=== PATIENT | male | born 1965 | race Caucasian/White ===

== ENCOUNTER 2018-11-04 08:19 | Emergency (ER) | payer OTHER ==
[2018-11-04] MEDS ORDERED: FENTANYL CITR 100 MCG/2 ML ONE (09:15)
[2018-11-04] MEDS ORDERED: NA CHLORIDE 0.9% 1,000 ML ONE (09:15)
[2018-11-04] MEDS ORDERED: ONDANSETRON 4 MG/2 ML VIAL ONE (09:15)
[2018-11-04 09:32] LABS: Absolute Lymphocytes (CBC) 1.9 K/uL (0.7-4.9); Absolute Monocytes 0.8 K/uL (0.1-1.3); Absolute Neutrophil 8.2 K/uL (1.8-8.0); Basophils % 0.3 % (0-1.3); Eosinophils % 1.4 % (0-4.4); Hematocrit 42.8 % (39.6-49.0); Lymphocytes % 17.1 % (15.3-44.8); MPV 7.4 fL (7.6-11.3); Monocytes % 7.1 % (3.3-12.3); RBC Red Blood Cell Count 4.75 M/uL (4.33-5.43)
[2018-11-04 09:44] LABS: Albumin 3.9 g/dL (3.4-5.0); Bilirubin Direct 0.2 mg/dL (0-0.2); Bilirubin Total 0.9 mg/dL (0.2-1.0); Potassium 4.2 mmol/L (3.5-5.1); Protein, Total 7.3 g/dL (6.4-8.2)
[2018-11-04 09:46] LABS: Urine Bacteria <20 /HPF (NONE SEEN); Urine Culture Reflex Order NOT NEEDED; Urine RBC <5 /HPF (NONE SEEN)
[2018-11-04 10:33] LABS: Urine Blood NEGATIVE (NEG); Urine Glucose NEGATIVE (NEG); Urine Protein NEGATIVE (NEG); Urine pH 6.5 (5.0-7.0)
--- NOTE | 2018-11-04 12:04 | RAD REPORT ---
EXAM DESCRIPTION: CT - Abdomen Pelvis W Contrast - 11/04/2018 11:43 am CLINICAL HISTORY: Abdominal pain. Diarrhea COMPARISON: None. TECHNIQUE: Computed axial tomography of the abdomen and pelvis was obtained. 100 cc Isovue-300 is ad ministered intravenously. Oral contrast was given. All CT scans are performed using dose optimization technique as appropriate and may include automated exposure control or mA/KV adjustment according to patient size. FINDINGS: Fatty liver The Spleen, pancreas, adrenals and kidneys appear unremarkable. The appendix is normal caliber. There is no evidence of diverticulitis Gas containing gallstones. Gallbladder wall does not appear thickened Small inguinal hernias contain fat IMPRESSION: Cholelithiasis
--- NOTE | 2018-11-04 12:22 | ER ---
Nurse's Notes [facility] Name: Gregg Nair Sr Age: 52 yrs Sex: Male : 1965 Arrival Date: 11/04/2018 Time: 08:21 Bed 19 Private MD: Juan José Turner Diagnosis: Other abdominal pain-left side Presentation: 11/04 08:33 Presenting complaint: Patient states: left sided abdominal pain x 2 days, diarrhea x 2 hb times today. Transition of care: patient was not received from another setting of care. Onset of symptoms was November 03, 2018. Risk Assessment: Do you want to hurt yourself or someone else? Patient reports no desire to harm self or others. Initial Sepsis Screen: Does the patient meet any 2 criteria? No. Patient's initial sepsis screen is negative. Does the patient have a suspected source of infection? No. Patient's initial sepsis screen is negative. Care prior to arrival: None. 08:33 Method Of Arrival: Ambulatory hb 08:33 Acuity: BRIAN 3 hb Historical: - Allergies: 08:35 No Known Allergies; hb - Home Meds: 08:35 [place]le Oral [Active]; hb - PMHx: 08:35 TBI; hb - PSHx: 08:35 BKA - RIGHT; Skull fx repair; chest wall repair; Shoulder - RIGHT; hb - Immunization history:: Adult Immunizations up to date. - Social history:: Smoking status: Patient/guardian denies using tobacco. - Ebola Screening: : No symptoms or risks identified at this time. Screenin:35 Abuse screen: Denies threats or abuse. Denies injuries from another. Nutritional hb screening: No deficits noted. Tuberculosis screening: No symptoms or risk factors identified. Fall Risk None identified. Assessment: 08:55 General: Appears in no apparent distress. uncomfortable, Behavior is calm, cooperative, em Denies fever. Pain: Complains of pain in abdomen Pain currently is 8 out of 10 on a pain scale. Pain began 1 day ago. Neuro: Level of Consciousness is awake, alert, obeys commands, Oriented to person, place, time, situation, Appropriate for age. Cardiovascular: Capillary refill < 3 seconds Patient's skin is warm and dry. Respiratory: Airway is patent Respiratory effort is even, unlabored, Respiratory pattern is regular, symmetrical. GI: Abdomen is flat, Bowel sounds present X 4 quads. Abd is soft X 4 quads Abdomen is tender to palpation in right lower quadrant and left lower quadrant Reports diarrhea, nausea. : Denies burning with urination. Derm: Skin is intact, is healthy with good turgor, Skin is pink, warm \T\ dry. Musculoskeletal: Capillary refill < 3 seconds, Range of motion: intact in all extremities. 09:02 Reassessment: I agree with previous assessment. hb 09:33 Reassessment: finished drinking PO contrast, CT dept. notified. em 09:47 Reassessment: Patient appears in no apparent distress at this time. Patient and/or em family updated on plan of care and expected duration. Pain level reassessed. Patient is alert, oriented x 3, equal unlabored respirations, skin warm/dry/pink. rates pain 5/10. 11:16 Reassessment: Patient appears in no apparent distress at this time. Patient and/or em family updated on plan of care and expected duration. Pain level reassessed. Patient is alert, oriented x 3, equal unlabored respirations, skin warm/dry/pink. pending CT. 12:01 Reassessment: reports pain is coming back, grimacing noted, rates 8/10, provider em notified, new medication orders received. Vital Signs: 08:32 BP 146 / 98; Pulse 80; Resp 16; Temp 99; Pulse Ox 100% on R/A; Pain 8/10; hb 10:10 BP 121 / 82; Pulse 70; Resp 18; Pulse Ox 99% on R/A; Pain 5/10; em 11:00 BP 122 / 82; Pulse 76; Resp 18; Pulse Ox 98% on R/A; Pain 8/10; em 12:31 BP 108 / 75; Pulse 73; Resp 16; Pulse Ox 97% on R/A; Pain 5/10; em ED Course: 08:21 Patient arrived in ED. mr 08:21 Juan José Turner MD is Private Physician. mr 08:31 Kirill Art LVN is Primary Nurse. em 08:33 Conner Garcia PA is PHCP. cp 08:33 Conner Michel MD is Attending Physician. cp 08:33 Arm band placed on. hb 08:34 Triage completed. hb 08:55 Patient has correct armband on for positive identification. Bed in low position. Call em light in reach. Adult w/ patient. Pulse ox on. NIBP on. 09:15 Initial lab(s) drawn, by me, sent to lab. Inserted saline lock: 22 gauge forearm, using em aseptic technique. Blood collected. 09:37 Urine collected: urinal, cameron color. 3 11:43 CT Abd/Pelvis - W/Contrast: give oral contrast In Process Unspecified. EDMS 12:37 No provider procedures requiring assistance completed. IV discontinued, intact, em bleeding controlled, No redness/swelling at site. Pressure dressing applied. Administered Medications: 09:21 Drug: NS 0.9% 1000 ml Route: IV; Rate: 1 bolus; Site: right forearm; hb 11:18 Follow up: IV Status: Completed infusion; IV Intake: 1000ml em 09:21 Drug: fentaNYL (PF) 25 mcg Route: IVP; Site: right forearm; hb 10:00 Follow up: Response: No adverse reaction; Pain is decreased em 09:21 Drug: Zofran 4 mg Route: IVP; Site: right forearm; hb 10:00 Follow up: Response: No adverse reaction; Nausea is decreased em 12:03 Drug: fentaNYL (PF) 25 mcg Route: IVP; Site: right forearm; em 12:36 Follow up: Response: No adverse reaction; Pain is decreased em 12:36 Drug: Bentyl 20 mg Route: PO; em 12:36 Follow up: Response: Medication administered at discharge. em Intake: 11:18 IV: 1000ml; Total: 1000ml. em Outcome: 12:21 Discharge ordered by . cp 12:37 Discharged to home ambulatory, with family. em 12:37 Condition: good 12:37 Discharge instructions given to patient, family, Instructed on discharge instructions, follow up and referral plans. medication usage, Demonstrated understanding of instructions, follow-up care, medications, Prescriptions given X 2. 12:41 Patient left the ED. em Signatures: Dispatcher [employer] Halle Russ RubensKirill, MEDICAL TECHNOLOGIST CHEMISTRY MEDICAL TECHNOLOGIST CHEMISTRY em Conner Garcia PA PA cp Baxter, Heather, THEA RN Davina Pruitt [facility]
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
[2018-11-04] MEDS ORDERED: DICYCLOMINE HCL 10 MG CAP ONE (12:40)
== END 2018-11-04 12:41 | disposition home or self-care (01) ==
LOC: ER 08:19
DX: R10.9 Unspecified abdominal pain (principal); Z87.820 Personal history of traumatic brain injury
CPT/HCPCS: 96361; 85025; 80048; 36415; 83735; 80076; 83690; 74177; 96375; 96374; 99284; Q9967; J3010; J7030; J2405; 81003; 81015

== ENCOUNTER 2019-09-05 21:46 | Emergency (ER) | payer OTHER, SELFPAY ==
[2019-09-05] MEDS ORDERED: HYDROCODONE/APAP 7.5/325 MG TAB ONE (23:13)
[2019-09-05 23:41] LABS: Absolute Lymphocytes (CBC) 2.6 K/uL (0.7-4.9); Basophils % 0.5 % (0-1.3); Hematocrit 42.6 % (39.6-49.0); Lymphocytes % 33.5 % (15.3-44.8); MPV 7.2 fL (7.6-11.3); RBC Red Blood Cell Count 4.71 M/uL (4.33-5.43)
[2019-09-05 23:58] LABS: Potassium 3.8 mmol/L (3.5-5.1)
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
[2019-09-06] MEDS ORDERED: methocarbamoL 500 MG TAB ONE (02:02)
[2019-09-06 02:29] VITALS: TEMP 98.2
[2019-09-06 02:33] VITALS: BP 134/95; O2SAT 97
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
== END 2019-09-06 02:11 | disposition home or self-care (01) ==
LOC: ER 21:46
DX: M62.830 Muscle spasm of back (principal); M54.2 Cervicalgia; M25.511 Pain in right shoulder; V59.49XA Driver of pick-up truck or van injured in collision with other motor vehicles in traffic accident, initial encounter; Z88.7 Allergy status to serum and vaccine
CPT/HCPCS: 36415; 70450; 71260; 72125; 74177; 80048; 85025; 86850; 86900; 86901; 99284; Q9967

== ENCOUNTER 2020-01-02 18:17 | Emergency (ER) | payer OTHER, SELFPAY ==
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
[2020-01-02] MEDS ORDERED: FENTANYL CITR 100 MCG/2 ML ONE (20:20)
[2020-01-02 20:32] LABS: Potassium 4.5 mmol/L (3.5-5.1)
[2020-01-02 20:46] LABS: Absolute Lymphocytes (CBC) 2.5 K/uL (0.7-4.9); Basophils % 0.4 % (0-1.3); Hematocrit 41.5 % (39.6-49.0); MPV 7.5 fL (7.6-11.3); RBC Red Blood Cell Count 4.39 M/uL (4.33-5.43)
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
[2020-01-02 22:40] VITALS: O2SAT 100
[2020-01-02 22:42] VITALS: TEMP 98.6
[2020-01-02 22:43] VITALS: BP 149/90
== END 2020-01-02 22:09 | disposition home or self-care (01) ==
LOC: ER 18:17
DX: S13.4XXA Sprain of ligaments of cervical spine, initial encounter (principal); S20.219A Contusion of unspecified front wall of thorax, initial encounter; V59.40XA Driver of pick-up truck or van injured in collision with unspecified motor vehicles in traffic accident, initial encounter; Z88.7 Allergy status to serum and vaccine
CPT/HCPCS: 36415; 70450; 71250; 72125; 80048; 85025; 96374; 99284; J3010

== ENCOUNTER 2021-10-25 15:59 | Emergency (ER) | payer OTHER ==
--- OUTSIDE RECORDS SUMMARY | 2021-10-25 16:04 | XMS REPORT | Continuity of Care Document ---
:1965 Author Organization [facility] t Address [address] [place] [address] Care Team Providers Name Role Phone Pcp, Does Not Have A Primary Care Physician DONG, A Attending Clinician Unavailable Therapy, Covid Infusion Attending Clinician Unavailable Dong MEJIA, Arlette Attending Clinician Doctor Unassigned, Name Attending Clinician Unavailable Payers Payer Name Policy Type Policy Number Effective Date Expiration Date S ource [place]ICAID [place] [id number] 2016 00:00:00 [id number] 2012 Univers ity of -PresentP 00:00:00 [facility] [address] [id number] [employer] [id number] 2016 00:00:00 Problems Condition Condition Condition Status Onset Resolution Last Treating Co mments Source Name Details Category Date Date Treatment Clinician Date 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 Pain in Pain in Disease Active Univers joint, joint, 19 ity of shoulder shoulder 00:00: [place] region region 00 Medical Branch Other Other Disease Active Univers general general 2-19 ity of symptoms(7 symptoms[place]7 [place] 80.99[place] 80.99[place] 00 [facility] Extremity Extremity Disease Active Uni vers pain pain -19 ity of 00:00: [address] Allergies, Adverse Reactions, Alerts Allergy Allergy Status Severity Reaction(s) Onset Inactive Treating Comm ents Source Name Type Date Date Clinician NO KNOWN Drug Active Univers ALLERGIE Class ity of S [facility] Social History Social Habit Start Date Stop Date Quantity Comments Source Tobacco use and 2015-03-03 2015-03-03 Never used Universit y of exposure 00:00:00 00:00:00 [facility] Alcohol intake 2015-03-03 2015-03-03 University of 00:00:00 00:00:00 [facility] Tobacco Comment 2013-06-27 2013-06-27 Pt thinks he [facility] ity of 00:00:00 00:00:00 smoked but has no [facility] memory of how Branch many cigs nor how long. History of 1988-07-24 [facility]igarette [facility] use 00:00:00 [facility] Sex Ass[birth year] At [birth year] Universit y of 00:00:00 00:00:00 [facility] Smoking Status Start Date Stop Date Source Former smoker 2015-03-03 00:00:00 2015-03-03 00:00:00 [facility] Medications Ordered Filled Start Stop Current Ordering Indication Dosage Frequency Signature Comments Components Source Medication Medication Date Date Medication? Clinician (SIG) Name Name casirivimab 2020- No [id number] 1200mg 1,200 mg, Univers -imdevimab 03-11 IV ity of 1200 mg in 23:00: 22:21 Infusion, [place] 60 mL NS 00 :00 ONCE, Medical MINI-BAG Administer Branc h over 20 Minutes, Donna 03/11/21 at 1800, For 1 dose
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 Stable 36 hours refrigerat ed; 4 hours at room temperatur e.
methocarbam Yes 500mg Take 1 Tab Univers ol 7-29 by mouth 4 ity of (ROBAXIN) 00:00: (four) [place] 500 mg 00 times Medical tablet daily. Branch methocarbam Yes 500mg Take 1 Tab Univers ol 7-29 by mouth 4 ity of (ROBAXIN) 00:00: (four) [place] 500 mg 00 times Medical tablet daily. Branch nortriptyli Yes 75mg Take 1 Cap Univers ne 1-14 by mouth ity of (PAMELOR) 00:00: at [place] 75 mg 00 bedtime. Medical capsule Branch nortriptyli Yes 75mg Take 1 Cap Univers ne 1-14 by mouth ity of (PAMELOR) 00:00: at [place] 75 mg 00 bedtime. Medical capsule Branch acetaminoph 2012-07 Yes 1{tbl} Univ ers en-codeine 2-12 ity of (TYLENOL 16:43: [place] #3) 300-30 26 Medical mg tablet 1 Branch Tab acetaminoph 2012-07 Yes 1{tbl} Univ ers en-codeine 2-12 ity of (TYLENOL 16:43: [place] #3) 300-30 26 Medical mg tablet 1 Branch Tab acetaminoph 2012-07 Yes [id number] 1{tbl} Take 1 Tab Univers en-codeine 2-02 by mouth ity o f (TYLENOL-CO 00:00: every 4 Jar[place] as DEINE #3) 00 (four) Medical 300-30 mg hours as Branch tablet needed for Pain. acetaminoph 2012-07 Yes [id number] 1{tbl} Take 1 Tab Univers en-codeine 2-02 by mouth ity o f (TYLENOL-CO 00:00: every 4 [place] as DEINE #3) 00 (four) Medical 300-30 mg hours as Branch tablet needed for Pain. traMADOL Yes 50mg Take 1 Tab Uni vers (ULTRAM) 50 5-21 by mouth ity of mg tablet 00:00: every 6 [place] 00 (six) Medical hours as Branch needed for Pain. traMADOL 2012-0 Yes 50mg Take 1 Tab Uni vers (ULTRAM) 50 5-21 by mouth ity of mg tablet 00:00: every 6 [place] 00 (six) Medical hours as Branch needed for Pain. triamcinolo Yes Apply to [facility] ne 1-08 area(s) 2 ity of acetonide 00:00: (two) [place] (TRIDERM) 00 times Medical 0.1 % cream daily. Branch triamcinolo 2013- Yes [facility] 07[facility] area(s) 2 ity of acetonide 00:00: (two) [place] (TRIDERM) 00 times Medical 0.1 % cream daily. Branch Vital Signs Vital Name Observation Time Observation Value Comments Source Systolic blood 2021-03-11 21:58:00 145 mm[Hg] Univer sity [facility] Diastolic blood 2021-03-11 21:58:00 86 mm[Hg] [facility] Heart rate 2021-03-11 21:58:00 80 /min [facility] Body temperature 2021-03-11 21:58:00 37.39 [facility]ili [facility] [place] Respiratory rate 2021-03-11 21:58:00 20 /min [facility] [place] Body height 2021-03-11 21:58:00 190.5 cm [facility] Body weight 2021-03-11 21:58:00 104.327 kg [facility] BMI 2021-03-11 21:58:00 28.75 kg/m2 [facility] Oxygen saturation in 2021-03-11 21:58:00 96 /min [facility] Arterial blood by [facility] Pulse oximetry Branch Procedures Procedure Date / Time Performed Performing Clinician [facility] e CONSENT/REFUSAL FOR 2021-03-11 05:01:00 Doctor Unassigned, No Un [facility] DIAGNOSIS AND Name [facility] TREATMENT Encounters Start End Encounter Admission Attending Care Care Encounter Source Date/Time Date/Time Type Type Clinicians Facility Department ID 2021-03-11 2021-03-11 Outpatient Leo UMANA TNSAL [facility] [id number] Univers 15:30:00 15:30:00 JOSE MARTIN burton [facility] 2021-03-11 2021-03-11 Nurse Therapy, Adc Covid Infusion [facility] [id number] Univers 14:19:37 15:19:37 Visit Jose Martin U[place] [id number] [place] [id number] [place] [facility] [id number] [facility] 053 Branch 2021-03-11 2021-03-11 Orders Doctor KLEBER [id number] Univers 00:00:00 00:00:00 Only Unassigned, ANGEL [id number] ity of [place] [facility] [id number] Jarod as [id number] [facility] 009 Branch 2020-05-13 2020-05-13 Emergency X [facility] ERT [id number] Univers 19:41:00 19:41:00 ity of [facility] Results This patient has no known results.
[2021-10-25 18:13] LABS: Absolute Lymphocytes (CBC) 1.7 K/uL (0.7-4.9); Hematocrit 41.2 % (39.6-49.0); Lymphocytes % 29.7 % (15.3-44.8); MPV 6.8 fL (7.6-11.3); RBC Red Blood Cell Count 4.29 M/uL (4.33-5.43)
[2021-10-25 18:26] LABS: ALT/SGPT 21 U/L (12-78); AST/SGOT 23 U/L (15-37); Albumin 3.7 g/dL (3.4-5.0); Alkaline Phosphatase 64 U/L (45-117); BUN Blood Urea Nitrogen 14 mg/dL (7-18); Bicarbonate 28 mmol/L (21-32); Bilirubin Total 0.5 mg/dL (0.2-1.0); Glucose Level 138 mg/dL (74-106); Lipase 193 U/L (73-393); Potassium 3.9 mmol/L (3.5-5.1); Protein, Total 6.7 g/dL (6.4-8.2); Sodium Level 138 mmol/L (136-145)
--- NOTE | 2021-10-25 18:59 | RAD REPORT ---
EXAM DESCRIPTION: CTAbdomen Pelvis W Contrast - 10/25/2021 6:49 pm CLINICAL HISTORY: Abdominal pain. ABD PAIN COMPARISON: Abdomen Pelvis W Contrast dated 11/04/2018 TECHNIQUE: Biphasic CT imaging of the abdomen and pelvis was performed with 100 ml non-ionic IV cont rast. All CT scans are performed using dose optimization technique as appropriate and may include automated exposure control or mA/KV adjustment according to patient size. FINDINGS: The lung bases are clear. The liver, spleen, pancreas, adrenal glands and kidneys are within normal limits. Extensive cholelith iasis. No bowel obstruction, free air, free fluid or abscess. Moderate retention of stool throughout the col on with colonic diverticulosis noted. The appendix is normal. No evidence of significant lymphadenop athy. No suspicious bony findings. IMPRESSION: Extensive colonic diverticulosis is seen without diverticulitis. Cholelithiasis.
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
--- NOTE | 2021-10-25 19:20 | EDPHYS ---
Physician Documentation [facility] Name: Gregg Nair Sr Age: 55 yrs Sex: Male : 1965 Arrival Date: 10/25/2021 Time: 16:03 Bed 13 Private MD: ED Physician Mayo Diallo HPI: 10/25 17:23 This 55 yrs old Male presents to ER via Ambulatory with complaints of Abdominal Pain, jmm Vomiting/Diarrhea. 17:23 The patient presents with abdominal pain. Onset: The symptoms/episode began/occurred 3 jmm day(s) ago. The symptoms do not radiate. Associated signs and symptoms: Pertinent positives: nausea and vomiting, diarrhea. The symptoms are described as achy. This is a 55 year old male with a history of tbi that presents to the ED with complaints of abdominal pain, vomiting, beginning this past weekend. This morning patient had a diarrhea like bowel movement. Patient states he s/p colonoscopy. Can not recall exact date. Vomiting increased just med asst. . 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 Flu vaccine is not up to date. - Social history:: Smoking status: Patient/guardian denies using tobacco, but has a distant history of tobacco abuse. ROS: 17:23 Constitutional: Negative for fever, chills, and weight loss, Cardiovascular: Negative jmm for chest pain, palpitations, and edema, Respiratory: Negative for shortness of breath, cough, wheezing, and pleuritic chest pain. 17:23 Abdomen/GI: Positive for abdominal pain, nausea and vomiting, diarrhea. 17:23 All other systems are negative. Exam: 17:23 Constitutional: This is a well developed, well nourished patient who is awake, alert, jmm and in no acute distress. Head/Face: atraumatic. Eyes: EOMI, no conjunctival erythema appreciated ENT: Moist Mucus Membranes Neck: Trachea midline, Supple Chest/axilla: Normal chest wall appearance and motion. Cardiovascular: Regular rate and rhythm. No edema appreciated Respiratory: Normal respirations, no respiratory distress appreciated 17:23 Back: Normal ROM Skin: General appearance color normal MS/ Extremity: Moves all extremities, no obvious deformities appreciated, no edema noted to the lower extremities Neuro: Awake and alert Psych: Behavior is normal, Mood is normal, Patient is cooperative and pleasant 17:23 Abdomen/GI: Inspection: abdomen appears normal, Bowel sounds: normal, Palpation: soft, mild abdominal tenderness, in the right upper quadrant, left upper quadrant and left lower quadrant. Vital Signs: 16:31 BP 148 / 85; Pulse 55; Resp 18 S; Temp 97.3(TE); Pulse Ox 99% on R/A; Weight 95.25 kg jd3 (R); Height 6 ft. 3 in. (190.50 cm) (R); Pain 8/10; 16:31 Body Mass Index 26.25 (95.25 kg, 190.50 cm) jd3 MDM: 17:23 Patient medically screened. [facility] 19:18 Data reviewed: vital signs, nurses notes. Counseling: I had a detailed discussion with [facility] the patient and/or guardian regarding: the historical points, exam findings, and any diagnostic results supporting the discharge/admit diagnosis, lab results, radiology results, the need for outpatient follow up, to return to the emergency department if symptoms worsen or persist or if there are any questions or concerns that arise at home. 10/25 17:24 Order name: CBC with Diff; Complete Time: 18:16 [facility] 10/25 17:24 Order name: CMP; Complete Time: 18:39 [facility] 10/25 17:24 Order name: Lipase; Complete Time: 18:39 [facility] 10/25 17:24 Order name: CT Abd/Pelvis - IV Contrast Only; Complete Time: 18:59 [facility] 10/25 17:24 Order name: IV Saline Lock; Complete Time: 18:25 [facility] 10/25 17:24 Order name: Labs collected and sent; Complete Time: 18:25 [facility] Administered Medications: 19:45 Not Given (Patient Refused): NS 0.9% 1000 ml IV at 1 bolus Per protocol; 1000 mL bolus sm5 19:45 Not Given (Patient Refused): Zofran (Ondansetron) 4 mg IVP once; over 2 minutes sm5 Disposition Summary: 10/25/21 19:19 Discharge Ordered Location: Home [facility] Condition: Stable [facility] Diagnosis - Other abdominal pain jmm - Other cholelithiasis without obstruction [facility] Followup: [facility] - With: Yoni Renee MD - When: 2 - 3 days - Reason: Recheck today's complaints, Continuance of care, Re-evaluation by your physician Discharge Instructions: - Discharge Summary Sheet jmm - Abdominal Pain, Adult jm - Cholelithiasis [facility] Forms: - Medication Reconciliation Form [facility] - Thank You Letter [facility] - Antibiotic Education [facility] - Prescription Opioid Use [facility] Prescriptions: - ondansetron 4 mg Oral tablet,disintegrating - take 1 tablet by ORAL route every 4-6 hours; 20 tablet; Refills: 0, Product [facility] Selection Permitted - Pepcid 20 mg Oral Tablet - take 1 tablet by ORAL route every 12 hours for 10 days; 20 tablet; Refills: 0, [facility] Product Selection Permitted - dicyclomine 20 mg Oral Tablet - take 1 tablet by ORAL route 3 times per day; 30 tablet; Refills: 0, Product [facility] Selection Permitted Signatures: Dispatcher [employer] Clifford Carter PA PA jmm Davies, Jonathon RN RN jd3 Kathy Reilly RN sm5
[2021-10-25] MEDS ORDERED: ONDANSETRON 4 MG/2 ML VIAL ONE (19:40)
[2021-10-25] MEDS ORDERED: NA CHLORIDE 0.9% 1,000 ML ONE (19:40)
[2021-10-25 22:23] VITALS: BP 148/85; TEMP 97.3; O2SAT 99
== END 2021-10-25 19:46 | disposition home or self-care (01) ==
LOC: ER 15:59
DX: K80.80 Other cholelithiasis without obstruction (principal); Z98.890 Other specified postprocedural states; Z88.7 Allergy status to serum and vaccine; Z87.820 Personal history of traumatic brain injury
CPT/HCPCS: 85025; 36415; 83690; 80053; 74177; Q9967; J7030; J2405; 99284

== ENCOUNTER 2021-11-09 17:37 | Emergency (ER) | payer OTHER ==
--- OUTSIDE RECORDS SUMMARY | 2021-11-09 17:39 | XMS REPORT | Continuity of Care Document ---
:1965 Author Organization [facility] t Address [address] [place] [address] Care Team Providers Name Role Phone Pcp, Does Not Have A Primary Care Physician DONG, A Attending Clinician Unavailable Therapy, Covid Infusion Attending Clinician Unavailable Dong MEJIA, A Attending Clinician Doctor Unassigned, Name Attending Clinician Unavailable Payers Payer Name Policy Type Policy Number Effective Date Expiration Date S ource [place]ICAID [place] [id number] 2016 00:00:00 [id number] 2012 Univers ity of -PresentP 00:00:00 [facility] O [address] Branch [address] [place] [address] [id number] [employer] [id number] 2016 00:00:00 Problems Condition Condition Condition Status Onset Resolution Last Treating Co mments Source Name Details Category Date Date Treatment Clinician Date 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 ICD10 Diagnosis Term Block Captain Utility Pain in Pain in Disease Active Univers joint, joint, 09-04 ity of shoulder shoulder 00:00: [place] [facility] 00 Medical Branch Other Other Disease Active 2010-0 Univers general general 2-19 ity of symptoms(7 symptoms(7 [place] 80.99[place] 80.99[place] 00 [facility] Extremity Extremity Disease Active Uni vers pain pain 2-19 ity of 00:00: [place] 00 [facility] Allergies, Adverse Reactions, Alerts Allergy Allergy Status Severity Reaction(s) Onset Inactive Treating Comm ents Source Name Type Date Date Clinician NO KNOWN Drug Active Univers ALLERGIE Class ity of S [facility] Social History Social Habit Start Date Stop Date Quantity Comments Source Tobacco use and 2015-03-03 2015-03-03 Never used Universit y of exposure 00:00:00 00:00:00 [facility] Alcohol intake 2015-03-03 2015-03-03 University of 00:00:00 00:00:00 [facility] Tobacco Comment 2013-06-27 2013-06-27 Pt thinks he Univers ity of 00:00:00 00:00:00 smoked but has no [facility] memory of how Branch many cigs nor how long. History of 1988-07-24 Cigarette Smoker Universi ty of tobacco use 00:00:00 [facility] Sex Assigned At [birth year] Universit y of 00:00:00 00:00:00 [facility] Smoking Status Start Date Stop Date Source Former smoker 2015-03-03 00:00:00 2015-03-03 00:00:00 [facility] acute hospital Medications Ordered Filled Start Stop Current Ordering Indication Dosage Frequency Signature Comments Components Source Medication Medication Date Date Medication? Clinician (SIG) Name Name casirivimab 2020- No [id number] 1200mg 1,200 mg, Univers -imdevimab 03-11 IV ity of 1200 mg in 23:00: 22:21 Infusion, [place] 60 mL NS 00 :00 ONCE, Medical MINI-BAG Administer Branc h over 20 Minutes, Donna 03/11/21 at 1800, For 1 dose
Ad oil rag washer as an IV infusion via pump or gravity through an intravenou s line containing a sterile, in-line or add-on 0.2-micron polyethers ulfone (PES) filter. Stable 36 hours refrigerat ed; 4 hours at room temperatur e.
methocarbam 2014-0 Yes 500mg Take 1 Tab Univers ol [...] tablet 1 Branch Tab acetaminoph 2012-07 Yes [id number] 1{tbl} Take 1 Tab Univers en-codeine 2-02 by mouth ity o f (TYLENOL-CO 00:00: every 4 Jarod as DEINE #3) 00 (four) Medical 300-30 mg hours as Branch tablet needed for Pain. acetaminoph 2012-07 Yes [id number] 1{tbl} Take 1 Tab Univers en-codeine 2-02 by mouth ity o f (TYLENOL-CO 00:00: every 4 [place] as DEINE #3) 00 (four) Medical 300-30 mg hours as Branch tablet needed for Pain. traMADOL Yes 50mg Take 1 Tab Uni vers (ULTRAM) 50 5-21 by mouth ity of mg tablet 00:00: every 6 [place] 00 (six) Medical hours as Branch needed for Pain. traMADOL 0 Yes 50mg Take 1 Tab Uni vers (ULTRAM) 50 5-21 by mouth ity of mg tablet 00:00: every 6 [place] 00 (six) Medical hours as Branch needed for Pain. triamcinolo Yes Apply to [facility] [place] [facility] ne 1-08 area(s) 2 ity of acetonide 00:00: (two) [place] (TRIDERM) 00 times Medical 0.1 % cream daily. Branch triamcinolo 2012- Yes [facility] 07[facility] area(s) 2 ity of acetonide 00:00: (two) [place] (TRIDERM) 00 times Medical 0.1 % cream daily. Branch Vital Signs Vital Name Observation Time Observation Value Comments Source Systolic blood 2021-03-11 21:58:00 145 mm[Hg] [facility] Diastolic blood 2021-03-11 21:58:00 86 mm[Hg] [facility] 2021-03-11 21:58:00 80 /min General acute hospital Body temperature 2021-03-11 21:58:00 37.39 [facility] Respiratory rate 2021-03-11 21:58:00 20 /min [facility] height 2021-03-11 21:58:00 190.5 cm General acute hospital Body weight 2021-03-11 21:58:00 104.327 kg General acute hospital BMI 2021-03-11 21:58:00 28.75 kg/m2 General acute hospital Oxygen saturation in 2021-03-11 21:58:00 96 /min [facility] blood by [facility] Pulse oximetry [place] Procedures Procedure Date / Time Performed Performing Clinician [facility] e CONSENT/REFUSAL FOR 2021-03-11 05:01:00 Doctor Unassigned, No Un [facility] DIAGNOSIS AND Name [facility] TREATMENT Encounters Start End Encounter Admission Attending Care Care Encounter Source Date/Time Date/Time Type Type Clinicians Facility Department ID 2021-03-11 2021-03-11 Outpatient Leo UMANA [facility] [id number] Univers 15:30:00 15:30:00 JOSE MARTIN [facility] 2021-03-11 2021-03-11 Nurse Therapy, Adc Covid Infusion [facility] [id number] Univers 14:19:37 15:19:37 Visit Jose Martin Umana [id number] [place] [id number] [place] [facility] [id number] [facility] 053 Branch 2021-03-11 2021-03-11 Orders Doctor KLEBER [id number] Univers 00:00:00 00:00:00 Only Unassigned, ANGEL [id number] ity of [place] [facility] [id number] Jarod as [id number] [facility] 009 Branch 2020-05-13 2020-05-13 Emergency X [facility] ERT [id number] Univers 19:41:00 19:41:00 ity of [facility] Results This patient has no known results.
[2021-11-09] MEDS ORDERED: MORPHINE 4 MG/ML SYR ONE (18:18)
[2021-11-09] MEDS ORDERED: ONDANSETRON 4 MG (ODT) TAB ONE (18:19)
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
--- NOTE | 2021-11-09 18:45 | RAD REPORT ---
EXAM DESCRIPTION: CT - Thoracic Spine W/o Cont - 11/09/2021 6:29 pm CLINICAL HISTORY: Radiculopathy. Back trauma, no prior imaging COMPARISON: Head C Spine Mpr Wo Con dated 01/02/2020; Thorax Wo Con dated 01/02/2020 TECHNIQUE: Axial CT imaging through the thoracic spine was performed with coronal and sagittal re-fo rmatted images. All CT scans are performed using dose optimization technique as appropriate and may include automated exposure control or mA/KV adjustment according to patient size. FINDINGS: Vertebral body heights and disc spaces are maintained. Mild T7 compression deformity with approximately 20% loss of height. Slight T6 compression deformity. No discrete fracture line is ident ified. These are unchanged since . No significant disc space narrowing. Thoracic spine alignment is within normal limits. No paraspinal masses or hematoma. Intervertebral disc detail is inherently limited on CT without gross findings of canal compromise. IMPRESSION: No fracture or traumatic malalignment of the thoracic spine is identified
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
[2021-11-09] MEDS ORDERED: KETOROLAC 30 MG/ML INJ ONE (19:29)
[2021-11-09 23:06] VITALS: TEMP 99.1; O2SAT 99
[2021-11-09 23:08] VITALS: BP 154/85
== END 2021-11-09 19:41 | disposition home or self-care (01) ==
LOC: ER 17:37
DX: S16.1XXA Strain of muscle, fascia and tendon at neck level, initial encounter (principal); S29.012A Strain of muscle and tendon of back wall of thorax, initial encounter; V49.49XA Driver injured in collision with other motor vehicles in traffic accident, initial encounter; Z87.820 Personal history of traumatic brain injury; Z88.7 Allergy status to serum and vaccine
CPT/HCPCS: 70450; 72125; 72128; 96372; 99284

== ENCOUNTER 2022-05-05 01:33 | Emergency (ER) | payer OTHER ==
--- OUTSIDE RECORDS SUMMARY | 2022-05-05 01:36 | XMS REPORT | Continuity of Care Document ---
:1965 Author Organization [facility] t Address [address] [place] [address] Care Team Providers Name Role Phone Pcp, Patient Does Not Have A Primary Care Physician +[id number] Bernardo Bonner Attending Clinician JOSE MARTIN UMANA Attending Clinician Unavailable Therapy, Adc Covid Infusion Attending Clinician Unavailable Jose Martin Umana MD Attending Clinician Doctor Unassigned, [place] Attending Clinician Unavailable Gino Nunez Attending Clinician Mayuri Winchester Attending Clinician Payers Payer Name Policy Type Policy Number Effective Date Expiration Date S ource MEDICAID OF [place] [id number] 2016 00:00:00 [id number] 2012 [facility] ity -Present 00:00:00 [facility] [place] [facility] dical [address] [id number] AMERIVANTAGE [id number] 2016 00:00:00 Problems Condition Condition Condition Status Onset Resolution Last Treating Co mments Source Name Details Category Date Date Treatment Clinician Date CT CT Diagnosis Active 2015-072016-05-24 Mem oria Active 10:09:00 l 05/16/2016 00:00: [place] PARADA [facility] 00 EVAL EVAL Diagnosis Active 2016-05-16 Mem oria Active 03-24 08:40:00 l 03/24/2016 00:00: [place]wood PARADA [facility] 00 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 Pain in Pain in Disease Active Univers joint, joint, 2-19 ity of shoulder shoulder 00:00: [place] region region 00 Medical Branch Other Other Disease Active Univers general general 2-19 ity of symptoms(7 symptoms(7 [place] 80.99[place] 80.99[place] 00 Medical Branch Extremity Extremity Disease Active Uni vers pain pain 2-19 ity of 00:00: [place] 00 Medical Branch Fracture Fracture Problem Resolve 2016-05-27 Memoria of of d 02:02:31 l clavicle clavicle Dawood paez (disorder) (disorder) Resolved Problem 05/27/2016 [facility] Chronic Chronic Problem Active 2016-05-27 Oh ryan hepatitis hepatitis 02:02:31 l C C [facility] (disorder) (disorder) Active Problem 05/27/2016 [facility] History of History Problem Active 2016-05-27 Memoria amputation of 02:02:31 l of leg amputation Dawood paez through of leg tibia and through fibula tibia and (situation fibula ) (situation ) Active Problem 05/27/2016 [facility] History of History Problem Active 2022-05-01 Memoria polyp of of polyp 22:54:24 l colon of colon [facility] (situation (situation ) ) Active Problem 05/01/2022 [facility] her Neuro Obesity Obesity Problem Active 2022-05-01 Me moria (disorder) (disorder) 22:54:24 l Active [facility] Problem 05/01/2022 [facility] her Neuro, [facility] Traumatic Traumatic Problem Active 2022-05-01 Memoria brain brain 22:54:24 l injury injury [facility] (disorder) (disorder) Active Problem 05/01/2022 [facility] her Neuro, [facility] INTCRAN INTCRAN Diagnosis Active 2016-05-24 Memoria INJ W/O INJ W/O 10:09:00 l LOSS OF LOSS OF [place] CONSCIOUSN CONSCIOUSN ESS, I ESS, I Active [facility] Viral Viral Problem Resolve 2016-2018-10-23 2018-10-23 Memoria hepatitis hepatitis d 1-11 14:45:24 14:45:24 l C C 00:00: [facility] (disorder) (disorder) 00 Resolved 07/27/2016 Problem 10/23/2018 Medical Group, [facility] Allergies, Adverse Reactions, Alerts Allergy Allergy Status Severity Reaction(s) Onset Inactive Treating Comm ents Source Name Type Date Date Clinician NO KNOWN Drug Active Univers ALLERGIE Class ity of S [facility] Social History Social Habit Start Date Stop Date Quantity Comments Source Social History 2018-04-02 2018-04-02 [facility] henrique 18:19:44 18:19:44 Tobacco use and 2015-03-03 2015-03-03 Never used Universit y of exposure 00:00:00 00:00:00 [facility] Alcohol intake 2015-03-03 2015-03-03 University of 00:00:00 00:00:00 [facility] Tobacco Comment 2013-06-27 2013-06-27 Pt thinks he Univers ity of 00:00:00 00:00:00 smoked but has no [facility] edical memory of how Branch many cigs nor how long. History of 1988-07-24 Cigarette Smoker Universi ty of tobacco use 00:00:00 [facility] Sex Assigned At [birth year] Universit y of 00:00:00 00:00:00 [facility] Smoking Status Start Date Stop Date Source Tobacco smoking status 2018-04-02 18:19:38 2018-04-02 18:19:38 M munir Wall Medications Ordered Filled Start Stop Current Ordering Indication Dosage Frequency Signature Comments Components Source Medication Medication Date Date Medication? Clinician (SIG) Name Name casirivimab 202- No [id number] 1200mg 1,200 mg, Univers -imdevimab 03-11 IV ity of 1200 mg in 23:00: 22:21 Infusion, [place] 60 mL NS 00 :00 ONCE, Medical MINI-BAG Administer Branc h over 20 Minutes, Donna 03/11/21 at 1800, For 1 dose
Ad oracle application consultant as an IV infusion via pump or gravity through an intravenou s line containing a sterile, in-line or add-on 0.2-micron polyethers ulfone (PES) filter. Stable 36 hours refrigerat ed; 4 hours at room temperatur e.
dicyclomine 2017-0 Yes 10 mg = 1 M emoria 10 mg oral 9-19 cap, PO, l capsule 20:46: QID-Before Herm shari 00 Meals, as needed for abdominal pain, # 60 cap, 1 Refill(s), Pharmacy: [id number] rifaximin 2017- Yes 550 mg = 1 Me moria 550 MG Oral 9-17 tab, PO, l Tablet 18:34: TID, # 42 Dawood n [XIFAXAN] 00 tab, 0 Refill(s), Pharmacy: [id number] Xifaxan 550 2017-0 Yes 550 mg = 1 Memoria mg oral 9-17 tab, PO, l tablet 18:34: TID, # 42 [place]wood n 00 tab, 0 Refill(s), Pharmacy: [id number] [place] 0 Yes 1 tab, PO, Memori a 7.5/325 5-08 Q6H, 0 l oral tablet 18:06: Refill(s) H ermann methocarbam 2013-0 Yes 500mg Take 1 Tab Univers ol 7-29 by mouth 4 ity of (ROBAXIN) 00:00: (four) [place] 500 mg 00 times Medical tablet daily. Branch methocarbam 2013-0 Yes 500mg Take 1 Tab Univers ol 7-29 by mouth 4 ity of (ROBAXIN) 00:00: (four) [place] 500 mg 00 times Medical tablet daily. Branch nortriptyli 2013-0 Yes 75mg Take 1 Cap Univers ne 1-14 by mouth ity of (PAMELOR) 00:00: at [place] 75 mg 00 bedtime. Medical capsule Branch nortriptyli 0 Yes 75mg Take 1 Cap Univers ne [...] tablet 1 Branch Tab acetaminoph 2012-07 Yes [id number] 1{tbl} Take 1 Tab Univers en-codeine 2-02 by mouth ity o f (TYLENOL-CO 00:00: every 4 Jarod as DEINE #3) 00 (four) Medical 300-30 mg hours as Branch tablet needed for Pain. acetaminoph 2012-07 Yes [id number] 1{tbl} Take 1 Tab Univers en-codeine 2-02 by mouth ity o f (TYLENOL-CO 00:00: every 4 Jarod as DEINE #3) 00 (four) Medical 300-30 mg hours as Branch tablet needed for Pain. traMADOL Yes 50mg Take 1 Tab Uni vers (ULTRAM) 50 5-21 by mouth ity of mg tablet 00:00: every 6 [place] 00 (six) Medical hours as Branch needed for Pain. traMADOL Yes 50mg Take 1 Tab Uni vers (ULTRAM) 50 5-21 by mouth ity of mg tablet 00:00: every 6 [place] 00 (six) Medical hours as Branch needed for Pain. triamcinolo Yes Apply to dashawn ne 1-08 area(s) 2 ity of acetonide 00:00: (two) [place] (TRIDERM) 00 times Medical 0.1 % cream daily. Branch triamcinolo Yes Apply to dashawn ne 1-08 area(s) 2 ity of acetonide 00:00: (two) [place] (TRIDERM) 00 times Medical 0.1 % cream daily. Branch Immunizations Ordered Immunization Filled Immunization Date Status Commen ts Source Name Name hepatitis B adult 2016-10-31 Completed Memoria l vaccine 16:08:00 [place] hepatitis B adult 2016-04-11 Completed Memoria l vaccine 15:46:00 [place] hepatitis B adult 2016-03-28 Completed Memoria l vaccine 16:37:00 [place] Vital Signs Vital Name Observation Time Observation Value Comments Source Systolic blood 2021-03-11 21:58:00 145 mm[Hg] Univer sity of pressure [facility] Diastolic blood 2021-03-11 21:58:00 86 mm[Hg] Unive rsity of pressure [facility] Heart rate 2021-03-11 21:58:00 80 /min [facility] Body temperature 2021-03-11 21:58:00 37.39 Pili [facility] Respiratory rate 2021-03-11 21:58:00 20 /min [facility] Body height 2021-03-11 21:58:00 190.5 cm [facility] weight 2021-03-11 21:58:00 104.327 kg [facility] BMI 2021-03-11 21:58:00 28.75 kg/m2 [facility] Oxygen saturation in 2021-03-11 21:58:00 96 /min [facility] Arterial blood by [facility] Pulse oximetry Branch Systolic (mm Hg) 2018-04-02 18:18:00 Jan solitario [place] Diastolic (mm Hg) 2018-04-02 18:18:00 [facility] orial [facility] Rate 2018-04-02 18:18:00 [facility] Weight 2018-04-02 18:18:00 [facility] BMI Calculated 2018-04-02 18:18:00 Memori al [place] Height 2018-04-02 18:18:00 187.96 cm [facility] Height 2016-05-16 14:12:00 187.96 cm [facility] Weight 2016-05-16 14:12:00 [facility] BMI Calculated 2016-05-16 14:12:00 Memori al [place] Respitory Rate 2016-05-16 14:12:00 Memori al [place] Heart Rate 2016-05-16 14:12:00 [facility] [place] Systolic (mm Hg) 2016-05-16 14:12:00 Jan rial [place] Diastolic (mm Hg) 2016-05-16 14:12:00 Mem orial [facility] Procedures Procedure Date / Time Performing Clinician Source Performed CONSENT/REFUSAL FOR 2021-03-11 05:01:00 Doctor Unassigned, No Un [facility] DIAGNOSIS AND TREATMENT Name Medical Branch Colonoscopy 2017-01-24 05:00:00 [facility] Her coats Cranioplasty [facility] BKA - Below knee [facility] amputation, Encounters Start End Encounter Admission Attending Care Care Encounter Source Date/Time Date/Time Type Type Clinicians Facility Department ID 2022-04-29 2022-04-29 Ambulatory nullFlavo MNA [id number] Memoria 19:30:00 19:30:00 Pre-Reg r Neurology 12 aline Wall 2022-04-29 2022-04-29 Ambulatory nullFlavo MNA [id number] Memoria 19:30:00 19:30:00 Pre-Reg r Neurology 11 l Mary Alice Wall 2022-04-29 2022-04-29 Ambulatory nullFlavo MNA [id number] Memoria 19:00:00 19:00:00 Pre-Reg r Neurology 10 aline Wall 2022-04-29 2022-04-29 Outpatient MHIE MHIE [id number] Memoria 14:30:00 14:30:00 11 aline Wall 2022-04-29 2022-04-29 Outpatient MHIE MHIE [id number] Memoria 14:30:00 14:30:00 12 aline Wall 2022-04-29 2022-04-29 Outpatient Kailey, MHMISCHER MHMISCHER [id number] 14:30:00 14:30:00 Bernardo 11 Yevgeniy 2022-04-29 2022-04-29 Outpatient Kailey, MHMISCHER MHMISCHER [id number] 14:30:00 14:30:00 Bernardo 12 Yevgeniy 2022-04-29 2022-04-29 Outpatient MHIE MHIE [id number] Memoria 14:00:00 14:00:00 10 aline Wall 2022-04-29 2022-04-29 Outpatient Kailey, MHMISCHER MHMISCHER [id number] 14:00:00 14:00:00 Bernardo 10 Yevgeniy 2021-03-11 2021-03-11 Outpatient Leo UMANA [facility] [id number] Univers 15:30:00 15:30:00 JOSE MARTIN [facility] 2021-03-11 2021-03-11 Nurse Therapy, Adc Covid Infusion [facility] [id number] [facility] 14:19:37 15:19:37 Visit Jose Martin Umana [id number] ity of [place] [id number] [place] [id number] [facility] 053 Branch 2021-03-11 2021-03-11 Orders Doctor KLEBER [id number] Univers 00:00:00 00:00:00 Only Unassigned, ANGEL [id number] ity of [place] [facility] [id number] Jar[place] as [id number] [place] [address] Branch 2020-05-13 2020-05-13 Emergency X [facility] ERT [id number] Univers 19:41:00 19:41:00 ity of [facility] 2018-04-04 2018-04-06 Phone nullFlavo MHMG [id number] Memoria 20:45:00 04:59:59 Message r Gastroenter 06 aline lacyjosiah [facility] 2018-04-04 2018-04-05 Outpatient MHMG MHMG [id number] 15:45:00 23:59:59 06 2018-04-02 2018-04-03 Outpatient nullFlavo MHMG [id number] Memoria 18:15:00 04:59:59 r Gastroenter 09 l spikewilly [facility] 2018-04-02 2018-04-02 Outpatient Mayra MHMG MHMG [id number] 13:15:00 23:59:59 Gino Lise 2018-04-02 2018-04-02 Outpatient MHIE MHIE [id number] Memoria 13:15:00 13:15:00 09 aline Wall 2017-02-20 2017-02-20 Outpatient MHIE MHIE [id number] Memoria 13:15:00 13:15:00 08 aline Wall 2017-02-09 2017-02-09 Outpatient MHIE MHIE [id number] Memoria 11:15:00 11:15:00 07 aline Wall 2016-11-21 2016-11-21 Outpatient MHIE MHIE [id number] Memoria 13:00:00 13:00:00 05 aline Wall 2016-10-31 2016-10-31 Outpatient MHIE MHIE [id number] Memoria 10:00:00 10:00:00 04 aline Wall 2016-07-27 2016-07-27 Outpatient MHIE MHIE [id number] Memoria 15:30:00 15:30:00 03 aline Wall 2016-05-24 2016-05-25 Outpatient nullFlavo [facility] [id number] Memoria 16:03:00 05:59:00 r [facility] 02 aline Wall [place] 2016-05-24 2016-05-24 Outpatient Magat, MHTIRR MHTIRR [id number] 10:03:00 23:59:00 Mayuri 02 [facility] 2016-05-16 2016-05-17 Outpatient nullFlavo [facility] [id number] Memoria 13:31:00 04:59:00 r [facility] 01 [facility] 2016-05-16 2016-05-16 Outpatient Magat, MHTIRR MHTIRR [id number] 08:31:00 23:59:00 [facility] 2016-04-11 2016-04-11 Outpatient MHIE MHIE [id number] Memoria 09:00:00 09:00:00 02 aline Wall 2016-03-28 2016-03-28 Outpatient MHIE MHIE [id number] Memoria 14:15:00 14:15:00 aline Wall Results This patient has no known results.
[2022-05-05] MEDS ORDERED: ONDANSETRON 4 MG/2 ML VIAL ONE (02:26)
[2022-05-05] MEDS ORDERED: MORPHINE 4 MG/ML SYR ONE (02:26)
[2022-05-05] MEDS ORDERED: NA CHLORIDE 0.9% 1,000 ML ONE (02:26)
[2022-05-05 02:37] LABS: Absolute Lymphocytes (CBC) 2.1 K/uL (0.7-4.9); Hematocrit 44.8 % (39.6-49.0); Lymphocytes % 37.3 % (15.3-44.8); MCV 97.4 fL (80-100); MPV 6.1 fL (7.6-11.3)
[2022-05-05 03:01] LABS: Bilirubin Total 0.6 mg/dL (0.2-1.0); Potassium 3.5 mmol/L (3.5-5.1); Protein, Total 7.5 g/dL (6.4-8.2)
[2022-05-05] MEDS ORDERED: PROMETHAZINE INJ 25 MG/ML AMP ONE (04:49)
[2022-05-05] MEDS ORDERED: KETOROLAC 30 MG/ML INJ ONE (04:50)
[2022-05-05 05:20] LABS: Urine Blood Negative (Negative); Urine Glucose Negative (Negative); Urine Protein Negative (Negative); Urine pH 5.5 (5.0-7.0)
[2022-05-05 05:37] LABS: Urine Mucus Slight /HPF (None Seen); Urine RBC <5 /HPF (None Seen)
--- NOTE | 2022-05-05 06:31 | ER ---
Nurse's Notes [facility] Name: Gregg Nair Sr Age: 56 yrs Sex: Male : 1965 Arrival Date: 05/05/2022 Time: 01:36 Bed 2 Private MD: Diagnosis: Right lower quadrant abdominal pain;Nausea and vomiting Presentation: 05/05 02:14 Chief complaint: Patient states: "I woke up about an hour ago with really bad stomach vc1 pain and vomiting. I threw up twice on my way here, two times here, and a couple of times before I left my house.". Coronavirus screen: Vaccine status: Patient reports being unvaccinated. At this time, the client does not indicate any symptoms associated with coronavirus-19. Ebola Screen: No symptoms or risks identified at this time. Risk Assessment: Do you want to hurt yourself or someone else? Patient reports no desire to harm self or others. Onset of symptoms was May 05, 2022 at 01:00. 02:14 Method Of Arrival: Ambulatory vc1 02:14 Acuity: BRIAN 3 vc1 02:33 Initial Sepsis Screen: Does the patient meet any 2 criteria? No. Patient's initial vc1 sepsis screen is negative. Does the patient have a suspected source of infection? Yes: Acute abdominal pain. Triage Assessment: 02:17 General: Appears in no apparent distress. Behavior is calm, cooperative, appropriate vc1 for age. Pain: Complains of pain in right lower quadrant Pain does not radiate. Pain currently is 8 out of 10 on a pain scale. Noted to be grimacing, guarding, Also complains of nausea, vomiting. EENT: No deficits noted. Neuro: No deficits noted. Cardiovascular: No deficits noted. Respiratory: Airway is patent Respiratory effort is even, unlabored, Respiratory pattern is regular, symmetrical. GI: Abdomen is flat, non-distended, Reports lower abdominal pain, upper abdominal pain, nausea, Pain is 8 out of 10 on a pain scale. vomiting. : No deficits noted. Derm: No deficits noted. Musculoskeletal: No deficits noted. 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 - Social history:: Smoking status: Patient denies any tobacco usage or history of. Screenin:16 Abuse screen: Denies threats or abuse. Nutritional screening: No deficits noted. vc1 Tuberculosis screening: No symptoms or risk factors identified. Fall Risk None identified. Assessment: 02:33 GI: Bowel sounds Abd is soft Abdomen is tender to palpation in right upper quadrant and vc1 right lower quadrant Guarding noted. 03:30 Reassessment: No changes from previously documented assessment. Patient and/or family vc1 updated on plan of care and expected duration. Pain level reassessed. 05:00 Reassessment: No changes from previously documented assessment. Patient and/or family vc1 updated on plan of care and expected duration. Pain level reassessed. Patient states symptoms have not improved. Vital Signs: 02:14 Weight 99.79 kg; Height 6 ft. 3 in. (190.50 cm); Pain 8/10; vc1 02:32 BP 156 / 90; Pulse 56; Resp 20; Temp 98.5(O); Pulse Ox 99% ; vc1 04:56 BP 169 / 85; Pulse 55; Resp 21; Pulse Ox 99% ; vc1 06:41 BP 142 / 87; Pulse 59; Resp 18 S; Pulse Ox 97% on R/A; as6 02:14 Body Mass Index 27.50 (99.79 kg, 190.50 cm) vc1 ED Course: 01:36 Patient arrived in ED. bp1 01:40 Bianca Keith MD is Attending Physician. sd2 02:14 Jon Chen, THEA is Primary Nurse. as6 02:16 Triage completed. vc1 02:19 Arm band placed on right wrist. vc1 02:20 Inserted saline lock: 20 gauge in right antecubital area, using aseptic technique. vc1 Blood collected. 02:33 Patient has correct armband on for positive identification. Placed in gown. Bed in low vc1 position. Call light in reach. Pulse ox on. NIBP on. 02:33 Lipase Sent. vc1 02:33 CMP Sent. vc1 02:34 CBC with Diff Sent. vc1 03:27 CT Abd/Pelvis - IV Contrast Only In Process Unspecified. EDMS 05:18 Urine Microscopic Only Sent. vc1 06:41 No provider procedures requiring assistance completed. IV discontinued, intact, as6 bleeding controlled, No redness/swelling at site. Pressure dressing applied. Administered Medications: 02:30 Drug: NS 0.9% 1000 ml Route: IV; Rate: 1 bolus; Site: right antecubital; as6 06:42 Follow up: Response: No adverse reaction; IV Status: Completed infusion; IV Intake: as6 1000ml 02:30 Drug: morphine 4 mg Route: IVP; Infused Over: 4 mins; Site: right antecubital; as6 06:42 Follow up: Response: No adverse reaction as6 02:30 Drug: Zofran (Ondansetron) 4 mg Route: IVP; Site: right antecubital; as6 06:42 Follow up: Response: No adverse reaction as6 04:55 Drug: Ketorolac 30 mg Route: IVP; Site: right antecubital; vc1 06:42 Follow up: Response: No adverse reaction as6 04:55 Drug: Phenergan (promethazine) 12.5 mg Route: IVP; Site: right antecubital; vc1 06:42 Follow up: Response: No adverse reaction as6 Medication: 05:00 VIS not applicable for this client. vc1 Intake: 06:42 IV: 1000ml; Total: 1000ml. as6 Outcome: 06:30 Discharge ordered by . sd2 06:41 Discharged to home ambulatory. as6 06:41 Condition: stable 06:41 Discharge instructions given to patient, Instructed on discharge instructions, follow up and referral plans. medication usage, Demonstrated understanding of instructions, follow-up care, medications, Prescriptions given X 2. 06:43 Patient left the ED. as6 Signatures: Dispatcher [employer] EDMS Destiny Petersen Ashby, RN RN as6 Gaby Chowdary RN RN vc1 Bianca Keith MD MD sd2 Corrections: (The following items were deleted from the chart) 02:17 02:16 PMHx: r bka, and TBI; vc1 vc1
--- NOTE | 2022-05-05 06:31 | EDPHYS ---
Physician Documentation [facility] Name: Gregg Nair Sr Age: 56 yrs Sex: Male : 1965 Arrival Date: 05/05/2022 Time: 01:36 Bed 2 Private MD: ED Physician Bianca Keith HPI: 05/05 02:16 This 56 yrs old Male presents to ER via Ambulatory with complaints of Abdominal Pain, sd2 Vomiting. 02:16 56-year-old male presents with chief complaint of right lower quadrant abdominal pain sd2 and vomiting that started this evening. He reports he went to bed with a slight headache and then woke up with severe right lower quadrant abdominal pain and has vomited at least 4 times since then. He denies any known fevers, diarrhea or change in bowel movements. He does have a history of IBS that he sees Dr. Ramos for. Has not had symptoms like this previously. No prior abdominal surgeries.. 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 - Social history:: Smoking status: Patient denies any tobacco usage or history of. ROS: 02:16 Constitutional: Negative for fever, chills, and weight loss, Eyes: Negative for injury, sd2 pain, redness, and discharge, Cardiovascular: Negative for chest pain, palpitations, and edema, Respiratory: Negative for shortness of breath, cough, wheezing. Abdomen/GI: Positive for abdominal pain, nausea, vomiting, Negative for diarrhea. : Negative for dysuria, frequency or hematuria. MS/Extremity: Negative for injury and deformity, Skin: Negative for injury, rash, and discoloration, Neuro: Positive for headache, Negative for numbness and tingling. Exam: 02:16 Constitutional: This is a well developed, well nourished patient who is awake, alert, sd2 and in distress 2/2 pain. Head/Face: Normocephalic, atraumatic. Eyes: EOMI, normal conjunctiva bilaterally Chest/axilla: Normal chest wall appearance and motion. Nontender with no deformity. Cardiovascular: Regular rate and rhythm with a normal S1 and S2. No gallops, murmurs, or rubs. 2+ distal pulses. Respiratory: Lungs have equal breath sounds bilaterally, clear to auscultation and percussion. No rales, rhonchi or wheezes noted. No increased work of breathing, no retractions or nasal flaring. Abdomen/GI: Soft, ND, periumbilical and RLQ TTP present with voluntary guarding. No rebound tenderness. Skin: Warm, dry with normal turgor. Normal color with no rashes, no lesions, and no evidence of cellulitis. MS/ Extremity: Pulses equal, no cyanosis. Neurovascular intact. Full, normal range of motion. Ambulatory without difficulty. Psych: Awake, alert, with orientation to person, place and time. Behavior, mood, and affect are within normal limits. Vital Signs: 02:14 Weight 99.79 kg; Height 6 ft. 3 in. (190.50 cm); Pain 8/10; vc1 02:32 BP 156 / 90; Pulse 56; Resp 20; Temp 98.5(O); Pulse Ox 99% ; vc1 04:56 BP 169 / 85; Pulse 55; Resp 21; Pulse Ox 99% ; vc1 06:41 BP 142 / 87; Pulse 59; Resp 18 S; Pulse Ox 97% on R/A; as6 02:14 Body Mass Index 27.50 (99.79 kg, 190.50 cm) vc1 MDM: 02:15 Patient medically screened. sd2 02:16 Differential diagnosis: Gastritis, cholecystitis, pancreatitis, SBO, diverticulitis, sd2 kidney stone, appendicitis, UTI, dehydration, electrolyte abnormality among others. Data reviewed: vital signs, nurses notes. 06:28 Data reviewed: lab test result(s), radiologic studies. Counseling: I had a detailed sd2 discussion with the patient and/or guardian regarding: the historical points, exam findings, and any diagnostic results supporting the discharge/admit diagnosis, lab results, radiology results, the need for outpatient follow up, to return to the emergency department if symptoms worsen or persist or if there are any questions or concerns that arise at home. Medical screen evaluation completed. EMTALA emergency medical condition absent. ED course: Labs and imaging reviewed. labs grossly WNCL. No significant acute abnormalities. UA without infection. CTAP with no acute abnormalities or changes. patient's pain and nausea improved after treatment. He is comfortable with a plan for discharge and outpatient follow up. Verbalizes understanding of strict return precautions.. 05/05 02:16 Order name: CBC with Diff; Complete Time: 02:48 sd2 05/05 02:16 Order name: CMP; Complete Time: 03:13 sd2 05/05 02:16 Order name: Lipase; Complete Time: 03:13 sd2 05/05 02:16 Order name: Urine Microscopic Only; Complete Time: 05:38 sd2 05/05 02:16 Order name: CT Abd/Pelvis - IV Contrast Only sd2 05/05 05:20 Order name: Urine Dipstick-Ancillary; Complete Time: 05:38 EDMS 05/05 02:16 Order name: Urine Dipstick-Ancillary (obtain specimen); Complete Time: 05:18 sd2 Administered Medications: 02:30 Drug: NS 0.9% 1000 ml Route: IV; Rate: 1 bolus; Site: right antecubital; as6 06:42 Follow up: Response: No adverse reaction; IV Status: Completed infusion; IV Intake: as6 1000ml 02:30 Drug: morphine 4 mg Route: IVP; Infused Over: 4 mins; Site: right antecubital; as6 06:42 Follow up: Response: No adverse reaction as6 02:30 Drug: Zofran (Ondansetron) 4 mg Route: IVP; Site: right antecubital; as6 06:42 Follow up: Response: No adverse reaction as6 04:55 Drug: Ketorolac 30 mg Route: IVP; Site: right antecubital; vc1 06:42 Follow up: Response: No adverse reaction as6 04:55 Drug: Phenergan (promethazine) 12.5 mg Route: IVP; Site: right antecubital; vc1 06:42 Follow up: Response: No adverse reaction as6 Disposition Summary: 05/05/22 06:30 Discharge Ordered Location: Home sd2 Problem: new sd2 Symptoms: have improved sd2 Condition: Stable sd2 Diagnosis - Right lower quadrant abdominal pain sd2 - Nausea and vomiting sd2 Followup: sd2 - With: Private Physician - When: 2 - 3 days - Reason: Recheck today's complaints, Continuance of care, Re-evaluation by your physician Discharge Instructions: - Discharge Summary Sheet sd2 - Abdominal Pain, Adult sd2 - Nausea and Vomiting, Adult sd2 Forms: - Medication Reconciliation Form sd2 - Thank You Letter sd2 - Antibiotic Education sd2 - Prescription Opioid Use sd2 Prescriptions: - Tramadol 50 mg Oral Tablet - take 1 tablet by ORAL route every 6 hours As needed as needed; 12 tablet; sd2 Refills: 0, Product Selection Permitted - promethazine 25 mg Oral Tablet - take 1 tablet by ORAL route every 6 hours As needed; 15 tablet; Refills: 0, sd2 Product Selection Permitted Signatures: Dispatcher [employer] Jon Cody RN RN as6 Gaby Chowdary RN RN vc1 Bianca Keith MD MD sd2 Corrections: (The following items were deleted from the chart) 02:17 02:16 PMHx: r bka, and TBI; vc1 vc1
[2022-05-05 07:02] VITALS: TEMP 98.5
[2022-05-05 07:09] VITALS: BP 142/87; O2SAT 97
--- NOTE | 2022-05-05 13:20 | RAD REPORT ---
EXAM DESCRIPTION: CT - Abdomen Pelvis W Contrast - 05/05/2022 3:26 am COMPARISON: CT abdomen pelvis October 25, 2021 CLINICAL HISTORY: Abdominal pain and vomiting TECHNIQUE: Multiple helical axial images were obtained through the abdomen and pelvis using intraven ous contrast. Coronal and sagittal reformatted images were obtained. Delayed images were obtained. All CT scans at this facility use dose modulation, iterative reconstruction, and/or weight-based dosi ng when appropriate to reduce radiation dose to as low as reasonably achievable. FINDINGS: Exam limited by motion artifact. Lung bases: Appear unremarkable. Liver: Subcentimeter cyst in the right hepatic lobe is again noted. Gallbladder/biliary: Appears unremarkable Pancreas: Unremarkable. No evidence of ductal enlargement. Spleen: Appears unremarkable. No splenomegaly. Adrenals: Unremarkable. Kidneys and ureters: No evidence of hydronephrosis. Normal enhancement. Bladder: Unremarkable. Pelvic organs: Unremarkable. Bowel: No evidence of bowel obstruction. No bowel wall thickening. Appendix appears unremarkable. Vasculature: Mild aortic atherosclerosis is present. Peritoneum: No free air. No significant free fluid. Lymph nodes: Unremarkable. Soft tissues: Unremarkable. Bones: Unremarkable. IMPRESSION: No evidence for an acute process within the abdomen or pelvis. Electronically signed by: Lamin Pate MD 05/05/2022 4:36 AM CDT Due to temporary technical issues with the PACS/Fluency reporting system, reports are being signed by the in house radiologists without review as a courtesy to insure prompt reporting. The interpreting radiologist is fully responsible for the content of the report.
== END 2022-05-05 06:43 | disposition home or self-care (01) ==
LOC: ER 01:33
DX: R10.31 Right lower quadrant pain (principal); R11.2 Nausea with vomiting, unspecified; Z89.511 Acquired absence of right leg below knee; Z88.7 Allergy status to serum and vaccine
CPT/HCPCS: 96361; 85025; 36415; 83690; 80053; 74177; 96375; 96374; 99284; Q9967; J2550; J7030; J2405; 81003; 81015

== ENCOUNTER 2022-05-28 11:18 | Emergency (ER) | payer OTHER ==
--- OUTSIDE RECORDS SUMMARY | 2022-05-28 11:23 | XMS REPORT | Continuity of Care Document ---
:1965 Author Organization [facility] t Address [address] [place] [address] Care Team Providers Name Role Phone Pcp, Patient Does Not Have A Primary Care Physician [id number] Bernardo Bonner Attending Clinician JOSE MARTIN UMANA Attending Clinician Unavailable Therapy, Adc Covid Infusion Attending Clinician Unavailable Jose Martin Umana MD Attending Clinician Doctor Unassigned, [place] Attending Clinician Unavailable Gino Nunez Attending Clinician Mayuri Winchester Attending Clinician Payers Payer Name Policy Type Policy Number Effective Date Expiration Date S ource MEDICAID [place] [id number] 2016 00:00:00 [id number] 2012 [facility] ity -Present 00:00:00 [place] [facility] dical [address] [id number] AMERIVANTAGE [id number] 2016 00:00:00 Problems Condition Condition Condition Status [...] ity of 00:00: [place] 00 Medical Branch Other Other Disease Active [...] different from the original. 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 Active Univers joint, joint, 2-19 ity of shoulder shoulder 00:00: [place] region region 00 Medical Branch Fracture Fracture Problem Resolve 2016-05-27 Memoria of of d 02:02:31 l clavicle clavicle Dawood paez (disorder) (disorder) Resolved Problem 05/27/2016 [facility] Chronic Chronic Problem Active 2016-05-27 Ri ryan hepatitis hepatitis 02:02:31 l C C [...] (situation ) ) Active Problem 05/01/2022 [facility] her Neuro Obesity Obesity Problem Active 2022-05-01 Me moria (disorder) (disorder) 22:54:24 l Active [place] Problem 05/01/2022 [facility] her Neuro, [facility] Traumatic Problem Active 2022-05-01 Me ryan brain Traumatic 22:54:24 l injury brain [facility] (disorder) injury (disorder) Active Problem 05/01/2022 [facility] her Neuro, [facility] INTCRAN INTCRAN Diagnosis Active 2016-05-24 Memoria INJ W/O INJ W/O 10:09:00 l LOSS OF LOSS OF [facility] CONSCIOUSN CONSCIOUSN ESS, I ESS, I Active [...] Active Univers ALLERGIE Class ity of S [facility] [place] [facility] Social History Social Habit Start Date Stop Date Quantity Comments Source Social History 2018-04-02 2018-04-02 [facility] henrique 18:19:44 18:19:44 Tobacco use and 2015-03-03 2015-03-03 Never used Universit y of exposure 00:00:00 00:00:00 [facility] [place] [facility] Alcohol intake 2015-03-03 2015-03-03 University of 00:00:00 00:00:00 [facility] Tobacco Comment 2013-06-27 2013-06-27 Pt thinks he Univers ity of 00:00:00 00:00:00 smoked but has no [facility] memory of how Branch many cigs nor how long. History of 1988-07-24 Cigarette Smoker Universi ty of tobacco use 00:00:00 [facility] Sex Assigned At [birth year] Universit y of 00:00:00 00:00:00 [facility] Smoking Status Start Date Stop Date Source Tobacco smoking status 2018-04-02 18:19:38 2018-04-02 18:19:38 M timrigene Wall Medications Ordered Filled Start Stop Current Ordering Indication Dosage Frequency Signature Comments Components Source Medication Medication Date Date Medication? Clinician (SIG) Name Name casirivimab 2020- No [id number] 1200mg 1,200 mg, Univers -imdevimab 03-11 IV ity of 1200 mg in 23:00: 22:21 Infusion, [place] 60 mL NS 00 :00 ONCE, Medical MINI-BAG Administer Branc h over 20 Minutes, Donna 03/11/21 at 1800, For 1 dose
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 Stable 36 hours refrigerat ed; 4 hours at room temperatur e.
dicyclomine 2018-0 Yes 10 mg = 1 M emoria 10 mg oral 9-19 cap, PO, l capsule 20:46: QID-Before Herm shari 00 Meals, as needed for abdominal pain, # 60 cap, 1 Refill(s), [id number] dicyclomine 2018-0 Yes 10 mg = 1 M emoria 10 mg oral 9-19 cap, PO, l capsule 20:46: QID-Before Herm shari 00 Meals, as needed for abdominal pain, # 60 cap, 1 Refill(s), Pharmacy: [facility] #[id number] rifaximin 2018-0 Yes 550 mg = 1 Me moria 550 MG Oral 9-17 tab, PO, l Tablet 18:34: TID, # 42 Dawood n [XIFAXAN] 00 tab, 0 Refill(s), Pharm[facility]: [id number] Xifaxan 550 2018-0 Yes 550 mg = 1 Memoria mg oral 9-17 tab, PO, l tablet 18:34: TID, # 42 Dawood n 00 tab, 0 Refill(s), Pharmacy: [facility] #[id number] rifaximin 2018-0 Yes 550 mg = 1 Me moria 550 MG Oral 9-17 tab, PO, l Tablet 18:34: TID, # 42 Dawood n [XIFAXAN] 00 tab, 0 Refill(s), Pharmacy: [facility] #[id number] Xifaxan 550 2018-0 Yes 550 mg = 1 Memoria mg oral 9-17 tab, PO, l tablet 18:34: TID, # 42 Dawood n 00 tab, 0 Refill(s), Pharmacy: [facility] #[id number] [place] 2017-0 Yes 1 tab, PO, Memori a 7.5/325 5-08 Q6H, 0 l oral tablet 18:06: Refill(s) H erm [place] 2017-0 Yes 1 tab, PO, Memori a 7.5/325 5-08 Q6H, 0 l oral tablet 18:06: Refill(s) H ermann methocarbam Yes 500mg Take 1 Tab Univers [...] tablet 1 Branch Tab acetaminoph 2012-07 Yes [id number] 1{tbl} Take 1 Tab Univers en-codeine 2-02 by mouth ity o f (TYLENOL-CO 00:00: every 4 Jarod as DEINE #3) 00 (four) Medical 300-30 mg hours as Branch tablet needed for Pain. acetaminoph 2012-07 Yes [id number] 1{tbl} Take 1 Tab Univers en-codeine 2-02 [...] ity of mg tablet 00:00: every 6 [place] [address] (six) Medical hours as Branch needed for Pain. triamcinolo Yes Apply to Un dashawn ne 1-08 area(s) 2 ity of acetonide 00:00: (two) [place] (TRIDERM) 00 times Medical 0.1 % cream daily. Branch triamcinolo Yes Apply to Un dashawn ne 1-08 area(s) 2 ity of acetonide 00:00: (two) [place] (TRIDERM) 00 times Medical 0.1 % cream daily. Branch Immunizations Ordered Immunization Filled Immunization Date Status Commen ts Source Name Name hepatitis B adult 2016-10-31 Completed Memoria l vaccine 16:08:00 [facility] hepatitis B adult 2016-10-31 Completed Memoria l vaccine 16:08:00 [place] hepatitis B adult 2016-04-11 Completed Memoria l vaccine 15:46:00 [place] hepatitis B adult 2016-04-11 Completed Memoria l vaccine 15:46:00 [place] hepatitis B adult 2016-03-28 Completed Memoria l vaccine 16:37:00 [place] hepatitis B adult 2016-03-28 Completed Memoria l vaccine 16:37:00 [place] Vital Signs Vital Name Observation Time Observation Value Comments Source Systolic blood 2021-03-11 21:58:00 145 mm[facility]Hg[facility] Diastolic blood 2021-03-11 21:58:00 86 mm[Hg] [facility] Heart rate 2021-03-11 21:58:00 80 /min [facility] Body temperature 2021-03-11 21:58:00 37.39 [facility] Respiratory rate 2021-03-11 21:58:00 20 /min [facility] Body height 2021-03-11 21:58:00 190.5 cm [facility] Body weight 2021-03-11 21:58:00 104.327 kg [facility] BMI 2021-03-11 21:58:00 28.75 kg/m2 [facility] Oxygen saturation in 2021-03-11 21:58:00 96 /min [facility] blood by [facility] Pulse oximetry Branch Weight 2018-04-02 18:18:00 [facility] BMI Calculated 2018-04-02 18:18:00 Memori al [place] Height 2018-04-02 18:18:00 187.96 cm [facility] Systolic (mm Hg) 2018-04-02 18:18:00 Jan rial [place] Diastolic (mm Hg) 2018-04-02 18:18:00 Mem orial [place] Heart Rate 2018-04-02 18:18:00 [facility] Height 2016-05-16 14:12:00 187.96 cm [facility] Weight 2016-05-16 14:12:00 [facility] BMI Calculated 2016-05-16 14:12:00 Memori al [place] Respitory Rate 2016-05-16 14:12:00 Memori al [facility] Heart Rate 2016-05-16 14:12:00 [facility] Systolic (mm Hg) 2016-05-16 14:12:00 Jan rial [place] Diastolic (mm Hg) 2016-05-16 14:12:00 Mem orial [facility] Procedures Procedure Date / Time Performing Clinician Source Performed CONSENT/REFUSAL FOR 2021-03-11 05:01:00 Doctor Unassigned, No Un [facility] DIAGNOSIS AND TREATMENT Name Medical Branch Colonoscopy 2017-01-24 05:00:00 [facility] coats Cranioplasty [facility] BKA - Below knee Yamileth Seay n amputation, Encounters Start End Encounter Admission Attending Care Care Encounter Source Date/Time Date/Time Type Type Clinicians Facility Department ID 2022-04-29 2022-04-29 Ambulatory nullFlavo MNA [id number] Memoria 19:30:00 19:30:00 Pre-Reg r Neurology 12 l Mary Alice Wall 2022-04-29 2022-04-29 Ambulatory nullFlavo MNA [id number] Memoria 19:30:00 19:30:00 Pre-Reg r Neurology 11 l Mary Alice Wall 2022-04-29 2022-04-29 Ambulatory nullFlavo MNA [id number] Memoria 19:30:00 19:30:00 Pre-Reg r Neurology 11 l Mary Alice Wall 2022-04-29 2022-04-29 Ambulatory nullFlavo MNA [id number] Memoria 19:30:00 19:30:00 Pre-Reg r Neurology 12 l Mary Alice Wall 2022-04-29 2022-04-29 Ambulatory nullFlavo MNA [id number] Memoria 19:00:00 19:00:00 Pre-Reg r Neurology 10 l Mary Alice Wall 2022-04-29 2022-04-29 Ambulatory nullFlavo MNA [id number] Memoria 19:00:00 19:00:00 Pre-Reg r Neurology 10 l Mary Alice Wall 2022-04-29 2022-04-29 Outpatient MHIE MHIE [id number] Memoria 14:30:00 14:30:00 11 aline Wall 2022-04-29 2022-04-29 Outpatient MHIE MHIE [id number] Memoria 14:30:00 14:30:00 12 aline Wall 2022-04-29 2022-04-29 Outpatient Kailey, MHMISCHER MHMISCHER [id number] 14:30:00 14:30:00 Bernardo 11 Yevgeniy 2022-04-29 2022-04-29 Outpatient Kailey MHMISCHER MHMISCHER [id number] 14:30:00 14:30:00 Bernardo 12 Yevgeniy 2022-04-29 2022-04-29 Outpatient MHIE MHIE [id number] Memoria 14:00:00 14:00:00 10 aline Wall 2022-04-29 2022-04-29 Outpatient Kailey, MHMISCHER MHMISCHER [id number] 14:00:00 14:00:00 Bernardo 10 Yevgeniy 2021-03-11 2021-03-11 Outpatient Leo UMANA [facility] [id number] [facility] 15:30:00 15:30:[address] [facility] 2021-03-11 2021-03-11 Nurse Therapy, Adc Covid Infusion [facility] [id number] Univers 14:19:37 15:19:37 Visit Jose Martin Umana [id number] [facility] [id number] [place] [id number] [place] [id number] Branch 2021-03-11 2021-03-11 Orders Doctor SHAHID [id number] [facility] 00:00:00 00:00:00 Only Unassigned, ANGEL [id number] ity of [place] [facility] [id number] Jarod as [id number] [address] 2020-05-13 2020-05-13 Emergency X [facility] ERT [id number] Univers 19:41:00 19:41:00 ity of [facility] 2018-04-04 2018-04-06 Phone nullFlavo [facility]MG [id number] Memoria 20:45:00 04:59:59 Message r Gastroenter 06 l precious Pierce 2018-04-04 2018-04-06 Phone nullFlavo [facility] [id number] Memoria 20:45:00 04:59:59 Message r Gastroenter 06 l precious Pierce 2018-04-04 2018-04-05 Outpatient MHMG MHMG [id number] 15:45:00 23:59:59 06 2018-04-02 2018-04-03 Outpatient nullFlavo [facility] [id number] Memoria 18:15:00 04:59:59 r Gastroenter 09 l precious Pierce 2018-04-02 2018-04-03 Outpatient nullFlavo [facility] [id number] Memoria 18:15:00 04:59:59 r Gastroenter 09 l precious Pierce 2018-04-02 2018-04-02 Outpatient Nunez, MHMG [facility] [id number] 13:15:00 23:59:59 Gino Santa 2018-04-02 2018-04-02 Outpatient MHIE MHIE [id number] Memoria 13:15:00 13:15:00 09 aline Wall 2017-02-20 2017-02-20 Outpatient MHIE MHIE [id number] Memoria 13:15:00 13:15:00 08 aline Wall 2017-02-20 2017-02-20 Outpatient MHIE MHIE [id number] Memoria 13:15:00 13:15:00 08 aline Wall 2017-02-09 2017-02-09 Outpatient MHIE MHIE [id number] Memoria 11:15:00 11:15:00 07 aline Wall 2017-02-09 2017-02-09 Outpatient MHIE MHIE [id number] Memoria 11:15:00 11:15:00 07 aline [place] 2016-11-21 2016-11-21 Outpatient MHIE MHIE [id number] Memoria 13:00:00 13:00:00 05 aline [place] 2016-11-21 2016-11-21 Outpatient MHIE MHIE [id number] Memoria 13:00:00 13:00:00 05 aline [place] 2016-10-31 2016-10-31 Outpatient MHIE MHIE [id number] Memoria 10:00:00 10:00:00 04 aline [place] 2016-10-31 2016-10-31 Outpatient MHIE MHIE [id number] Memoria 10:00:00 10:00:00 04 aline [place] 2016-07-27 2016-07-27 Outpatient MHIE MHIE [id number] Memoria 15:30:00 15:30:00 03 aline [place] 2016-07-27 2016-07-27 Outpatient MHIE MHIE [id number] Memoria 15:30:00 15:30:00 03 aline [place] 2016-05-24 2016-05-25 Outpatient nullFlavo [facility] [id number] Memoria 16:03:00 05:59:00 r Memorial 02 [facility] 2016-05-24 2016-05-25 Outpatient nullFlavo [facility] [id number] Memoria 16:03:00 05:59:00 r Memorial 02 [facility] 2016-05-24 2016-05-24 Outpatient Magat, MHTIRR MHT[facility]R [id number] 10:03:00 23:59:00 Mayuri 02 Magdaraog 2016-05-16 2016-05-17 Outpatient nullFlavo [facility] [id number] Memoria 13:31:00 04:59:00 r Memorial 01 [facility] 2016-05-16 2016-05-17 Outpatient nullFlavo [facility] [id number] Memoria 13:31:00 04:59:00 r Memorial 01 [facility] 2016-05-16 2016-05-16 Outpatient Magat, MHTIRR MHT[facility]R [id number] 08:31:00 23:59:00 Mayuri 01 Magdaraog 2016-04-11 2016-04-11 Outpatient MHIE IE [id number] Memoria 09:00:00 09:00:00 02 aline Wall 2016-04-11 2016-04-11 Outpatient MHIE IE [id number] Memoria 09:00:00 09:00:00 02 aline Wall 2016-03-28 2016-03-28 Outpatient IE IE [id number] Memoria 14:15:00 14:15:00 01 aline Wall 2016-03-28 2016-03-28 Outpatient IE IE [id number] Memoria 14:15:00 14:15:00 01 aline Wall Results This patient has no known results.
[2022-05-28] MEDS ORDERED: FENTANYL CITR 100 MCG/2 ML ONE (11:54)
[2022-05-28] MEDS ORDERED: MECLIZINE HCL 12.5 MG TAB ONE (11:55)
[2022-05-28 12:16] LABS: Absolute Lymphocytes (CBC) 1.3 K/uL (0.7-4.9); Hematocrit 44.9 % (39.6-49.0); MCV 96.8 fL (80-100); MPV 6.4 fL (7.6-11.3); RBC Red Blood Cell Count 4.64 M/uL (4.33-5.43)
[2022-05-28 12:25] LABS: Protime INR 0.96
--- NOTE | 2022-05-28 12:26 | RAD REPORT ---
EXAM DESCRIPTION: CT - CTHCSPWOC - 05/28/2022 12:16 pm CLINICAL HISTORY: Trauma, head and neck injury. fall 2 days ago, head injury, n/v, prior hx of TBI COMPARISON: Head C Spine Mpr Wo Con dated 11/09/2021; Thoracic Spine W/o Cont dated 11/09/2021; Head C Spine Mpr Wo Con dated 01/02/2020 TECHNIQUE: Axial 5 mm thick images of the head were obtained. Axial 2 mm thick images of the cervical spine were obtained with sagittal and coronal reconstruction images generated and reviewed. All CT scans are performed using dose optimization technique as appropriate and may include automated exposure control or mA/KV adjustment according to patient size. FINDINGS: CT HEAD WITHOUT CONTRAST: No acute hemorrhage, hydrocephalus or extra-axial collection is identified.No areas of brain edema or midline shift. Left frontal sinus/frontal calvarium repair. The paranasal sinuses and mastoids are clear.The calvarium is intact. CT CERVICAL SPINE WITHOUT CONTRAST: No fracture or subluxation.No prevertebral soft tissues swelling is identified. Multilevel degenerati ve changes are present in the spine. Varying degrees of neural foraminal narrowing noted. 2 millimete rs of anterolisthesis trace anterolisthesis of C2 on C3. Trace retrolisthesis of C3 on C4 and C4 on C 5. Neural foraminal narrowing is noted that is advanced at C3-4, C4-5, and C5-6. Of C6 on C7. IMPRESSION: No acute intracranial or cervical spine findings.
[2022-05-28 12:32] LABS: Potassium 4.1 mmol/L (3.5-5.1)
[2022-05-28] MEDS ORDERED: DIPHENHYDRAMINE 50 MG/ML VIAL ONE (12:34)
[2022-05-28] MEDS ORDERED: KETOROLAC 30 MG/ML INJ ONE (12:35)
[2022-05-28] MEDS ORDERED: NA CHLORIDE 0.9% 1,000 ML ONE (12:35)
--- NOTE | 2022-05-28 13:56 | ER ---
Nurse's Notes [facility] Name: Gregg Nair Sr Age: 56 yrs Sex: Male : 1965 Arrival Date: 05/28/2022 Time: 11:20 Bed 25 Private MD: Sanket Monzon Diagnosis: Postconcussional syndrome;Vertigo;Facial abrasions Presentation: 05/28 11:31 Chief complaint: Patient states: Tripped and fell on , hit left side of jl7 face/head, reports dizziness and nausea since. Hx of TBI, left side of skull rebuilt 2004. Coronavirus screen: At this time, the client does not indicate any symptoms associated with coronavirus-19. Ebola Screen: No symptoms or risks identified at this time. Initial Sepsis Screen: Does the patient meet any 2 criteria? No. Patient's initial sepsis screen is negative. Does the patient have a suspected source of infection? No. Patient's initial sepsis screen is negative. Risk Assessment: Do you want to hurt yourself or someone else? Patient reports no desire to harm self or others. Onset of symptoms was May 26, 2022. 11:31 Method Of Arrival: Ambulatory 7 11:31 Acuity: BRIAN 3 jl7 Triage Assessment: 11:33 General: Appears in no apparent distress. uncomfortable, Behavior is calm, cooperative, jl7 appropriate for age. Pain: Complains of pain in headache Pain currently is 10 out of 10 on a pain scale. GI: Reports nausea, vomiting. Historical: - Allergies: 11:33 TB shots; jl7 - Home Meds: 11:33 [place] 7.5-325 mg Oral tab [Active]; jl7 - PMHx: 11:33 TBI; Chronic pain; jl7 - PSHx: 11:33 RIGHT BKA; right shoulder; jl7 - Immunization history:: Client reports having NOT received the Covid vaccine. - Social history:: Smoking status: Patient denies any tobacco usage or history of. Screenin:00 Abuse screen: Denies threats or abuse. Denies injuries from another. Nutritional tp1 screening: No deficits noted. Tuberculosis screening: No symptoms or risk factors identified. Fall Risk Fall in past 12 months (25 points). No secondary diagnosis (0 pts). IV access (20 points). Ambulatory Aid- None/Bed Rest/Nurse Assist (0 pts). Gait- Normal/Bed Rest/Wheelchair (0 pts) Mental Status- Oriented to own ability (0 pts). Total Robert Fall Scale indicates Low Risk Score (25-44 pts). Fall prevention measures have been instituted. Side Rails Up X 2 Placed close to Nursing Station Frequent Obs/Assesments occuring As available Patient and Family Educated on Fall Prevention Program and strategies. Assessment: 11:48 General: Appears in no apparent distress. uncomfortable, Behavior is calm, cooperative. tp1 Pain: Complains of pain in head, neck, and upper spine Pain does not radiate. Pain currently is 10 out of 10 on a pain scale. Quality of pain is described as sharp, Pain began 2 hours ago. Neuro: Level of Consciousness is awake, alert, obeys commands, Oriented to person, place, time, situation, Speech is normal, Reports dizziness, headache photophobia reports blurred vision since brain injury several years ago. Cardiovascular: Patient's skin is warm and dry. Respiratory: Airway is patent Respiratory effort is even, unlabored. GI: Abdomen is flat, non-distended, Abd is soft and non tender. : No signs and/or symptoms were reported regarding the genitourinary system. EENT: No signs and/or symptoms were reported regarding the EENT system. Derm: Skin is pink, warm \T\ dry. Musculoskeletal: Amputation of below right knee . Injury Description: Abrasion sustained to forehead and nose, and right elbow. 12:42 Reassessment: Patient appears in no apparent distress at this time. No changes from tp1 previously documented assessment. Patient and/or family updated on plan of care and expected duration. Pain level reassessed. Patient is alert, oriented x 3, equal unlabored respirations, skin warm/dry/pink. states pain is unchanged. provider notified. 12:47 Reassessment: Received VO from DR. Keith to remove C-collar. C-collar removed, PT tp1 tolerated well. 13:27 Reassessment: Patient appears in no apparent distress at this time. No changes from tp1 previously documented assessment. Patient is alert, oriented x 3, equal unlabored respirations, skin warm/dry/pink. States medication has decreased pain. Currently rates pain 5/10. Vital Signs: 11:31 BP 150 / 89; Pulse 62; Resp 17; Temp 97.6; Pulse Ox 99% ; Weight 99.79 kg; Height 6 ft. jl7 3 in. (190.50 cm); Pain 10/10; 12:43 BP 150 / 87; Pulse 51; Resp 17; Pulse Ox 98% on R/A; tp1 13:27 BP 153 / 77; Pulse 60; Resp 16; Pulse Ox 96% on R/A; tp1 11:31 Body Mass Index 27.50 (99.79 kg, 190.50 cm) jl7 ED Course: 11:20 Patient arrived in ED. am2 11:20 Sanket Monzon DO is Private Physician. am2 11:33 Triage completed. jl7 11:33 Arm band placed on right wrist. jl7 11:37 Bianca Keith MD is Attending Physician. sd2 11:40 Karena Dominguez RN is Primary Nurse. tp1 11:55 Patient has correct armband on for positive identification. Bed in low position. Call tp1 light in reach. Side rails up X 1. Pulse ox on. NIBP on. Warm blanket given. 11:55 Assisted provider with applying C-collar. tp1 12:00 Inserted saline lock: 20 gauge in left antecubital area, using aseptic technique. Blood tp1 collected. 12:18 CT Head C Spine In Process Unspecified. EDMS 14:01 IV discontinued, intact, bleeding controlled, No redness/swelling at site. Pressure tp1 dressing applied. Administered Medications: 12:03 Drug: fentaNYL (PF) 50 mcg Route: IVP; Site: left antecubital; tp1 12:43 Follow up: Response: Pain is unchanged, physician notified tp1 12:04 Drug: Meclizine 25 mg Route: PO; tp1 12:43 Follow up: Response: Pain is unchanged, physician notified tp1 12:39 Drug: Ketorolac 15 mg Route: IVP; Site: left antecubital; tp1 13:53 Follow up: Response: Pain is decreased tp1 12:39 Drug: NS 0.9% 1000 ml Route: IV; Rate: 1 bolus; Site: left antecubital; tp1 13:54 Follow up: IV Status: Completed infusion; IV Intake: 800ml tp1 12:40 Drug: Benadryl (diphenhydrAMINE) 25 mg Route: IVP; Site: left antecubital; tp1 13:53 Follow up: Response: Pain is decreased tp1 Medication: 12:30 VIS not applicable for this client. tp1 Intake: 13:54 IV: 800ml; Total: 800ml. tp1 Outcome: 13:55 Discharge ordered by . sd2 14:01 Discharged to home ambulatory. tp1 14:01 Condition: good 14:01 Discharge instructions given to patient, Instructed on discharge instructions, follow up and referral plans. medication usage, Demonstrated understanding of instructions, follow-up care, medications, Prescriptions given X 2. 14:01 Patient left the ED. tp1 Signatures: Dispatcher [employer] EDWilfrido Tineo RN RN jl7 Elisabeth Ferrer Tiffany RN RN tp1 Bianca Keith MD MD sd2 Corrections: (The following items were deleted from the chart) 11:33 11:33 PMHx: TBI; guevara jl7 12:27 12:00 No provider procedures requiring assistance completed. tp1 tp1
--- NOTE | 2022-05-28 13:56 | EDPHYS ---
Physician Documentation [facility] Name: Gregg Nair Sr Age: 56 yrs Sex: Male : 1965 Arrival Date: 05/28/2022 Time: 11:20 Bed 25 Private MD: Sanket Monzon ED Physician Bianca Keith HPI: 05/28 11:47 This 56 yrs old Male presents to ER via Ambulatory with complaints of Dizziness, sd2 Nausea, Abrasion(s), Fall Injury. 11:47 56-year-old male with a history of a prior traumatic brain injury in 2004 presents with sd2 chief complaint of fall with head injury 2 days ago in the afternoon that occurred when he slipped and fell on his gravel driveway. He reports significant abrasions to his face and his right arm. He endorses head pain and neck pain. He denies any back pain. He has been ambulatory without difficulty. He does complain of significant dizziness with associated nausea and vomiting. He reports a prior fracture to his C7 at the time of his previous accident as well as a skull and brain surgery at that time. He denies any other areas of pain currently. Endorses photophobia. Does not take any blood thinners. Denies LOC.. Historical: - Allergies: 11:33 TB shots; jl7 - Home Meds: 11:33 [place] 7.5-325 mg Oral tab [Active]; jl7 - PMHx: 11:33 TBI; Chronic pain; jl7 - PSHx: 11:33 RIGHT BKA; right shoulder; jl7 - Immunization history:: Client reports having NOT received the Covid vaccine. - Social history:: Smoking status: Patient denies any tobacco usage or history of. ROS: 11:47 Constitutional: Negative for fever, chills, and weight loss, Eyes: Negative for injury, sd2 pain, redness, and discharge, positive for photophobia Neck: Positive for injury, pain, and negative for swelling, Cardiovascular: Negative for chest pain, palpitations, and edema, Respiratory: Negative for shortness of breath, cough, wheezing. Abdomen/GI: Negative for abdominal pain, diarrhea. Positive for nausea and vomiting Back: Negative for injury and pain, MS/Extremity: Negative for injury and deformity, Skin: Negative for injury, rash, and discoloration, Neuro: Positive for headache, numbness and tingling. Exam: 11:47 Constitutional: This is a well developed, well nourished patient who is awake, alert, sd2 and in no acute distress. Head/Face: Normocephalic, scattered abrasions noted to upper face Eyes: EOMI, normal conjunctiva bilaterally, PERRL Neck: Trachea midline, no thyromegaly or masses palpated, and no cervical lymphadenopathy. Point tenderness over lower cervical spine without stepoff or deformity, C-collar placed at time of exam Chest/axilla: Normal chest wall appearance and motion. Nontender with no deformity. Cardiovascular: Regular rate and rhythm with a normal S1 and S2. No gallops, murmurs, or rubs. 2+ distal pulses. Respiratory: Lungs have equal breath sounds bilaterally, clear to auscultation and percussion. No rales, rhonchi or wheezes noted. No increased work of breathing, no retractions or nasal flaring. Abdomen/GI: Soft, non-tender, with normal bowel sounds. No guarding or rebound. No evidence of tenderness throughout. Back: No spinal tenderness. No costovertebral tenderness. Full range of motion. Skin: Warm, dry with normal turgor. Normal color with no rashes, no lesions, and no evidence of cellulitis. Abrasions noted to posterior R elbow MS/ Extremity: Pulses equal, no cyanosis. Neurovascular intact. Full, normal range of motion. Ambulatory without difficulty. Psych: Awake, alert, with orientation to person, place and time. Behavior, mood, and affect are within normal limits. Vital Signs: 11:31 BP 150 / 89; Pulse 62; Resp 17; Temp 97.6; Pulse Ox 99% ; Weight 99.79 kg; Height 6 ft. jl7 3 in. (190.50 cm); Pain 10/10; 12:43 BP 150 / 87; Pulse 51; Resp 17; Pulse Ox 98% on R/A; tp1 13:27 BP 153 / 77; Pulse 60; Resp 16; Pulse Ox 96% on R/A; tp1 11:31 Body Mass Index 27.50 (99.79 kg, 190.50 cm) jl7 MDM: 11:37 Patient medically screened. sd2 11:52 Differential diagnosis: vertigo, ICH, CVA, concussion, dehydration, electrolyte sd2 abnormality, fracture among others. Data reviewed: vital signs, nurses notes. 13:53 Data reviewed: lab test result(s), radiologic studies. Counseling: I had a detailed sd2 discussion with the patient and/or guardian regarding: the historical points, exam findings, and any diagnostic results supporting the discharge/admit diagnosis, lab results, radiology results, the need for outpatient follow up, to return to the emergency department if symptoms worsen or persist or if there are any questions or concerns that arise at home. Medical screen evaluation completed. [facility] ED course: Labs and imaging reviewed. Labs grossly WNCL. CT imaging with no acute traumatic injuries. Suspect concussion. Pt much improved after treatment. Ambulatory without difficulty. No focal neuro deficits. Pt advised of concussion precautions and need for follow up with PCP for clearance. Verbalizes understanding of discharge plan and strict return precautions.. 05/28 11:47 Order name: CBC with Diff; Complete Time: 12:26 sd2 05/28 11:47 Order name: BMP; Complete Time: 12:33 sd2 05/28 11:47 Order name: PT-INR; Complete Time: 12:26 sd2 05/28 11:47 Order name: Ptt, Activated; Complete Time: 12:26 sd2 05/28 11:47 Order name: CT Head C Spine; Complete Time: 12:26 sd2 Administered Medications: 12:03 Drug: fentaNYL (PF) 50 mcg Route: IVP; Site: left antecubital; tp1 12:43 Follow up: Response: Pain is unchanged, physician notified tp1 12:04 Drug: Meclizine 25 mg Route: PO; tp1 12:43 Follow up: Response: Pain is unchanged, physician notified tp1 12:39 Drug: Ketorolac 15 mg Route: IVP; Site: left antecubital; tp1 13:53 Follow up: Response: Pain is decreased tp1 12:39 Drug: NS 0.9% 1000 ml Route: IV; Rate: 1 bolus; Site: left antecubital; tp1 13:54 Follow up: IV Status: Completed infusion; IV Intake: 800ml tp1 12:40 Drug: Benadryl (diphenhydrAMINE) 25 mg Route: IVP; Site: left antecubital; tp1 13:53 Follow up: Response: Pain is decreased tp1 Disposition Summary: 05/28/22 13:55 Discharge Ordered Location: Home sd2 Problem: new sd2 Symptoms: have improved sd2 Condition: Stable sd2 Diagnosis - Postconcussional syndrome sd2 - Vertigo sd2 - Facial abrasions sd2 Followup: sd2 - With: Private Physician - When: 2 - 3 days - Reason: Recheck today's complaints, Continuance of care, Re-evaluation by your physician Discharge Instructions: - Discharge Summary Sheet sd2 - Concussion, Adult sd2 - Post-Concussion Syndrome sd2 Forms: - Medication Reconciliation Form sd2 - Thank You Letter sd2 - Antibiotic Education sd2 - Prescription Opioid Use sd2 Prescriptions: - Ibuprofen 800 mg Oral Tablet - take 1 tablet by ORAL route every 8 hours As needed take with food; 20 tablet; sd2 Refills: 0, Product Selection Permitted - Meclizine 25 mg Oral Tablet - take 1 tablet by ORAL route every 8 hours As needed; 20 tablet; Refills: 0, sd2 Product Selection Permitted Signatures: Dispatcher [employer] Wilfrido Nick RN RN jl7 Karena Dominguez RN RN tp1 Bianca Keith MD MD sd2 Corrections: (The following items were deleted from the chart) 11:33 11:33 PMHx: TBI; guevara jl7
[2022-05-28 14:20] VITALS: TEMP 97.6
[2022-05-28 14:22] VITALS: BP 153/77; O2SAT 96
== END 2022-05-28 14:01 | disposition home or self-care (01) ==
LOC: ER 11:18
DX: F07.81 Postconcussional syndrome (principal); R42 Dizziness and giddiness; S00.81XA Abrasion of other part of head, initial encounter; Z87.820 Personal history of traumatic brain injury; Z89.511 Acquired absence of right leg below knee; Z88.7 Allergy status to serum and vaccine
CPT/HCPCS: 96361; 85025; 80048; 36415; 85610; 85730; 70450; 72125; 96375; 96374; 99284; J1200; J8597; J3010; J7030

== ENCOUNTER 2022-06-25 09:53 | Emergency (ER) | payer OTHER ==
--- OUTSIDE RECORDS SUMMARY | 2022-06-25 09:56 | XMS REPORT | Continuity of Care Document ---
:1965 Author Organization [facility] t Address [address] [place] [address] Care Team Providers Name Role Phone Pcp, Patient Does Not Have A Primary Care Physician [id number] Bernardo Bonner Attending Clinician JOSE MARTIN UMANA Attending Clinician Unavailable Therapy, [facility] Covid Infusion Attending Clinician Unavailable Jose Martin Umana MD Attending Clinician Doctor Unassigned, [place] Attending Clinician Unavailable Gino Nunez Attending Clinician Mayuri Winchester Attending Clinician Payers Payer Name Policy Type Policy Number Effective Date Expiration Date S ource MEDICAID OF [place] [id number] 2016 00:00:00 [id number] 2012 [facility] ity -Present 00:00:00 [facility] dical [address] [id number] AMERIVANTAGE [id number] 2016 00:00:00 Problems Condition Condition Condition Status [...] different from the original. 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 [facility] (disorder) injury (disorder) Active Problem 05/01/2022 [facility] her Neuro, [facility] INTCRAN INTCRAN Diagnosis Active [...] Active Univers ALLERGIE Class ity of S [facility] Social History Social Habit Start Date Stop Date Quantity Comments Source Social History 2018-04-02 2018-04-02 [facility] henrique 18:19:44 18:19:44 Tobacco use and 2015-03-03 2015-03-03 Never used Universit y of exposure 00:00:00 00:00:00 [facility] Alcohol intake 2015-03-03 2015-03-03 University of 00:00:00 00:00:00 [facility] Tobacco Comment 2013-06-27 2013-06-27 Pt thinks he Univers ity of 00:00:00 00:00:00 smoked but has no [facility] memory of how Branch many cigs nor how long. History of 1988-07-24 Cigarette Smoker Universi ty of tobacco use 00:00:00 [facility] Sex Assigned At [birth year] Universit y of 00:00:00 00:00:00 [facility] Smoking Status Start Date Stop Date Source Tobacco smoking status 2018-04-02 18:19:38 2018-04-02 18:19:38 M timrigene Wall Medications Ordered Filled Start Stop Current Ordering Indication Dosage Frequency Signature Comments Components Source Medication Medication Date Date Medication? Clinician (SIG) Name Name casirivimab 2020- No [id number] 1200mg 1,200 mg, Univers -imdevimab 03-11 IV ity of 1200 mg in 23:00: 22:21 Infusion, [place] 60 mL NS 00 :00 ONCE, Medical MINI-BAG Administer Branc h over 20 Minutes, Donna 03/11/21 at 1800, For 1 dose
Ad head filter press tender as an IV infusion via pump or [...] pain, # 60 cap, 1 Refill(s), [id number] dicyclomine 2018-0 Yes 10 mg = 1 M emoria 10 mg oral 9-19 cap, PO, l capsule 20:46: QID-Before Herm shari 00 Meals, as needed for abdominal pain, # 60 cap, 1 Refill(s), Pharmacy: [id number] dicyclomine 2018-0 Yes 10 mg = 1 M emoria 10 mg oral 9-19 cap, PO, l capsule 20:46: QID-Before Herm shari 00 Meals, as needed for abdominal pain, # 60 cap, 1 Refill(s), Pharmacy: [facility] #[id number] rifaximin 2018-0 Yes 550 mg = 1 Me moria 550 MG Oral 9-17 tab, PO, l Tablet 18:34: TID, # 42 [place] [XIFAXAN] 00 tab, 0 Refill(s), Pharmacy: [facility] #[id number] Xifaxan 550 2018-0 Yes 550 mg = 1 Memoria mg oral 9-17 tab, PO, l tablet 18:34: TID, # 42 [place] 00 tab, 0 Refill(s), Pharmacy: [facility] #[id number] rifaximin 2018-0 Yes 550 mg = 1 Me moria 550 MG Oral 9-17 tab, PO, l Tablet 18:34: TID, # 42 [place] [XIFAXAN] 00 tab, 0 Refill(s), Pharmacy: [facility] #[id number] Xifaxan 550 2018-0 Yes 550 mg = 1 Memoria mg oral 9-17 tab, PO, l tablet 18:34: TID, # 42 [place] 00 tab, 0 Refill(s), [id number] rifaximin Yes 550 mg = 1 Me moria 550 MG Oral 9-17 tab, PO, l Tablet 18:34: TID, # 42 [place] [XIFAXAN] 00 tab, 0 Refill(s), [id number] Xifaxan 550 Yes 550 mg = 1 Memoria mg oral 9-17 tab, PO, l tablet 18:34: TID, # 42 [place] 00 tab, 0 Refill(s), [id number] [place] Yes 1 tab, PO, Memori a 7.5/325 5-08 Q6H, 0 l oral tablet 18:06: Refill(s) H [place] Yes 1 tab, PO, Memori a 7.5/325 5-08 Q6H, 0 l oral tablet 18:06: Refill(s) H [place] Yes 1 tab, PO, Memori a 7.5/325 5-08 Q6H, 0 l oral tablet 18:06: Refill(s) H methocarbam 2013-0 Yes 500mg Take 1 Tab Univers ol 7-29 by mouth 4 ity of (ROBAXIN) 00:00: (four) [place] 500 mg 00 times Medical tablet daily. Branch methocarbam 0 Yes 500mg Take 1 Tab Univers ol 7-29 by mouth 4 ity of (ROBAXIN) 00:00: (four) [place] 500 mg 00 times Medical tablet daily. Branch nortriptyli 0 Yes 75mg Take 1 [...] tablet 1 Branch Tab acetaminoph 2012-07 Yes [id number] 1{tbl} Take 1 Tab Univers en-codeine 2-02 by mouth ity o f (TYLENOL-CO 00:00: every 4 Jarod as DEINE #3) 00 (four) Medical 300-30 mg hours as Branch tablet needed for Pain. acetaminoph 2012-07 Yes [id number] 1{tbl} Take 1 Tab Univers en-codeine 2-02 [...] area(s) 2 ity of acetonide 00:00: (two) [place] (TRIDERM) 00 times Medical 0.1 % cream daily. Branch triamcinolo Yes Apply to Un dashawn ne 1-08 area(s) 2 ity of acetonide 00:00: (two) [place] (TRIDERM) 00 times Medical 0.1 % cream daily. Branch Immunizations Ordered Immunization Filled Immunization Date Status Commen ts Source Name Name hepatitis B adult 2016-10-31 Completed Memoria l vaccine 16:08:00 [place] hepatitis B adult 2016-10-31 Completed Memoria l vaccine 16:08:00 [place] hepatitis B adult 2016-10-31 Completed Memoria l vaccine 16:08:00 [place] hepatitis B adult 2016-04-11 Completed Memoria l vaccine 15:46:00 [place] hepatitis B adult 2016-04-11 Completed Memoria l vaccine 15:46:00 [facility] hepatitis B adult 2016-04-11 Completed Memoria l vaccine 15:46:00 [facility] hepatitis B adult 2016-03-28 Completed Memoria l vaccine 16:37:00 [place] hepatitis B adult 2016-03-28 Completed Memoria l vaccine 16:37:00 [place] hepatitis B adult 2016-03-28 Completed Memoria l vaccine 16:37:00 [facility] Vital Signs Vital Name Observation Time Observation Value Comments Source Body weight 2021-03-11 21:58:00 104.327 kg [facility] BMI 2021-03-11 21:58:00 28.75 kg/m2 [facility] Oxygen saturation in 2021-03-11 21:58:00 96 /min [facility] Arterial blood by [facility] Pulse oximetry Branch Systolic blood 2021-03-11 21:58:00 145 mm[Hg] Univer sity of pressure [facility] Diastolic blood 2021-03-11 21:58:00 86 mm[Hg] [facility] Heart rate 2021-03-11 21:58:00 80 /min [facility] Body temperature 2021-03-11 21:58:00 37.39 [facility] [place] [facility] Res[facility] rate 2021-03-11 21:58:00 20 /min [facility] Body height 2021-03-11 21:58:00 190.5 cm [facility] Weight 2018-04-02 18:18:00 [facility] [place] BMI Calculated 2018-04-02 18:18:00 Memori al [facility] Height 2018-04-02 18:18:00 187.96 cm [facility] Systolic (mm Hg) 2018-04-02 18:18:00 Jan rial [facility] Diastolic (mm Hg) 2018-04-02 18:18:00 Mem orial [place] Heart Rate 2018-04-02 18:18:00 [facility] Height 2016-05-16 14:12:00 187.96 cm [facility] [place] Weight 2016-05-16 14:12:00 [facility] BMI Calculated 2016-05-16 14:12:00 Memori al [place] Respitory Rate 2016-05-16 14:12:00 Memori al [facility] Heart Rate 2016-05-16 14:12:00 [facility] Systolic (mm Hg) 2016-05-16 14:12:00 Jan rial [facility] Diastolic (mm Hg) 2016-05-16 14:12:00 Mem orial [facility] Procedures Procedure Date / Time Performing Clinician Source Performed CONSENT/REFUSAL FOR 2021-03-11 05:01:00 Doctor Unassigned, No [facility]REATMENT Name Medical Branch Colonoscopy 2017-01-24 05:00:00 [facility] Her coats Cranioplasty Yamileth Wall BKA - Below knee Yamileth Seay n amputation, Encounters Start End Encounter Admission Attending Care Care Encounter Source Date/Time Date/Time Type Type Clinicians Facility Department ID 2022-04-29 2022-04-29 Ambulatory nullFlavo MNA [id number] Memoria 19:30:00 19:30:00 Pre-Reg r Neurology 12 l Mary Alice Wall 2022-04-29 2022-04-29 Ambulatory nullFlavo MNA [id number] Memoria 19:30:00 19:30:00 Pre-Reg r Neurology 11 l Mary Alice Wall 2022-04-29 2022-04-29 Ambulatory nullFlavo MNA [id number] Memoria 19:30:00 19:30:00 Pre-Reg r Neurology 11 l Mary Alice Wall 2022-04-29 2022-04-29 Ambulatory nullFlavo MNA [id number] Memoria 19:30:00 19:30:00 Pre-Reg r Neurology 12 l Mary Alice Wall 2022-04-29 2022-04-29 Ambulatory nullFlavo MNA [id number] Memoria 19:00:00 19:00:00 Pre-Reg r Neurology 10 l Mary Alice Wall 2022-04-29 2022-04-29 Ambulatory nullFlavo MNA [id number] Memoria 19:00:00 19:00:00 Pre-Reg r Neurology 10 l Mary Alice Wall 2022-04-29 2022-04-29 Outpatient MHIE MHIE [id number] Memoria 14:30:00 14:30:00 11 l [facility] 2022-04-29 2022-04-29 Outpatient MHIE MHIE [id number] Memoria 14:30:00 14:30:00 12 l [facility] 2022-04-29 2022-04-29 [id number] 14:30:00 14:30:00 Bernardo 11 Yevgeniy 2022-04-29 2022-04-29 Outpatient LILI BonnerSCHER MHMISCHER [id number] 14:30:00 14:30:00 Bernardo 12 Yevgeniy 2022-04-29 2022-04-29 Outpatient MHIE MHIE [id number] Memoria 14:00:00 14:00:00 10 aline Wall 2022-04-29 2022-04-29 Outpatient LILI BonnerSCHER MHLEBRONSCHER [id number] 14:00:00 14:00:00 Bernardo 10 Yevgeniy 2021-03-11 2021-03-11 Outpatient Leo UMANA, [facility] [id number] Univers 15:30:00 15:30:00 JOSE MARTIN itwilly [facility] [place] [facility] 2021-03-11 2021-03-11 Nurse Therapy, Adc Covid Infusion [facility] [id number] Univers 14:19:37 15:19:37 Visit Jose Martin Umana [id number] ity [place] [id number] [place] [id number] Med [facility] 053 Branch 2021-03-11 2021-03-11 Orders Doctor KLEBER [id number] Univers 00:00:00 00:00:00 Only Unassigned, ANGEL [id number] ity of [place] [facility] [id number] Jarod as [id number] [place] [address] Branch 2020-05-13 2020-05-13 Emergency X [facility] ERT [id number] Univers 19:41:00 19:41:00 ity of [facility] 2018-04-04 2018-04-06 Phone nullFlavo MG [id number] Memoria 20:45:00 04:59:59 Message r Gastroenter 06 l ology [facility] Kari 2018-04-04 2018-04-06 Phone nullFlavo MG [id number] Memoria 20:45:00 04:59:59 Message r Gastroenter 06 l ology [facility] [place] 2018-04-04 2018-04-05 Outpatient [facility] [id number] 15:45:00 23:59:59 06 2018-04-02 2018-04-03 Outpatient nullFlavo [facility] [id number] Memoria 18:15:00 04:59:59 r Gastroenter 09 aline Pierce 2018-04-02 2018-04-03 Outpatient nullFlavo [facility] [id number] Memoria 18:15:00 04:59:59 r Gastroenter 09 l precious Pierce 2018-04-02 2018-04-02 Outpatient Mayra [facility] [id number] 13:15:00 23:59:59 Gino Lezama 09 2018-04-02 2018-04-02 Outpatient MHIE MHIE [id number] Memoria 13:15:00 13:15:00 09 aline Wall 2017-02-20 2017-02-20 Outpatient MHIE MHIE [id number] Memoria 13:15:00 13:15:00 08 aline Wall 2017-02-20 2017-02-20 Outpatient MHIE MHIE [id number] Memoria 13:15:00 13:15:00 08 aline Wall 2017-02-09 2017-02-09 Outpatient MHIE MHIE [id number] Memoria 11:15:00 11:15:00 07 aline Wall 2017-02-09 2017-02-09 Outpatient MHIE MHIE [id number] Memoria 11:15:00 11:15:00 07 aline Wall 2016-11-21 2016-11-21 Outpatient MHIE MHIE [id number] Memoria 13:00:00 13:00:00 05 aline Wall 2016-11-21 2016-11-21 Outpatient MHIE MHIE [id number] Memoria 13:00:00 13:00:00 05 aline Wall 2016-10-31 2016-10-31 Outpatient MHIE MHIE [id number] Memoria 10:00:00 10:00:00 04 aline Wall 2016-10-31 2016-10-31 Outpatient MHIE MHIE [id number] Memoria 10:00:00 10:00:00 04 aline Wall 2016-07-27 2016-07-27 Outpatient MHIE MHIE [id number] Memoria 15:30:00 15:30:00 03 aline Wall 2016-07-27 2016-07-27 Outpatient MHIE MHIE [id number] Memoria 15:30:00 15:30:00 03 aline [place] 2016-05-24 2016-05-25 Outpatient nullFlavo [facility] [id number] Memoria 16:03:00 05:59:00 r [facility] 02 [facility] 2016-05-24 2016-05-25 Outpatient nullFlavo [facility] [id number] Memoria 16:03:00 05:59:00 r [facility] 02 [facility] 2016-05-24 2016-05-24 Outpatient Magat, [facility] [id number] 10:03:00 23:59:00 Mayuri [address] [facility] 2016-05-16 2016-05-17 Outpatient nullFlavo [facility] [id number] Memoria 13:31:00 04:59:00 r [facility] 01 [facility] 2016-05-16 2016-05-17 Outpatient nullFlavo [facility] [id number] Memoria 13:31:00 04:59:00 r [facility] 01 [facility] 2016-05-16 2016-05-16 Outpatient Magat, [facility] [id number] 08:31:00 23:59:00 Mayuri [address] [facility] 2016-04-11 2016-04-11 Outpatient MHIE MHIE [id number] Memoria 09:00:00 09:00:00 02 [facility] 2016-04-11 2016-04-11 Outpatient MHIE MHIE [id number] Memoria 09:00:00 09:00:00 02 aline [facility] 2016-03-28 2016-03-28 Outpatient MHIE MHIE [id number] Memoria 14:15:00 14:15:00 01 aline [place] 2016-03-28 2016-03-28 Outpatient MHIE MHIE [id number] Memoria 14:15:00 14:15:00 01 aline Wall Results This patient has no known results.
[2022-06-25 11:15] LABS: SARS-COV-2 RT PCR POSITIVE (NEGATIVE)
--- NOTE | 2022-06-25 11:16 | ER ---
Nurse's Notes [facility] [place] Name: Gregg Nair Sr Age: 56 yrs Sex: Male : 1965 Arrival Date: 06/25/2022 Time: 09:54 Bed DIS3 Private MD: Sanket Monzon Diagnosis: SARS-associated coronavirus as the cause of diseases classified elsewhere Presentation: 06/25 10:07 Chief complaint: Patient states: was exposed to someone who has covid, today I started iw feeling bad, my chest is congested and i'm coughing and I feel drained. Coronavirus screen: Client presents with at least one sign or symptom that may indicate coronavirus-19. Ebola Screen: Patient negative for fever greater than or equal to 101.5 degrees Fahrenheit, and additional compatible Ebola Virus Disease symptoms Patient denies exposure to infectious person. Patient denies travel to an Ebola-affected area in the 21 days before illness onset. No symptoms or risks identified at this time. Initial Sepsis Screen: Does the patient meet any 2 criteria? No. Patient's initial sepsis screen is negative. Does the patient have a suspected source of infection? No. Patient's initial sepsis screen is negative. Risk Assessment: Do you want to hurt yourself or someone else? Patient reports no desire to harm self or others. Onset of symptoms was June 25, 2022. 10:07 Method Of Arrival: Ambulatory iw 10:07 Acuity: BRIAN 4 iw Historical: - Allergies: 10:08 TB shots; iw - Home Meds: 10:08 [place] 7.5-325 mg Oral tab [Active]; iw - PMHx: 10:08 Chronic pain; TBI; iw - PSHx: 10:08 RIGHT BKA; right shoulder; iw - Immunization history:: Client reports having NOT received the Covid vaccine. - Social history:: Smoking status: Patient/guardian denies using tobacco, but has a distant history of tobacco abuse. Vital Signs: 10:07 BP 131 / 90; Pulse 67; Resp 16; Temp 98.1; Pulse Ox 100% on R/A; Weight 102.06 kg; iw Height 6 ft. 2 in. (187.96 cm); 10:07 Body Mass Index 28.89 (102.06 kg, 187.96 cm) iw ED Course: 09:54 Patient arrived in ED. am2 09:54 Sanket Monzon DO is Private Physician. am2 10:07 Ashlee Horton [facility]C [facility]. snw 10:07 Sharath Lopez MD is Attending Physician. snw 10:08 Triage completed. iw 10:08 Arm band placed on. iw 10:14 COVID-19/FLU A+B/RSV Sent. iw 11:24 Christine Crum, RN is Primary Nurse. iw Administered Medications: No medications were administered Outcome: 11:15 Discharge ordered by . snw 11:24 Patient left the ED. iw Signatures: Ashlee Horton FNP-C SOLE STAINER-Csnw Christine Crum, RN RN iw Elisabeth Ferrer am2 Corrections: (The following items were deleted from the chart) 10:09 10:08 Social history: Smoking status: Patient denies any tobacco usage or history of. iwiw
--- NOTE | 2022-06-25 11:16 | EDPHYS ---
Physician Documentation [facility] Name: Gregg Nair Sr Age: 56 yrs Sex: Male : 1965 Arrival Date: 06/25/2022 Time: 09:54 Bed DIS3 Private MD: Sanket Monzon ED Physician Sharath Lopez HPI: 06/25 10:24 This 56 yrs old Male presents to ER via Ambulatory with complaints of exposure to snw covid, Doesn't Feel Right. 10:24 The patient or guardian reports cough, flu symptoms, low-grade fever, myalgias, no snw appetite. Onset: The symptoms/episode began/occurred suddenly, and became persistent. Modifying factors: the symptoms are aggravated by nothing. Associated signs and symptoms: Pertinent positives: malaise, exposed to CoVid yest. Severity of symptoms: At their worst the symptoms were moderate in the emergency department the symptoms are unchanged. The patient has not experienced similar symptoms in the past. The patient has not recently seen a physician. Historical: - Allergies: 10:08 TB shots; iw - Home Meds: 10:08 [place] 7.5-325 mg Oral tab [Active]; iw - PMHx: 10:08 Chronic pain; TBI; iw - PSHx: 10:08 RIGHT BKA; right shoulder; iw - Immunization history:: Client reports having NOT received the Covid vaccine. - Social history:: Smoking status: Patient/guardian denies using tobacco, but has a distant history of tobacco abuse. ROS: 10:24 Eyes: Negative for injury, pain, redness, and discharge, ENT: Negative for injury, snw pain, and discharge, Neck: Negative for injury, pain, and swelling, Cardiovascular: Negative for chest pain, palpitations, and edema. 10:24 Abdomen/GI: Negative for abdominal pain, nausea, vomiting, diarrhea, and constipation, Back: Negative for injury and pain, : Negative for injury, bleeding, discharge, and swelling, MS/Extremity: Negative for injury and deformity, Skin: Negative for injury, rash, and discoloration, Neuro: Negative for headache, weakness, numbness, tingling, and seizure. 10:24 Constitutional: Positive for body aches, chills, fatigue, fever, malaise, poor PO intake. 10:24 Respiratory: Positive for cough, with no reported sputum. Exam: 10:23 Constitutional: This is a well developed, well nourished patient who is awake, alert, snw and in no acute distress. Head/Face: Normocephalic, atraumatic. Eyes: Pupils equal round and reactive to light, extra-ocular motions intact. Lids and lashes normal. Conjunctiva and sclera are non-icteric and not injected. Cornea within normal limits. Periorbital areas with no swelling, redness, or edema. 10:23 Neck: Trachea midline, no thyromegaly or masses palpated, and no cervical lymphadenopathy. Supple, full range of motion without nuchal rigidity, or vertebral point tenderness. No Meningismus. Chest/axilla: Normal chest wall appearance and motion. Nontender with no deformity. No lesions are appreciated. Cardiovascular: Regular rate and rhythm with a normal S1 and S2. No gallops, murmurs, or rubs. Normal PMI, no JVD. No pulse deficits. Respiratory: Lungs have equal breath sounds bilaterally, clear to auscultation and percussion. No rales, rhonchi or wheezes noted. No increased work of breathing, no retractions or nasal flaring. Abdomen/GI: Soft, non-tender, with normal bowel sounds. No distension or tympany. No guarding or rebound. No evidence of tenderness throughout. Back: No spinal tenderness. No costovertebral tenderness. Full range of motion. Skin: Warm, dry with normal turgor. Normal color with no rashes, no lesions, and no evidence of cellulitis. MS/ Extremity: Pulses equal, no cyanosis. Neurovascular intact. Full, normal range of motion. Neuro: Awake and alert, GCS 15, oriented to person, place, time, and situation. Cranial nerves II-XII grossly intact. Motor strength 5/5 in all extremities. Sensory grossly intact. Cerebellar exam normal. Normal gait. Psych: Awake, alert, with orientation to person, place and time. Behavior, mood, and affect are within normal limits. 10:23 ENT: TM's: are normal, Nose: is normal, Mouth: is normal, Tongue: large, Posterior pharynx: is normal, Voice: is hoarse. Vital Signs: 10:07 BP 131 / 90; Pulse 67; Resp 16; Temp 98.1; Pulse Ox 100% on R/A; Weight 102.06 kg; iw Height 6 ft. 2 in. (187.96 cm); 10:07 Body Mass Index 28.89 (102.06 kg, 187.96 cm) iw MDM: 10:17 Patient medically screened. snw 11:18 Data reviewed: vital signs, nurses notes. Data interpreted: Pulse oximetry: on room air snw is 100 %. Interpretation: normal. Counseling: I had a detailed discussion with the patient and/or guardian regarding: the historical points, exam findings, and any diagnostic results supporting the discharge/admit diagnosis, lab results, the need for outpatient follow up, to return to the emergency department if symptoms worsen or persist or if there are any questions or concerns that arise at home. Response to treatment: There is no appreciated change of the patient's symptoms at this time. Special discussion: Based on the history and exam findings, there is no indication for further emergent testing or inpatient evaluation. I discussed with the patient/guardian the need to see the primary care provider for further evaluation of the symptoms. 06/25 10:07 Order name: COVID-19/FLU A+B/RSV; Complete Time: 11:17 snw Administered Medications: No medications were administered Disposition: 17:32 Co-signature as Attending Physician, Sharath Lopez MD I agree with the assessment and rt plan of care. Disposition Summary: 06/25/22 11:15 Discharge Ordered Location: Home snw Condition: Stable snw Diagnosis - SARS-associated coronavirus as the cause of diseases classified elsewhere snw Followup: snw - With: Emergency Department - When: As needed - Reason: Worsening of condition Followup: snw - With: Private Physician - When: 2 - 3 days - Reason: Recheck today's complaints, Continuance of care, Re-evaluation by your physician Discharge Instructions: - Discharge Summary Sheet snw - Aspirin and Your Heart snw - COVID-19 snw - 10 Things You Can Do to Manage Your COVID-19 Symptoms at Home - [facility] snw - COVID-19: Quarantine vs. Isolation - [facility] snw - Prevent the Spread of COVID-19 if You Are Sick - [facility] snw Forms: - Medication Reconciliation Form snw - Thank You Letter snw - Antibiotic Education snw - Prescription Opioid Use snw Prescriptions: - Zyrtec 10 mg Oral Tablet - take 1 tablet by ORAL route once daily As needed; 20 tablet; Refills: 0, snw Product Selection Permitted - Prednisone 20 mg Oral Tablet - take 2 tablets by ORAL route once daily for 5 days; 10 tablet; Refills: 0, snw Product Selection Permitted - Pepcid 20 mg Oral Tablet - take 1 tablet by ORAL route once daily; 20 tablet; Refills: 0, Product snw Selection Permitted - acetylcysteine (bulk) - take 600 milligram by ORAL route once daily; 90 tablet; Refills: 0, Product snw Selection Permitted Signatures: Dispatcher [employer] EDMS Ashlee Horton, ARGELIA-C ROOFING MACHINE TENDER-Csnw Christine Crum RN RN iw Sharath Lopez MD MD rt Corrections: (The following items were deleted from the chart) 10:09 10:08 Social history: Smoking status: Patient denies any tobacco usage or history of. iwiw
[2022-06-25 19:22] VITALS: BP 127/74; TEMP 98; O2SAT 98
== END 2022-06-25 11:24 | disposition home or self-care (01) ==
LOC: ER 09:53
DX: U07.1 COVID-19 (principal); Z87.820 Personal history of traumatic brain injury; Z88.7 Allergy status to serum and vaccine; Z89.511 Acquired absence of right leg below knee
CPT/HCPCS: 0241U; 99282

== ENCOUNTER 2022-07-01 11:54 | Emergency (ER) | payer OTHER ==
--- OUTSIDE RECORDS SUMMARY | 2022-07-01 11:58 | XMS REPORT | Continuity of Care Document ---
:1965 Author Organization [facility] t Address [address] [place] [address] Care Team Providers Name Role Phone Pcp, Patient Does Not Have A Primary Care Physician [id number] Bernardo Bonner Attending Clinician JOSE MARTIN UMANA Attending Clinician Unavailable Therapy, Adc Covid Infusion Attending Clinician Unavailable Jose Martin Umana MD Attending Clinician Doctor Unassigned, [place] Attending Clinician Unavailable Gino Nunez Attending Clinician Mayuri Winchester Attending Clinician Payers Payer Name Policy Type Policy Number Effective Date Expiration Date S ource [place]ICAID OF [place] [id number] 2016 00:00:00 [id number] 2012 [facility] ity -Present 00:00:00 [facility] dical O BOX Branch [address] [place] [address] [id number] AMERIVANTAGE [id number] 2016 00:00:00 Problems Condition Condition Condition Status Onset Resolution Last Treating Co mments Source Name Details Category Date Date Treatment Clinician Date CT CT Diagnosis Active 2015-072016-05-24 Mem oria Active 10:09:00 l 05/16/2016 00:00: Dawood PARADA [facility] 00 EVAL EVAL Diagnosis Active 2016-05-16 Mem oria Active 03-24 08:40:00 l 03/24/2016 00:00: Dawood paez [facility] 00 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 Pain in Pain in Disease Active [...] 05/27/2016 [facility] Chronic Chronic Problem Active 2016-05-27 Vt ryan hepatitis hepatitis 02:02:31 l C C [...] (situation ) ) Active Problem 05/01/2022 [facility] [place] Obesity Obesity Problem Active 2022-05-01 Me moria (disorder) (disorder) 22:54:24 l Active [place] Problem 05/01/2022 [facility], [facility] Traumatic Problem Active 2022-05-01 Me ryan brain Traumatic 22:54:24 l injury brain [facility] (disorder) injury (disorder) Active Problem 05/01/2022 [facility] Neuro, [facility] INTCRAN INTCRAN Diagnosis Active 2016-05-24 Memoria INJ W/O INJ W/O 10:09:00 l LOSS OF LOSS OF [facility] CONSCIOUSN CONSCIOUSN ESS, I ESS, I Active [facility] Viral Viral Problem Resolve 2016-2018-10-23 2018-10-23 Memoria hepatitis hepatitis d 1-11 14:45:24 14:45:24 l C C 00:00: [place] (disorder) (disorder) 00 Resolved 07/27/2016 Problem 10/23/2018 Medical Group, [facility] Allergies, Adverse Reactions, Alerts Allergy Allergy Status Severity Reaction(s) Onset Inactive Treating Comm ents Source Name Type Date Date Clinician NO KNOWN Drug Active Univers ALLERGIE Class ity of S [facility] Social History Social Habit Start Date Stop Date Quantity Comments Source Social History 2018-04-02 2018-04-02 [facility] henrique 18:19:44 18:19:44 Tobacco use and 2015-03-03 2015-03-03 Never used Universit y of exposure 00:00:00 00:00:00 [facility] Alcohol intake 2015-03-03 2015-03-03 University of 00:00:00 00:00:00 [facility] Tobacco Comment 2013-06-27 2013-06-27 Pt thinks he Univers ity of 00:00:00 00:00:00 smoked but has no [facility] memory of how Branch many cigs nor how long. History of 1988-07-24 Cigarette Smoker Universi ty of tobacco use 00:00:00 [facility] Sex Ass[birth year] Universit y of 00:00:00 00:00:00 [facility] Smoking Status Start Date Stop Date Source Tobacco smoking status 2018-04-02 18:19:38 2018-04-02 18:19:38 M munir Wall Medications Ordered Filled Start Stop Current Ordering Indication Dosage Frequency Signature Comments Components Source Medication Medication Date Date Medication? Clinician (SIG) Name Name casirivimab 2020- No [id number] 1200mg 1,200 mg, Univers -imdevimab 03-11 IV ity of 1200 mg in 23:00: 22:21 Infusion, [place] 60 mL NS 00 :00 ONCE, Medical MINI-BAG Administer Branc h over 20 Minutes, Donna 03/11/21 at 1800, For 1 dose
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 or [...] pain, # 60 cap, 1 Refill(s), Pharmacy: [facility] #[id number] dicyclomine 2018-0 Yes 10 mg = 1 M emoria 10 mg oral 9-19 cap, PO, l capsule 20:46: QID-Before Herm shari 00 Meals, as needed for abdominal pain, # 60 cap, 1 Refill(s), Pharmacy: [id number] dicyclomine 2018-0 Yes 10 mg = 1 M emoria 10 mg oral 9-19 cap, PO, l capsule 20:46: QID-Before Herm shari 00 Meals, as needed for abdominal pain, # 60 cap, 1 Refill(s), Pharmacy: [facility] #[id number] dicyclomine 2018-0 Yes 10 mg = 1 M emoria 10 mg oral 9-19 cap, PO, l capsule 20:46: QID-Before Herm shari 00 Meals, as needed for abdominal pain, # 60 cap, 1 Refill(s), Pharmacy: [facility] #[id number] rifaximin 2018-0 Yes 550 mg = 1 Me moria 550 MG Oral 9-17 tab, PO, l Tablet 18:34: TID, # 42 Dawood n [XIFAXAN] 00 tab, 0 Refill(s), Pharmacy: [facility] #[id number] Xifaxan 550 2018-0 Yes 550 mg = 1 Memoria mg oral 9-17 tab, PO, l tablet 18:34: TID, # 42 [place]wood n 00 tab, 0 Refill(s), Pharmacy: [facility] #[id number] rifaximin 2018-0 Yes 550 mg = 1 Me moria 550 MG Oral 9-17 tab, PO, l Tablet 18:34: TID, # 42 [place] n [XIFAXAN] 00 tab, 0 Refill(s), [id number] Xifaxan 550 2017-0 Yes 550 mg = 1 Memoria mg oral 9-17 tab, PO, l tablet 18:34: TID, # 42 [place] n 00 tab, 0 Refill(s), [id number] rifaximin 2017- Yes 550 mg = 1 Me moria 550 MG Oral 9-17 tab, PO, l Tablet 18:34: TID, # 42 [place] n [XIFAXAN] 00 tab, 0 Refill(s), [id number] Xifaxan 550 0 Yes 550 mg = 1 Memoria mg oral 9-17 tab, PO, l tablet 18:34: TID, # 42 [place] n 00 tab, 0 Refill(s), [id number] rifaximin 20180 Yes 550 mg = 1 Me moria 550 MG Oral 9-17 tab, PO, l Tablet 18:34: TID, # 42 [place] n [XIFAXAN] 00 tab, 0 Refill(s), [id number] Xifaxan 550 0 Yes 550 mg = 1 Memoria mg oral 9-17 tab, PO, l tablet 18:34: TID, # 42 [place] n 00 tab, 0 Refill(s), [id number] [place] Yes 1 tab, PO, Memori a 7.5/325 5-08 Q6H, 0 l oral tablet 18:06: Refill(s) H [place] Yes 1 tab, PO, Memori a 7.5/325 5-08 Q6H, 0 l oral tablet 18:06: Refill(s) H [place] Yes 1 tab, PO, Memori a 7.5/325 5-08 Q6H, 0 l oral tablet 18:06: Refill(s) H [place] Yes 1 tab, PO, Memori a 7.5/325 5-08 Q6H, 0 l oral tablet 18:06: Refill(s) H methocarbam Yes 500mg Take 1 Tab Univers [...] tablet 1 Branch Tab acetaminoph 2012-07 Yes [id number] 1{tbl} Take 1 Tab Univers en-codeine 2-02 by mouth ity o f (TYLENOL-CO 00:00: every 4 Jarod as DEINE #3) 00 (four) Medical 300-30 mg hours as Branch tablet needed for Pain. acetaminoph 2012-07 Yes [id number] 1{tbl} Take 1 Tab Univers en-codeine 2-02 [...] hours as Branch needed for Pain. triamcinolo 2013-0 Yes Apply to Un dashawn ne 1-08 area(s) 2 ity of acetonide 00:00: (two) [place] (TRIDERM) 00 times Medical 0.1 % cream daily. Branch triamcinolo 2012-0 Yes Apply to Un dashawn ne 1-08 area(s) 2 ity of acetonide 00:00: (two) [place] (TRIDERM) 00 times Medical 0.1 % cream daily. Branch Immunizations Ordered Immunization Filled Immunization Date Status Commen ts Source Name Name hepatitis B adult 2016-10-31 Completed Memoria l vaccine 16:08:00 [place] hepatitis B adult 2016-10-31 Completed Memoria l vaccine 16:08:00 [place] hepatitis B adult 2016-10-31 Completed Memoria l vaccine 16:08:00 [facility] hepatitis B adult 2016-10-31 Completed Memoria l vaccine 16:08:00 [place] hepatitis B adult 2016-04-11 Completed Memoria l vaccine 15:46:00 [place] hepatitis B adult 2016-04-11 Completed Memoria l vaccine 15:46:00 [facility] hepatitis B adult 2016-04-11 Completed Memoria l vaccine 15:46:00 [place] hepatitis B adult 2016-04-11 Completed Memoria l vaccine 15:46:00 [place] hepatitis B adult 2016-03-28 Completed Memoria l vaccine 16:37:00 [facility] hepatitis B adult 2016-03-28 Completed Memoria l vaccine 16:37:00 [place] hepatitis B adult 2016-03-28 Completed Memoria l vaccine 16:37:00 [facility] hepatitis B adult 2016-03-28 Completed Memoria l vaccine 16:37:00 [place] Vital Signs Vital Name Observation Time Observation Value Comments Source Systolic blood 2021-03-11 21:58:00 145 mm[Hg] Univer sity of pressure [facility] Diastolic blood 2021-03-11 21:58:00 86 mm[Hg] Unive rsity of pressure [facility] Heart rate 2021-03-11 21:58:00 80 /min [facility] Body temperature 2021-03-11 21:58:[address] [facility] Res[facility] rate 2021-03-11 21:58:00 20 /min [facility] Body height 2021-03-11 21:58:00 190.5 cm [facility] Body weight 2021-03-11 21:58:00 104.327 kg [facility] BMI 2021-03-11 21:58:00 28.75 kg/m2 [facility] Oxygen saturation in 2021-03-11 21:58:00 96 /min University Arterial blood by [facility] Pulse oximetry Branch Weight 2018-04-02 18:18:00 [facility] BMI Calculated 2018-04-02 18:18:00 Memori al [place] Height 2018-04-02 18:18:00 187.96 cm [facility] [place] Systolic (mm Hg) 2018-04-02 18:18:00 Jan rial [facility] Diastolic (mm Hg) 2018-04-02 18:18:00 Mem orial [facility] Heart Rate 2018-04-02 18:18:00 [facility] Height 2016-05-16 14:12:00 187.96 cm [facility] Weight 2016-05-16 14:12:00 [facility] BMI Calculated 2016-05-16 14:12:00 Memori al [place] Respitory Rate 2016-05-16 14:12:00 Memori al [place] Heart Rate 2016-05-16 14:12:00 [facility] [place] Systolic (mm Hg) 2016-05-16 14:12:00 Jan rial [place] Diastolic (mm Hg) 2016-05-16 14:12:00 Mem orial [facility] Procedures Procedure Date / Time Performing Clinician Source Performed CONSENT/REFUSAL FOR 2021-03-11 05:01:00 Doctor Unassigned, No Un [facility] DIAGNOSIS AND TREATMENT Name Medical Branch Colonoscopy 2017-01-24 05:00:00 [facility] coats [facility] BKA - Below knee [facility] Dawood n amputation, Encounters Start End Encounter Admission Attending Care Care Encounter Source Date/Time Date/Time Type Type Clinicians Facility Department ID 2022-04-29 2022-04-29 Ambulatory nullFlavo MNA [id number] Memoria 19:30:00 19:30:00 Pre-Reg r Neurology 12 l Mary Alice Wall 2022-04-29 2022-04-29 Ambulatory nullFlavo MNA [id number] Memoria 19:30:00 19:30:00 Pre-Reg r Neurology 11 l Mary Alice Wall 2022-04-29 2022-04-29 Ambulatory nullFlavo MNA [id number] Memoria 19:30:00 19:30:00 Pre-Reg r Neurology 11 l Mary Alice Wall 2022-04-29 2022-04-29 Ambulatory nullFlavo MNA [id number] Memoria 19:30:00 19:30:00 Pre-Reg r Neurology 12 l Mary Alice Wall 2022-04-29 2022-04-29 Ambulatory nullFlavo MNA [id number] Memoria 19:00:00 19:00:00 Pre-Reg r Neurology 10 l Mary Alice Wall 2022-04-29 2022-04-29 Ambulatory nullFlavo MNA [id number] Memoria 19:00:00 19:00:00 Pre-Reg r Neurology 10 l Mary Alice Wall 2022-04-29 2022-04-29 Outpatient MHIE MHIE [id number] Memoria 14:30:00 14:30:00 11 aline Wall 2022-04-29 2022-04-29 Outpatient MHIE MHIE [id number] Memoria 14:30:00 14:30:00 12 aline Wall 2022-04-29 2022-04-29 Outpatient Kailey, MHMISCHER MHMISCHER [id number] 14:30:00 14:30:00 Bernardo 11 Yevgeniy 2022-04-29 2022-04-29 Outpatient Kailey, MHMISCHER MHMISCHER [id number] 14:30:00 14:30:00 Bernardo 12 Yevgeniy 2022-04-29 2022-04-29 Outpatient MHIE MHIE [id number] Memoria 14:00:00 14:00:00 10 aline Wall 2022-04-29 2022-04-29 Outpatient Kailey, MHMISCHER MHMISCHER [id number] 14:00:00 14:00:00 Bernardo 10 Yevgeniy 2021-03-11 2021-03-11 Outpatient Leo UMANA, [facility] [id number] Univers 15:30:00 15:30:00 JOSE MARTIN butron [facility] 2021-03-11 2021-03-11 Nurse Therapy, Adc Covid Infusion [facility] [id number] Univers 14:19:37 15:19:37 Visit Jose Martin Umana Maribel [id number] ity of [place] [id number] [place] [id number] [facility] 053 Branch 2021-03-11 2021-03-11 Orders Doctor KLEBER [id number] Univers 00:00:00 00:00:00 Only Unassigned, ANGEL [id number] ity [address] [place] [facility] [id number] Jarod as [id number] [facility] 009 Branch 2020-05-13 2020-05-13 Emergency X [facility] ERT [id number] Univers 19:41:00 19:41:00 ity of [facility] 2018-04-04 2018-04-06 Phone nullFlavo MHMG [id number] Memoria 20:45:00 04:59:59 Message r Gastroenter 06 l ology [facility] 2018-04-04 2018-04-06 Phone nullFlavo MHMG [id number] Memoria 20:45:00 04:59:59 Message r Gastroenter 06 l ology [facility] 2018-04-04 2018-04-05 Outpatient MHMG MHMG [id number] 15:45:00 23:59:59 06 2018-04-02 2018-04-03 Outpatient nullFlavo MHMG [id number] Memoria 18:15:00 04:59:59 r Gastroenter 09 l ology [facility] Kari 2018-04-02 2018-04-03 Outpatient nullFlavo MHMG [id number] Memoria 18:15:00 04:59:59 r Gastroenter 09 l ology [place] 2018-04-02 2018-04-02 Outpatient Mayra MHMG MHMG [id number] 13:15:00 23:59:59 Gino Lezama 2018-04-02 2018-04-02 Outpatient MHIE MHIE [id number] Memoria 13:15:00 13:15:00 09 aline Wall 2017-02-20 2017-02-20 Outpatient MHIE MHIE [id number] Memoria 13:15:00 13:15:00 08 aline Wall 2017-02-20 2017-02-20 Outpatient MHIE MHIE [id number] Memoria 13:15:00 13:15:00 08 aline [facility] 2017-02-09 2017-02-09 Outpatient MHIE MHIE [id number] Memoria 11:15:00 11:15:00 07 aline [facility] 2017-02-09 2017-02-09 Outpatient MHIE MHIE [id number] Memoria 11:15:00 11:15:00 07 aline [place] 2016-11-21 2016-11-21 Outpatient MHIE MHIE [id number] Memoria 13:00:00 13:00:00 05 aline [place] 2016-11-21 2016-11-21 Outpatient MHIE MHIE [id number] Memoria 13:00:00 13:00:00 05 aline [place] 2016-10-31 2016-10-31 Outpatient MHIE MHIE [id number] Memoria 10:00:00 10:00:00 04 aline [place] 2016-10-31 2016-10-31 Outpatient MHIE MHIE [id number] Memoria 10:00:00 10:00:00 04 aline [place] 2016-07-27 2016-07-27 Outpatient MHIE MHIE [id number] Memoria 15:30:00 15:30:00 03 aline [place] 2016-07-27 2016-07-27 Outpatient MHIE MHIE [id number] Memoria 15:30:00 15:30:00 03 aline [place] 2016-05-24 2016-05-25 Outpatient nullFlavo [facility] [id number] Memoria 16:03:00 05:59:00 r Memorial 02 aline [facility] [place] 2016-05-24 2016-05-25 Outpatient nullFlavo [facility] [id number] Memoria 16:03:00 05:59:00 r Memorial 02 aline [facility] [place] 2016-05-24 2016-05-24 Outpatient Magat, MHTIRR MHT[facility]R [id number] 10:03:00 23:59:00 Mayuri 02 daraog 2016-05-16 2016-05-17 Outpatient nullFlavo [facility] [id number] Memoria 13:31:00 04:59:00 r Memorial 01 [facility] 2016-05-16 2016-05-17 Outpatient nullFlavo [facility] [id number] Memoria 13:31:00 04:59:00 r Memorial 01 [facility] 2016-05-16 2016-05-16 Outpatient Magat, MHTIRR MHT[facility] [id number] 08:31:00 23:59:00 Mayuri 01 Marleyramarbella 2016-04-11 2016-04-11 Outpatient MHIE MHIE [id number] Memoria 09:00:00 09:00:00 02 aline Wall 2016-04-11 2016-04-11 Outpatient MHIE MHIE [id number] Memoria 09:00:00 09:00:00 02 aline Wall 2016-03-28 2016-03-28 Outpatient MHIE MHIE [id number] Memoria 14:15:00 14:15:00 01 aline Wall 2016-03-28 2016-03-28 Outpatient MHIE MHIE [id number] Memoria 14:15:00 14:15:00 01 aline Wall Results This patient has no known results.
[2022-07-01 13:18] LABS: SARS-CoV-2 Antigen Rapid Res Negative (Negative)
--- NOTE | 2022-07-01 13:21 | ER ---
Nurse's Notes [facility] Name: Gregg Nair Sr Age: 56 yrs Sex: Male : 1965 Arrival Date: 07/01/2022 Time: 11:56 Bed IW3 Private MD: Diagnosis: Person with feared health complaint in whom no diagnosis is made Presentation: 07/01 12:51 Chief complaint: Patient states: Pt tested positive for covid 7 days ago and is kb3 requesting to be retested to return to work. Pt continues to feel fatigued and have a runny nose. Coronavirus screen: Vaccine status: Patient reports being unvaccinated. Client denies travel out of the [place] in the last 14 days. Ebola Screen: Patient negative for fever greater than or equal to 101.5 degrees Fahrenheit, and additional compatible Ebola Virus Disease symptoms Patient denies exposure to infectious person. Patient denies travel to an Ebola-affected area in the 21 days before illness onset. Initial Sepsis Screen: Does the patient meet any 2 criteria? No. Patient's initial sepsis screen is negative. Does the patient have a suspected source of infection? No. Patient's initial sepsis screen is negative. Risk Assessment: Do you want to hurt yourself or someone else? Patient reports no desire to harm self or others. Onset of symptoms was June 30, 2022. 12:51 Method Of Arrival: Ambulatory [facility] 12:51 Acuity: BRIAN 4 kb3 Triage Assessment: 12:55 General: Appears in no apparent distress. Behavior is calm, cooperative. Pain: kb3 Complains of pain in head, right arm, left arm and left leg Pain does not radiate. Pain currently is 7 out of 10 on a pain scale. Quality of pain is described as aching. Historical: - Allergies: 12:55 TB shots; kb3 - Home Meds: 12:55 [place] 7.5-325 mg Oral tab [Active]; kb3 - PMHx: 12:55 Chronic pain; TBI; kb3 - PSHx: 12:55 RIGHT BKA; right shoulder; kb3 - Immunization history:: Adult Immunizations up to date, Client reports having NOT received the Covid vaccine. Last tetanus immunization: up to date. - Social history:: Smoking status: Patient denies any tobacco usage or history of. Screenin:00 Abuse screen: Denies threats or abuse. Denies injuries from another. Nutritional kb3 screening: No deficits noted. Tuberculosis screening: No symptoms or risk factors identified. Fall Risk No fall in past 12 months (0 pts). No secondary diagnosis (0 pts). No IV (0 pts). Ambulatory Aid- None/Bed Rest/Nurse Assist (0 pts). Gait- Normal/Bed Rest/Wheelchair (0 pts) Mental Status- Oriented to own ability (0 pts). Total Robert Fall Scale indicates No Risk (0-24 pts). Assessment: 13:00 General: see triage note. kb3 Vital Signs: 12:51 Pulse 63; Resp 20; Temp 98.6; Pulse Ox 99% ; Weight 99.79 kg; Height 6 ft. 2 in. kb3 (187.96 cm); Pain 7/10; 12:56 BP 177 / 101; kb3 12:51 Body Mass Index 28.25 (99.79 kg, 187.96 cm) kb3 ED Course: 11:56 Patient arrived in ED. mr 12:06 Clifford Patel PA is PHCP. moody 12:06 Sharath Lopez MD is Attending Physician. [facility] 12:55 Triage completed. kb3 12:55 Arm band placed on right wrist. kb3 12:57 SARS RAPID Sent. kb3 13:00 Patient has correct armband on for positive identification. kb3 13:00 No provider procedures requiring assistance completed. Patient did not have IV access kb3 during this emergency room visit. Administered Medications: No medications were administered Medication: 13:00 VIS not applicable for this client. kb3 Outcome: 13:20 Discharge ordered by . ayaz 13:30 Discharged to home ambulatory. kb3 13:30 Condition: stable kb3 13:30 Discharge instructions given to patient, Instructed on discharge instructions, follow up and referral plans. Demonstrated understanding of instructions, follow-up care. 14:11 Patient left the ED. kb3 Signatures: Clifford Patel PA PA jmm Rivera, Mary mr HoweAna Maria, RN RN kb3
--- NOTE | 2022-07-01 13:21 | EDPHYS ---
Physician Documentation [facility] Name: Gregg Nair Sr Age: 56 yrs Sex: Male : 1965 Arrival Date: 07/01/2022 Time: 11:56 Bed IW3 Private MD: ED Physician Sharath Lopez HPI: 07/01 12:31 This 56 yrs old Male presents to ER via Ambulatory with complaints of Runny Nose. jmm 12:31 Is a 56-year-old male with history of chronic pain, traumatic brain injury, the jmm presents emerged department with some slight congestion but states he needs work clearance. Patient was recently diagnosed with coronavirus. Denies any shortness of breath.. Historical: - Allergies: 12:55 TB shots; kb3 - Home Meds: 12:55 [place] 7.5-325 mg Oral tab [Active]; kb3 - PMHx: 12:55 Chronic pain; TBI; kb3 - PSHx: 12:55 RIGHT BKA; right shoulder; kb3 - Immunization history:: Adult Immunizations up to date, Client reports having NOT received the Covid vaccine. Last tetanus immunization: up to date. - Social history:: Smoking status: Patient denies any tobacco usage or history of. ROS: 12:31 Constitutional: Negative for fever, chills, and weight loss, Cardiovascular: Negative jmm for chest pain, palpitations, and edema, Respiratory: Negative for shortness of breath, cough, wheezing, and pleuritic chest pain. 12:31 All other systems are negative. Exam: 12:31 Constitutional: This is a well developed, well nourished patient who is awake, alert, jmm and in no acute distress. Head/Face: atraumatic. Eyes: EOMI, no conjunctival erythema appreciated ENT: Moist Mucus Membranes Neck: Trachea midline, Supple Chest/axilla: Normal chest wall appearance and motion. Cardiovascular: Regular rate and rhythm. No edema appreciated Respiratory: Normal respirations, no respiratory distress appreciated Abdomen/GI: Non distended Back: Normal ROM Skin: General appearance color normal MS/ Extremity: Moves all extremities, no obvious deformities appreciated, no edema noted to the lower extremities Neuro: Awake and alert Psych: Behavior is normal, Mood is normal, Patient is cooperative and pleasant Vital Signs: 12:51 Pulse 63; Resp 20; Temp 98.6; Pulse Ox 99% ; Weight 99.79 kg; Height 6 ft. 2 in. kb3 (187.96 cm); Pain 7/10; 12:56 BP 177 / 101; kb3 12:51 Body Mass Index 28.25 (99.79 kg, 187.96 cm) kb3 MDM: 12:31 Patient medically screened. [facility] 13:20 Data reviewed: vital signs, nurses notes. Counseling: I had a detailed discussion with moody the patient and/or guardian regarding: the historical points, exam findings, and any diagnostic results supporting the discharge/admit diagnosis, lab results, the need for outpatient follow up, to return to the emergency department if symptoms worsen or persist or if there are any questions or concerns that arise at home. 07/01 12:32 Order name: HENRY GUNTER; Complete Time: 13:19 [facility] Administered Medications: No medications were administered Disposition: 17:07 Co-signature as Attending Physician, Sharath Lopez MD I agree with the assessment and rt plan of care. Disposition Summary: 07/01/22 13:20 Discharge Ordered Location: Home [facility] Condition: Stable [facility] Diagnosis - Person with feared health complaint in whom no diagnosis is made [facility] Followup: [facility] - With: Private Physician - When: 2 - 3 days - Reason: Recheck today's complaints, Continuance of care, Re-evaluation by your physician Forms: - Medication Reconciliation Form [facility] - Thank You Letter [facility] - Antibiotic Education [facility] - Prescription Opioid Use ayaz Signatures: 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
[2022-07-01 14:15] VITALS: TEMP 98.6; O2SAT 99
[2022-07-01 14:16] VITALS: BP 177/101
== END 2022-07-01 14:11 | disposition home or self-care (01) ==
LOC: ER 11:54
DX: Z71.1 Person with feared health complaint in whom no diagnosis is made (principal); Z20.822 Contact with and (suspected) exposure to COVID-19
CPT/HCPCS: 36415; 87811; 99283

== ENCOUNTER 2022-09-05 05:24 | Emergency (ER) | payer OTHER ==
--- OUTSIDE RECORDS SUMMARY | 2022-09-05 05:28 | XMS REPORT | Continuity of Care Document ---
:1965 Author Organization [facility] t Address [address] [place] [address] Care Team Providers Name Role Phone SURJIT ZARAGOZA Primary Care Physician Unavailable Lesly RODRIGUEZ Attending Clinician Unavailable Lesly Up Attending Clinician Bernardo Bonner Attending Clinician JOSE MARTIN UMANA Attending Clinician Unavailable Therapy, [facility] Covid Infusion Attending Clinician Unavailable Jose Martin Umana MD Attending Clinician Doctor Unassigned, [place] Attending Clinician Unavailable Gino Nunez Attending Clinician Mayuri [place] Attending Clinician Lesly RODRIGUEZ Admitting Clinician Unavailable Payers Payer Name Policy Type Policy Number Effective Date Expiration Date S ource MEDICARE PART A [id number] 1996 \\T\\ B 00:00:00 MEDICAID OF [place] [id number] 2016 00:00:00 [id number] 2012 Univers ity -Present 00:00:00 [facility] dical [address] [address] [employer] [id number] 2016 00:00:00 Problems Condition Condition Condition Status Onset Resolution Last Treating Co mments Source Name Details Category Date Date Treatment Clinician Date CT CT Active Diagnosis Active 2015-072016-05-24 Memoria 05/16/2016 10:09:00 l MH [facility] 00:00: [place] 00 EVAL EVAL Diagnosis Active 2016-05-16 Mem [...] different from the original. 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 in Pain in Disease Active [...] 05/27/2016 [facility] Chronic Chronic Problem Active 2016-05-27 Me ryan hepatitis hepatitis 02:02:31 l C C [...] (situation ) ) Active Problem 05/01/2022 [facility] Obesity Obesity Problem Active 2022-05-01 Me moria (disorder) (disorder) 22:54:24 l Active [facility] Problem 05/01/2022 [facility] Neuro, [facility] Traumatic Traumatic Problem Active 2022-05-01 Memoria brain brain 22:54:24 l injury injury [place] (disorder) (disorder) Active Problem 05/01/2022 Medical Group,Misc her Neuro, [facility] INTCRAN INTCRAN Diagnosis Active [...] Date Date Clinician NO KNOWN Drug Active [facility] ALLERGIE Class ity of [facility] Social History Social Habit Start Date Stop Date Quantity Comments Source Exposure to 2022-08-06 2022-08-16 Not sure [facility] SARS-CoV-2 00:00:00 21:34:00 [facility] (event) [place] Alcohol intake 2022-08-16 2022-08-16 University of 00:00:00 00:00:00 [facility] Social History 2018-04-02 2018-04-02 Yamileth duenas 18:19:44 18:19:44 Tobacco Comment 2013-06-27 2013-06-27 Pt thinks he Univers ity of 00:00:00 00:00:00 smoked but has no [facility] edical memory of how Branch many cigs nor how long. Tobacco use and 2013-06-27 2013-06-27 Smokeless tobacco Un iversity of exposure 00:00:00 00:00:00 non-user [facility] History of 1988-07-24 Cigarette Smoker Universi ty of tobacco use 00:00:00 [facility] Sex Assigned At [birth year] Universit y of 00:00:00 00:00:00 [facility] Smoking Status Start Date Stop Date Source Tobacco smoking status 2018-04-02 18:19:38 2018-04-02 18:19:38 M munir [place] Medications Ordered Filled Start Stop Current Ordering Indication Dosage Frequency Signature Comments Components Source Medication Medication Date Date Medication? Clinician (SIG) Name Name ketorolac 2022- No 15mg 15 mg, Unive rs (TORADOL) 08-17 Slow IV ity of injection 06:15: 05:20 Push, [place] 15 mg 00 :00 ONCE, 1 Medical dose, On Branch 08/17/22 at 0015, MACKENZIE iopamidol 2022- No [id number] 100mL 100 mL, Univers (ISOVUE 08-17 Intravenou ity o f 370-500 mL) 05:30: 05:30 s, ONCE, 1 [place] injection 00 :00 dose, On Medica l 100 mL Tue Branch 08/16/22 at 2330, Routine ibuprofen Yes [id number] 600mg Take 1 Univers 600 mg 08-16 tablet by ity of tablet 00:00: mouth [place] 00 every 6 Medical (six) Branch hours as needed for Pain (scale 4-6). casirivimab 2020- No [id number] 1200mg 1,200 mg, Univers -imdevimab 03-11 IV ity of 1200 mg in 23:00: 22:21 Infusion, [place] 60 mL NS 00 :00 ONCE, Medical MINI-BAG Administer Branc h over 20 Minutes, Donna 03/11/21 at 1800, For 1 dose
Ad nephrologist as an IV infusion via pump or gravity through an intravenou s line containing a sterile, in-line or add-on 0.2-micron polyethers ulfone (PES) filter. Stable 36 hours refrigerat ed; 4 hours at room temperatur e.
dicyclomine Yes 10 mg = 1 M emoria 10 mg oral 9-19 cap, PO, l capsule 20:46: QID-Before Herm shari 00 Meals, as needed for abdominal pain, # 60 cap, 1 Refill(s), Pharmacy: [facility] #[id number] dicyclomine Yes 10 mg = 1 M emoria 10 mg oral 9-19 cap, PO, l capsule 20:46: QID-Before Herm shari 00 Meals, as needed for abdominal pain, # 60 cap, 1 Refill(s), Pharmacy: [facility] #[id number] dicyclomine 2018-0 Yes 10 mg = 1 M emoria 10 mg oral 9-19 cap, PO, l capsule 20:46: QID-Before Herm shari 00 Meals, as needed for abdominal pain, # 60 cap, 1 Refill(s), [id number] dicyclomine 2018-0 Yes 10 mg = 1 M emoria 10 mg oral 9-19 cap, PO, l capsule 20:46: QID-Before Herm shari 00 Meals, as needed for abdominal pain, # 60 cap, 1 Refill(s), Pharmacy: [facility] #[id number] dicyclomine 2018-0 Yes 10 mg = 1 M emoria 10 mg oral 9-19 cap, PO, l capsule 20:46: QID-Before Herm shari 00 Meals, as needed for abdominal pain, # 60 cap, 1 Refill(s), [id number] dicyclomine 2018-0 Yes 10 mg = 1 M emoria 10 mg oral 9-19 cap, PO, l capsule 20:46: QID-Before Herm shari 00 Meals, as needed for abdominal pain, # 60 cap, 1 Refill(s), Pharmacy: [facility] #[id number] rifaximin 2018-0 Yes 550 mg = 1 Me moria 550 MG Oral 9-17 tab, PO, l Tablet 18:34: TID, # 42 [place] [XIFAXAN] 00 tab, 0 Refill(s), Pharmacy: [facility] #[id number] rifaximin 2018-0 Yes 550 mg = 1 Me moria 550 MG Oral 9-17 tab, PO, l Tablet 18:34: TID, # 42 [place] [XIFAXAN] 00 tab, 0 Refill(s), Pharmacy: [facility] #[id number] Xifaxan 550 2018-0 Yes 550 mg = 1 Memoria mg oral 9-17 tab, PO, l tablet 18:34: TID, # 42 [place] 00 tab, 0 Refill(s), Pharmacy: [facility] #[id number] Xifaxan 550 2018-0 Yes 550 mg = 1 Memoria mg oral 9-17 tab, PO, l tablet 18:34: TID, # 42 [place] 00 tab, 0 Refill(s), [id number] rifaximin 2018-0 Yes 550 mg = 1 Me moria 550 MG Oral 9-17 tab, PO, l Tablet 18:34: TID, # 42 [place] [XIFAXAN] 00 tab, 0 Refill(s), [id number] Xifaxan 550 2018-0 Yes 550 mg = 1 Memoria mg oral 9-17 tab, PO, l tablet 18:34: TID, # 42 [place] 00 tab, 0 Refill(s), [facility]: [id number] rifaximin 2018-0 Yes 550 mg = 1 Me moria 550 MG Oral 9-17 tab, PO, l Tablet 18:34: TID, # 42 [place] [XIFAXAN] 00 tab, 0 Refill(s), [id number] Xifaxan 550 2018-0 Yes 550 mg = 1 Memoria mg oral 9-17 tab, PO, l tablet 18:34: TID, # 42 [place] 00 tab, 0 Refill(s), Pharmacy: [facility] #[id number] rifaximin 2018-0 Yes 550 mg = 1 Me moria 550 MG Oral 9-17 tab, PO, l Tablet 18:34: TID, # 42 [place] [XIFAXAN] 00 tab, 0 Refill(s), [facility]: [id number] Xifaxan 550 2017-0 Yes 550 mg = 1 Memoria mg oral 9-17 tab, PO, l tablet 18:34: TID, # 42 [place] 00 tab, 0 Refill(s), [facility]: [id number] rifaximin 2018-0 Yes 550 mg = 1 Me moria 550 MG Oral 9-17 tab, PO, l Tablet 18:34: TID, # 42 [place] [XIFAXAN] 00 tab, 0 Refill(s), [facility]: [id number] Xifaxan 550 2018-0 Yes 550 mg = 1 Memoria mg oral 9-17 tab, PO, l tablet 18:34: TID, # 42 [place] 00 tab, 0 Refill(s), Pharmacy: [facility] #[id number] [employer] 20170 Yes 1 tab, PO, Memori a 7.5/325 5-08 Q6H, 0 l oral tablet 18:06: Refill(s) H [facility] Yes 1 tab, PO, Memori a 7.5/325 5-08 Q6H, 0 l oral tablet 18:06: Refill(s) H [employer] Yes 1 tab, PO, Memori a 7.5/325 5-08 Q6H, 0 l oral tablet 18:06: Refill(s) H [employer] Yes 1 tab, PO, Memori a 7.5/325 5-08 Q6H, 0 l oral tablet 18:06: Refill(s) H [employer] Yes 1 tab, PO, Memori a 7.5/325 5-08 Q6H, 0 l oral tablet 18:06: Refill(s) H [employer] Yes 1 tab, PO, Memori a 7.5/325 5-08 Q6H, 0 l oral tablet 18:06: Refill(s) H methocarbam 2014-0 Yes 500mg Take 1 Tab Univers ol 7-29 by mouth 4 ity of (ROBAXIN) 00:00: (four) [place] 500 mg 00 times Medical tablet daily. Branch methocarbam 2014-0 Yes 500mg Take 1 Tab Univers ol 7-29 by mouth 4 ity of (ROBAXIN) 00:00: (four) [place] 500 mg 00 times Medical tablet daily. Branch methocarbam 2014-0 Yes 500mg Take 1 Tab Univers ol 7-29 by mouth 4 ity of (ROBAXIN) 00:00: (four) [place] 500 mg 00 times Medical tablet daily. Branch nortriptyli 2014-0 Yes 75mg Take 1 Cap Univers ne 1-14 by mouth ity of (PAMELOR) 00:00: at [place] 75 mg 00 bedtime. Medical capsule Branch nortriptyli 2014-0 Yes 75mg Take 1 Cap Univers ne 1-14 by mouth ity of (PAMELOR) 00:00: at [place] 75 mg 00 bedtime. Medical capsule Branch nortriptyli 2014-0 Yes 75mg Take 1 Cap Univers ne 1-14 by mouth ity of (PAMELOR) 00:00: at [place] 75 mg 00 bedtime. Medical capsule Branch acetaminoph 2012-07 Yes 1{tbl} [facility] ers en-codeine 2-12 ity of (TYLENOL 16:43: [place] #3) 300-30 26 Medical mg tablet 1 Branch Tab acetaminoph 2012-07 Yes 1{tbl} [facility] ers en-codeine 2-12 ity of (TYLENOL 16:43: [place] #3) 300-30 26 Medical mg tablet 1 Branch Tab acetaminoph 2012-07 Yes 1{tbl} [facility] ers en-codeine 2-12 ity of (TYLENOL 16:43: [place] #3) 300-30 26 Medical mg tablet 1 Branch Tab acetaminoph 2012-07 Yes [id number] 1{tbl} Take 1 Tab Univers en-codeine 2-02 by mouth ity o f (TYLENOL-CO 00:00: every 4 Jarod as DEINE #3) 00 (four) Medical 300-30 mg hours as Branch tablet needed for Pain. acetaminoph 2012-07 Yes [id number] 1{tbl} Take 1 Tab Univers en-codeine 2-02 by mouth ity o f (TYLENOL-CO 00:00: every 4 Jarod as DEINE #3) 00 (four) Medical 300-30 mg hours as Branch tablet needed for Pain. acetaminoph 2012-07 Yes [id number] 1{tbl} Take 1 Tab Univers en-codeine 2-02 by mouth ity o f (TYLENOL-CO 00:00: every 4 Jarod as DEINE #3) 00 (four) Medical 300-30 mg hours as Branch tablet needed for Pain. traMADOL 0 Yes 50mg Take 1 Tab Uni vers (ULTRAM) 50 5-21 by mouth ity of mg tablet 00:00: every 6 [place] 00 (six) Medical hours as Branch needed for Pain. traMADOL 2013-0 Yes 50mg Take 1 Tab Uni vers [...] adult 2016-10-31 Completed Memoria l vaccine 16:08:00 [place] hepatitis B adult 2016-10-31 Completed Memoria l vaccine 16:08:00 [place] hepatitis B adult 2016-10-31 Completed Memoria l vaccine 16:08:00 [facility] hepatitis B adult 2016-10-31 Completed Memoria l vaccine 16:08:00 [place] hepatitis B adult 2016-10-31 Completed Memoria l vaccine 16:08:00 [facility] hepatitis B adult 2016-10-31 Completed Memoria l vaccine 16:08:00 [facility] hepatitis B adult 2016-04-11 Completed Memoria l vaccine 15:46:00 [facility] hepatitis B adult 2016-04-11 Completed Memoria l vaccine 15:46:00 [place] hepatitis B adult 2016-04-11 Completed Memoria l vaccine 15:46:00 [place] hepatitis B adult 2016-04-11 Completed Memoria l vaccine 15:46:00 [facility] hepatitis B adult 2016-04-11 Completed Memoria l vaccine 15:46:00 [place] hepatitis B adult 2016-04-11 Completed Memoria l vaccine 15:46:00 [facility] hepatitis B adult 2016-03-28 Completed Memoria l vaccine 16:37:00 [place] hepatitis B adult 2016-03-28 Completed Memoria l vaccine 16:37:00 [place] hepatitis B adult 2016-03-28 Completed Memoria l vaccine 16:37:00 [place] hepatitis B adult 2016-03-28 Completed Memoria l vaccine 16:37:00 [facility] hepatitis B adult 2016-03-28 Completed Memoria l vaccine 16:37:00 [facility] hepatitis B adult 2016-03-28 Completed Memoria l vaccine 16:37:00 [facility] Vital Signs Vital Name Observation Time Observation Value Comments Source Systolic blood 2022-08-17 04:30:00 144 mm[Hg] Univer sity of pressure [place] [facility] Diastolic blood 2022-08-17 04:30:00 96 mm[Hg] Unive rsity of pressure [place] [facility] Heart rate 2022-08-17 04:30:00 94 /min Universi ty of [place] [facility] Respiratory rate 2022-08-17 04:30:00 13 /min Univ ersity of [place] [facility] Oxygen saturation in 2022-08-17 04:30:00 100 /min University of Arterial blood by [employer] Pulse oximetry Branch Body temperature 2022-08-17 03:35:00 36.17 Pili Univ ersity of [place] [facility] Body height 2022-08-17 03:35:00 190.5 cm Universi ty of [place] [facility] Body weight 2022-08-17 03:35:00 104.327 kg Universi ty of [place] [facility] BMI 2022-08-17 03:35:00 28.75 kg/m2 Universi ty [facility] [place] [facility] Systolic blood 2021-03-11 21:58:00 145 mm[Hg] Univer sity of pressure [place] [facility] Diastolic blood 2021-03-11 21:58:00 86 mm[Hg] Unive rsity of pressure [facility] Heart rate 2021-03-11 21:58:00 80 /min [facility]i ty [facility] [place] [facility] Body temperature 2021-03-11 21:58:00 37.39 Pili Univ ersity of [place] [facility] Respiratory rate 2021-03-11 21:58:00 20 /min Univ ersity of [place] [facility] Body height 2021-03-11 21:58:00 190.5 cm [facility]i ty [facility] [place] [facility] Body weight 2021-03-11 21:58:00 104.327 kg [facility]i ty [facility] [place] [facility] BMI 2021-03-11 21:58:00 28.75 kg/m2 Universi ty of [place] [facility] Oxygen saturation in 2021-03-11 21:58:00 96 /min University of Arterial blood by [employer] Pulse oximetry Branch Weight 2018-04-02 18:18:00 [facility] BMI Calculated 2018-04-02 18:18:00 Memori al [place] Height 2018-04-02 18:18:00 187.96 cm [facility] Systolic (mm Hg) 2018-04-02 18:18:00 Jan rial [place] Diastolic (mm Hg) 2018-04-02 18:18:00 Mem orial [facility] Heart Rate 2018-04-02 18:18:00 [facility] Height 2016-05-16 14:12:00 187.96 cm [facility] Weight 2016-05-16 14:12:00 [facility] BMI Calculated 2016-05-16 14:12:00 Memori al [facility] Respitory Rate 2016-05-16 14:12:00 Memori al [facility] Heart Rate 2016-05-16 14:12:00 [facility] [place] Systolic (mm Hg) 2016-05-16 14:12:00 Jan rial [place] Diastolic (mm Hg) 2016-05-16 14:12:00 Mem orial [place] Procedures Procedure Date / Time Performing Clinician Source Performed URINE DRUG (IMMUNOASSAY) 2022-08-17 04:44:00 [facility] 2022-08-17 04:44:00 Lesly [facility] COMP. METABOLIC PANEL 2022-08-17 03:59:00 Lesly Rodriguez [facility] ([id number]) Medical Branch ETHANOL 2022-08-17 03:59:00 Lesly Rodriguez [facility] CBC WITH DIFF 2022-08-17 03:59:00 Lesly Rodriguez [facility] CONSENT/REFUSAL FOR 2021-03-11 05:01:00 [facility] Medical Branch Colonoscopy 2017-01-24 05:00:00 Yamileth [facility] coats Cranioplasty [facility] [place] BKA - Below knee [facility] [place] n amputation, Encounters Start End Encounter Admission Attending Care Care Encounter Source Date/Time Date/Time Type Type Clinicians Facility Department ID 2022-08-16 2022-08-17 Emergency X Lesly RODRIGUEZ [facility] ERT [id number] Univers 21:31:00 00:05:00 ity of [facility] 2022-08-16 2022-08-17 Emergency Lesly Rodriguez [facility] [id number] [facility] 21:31:00 00:05:00 Precious DUARTE [id number] i ty [facility] 4.2.7.2.686 [facility] [id number] [address] 2022-04-29 2022-04-29 Ambulatory nullFlavo MNA [id number] Memoria 19:30:00 19:30:00 Pre-Reg r Neurology 12 [facility] 2022-04-29 2022-04-29 Ambulatory nullFlavo MNA [id number] Memoria 19:30:00 19:30:00 Pre-Reg r Neurology 11 l [facility] 2022-04-29 2022-04-29 Ambulatory nullFlavo MNA [id number] Memoria 19:30:00 19:30:00 Pre-Reg r Neurology 11 l [facility] 2022-04-29 2022-04-29 Ambulatory nullFlavo MNA [id number] Memoria 19:30:00 19:30:00 Pre-Reg r Neurology 12 l [facility] 2022-04-29 2022-04-29 Ambulatory nullFlavo MNA [id number] Memoria 19:00:00 19:00:00 Pre-Reg r Neurology 10 l [facility] Alice Wall 2022-04-29 2022-04-29 Ambulatory nullFlavo MNA [id number] Memoria 19:00:00 19:00:00 Pre-Reg r Neurology 10 l [place] 2022-04-29 2022-04-29 Outpatient MHIE MHIE [id number] Memoria 14:30:00 14:30:00 11 l [place] 2022-04-29 2022-04-29 Outpatient MHIE MHIE [id number] Memoria 14:30:00 14:30:00 12 aline [place] 2022-04-29 2022-04-29 Outpatient KEON Bonner [id number] 14:30:00 14:30:00 Bernardo Vuong 2022-04-29 2022-04-29 Outpatient HARSHIL BonnerER MHLEBRONSCHER [id number] 14:30:00 14:30:00 Bernardo 11 Yevgeniy 2022-04-29 2022-04-29 Outpatient JORGE PARADAIE [id number] Memoria 14:00:00 14:00:00 Trever Wall 2022-04-29 2022-04-29 Outpatient LILI BonnerSCHER MHLEBRONSCHER [id number] 14:00:00 14:00:00 Bernardo 10 Yevgeniy 2021-03-11 2021-03-11 Outpatient Leo UMANA, [facility] [id number] Univers 15:30:00 15:30:00 JOSE MARTIN itwilly of [facility] 2021-03-11 2021-03-11 Nurse Therapy, Adc Covid Infusion [facility] [id number] Univers 14:19:37 15:19:37 Visit Jose Martin Umana 350.1.13.10 ity of [place] 4[place]2.[place].2.686 [place] [id number] [facility] 053 [place] 2021-03-11 2021-03-11 Orders Doctor KLEBER [id number] [id number] Univers 00:00:00 00:00:00 Only Unassigned, ANGEL 350.1.13.10 ity of [place] [facility] 4.2.7.2.686 Jarod as [id number] [place] [address] Branch 2020-05-13 2020-05-13 Emergency X [facility] ERT [id number] Univers 19:41:00 19:41:00 ity of [facility] 2018-04-04 2018-04-06 Phone nullFlavo [facility] [id number] Memoria 20:45:00 04:59:59 Message r Gastroenter 06 l ologwilly [place] Kari 2018-04-04 2018-04-06 Phone nullFlavo MG [id number] Memoria 20:45:00 04:59:59 Message r Gastroenter 06 l bambiogy [facility] 2018-04-04 2018-04-05 Outpatient MHMG [facility] [id number] 15:45:00 23:59:59 06 2018-04-02 2018-04-03 Outpatient nullFlavo [facility] [id number] Memoria 18:15:00 04:59:59 r Gastroenter 09 aline [place] 2018-04-02 2018-04-03 Outpatient santoshFlavo [facility] [id number] Memoria 18:15:00 04:59:59 r Gastroenter 09 l precious [place] 2018-04-02 2018-04-02 Outpatient Mayra [facility] [id number] 13:15:00 23:59:59 Gino Santa 2018-04-02 2018-04-02 Outpatient MHIE MHIE [id number] Memoria 13:15:00 13:15:00 09 aline [facility] 2017-02-20 2017-02-20 Outpatient MHIE MHIE [id number] Memoria 13:15:00 13:15:00 08 aline [place] 2017-02-20 2017-02-20 Outpatient MHIE MHIE [id number] Memoria 13:15:00 13:15:00 08 aline [place] 2017-02-09 2017-02-09 Outpatient MHIE MHIE [id number] Memoria 11:15:00 11:15:00 07 aline [facility] 2017-02-09 2017-02-09 Outpatient MHIE MHIE [id number] Memoria 11:15:00 11:15:00 07 aline [place] 2016-11-21 2016-11-21 Outpatient MHIE MHIE [id number] Memoria 13:00:00 13:00:00 05 aline [place] 2016-11-21 2016-11-21 Outpatient MHIE MHIE [id number] Memoria 13:00:00 13:00:00 05 aline [place] 2016-10-31 2016-10-31 Outpatient MHIE MHIE [id number] Memoria 10:00:00 10:00:00 04 aline [place] 2016-10-31 2016-10-31 Outpatient MHIE MHIE [id number] Memoria 10:00:00 10:00:00 04 aline [place] 2016-07-27 2016-07-27 Outpatient MHIE MHIE [id number] Memoria 15:30:00 15:30:00 03 aline [place] 2016-07-27 2016-07-27 Outpatient MHIE MHIE [id number] Memoria 15:30:00 15:30:00 03 aline [place] 2016-05-24 2016-05-25 Outpatient nullFlavo [facility] [id number] Memoria 16:03:00 05:59:00 r [facility] 02 aline [place] 2016-05-24 2016-05-25 Outpatient nullFlavo [facility] [id number] Memoria 16:03:00 05:59:00 r [facility] 02 [facility] 2016-05-24 2016-05-24 Outpatient Magat, MHTIRR MHT[facility]R [id number] 10:03:00 23:59:00 Mayuri 02 Magdaraog 2016-05-16 2016-05-17 Outpatient nullFlavo [facility] [id number] Memoria 13:31:00 04:59:00 r [facility] 01 [facility] 2016-05-16 2016-05-17 Outpatient nullFlavo [facility] [id number] Memoria 13:31:00 04:59:00 r [facility] 01 [facility] 2016-05-16 2016-05-16 Outpatient Magat, MHTIRR MHTIRR [id number] 08:31:00 23:59:00 Mayuri 01 Magdaraog 2016-04-11 2016-04-11 Outpatient MHIE MHIE [id number] Memoria 09:00:00 09:00:00 02 aline [place] 2016-04-11 2016-04-11 Outpatient MHIE MHIE [id number] Memoria 09:00:00 09:00:00 02 [facility]ine [facility] 2016-03-28 2016-03-28 Outpatient MHIE MHIE [id number] Memoria 14:15:00 14:15:00 01 aline [place] 2016-03-28 2016-03-28 Outpatient MHIE MHIE [id number] Memoria 14:15:00 14:15:00 aline [place] Results Test Description Test Time Test Comments Results Result Sourc e Comments ETHANOL 2022-08-17 ALCOHOL<10mg/dL0 Universi ty of 04:47:48 08/16/2022 10:47 [place] [facility] ical PM [facility] LABORATORY<10 Xhtlzomo29-055 Toxic>100 Depression of SAFETY COMPANION>400 Fatalities Reported COMP. METABOLIC PANEL (82534) 2022-08-17 04:44:37 Test Item Value Reference Range Interpretation Comme nts NA (test code = 8668476998) 136 mmol/L 135-145 K (test code = 2273546645) 3.6 mmol/L 3.5-5.0 CL (test code = 9372154718) 100 mmol/L 98-108 CO2 TOTAL (test code = 1256459204) 30 mmol/L 23-31 AGAP (test code = 0502105403) 6 2-16 BUN (test code = 9907061823) 9 mg/dL 7-23 GLUCOSE (test code = 3279870580) 95 mg/dL 70-110 CREATININE (test code = 0.88 mg/dL 0.60-1.25 2154301131) TOTAL BILI (test code = 0.6 mg/dL 0.1-1.8 0051596668) CALCIUM (test code = 9921678848) 8.5 mg/dL 8.6-10.6 L T PROTEIN (test code = 0023175424) 6.9 g/dL 6.3-8.2 ALBUMIN (test code = 9169484189) 4.4 g/dL 3.5-5.0 ALK PHOS (test code = 7739510150) 58 U/L 34-122 ALTv (test code = 1742-6) 15 U/L 5-50 AST(SGOT) (test code = 8255155106) 23 U/L 13-40 eGFR (test code = 9240743787) 89.9 mL/min/1.73m2 DYLAN (test code = DYLAN) Association of Glomerular Filtration Rate (GFR) and Staging of Kidney Disease* + +-------- + ------+| GFR (mL/min/1.73 m2) ?| With Kidney Damage ?| ?Without Kidney Damage+ +-- + +| ?>90 ?| ?Stage one ?| ? Normal ?+ +------- + -------+| ?60-89 ?| ?Stage two ?| ? Decreased GFR ? + +-------- + ------+| ?30-59 ?| ?Stage three ?| ? Stage three ? + +-------- + ------+| ?15-29 ?| ?Stage four ? | ? Stage four ?+ +------- + -------+| ?<15 (or dialysis) ? ?| ?Stage five ? | ? Stage five ?+ +------- + -------+ *Each stage assumes the associated GFR level has been in effect for at least three months. ?Stages 1 to 5, with or without kidney disease, indicate chronic kidney disease. Notes: Determination of stages one and two (with eGFR >59mL/min/1.73 m2) requires estimation of kidney damage for at least three months as defined by structural or functional abnormalities of the kidney, manifested by either:Pathological abnormalities or Markers of kidney damage (including abnormalities in the composition of the blood or urine or abnormalities in imaging tests). Lab Interpretation (test code = Abnormal 20256-8) [facility] WITH [id number] 04:37:20 Test Item Value Reference Range Interpretation Comments WBC (test code = 9.27 See_Comment [Automated 9990-2) message] The sy stem which generated this result transmitted reference range : 4.20 - 10.70 10*3/?L. The reference range was not used to interpret this result as normal/abnormal . RBC (test code = 4.08 See_Comment L [Automated 309-8) message] The sy stem which generated this result transmitted reference range : 4.26 - 5.52 10*6/?L. The reference range was not used to interpret this result as normal/abnormal . HGB (test code = 13.7 g/dL 12.2-16.4 718-7) HCT (test code = 38.4 % 38.4-49.3 4544-3) MCV (test code = 94.1 fL 81.7-95.6 787-2) MCH (test code = 33.6 pg 26.1-32.7 H 785-6) MCHC (test code = 35.7 g/dL 31.2-35.0 H 786-4) RDW-SD (test code = 45.0 fL 38.5-51.6 88393-9) RDW-CV (test code = 13.0 % 12.1-15.4 788-0) PLT (test code = 205 See_Comment [Automated 777-3) message] The sy stem which generated this result transmitted reference range : 150 - 328 10*3/ ?L. The reference r anabella was not used to interpret this result as normal/abnormal . MPV (test code = 8.8 fL 9.8-13.0 L 47868-2) NRBC/100 WBC (test 0.0 See_Comment [Automat ed code = [id number]) message] The system which generated this result transmitted reference range : 0.0 - 10.0 /100 WBCs. The refer ence range was not u sed to interpret th is result as normal/abnormal . NRBC x10^3 (test code See_Comment [Auto mated = [id number]) message] The s ystem which generated this result transmitted reference range : 10*3/?L. The reference range was not used to interpret this result as normal/abnormal . GRAN MAT (NEUT) % 66.8 % (test code = 770-8) IMM GRAN % (test code 0.30 % = [id number]) LYMPH % (test code = 26.6 % 736-9) MONO % (test code = 5.7 % 5905-5) EOS % (test code = 0.3 % 713-8) BASO % (test code = 0.3 % 706-2) GRAN MAT x10^3(ANC) 6.18 10*3/uL 1.99-6.95 (test code = 1162479225) IMM GRAN x10^3 (test 0.03 10*3/uL 0.00-0.06 code = [id number]) LYMPH x10^3 (test code 2.47 10*3/uL 1.09-3.23 = 731-0) MONO x10^3 (test code 0.53 10*3/uL 0.36-1.02 = 742-7) EOS x10^3 (test code = 0.03 10*3/uL 0.06-0.53 L 711-2) BASO x10^3 (test code 0.03 10*3/uL 0.01-0.09 = 704-7) Lab Interpretation Abnormal (test code = 44162-9) [facility]"
[2022-09-05] MEDS ORDERED: prednisoLONE 15 MG/5 ML OSYR ONE (05:45)
[2022-09-05] MEDS ORDERED: ALBUTEROL 2.5 MG/3 ML NEB SOL ONE (05:45)
[2022-09-05] MEDS ORDERED: CYCLOBENZAPRINE 10 MG TAB ONE (05:53)
[2022-09-05] MEDS ORDERED: KETOROLAC 30 MG/ML INJ ONE (05:53)
--- NOTE | 2022-09-05 06:31 | ER ---
Nurse's Notes [facility] Name: Gregg Nair Sr Age: 56 yrs Sex: Male : 1965 Arrival Date: 09/05/2022 Time: 05:26 Bed 4 Private MD: Diagnosis: Low back pain Presentation: 09/05 05:34 Chief complaint: Patient states: last night he tripped over his dog around 1999 and bb fell flat on his back he has been having mid left sided back pain since then which is worsening the pain is 10/10. Coronavirus screen: At this time, the client does not indicate any symptoms associated with coronavirus-19. Ebola Screen: No symptoms or risks identified at this time. Initial Sepsis Screen: Does the patient meet any 2 criteria? No. Patient's initial sepsis screen is negative. Does the patient have a suspected source of infection? No. Patient's initial sepsis screen is negative. Risk Assessment: Do you want to hurt yourself or someone else? Patient reports no desire to harm self or others. Onset of symptoms was September 04, 2022. 05:34 Method Of Arrival: Ambulatory bb 05:34 Acuity: BRIAN 3 bb Historical: - Allergies: 05:36 TB shots; bb - Home Meds: 05:36 [place] 7.5-325 mg Oral tab [Active]; bb - PMHx: 05:36 Chronic pain; TBI; bb - PSHx: 05:36 RIGHT BKA; right shoulder; bb - Immunization history:: Client reports having NOT received the Covid vaccine. - Social history:: Smoking status: Patient denies any tobacco usage or history of. - Family history:: not pertinent. Screenin:09 [facility] ED Fall Risk Assessment (Adult) Score/Fall Risk Level 0 - 2 = Low Risk. as6 [facility] ED Fall Risk Assessment (Adult) History of falling in the last 3 months, including since admission. [facility] ED Fall Risk Assessment (Adult) Confusion or Disorientation. Abuse screen: Denies threats or abuse. Denies injuries from another. Nutritional screening: No deficits noted. Tuberculosis screening: No symptoms or risk factors identified. Assessment: 05:45 General: Appears uncomfortable, Behavior is calm, cooperative. Pain: Complains of pain as6 in back. Neuro: Level of Consciousness is awake, alert, obeys commands, Oriented to person, place, time, situation. Cardiovascular: Capillary refill < 3 seconds Patient's skin is warm and dry. Respiratory: Respiratory effort is even, unlabored, Respiratory pattern is regular, symmetrical. Musculoskeletal: Reports pain in back. Vital Signs: 05:34 BP 159 / 89; Pulse 74; Resp 20 S; Temp 98.2(O); Pulse Ox 96% on R/A; Weight 99.79 kg bb (R); Height 6 ft. 2 in. (187.96 cm) (R); Pain 10/10; 05:34 Body Mass Index 28.25 (99.79 kg, 187.96 cm) bb ED Course: 05:26 Patient arrived in ED. [email or web address] 05:34 Sharath Lopez MD is Attending Physician. rt 05:36 Triage completed. bb 05:36 Arm band placed on Patient placed in an exam room, on a stretcher, on pulse oximetry. bb 06:08 Jon Chen, RN is Primary Nurse. as6 06:11 Placed in gown. Bed in low position. Call light in reach. Side rails up X 1. Pulse ox as6 on. NIBP on. 06:41 No provider procedures requiring assistance completed. Patient did not have IV access as6 during this emergency room visit. Administered Medications: 05:51 Drug: Flexeril (cyclobenzaprine) 10 mg Route: PO; as6 06:42 Follow up: Response: No adverse reaction as6 05:51 Drug: Ketorolac 30 mg Route: IM; Site: right deltoid; as6 06:42 Follow up: Response: No adverse reaction as6 Medication: 06:09 VIS not applicable for this client. as6 Outcome: 06:30 Discharge ordered by . rt 06:41 Discharged to home ambulatory. as6 06:41 Condition: stable 06:41 Discharge instructions given to patient, Instructed on discharge instructions, follow up and referral plans. medication usage, Demonstrated understanding of instructions, follow-up care, medications, Prescriptions given X 1. 06:42 Patient left the ED. as6 Signatures: Vesna Palmer, RN RN Regina Jordan jj6 Jon Chen, THEA RN as6 Sharath Lopez MD MD rt
--- NOTE | 2022-09-05 06:31 | EDPHYS ---
Physician Documentation [facility] Name: Gregg Nair Sr Age: 56 yrs Sex: Male : 1965 Arrival Date: 09/05/2022 Time: 05:26 Bed 4 Private MD: ED Physician Sharath Lopez HPI: 09/05 05:39 This 56 yrs old Male presents to ER via Ambulatory with complaints of Fall Injury, Back rt Injury. 05:39 Patient states that about 8 PM last night, he tripped over a dog, landing on his back. rt He had a pain to the lower lumbar region since then. He is not take anything for the symptoms. Pain is aching nature, nonradiating, no other aggravating or alleviating factors. The patient denies numbness, tingling, bowel, bladder incontinence.. Historical: - Allergies: 05:36 TB shots; bb - Home Meds: 05:36 [place] 7.5-325 mg Oral tab [Active]; bb - PMHx: 05:36 Chronic pain; TBI; bb - PSHx: 05:36 RIGHT BKA; right shoulder; bb - Immunization history:: Client reports having NOT received the Covid vaccine. - Social history:: Smoking status: Patient denies any tobacco usage or history of. - Family history:: not pertinent. ROS: 05:39 Constitutional: Negative for fever, chills, and weight loss, Cardiovascular: Negative rt for chest pain, palpitations, and edema, Respiratory: Negative for shortness of breath, cough, wheezing, and pleuritic chest pain, Abdomen/GI: Negative for abdominal pain, nausea, vomiting, diarrhea, and constipation, Skin: Negative for injury, rash, and discoloration, Neuro: Negative for headache, weakness, numbness, tingling, and seizure, Psych: Negative for depression, anxiety, suicide ideation, homicidal ideation, and hallucinations. 05:39 Back: Positive for pain at rest, pain with movement. Exam: 05:39 Constitutional: This is a well developed, well nourished patient who is awake, alert, rt and in no acute distress. Head/Face: Normocephalic, atraumatic. Chest/axilla: Normal chest wall appearance and motion. Nontender with no deformity. No lesions are appreciated. Cardiovascular: Regular rate and rhythm with a normal S1 and S2. No gallops, murmurs, or rubs. Normal PMI, no JVD. No pulse deficits. Respiratory: Lungs have equal breath sounds bilaterally, clear to auscultation and percussion. No rales, rhonchi or wheezes noted. No increased work of breathing, no retractions or nasal flaring. Abdomen/GI: Soft, non-tender, with normal bowel sounds. No distension or tympany. No guarding or rebound. No evidence of tenderness throughout. Skin: Warm, dry with normal turgor. Normal color with no rashes, no lesions, and no evidence of cellulitis. MS/ Extremity: Pulses equal, no cyanosis. Neurovascular intact. Full, normal range of motion. Neuro: Awake and alert, GCS 15, oriented to person, place, time, and situation. Cranial nerves II-XII grossly intact. Motor strength 5/5 in all extremities. Sensory grossly intact. Cerebellar exam normal. Normal gait. Psych: Awake, alert, with orientation to person, place and time. Behavior, mood, and affect are within normal limits. 05:39 Back: Paraspinal tenderness diffusely throughout the lumbar region, no midline tenderness, no step-offs. Vital Signs: 05:34 BP 159 / 89; Pulse 74; Resp 20 S; Temp 98.2(O); Pulse Ox 96% on R/A; Weight 99.79 kg bb (R); Height 6 ft. 2 in. (187.96 cm) (R); Pain 10/10; 05:34 Body Mass Index 28.25 (99.79 kg, 187.96 cm) bb MDM: 05:34 Patient medically screened. rt 06:31 Differential diagnosis: Contusion, fracture, musculoskeletal pain, cauda equina rt syndrome, spinal epidural abscess. Data reviewed: vital signs, nurses notes, radiologic studies. Test considered but Not performed: MRI: No focal neurologic deficits, no bowel, bladder incontinence, very low suspicion for cauda equina syndrome, spinal epidural abscess. Counseling: I had a detailed discussion with the patient and/or guardian regarding: the historical points, exam findings, and any diagnostic results supporting the discharge/admit diagnosis, radiology results, the need for outpatient follow up. Response to treatment: the patient's symptoms have mildly improved after treatment. 09/05 05:39 Order name: Lumbar Spine (3 Views) XRAY rt Administered Medications: 05:51 Drug: Flexeril (cyclobenzaprine) 10 mg Route: PO; as6 06:42 Follow up: Response: No adverse reaction as6 05:51 Drug: Ketorolac 30 mg Route: IM; Site: right deltoid; as6 06:42 Follow up: Response: No adverse reaction as6 Disposition Summary: 09/05/22 06:30 Discharge Ordered Location: Home rt Problem: new rt Symptoms: have improved rt Condition: Stable rt Diagnosis - Low back pain rt Followup: rt - With: Private Physician - When: 2 - 3 days - Reason: Discharge Instructions: - Discharge Summary Sheet rt - Acute Back Pain, Adult rt Forms: - Medication Reconciliation Form rt - Thank You Letter rt - Antibiotic Education rt - Prescription Opioid Use rt Prescriptions: - Cyclobenzaprine 10 mg Oral Tablet - take 1 tablet by ORAL route every 8 hours As needed; 15 tablet; Refills: 0, rt Product Selection Permitted Signatures: Dispatcher [employer] Vesna Ty RN RN bb Jon Chen RN RN as6 Sharath Lopez MD MD rt
[2022-09-05 06:48] VITALS: BP 159/89; TEMP 98.2; O2SAT 96
--- NOTE | 2022-09-05 20:11 | RAD REPORT ---
EXAM DESCRIPTION: RAD - Lumbar Spine 3 Views - 09/05/2022 6:12 am CLINICAL HISTORY: PAIN COMPARISON: None. 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 Vertebral body heights are preserved. Alignment is anatomic. T here is moderate lower lumbar facet arthritis. Disc spaces are maintained. Soft tissues are unremarkable. IMPRESSION: No acute fracture or subluxation. Electronically signed by: Edward Brewer MD 09/05/2022 6:24 AM CUT OFF MACHINE HELPER Due to temporary technical issues with the PACS/Fluency reporting system, reports are being signed by the in house radiologists without review as a courtesy to insure prompt reporting. The interpreting radiologist is fully responsible for the content of the report.
== END 2022-09-05 06:42 | disposition home or self-care (01) ==
LOC: ER 05:24
DX: M54.50 Low back pain, unspecified (principal); Z89.511 Acquired absence of right leg below knee; Z87.820 Personal history of traumatic brain injury; Z88.7 Allergy status to serum and vaccine
CPT/HCPCS: 72100; 96372; 99283; J7613; J7510

== ENCOUNTER 2022-09-09 17:17 | Emergency (ER) | payer OTHER ==
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
[2022-09-09] MEDS ORDERED: NALOXONE 0.4 MG/ML VIAL ONE (17:53)
[2022-09-09] MEDS ORDERED: NA CHLORIDE 0.9% 500 ML ONE (17:53)
[2022-09-09 18:10] LABS: Absolute Lymphocytes (CBC) 1.6 K/uL (0.7-4.9); Hematocrit 37.8 % (39.6-49.0); MPV 5.9 fL (7.6-11.3)
[2022-09-09 18:25] LABS: ALT/SGPT 15 U/L (16-61); AST/SGOT 13 U/L (15-37); Albumin 3.6 g/dL (3.4-5.0); Alkaline Phosphatase 65 U/L (45-117); BUN Blood Urea Nitrogen 10 mg/dL (7-18); Bicarbonate 25 mmol/L (21-32); Bilirubin Total 0.3 mg/dL (0.2-1.0); Glomerular Filtration Rate 102 ml/min (=/>90); Glucose Level 102 mg/dL (74-106); Magnesium 1.9 mg/dL (1.6-2.4); NT PRO-BNP 130 pg/mL (<125); Potassium 3.1 mmol/L (3.5-5.1); Protein, Total 6.8 g/dL (6.4-8.2); Sodium Level 137 mmol/L (136-145); Troponin High Sensitivity 3.4 pg/mL (<58.9)
[2022-09-09 18:37] LABS: Bilirubin Direct < 0.1 mg/dL (0-0.2)
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
--- NOTE | 2022-09-09 18:45 | RAD REPORT ---
EXAM DESCRIPTION: [place] Single View09/09/2022 6:13 pm CLINICAL HISTORY: Chest pain COMPARISON: none FINDINGS: The lungs appear clear of acute infiltrate. The heart is normal size IMPRESSION: No acute abnormalities displayed
[2022-09-09] MEDS ORDERED: KETOROLAC 30 MG/ML INJ ONE (20:19)
--- NOTE | 2022-09-09 20:19 | RAD REPORT ---
EXAM DESCRIPTION: RAD - Humerus Left - 09/09/2022 7:48 pm CLINICAL HISTORY: Left arm pain status post fall FINDINGS: No fracture is seen involving left humerus. Refer to the CT report for humeral head findi ngs
[2022-09-09] MEDS ORDERED: POTASSIUM 25 MEQ EFFERV TAB ONE (20:20)
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
[2022-09-09 22:07] VITALS: TEMP 98.6
[2022-09-09 22:09] VITALS: BP 151/84; O2SAT 99
--- NOTE | 2022-09-12 18:47 | EKG ---
Test Date: 2022-09-09 Test Time: 17:56:18 Special Event Assistant: JACQUELINE MEASUREMENT RESULTS: Intervals: Rate: 91 MI: 162 QRSD: 84 QT: 372 QTc: 457 [place]: P: 53 MI: 162 QRS: 10 T: 23 INTERPRETIVE STATEMENTS: Normal sinus rhythm Normal ECG Compared to ECG 07/23/2006 07:35:12 Sinus tachycardia no longer present Electronically Signed On 09-12-22 18:42:42 [employer] by Olivier Dalal
== END 2022-09-09 20:57 | disposition home or self-care (01) ==
LOC: ER 17:17
DX: S42.202A Unspecified fracture of upper end of left humerus, initial encounter for closed fracture (principal); S00.83XA Contusion of other part of head, initial encounter; W18.30XA Fall on same level, unspecified, initial encounter; Z89.511 Acquired absence of right leg below knee; Z87.820 Personal history of traumatic brain injury; Z88.8 Allergy status to other drugs, medicaments and biological substances
CPT/HCPCS: 85025; 80048; 36415; 83735; 82565; 80076; 84484; 83880; 70450; 72125; 71260; 70486; 76377; 74177; 71045; 73060; 96375; 96374; 99291; 99292; Q9967; J2310; J7040; G0480 ×3; 93005

== ENCOUNTER 2022-09-27 15:16 | Emergency (ER) | payer OTHER ==
--- OUTSIDE RECORDS SUMMARY | 2022-09-27 15:20 | XMS REPORT | Continuity of Care Document ---
:1965 Author Organization [facility] t Address [address] [facility] [place] [address] Care Team Providers Name Role Phone SURJIT ZARAGOZA Primary Care Physician Unavailable Lesly RODRIGUEZ Attending Clinician Unavailable Lesly Up Attending Clinician Bernardo Bonner Attending Clinician JOSE MARTIN UMANA Attending Clinician Unavailable Therapy, [facility] Covid Infusion Attending Clinician Unavailable Jose Martin Umana MD Attending Clinician Doctor Unassigned, [place] Attending Clinician Unavailable Gino Nunez Attending Clinician Mayuri Winchester Attending Clinician Lesly RODRIGUEZ Admitting Clinician Unavailable Payers Payer Name Policy Type Policy Number Effective Date Expiration Date S ource MEDICARE PART A [id number] 1996 \\T\\ B 00:00:00 MEDICAID OF [place] [id number] 2016 00:00:00 [id number] 2012 Univers ity -Present 00:00:00 [facility] [place] [facility] dical [address] [address] AMERIVANTAGE [id number] 2016 00:00:00 Problems Condition Condition Condition Status Onset Resolution Last Treating Co mments Source Name Details Category Date Date Treatment Clinician Date CT CT Active Diagnosis Active 2015-072016-05-24 Memoria 05/16/2016 10:09:00 l MH [facility] 00:00: [place] 00 EVAL EVAL Diagnosis Active 2016-05-16 Mem [...] different from the original. 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 Pain in Pain in Disease Active [...] of 02:02:31 l of leg amputation Dawood apez through of leg tibia and through fibula tibia and (situation fibula ) (situation ) Active Problem 05/27/2016 [facility] History of History Problem Active 2022-05-01 Memoria polyp of of polyp 22:54:24 l colon of colon [facility] (situation (situation ) ) Active Problem 05/01/2022 [facility] her Neuro Obesity Obesity Problem Active 2022-05-01 Me moria (disorder) (disorder) 22:54:24 l Active [place] Problem 05/01/2022 Medical Group,[facility] her Neuro, [facility] Traumatic Traumatic Problem Active 2022-05-01 Memoria brain brain 22:54:24 l injury injury [facility] (disorder) (disorder) Active Problem 05/01/2022 Medical Group,Misc [...] Active Univers ALLERGIE Class ity of S [facility] No Known No Known Active Memori a Medicati Medicati l on on [place] Allergie Allergie s s Social History Social Habit Start Date Stop Date Quantity Comments Source Exposure to 2022-08-06 2022-08-16 Not sure [facility] SARS-CoV-2 00:00:00 21:34:00 [facility] (event) [place] Alcohol intake 2022-08-16 2022-08-16 University of 00:00:00 00:00:00 [facility] Social History 2018-04-02 2018-04-02 Yamileth duenas 18:19:44 18:19:44 Tobacco Comment 2013-06-27 2013-06-27 Pt thinks he Univers ity of 00:00:00 00:00:00 smoked but has no [facility] memory of how Branch many cigs nor how long. Tobacco use and 2013-06-27 2013-06-27 Smokeless tobacco Un iversity of exposure 00:00:00 00:00:00 non-user [facility] History of 1988-07-24 Cigarette Smoker Universi ty of tobacco use 00:00:00 [facility] Sex Assigned At [birth year] Universit y of 00:00:00 00:00:00 [facility] Smoking Status Start Date Stop Date Source Tobacco smoking status 2018-04-02 18:19:38 2018-04-02 18:19:[address] [facility] Medications Ordered Filled Start Stop Current Ordering Indication Dosage Frequency Signature Comments Components Source Medication Medication Date Date Medication? Clinician (SIG) Name Name ketorolac 2022- No 15mg 15 mg, Unive rs (TORADOL) 08-17 Slow IV ity of injection 06:15: 05:20 Push, [place] 15 mg 00 :00 ONCE, 1 Medical dose, On Branch 08/17/22 at 0015, MACKENZIE iopamidol 2022- No [id number] 100mL 100 mL, Univers (ISOVUE 08-17 Intravenou ity o f 370-500 mL) 05:30: 05:30 s, ONCE, 1 [place] injection 00 :00 dose, On Medica l 100 mL Tue Branch 08/16/22 at 2330, Routine ibuprofen Yes [id number] 600mg Take 1 Univers 600 mg 31 tablet by ity of tablet 00:00: mouth [place] 00 every 6 Medical (six) Branch hours as needed for Pain (scale 4-6). casirivimab 2020- No [id number] 1200mg 1,200 mg, Univers -imdevimab 03-11 IV ity of 1200 mg in 23:00: 22:21 Infusion, [place] 60 mL NS 00 :00 ONCE, Medical MINI-BAG Administer Branc h over 20 Minutes, Donna 03/11/21 at 1800, For 1 dose
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 or [...] pain, # 60 cap, 1 Refill(s), Pharmacy: [facility] #[id number] dicyclomine Yes 10 mg = 1 M emoria 10 mg oral 9-19 cap, PO, l capsule 20:46: QID-Before Herm shari 00 Meals, as needed for abdominal pain, # 60 cap, 1 Refill(s), Pharmacy: [facility] #[id number] dicyclomine 2018-0 Yes 10 mg = 1 M emoria 10 mg oral 9-19 cap, PO, l capsule 20:46: QID-Before Herm shari 00 Meals, as needed for abdominal pain, # 60 cap, 1 Refill(s), Pharmacy: [facility] #[id number] dicyclomine 2018-0 Yes 10 mg = 1 M emoria 10 mg oral 9-19 cap, PO, l capsule 20:46: QID-Before Herm shari 00 Meals, as needed for abdominal pain, # 60 cap, 1 Refill(s), Pharmacy: [facility] #[id number] dicyclomine 2018-0 Yes 10 mg = 1 M emoria 10 mg oral 9-19 cap, PO, l capsule 20:46: QID-Before Herm shari 00 Meals, as needed for abdominal pain, # 60 cap, 1 Refill(s), Pharmacy: [facility] #[id number] dicyclomine 2018-0 Yes 10 mg = 1 M emoria 10 mg oral 9-19 cap, PO, l capsule 20:46: QID-Before Herm shari 00 Meals, as needed for abdominal pain, # 60 cap, 1 Refill(s), Pharmacy: [facility] #[id number] dicyclomine 2018-0 Yes 10 mg = 1 M emoria 10 mg oral 9-19 cap, PO, l capsule 20:46: QID-Before Herm shari 00 Meals, as needed for abdominal pain, # 60 cap, 1 Refill(s), Pharmacy: [facility] #[id number] dicyclomine 2018-0 Yes 10 mg = 1 M emoria 10 mg oral 9-19 cap, PO, l capsule 20:46: QID-Before Herm shari 00 Meals, as needed for abdominal pain, # 60 cap, 1 Refill(s), Pharmacy: [facility] #[id number] rifaximin 2018-0 Yes 550 mg = 1 Me moria 550 MG Oral 9-17 tab, PO, l Tablet 18:34: TID, # 42 [place] n [XIFAXAN] 00 tab, 0 Refill(s), Pharmacy: [facility] #[id number] Xifaxan 550 2018-0 Yes 550 mg = 1 Memoria mg oral 9-17 tab, PO, l tablet 18:34: TID, # 42 [place] n 00 tab, 0 Refill(s), Pharmacy: [facility] #[id number] rifaximin 2018-0 Yes 550 mg = 1 Me moria 550 MG Oral 9-17 tab, PO, l Tablet 18:34: TID, # 42 [place] n [XIFAXAN] 00 tab, 0 Refill(s), Pharmacy: [facility][id number] Xifaxan 550 2018-0 Yes 550 mg = 1 Memoria mg oral 9-17 tab, PO, l tablet 18:34: TID, # 42 [place] n 00 tab, 0 Refill(s), Pharmacy: [facility] #[id number] rifaximin 2018-0 Yes 550 mg = 1 Me moria 550 MG Oral 9-17 tab, PO, l Tablet 18:34: TID, # 42 [place] n [XIFAXAN] 00 tab, 0 Refill(s), Pharmacy: [facility] #[id number] Xifaxan 550 2018-0 Yes 550 mg = 1 Memoria mg oral 9-17 tab, PO, l tablet 18:34: TID, # 42 [place] n 00 tab, 0 Refill(s), Pharmacy: [facility] #[id number] rifaximin 2018-0 Yes 550 mg = 1 Me moria 550 MG Oral 9-17 tab, PO, l Tablet 18:34: TID, # 42 [place] n [XIFAXAN] 00 tab, 0 Refill(s), Pharmacy: [facility] #[id number] Xifaxan 550 2018-0 Yes 550 mg = 1 Memoria mg oral 9-17 tab, PO, l tablet 18:34: TID, # 42 [place] n 00 tab, 0 Refill(s), Pharmacy: [facility] #[id number] rifaximin 2018-0 Yes 550 mg = 1 Me moria 550 MG Oral 9-17 tab, PO, l Tablet 18:34: TID, # 42 [place] n [XIFAXAN] 00 tab, 0 Refill(s), Pharmacy: [facility] #[id number] Xifaxan 550 2018-0 Yes 550 mg = 1 Memoria mg oral 9-17 tab, PO, l tablet 18:34: TID, # 42 [place] n 00 tab, 0 Refill(s), Pharmacy: [facility] #[id number] rifaximin 2018-0 Yes 550 mg = 1 Me moria 550 MG Oral 9-17 tab, PO, l Tablet 18:34: TID, # 42 [place] [XIFAXAN] 00 tab, 0 Refill(s), Pharmacy: [facility] #[id number] Xifaxan 550 2018-0 Yes 550 mg = 1 Memoria mg oral 9-17 tab, PO, l tablet 18:34: TID, # 42 [place] n 00 tab, 0 Refill(s), Pharmacy: [facility][id number] rifaximin 2018-0 Yes 550 mg = 1 Me moria 550 MG Oral 9-17 tab, PO, l Tablet 18:34: TID, # 42 [place] n [XIFAXAN] 00 tab, 0 Refill(s), Pharmacy: [facility][id number] Xifaxan 550 2017-0 Yes 550 mg = 1 Memoria mg oral 9-17 tab, PO, l tablet 18:34: TID, # 42 [place] n 00 tab, 0 Refill(s), Pharmacy: [facility] #[id number] rifaximin 2018-0 Yes 550 mg = 1 Me moria 550 MG Oral 9-17 tab, PO, l Tablet 18:34: TID, # 42 [place] n [XIFAXAN] 00 tab, 0 Refill(s), Pharmacy: [facility] #[id number] Xifaxan 550 2017-0 Yes 550 mg = 1 Memoria mg oral 9-17 tab, PO, l tablet 18:34: TID, # 42 [place] n 00 tab, 0 Refill(s), Pharmacy: [facility] #[id number] [place] 2017-0 Yes 1 tab, PO, Memori a 7.5/325 5-08 Q6H, 0 l oral tablet 18:06: Refill(s) H [place] 2016-0 Yes 1 tab, PO, Memori a 7.5/325 5-08 Q6H, 0 l oral tablet 18:06: Refill(s) H erm [place] 2016-0 Yes 1 tab, PO, Memori a 7.5/325 5-08 Q6H, 0 l oral tablet 18:06: Refill(s) H [place] Yes 1 tab, PO, Memori a 7.5/325 5-08 Q6H, 0 l oral tablet 18:06: Refill(s) H [place] Yes 1 tab, PO, Memori a 7.5/325 5-08 Q6H, 0 l oral tablet 18:06: Refill(s) H [place] Yes 1 tab, PO, Memori a 7.5/325 5-08 Q6H, 0 l oral tablet 18:06: Refill(s) H [place] Yes 1 tab, PO, Memori a 7.5/325 5-08 Q6H, 0 l oral tablet 18:06: Refill(s) H [place] Yes 1 tab, PO, Memori a 7.5/325 [...] 1 Branch Tab acetaminoph 2012-07 Yes 1{tbl} [facility] ers en-codeine 2-12 ity of (TYLENOL 16:43: [place] #3) 300-30 26 Medical mg tablet 1 Branch Tab acetaminoph 2012-07 Yes 1{tbl} Univ ers en-codeine 2-12 ity of (TYLENOL 16:43: [place] #3) 300-30 26 Medical mg tablet 1 Branch Tab acetaminoph 2012-07 Yes [id number] 1{tbl} Take 1 Tab Univers en-codeine 2-02 by mouth ity o f (TYLENOL-CO 00:00: every 4 Jarod as DEINE #3) 00 (four) Medical 300-30 mg hours as Branch tablet needed for Pain. acetaminoph 2012-07 Yes [id number] 1{tbl} Take 1 Tab Univers en-codeine 2-02 by mouth ity o f (TYLENOL-CO 00:00: every 4 Jarod as DEINE #3) 00 (four) Medical 300-30 mg hours as Branch tablet needed for Pain. acetaminoph 2012-07 Yes [id number] 1{tbl} Take 1 Tab Univers en-codeine 2-02 [...] Medical hours as Branch needed for Pain. triamcinkalli Yes Apply to Un dashawn ne 1-08 area(s) 2 ity of acetonide 00:00: (two) [place] (TRIDERM) 00 times Medical 0.1 % cream daily. Branch triamcinolo 2013-0 Yes Apply to Un dashawn [...] adult 2016-10-31 Completed Memoria l vaccine 16:08:00 [place] hepatitis B adult 2016-10-31 Completed Memoria l vaccine 16:08:00 [facility] hepatitis B adult 2016-10-31 Completed Memoria l vaccine 16:08:00 [facility] hepatitis B adult 2016-10-31 Completed Memoria l vaccine 16:08:00 [place] hepatitis B adult 2016-10-31 Completed Memoria l vaccine 16:08:00 [place] hepatitis B adult 2016-10-31 Completed Memoria l vaccine 16:08:00 [facility] hepatitis B adult 2016-10-31 Completed Memoria l vaccine 16:08:00 [place] hepatitis B adult 2016-04-11 Completed Memoria l vaccine 15:46:00 [place] hepatitis B adult 2016-04-11 Completed Memoria l vaccine 15:46:00 [facility] hepatitis B adult 2016-04-11 Completed Memoria l vaccine 15:46:00 [facility] hepatitis B adult 2016-04-11 Completed Memoria l vaccine 15:46:00 [facility] hepatitis B adult 2016-04-11 Completed Memoria l vaccine 15:46:00 [facility] hepatitis B adult 2016-04-11 Completed Memoria l vaccine 15:46:00 [facility] hepatitis B adult 2016-04-11 Completed Memoria l vaccine 15:46:00 [place] hepatitis B adult 2016-04-11 Completed Memoria l vaccine 15:46:00 [facility] hepatitis B adult 2016-03-28 Completed Memoria l vaccine 16:37:00 [facility] hepatitis B adult 2016-03-28 Completed Memoria l vaccine 16:37:00 [facility] hepatitis B adult 2016-03-28 Completed Memoria l vaccine 16:37:00 [place] hepatitis B adult 2016-03-28 Completed Memoria l vaccine 16:37:00 [place] hepatitis B adult 2016-03-28 Completed Memoria l vaccine 16:37:00 [place] hepatitis B adult 2016-03-28 Completed Memoria l vaccine 16:37:00 [place] hepatitis B adult 2016-03-28 Completed Memoria l vaccine 16:37:00 [place] hepatitis B adult 2016-03-28 Completed Memoria l vaccine 16:37:00 [facility] Vital Signs Vital Name Observation Time Observation Value Comments Source Systolic blood 2022-08-17 04:30:00 144 mm[Hg] Univer sity of pressure [facility] Diastolic blood 2022-08-17 04:30:00 96 mm[Hg] Unive rsity of [email or web address] Heart rate 2022-08-17 04:30:00 94 /min [facility] Respiratory rate 2022-08-17 04:30:00 13 /min [facility] Oxygen saturation in 2022-08-17 04:30:00 100 /min [facility] Arterial blood by [facility] [place] [facility] Pulse oximetry [place] Body temperature 2022-08-17 03:35:00 36.17 [facility] Body height 2022-08-17 03:35:00 190.5 cm [facility] Body weight 2022-08-17 03:35:00 104.327 kg [facility] BMI 2022-08-17 03:35:00 28.75 kg/m2 [facility] Systolic blood 2021-03-11 21:58:00 145 mm[Hg] Univer sity of [email or web address] Diastolic blood 2021-03-11 21:58:00 86 mm[Hg] Unive rsity of [email or web address] Heart rate 2021-03-11 21:58:00 80 /min [facility] Body temperature 2021-03-11 21:58:00 37.39 [facility] Respiratory rate 2021-03-11 21:58:00 20 /min [facility] Body height 2021-03-11 21:58:00 190.5 cm [facility] Body weight 2021-03-11 21:58:00 104.327 kg [facility] BMI 2021-03-11 21:58:00 28.75 kg/m2 [facility] Oxygen saturation in 2021-03-11 21:58:00 96 /min University Arterial blood by [facility] [place] [facility] Pulse oximetry Branch Weight 2018-04-02 18:18:00 [facility] [place] BMI Calculated 2018-04-02 18:18:00 Memori al [facility] Height 2018-04-02 18:18:00 187.96 cm [facility] Systolic (mm Hg) 2018-04-02 18:18:00 Jan rial [place] Diastolic (mm Hg) 2018-04-02 18:18:00 Mem orial [facility] Heart Rate 2018-04-02 18:18:00 [facility] [place] Height 2016-05-16 14:12:00 187.96 cm [facility] Weight 2016-05-16 14:12:00 [facility] [place] BMI Calculated 2016-05-16 14:12:00 Memori al [facility] Respitory Rate 2016-05-16 14:12:00 Memori al [facility] Heart Rate 2016-05-16 14:12:00 [facility] Systolic (mm Hg) 2016-05-16 14:12:00 Jan rial [facility] Diastolic (mm Hg) 2016-05-16 14:12:00 Mem orial [place] Procedures Procedure Date / Time Performing Clinician Source Performed URINE DRUG (IMMUNOASSAY) 2022-08-17 04:44:00 Lesly Rodriguez [facility] SCREEN URINALYSIS 2022-08-17 04:44:00 Lesly Rodriguez [facility] COMP. METABOLIC PANEL 2022-08-17 03:59:00 Lesly Rodriguez [facility] ([id number]) [facility] ETHANOL 2022-08-17 03:59:00 Lesly Rodriguez [facility] CBC WITH DIFF 2022-08-17 03:59:00 Lesly Rodriguez [facility] CONSENT/REFUSAL FOR 2021-03-11 05:01:00 [facility]igned, [facility] Name Medical Branch Colonoscopy 2017-01-24 05:00:00 [facility] Her coats Cranioplasty Yamileth Wall BKA - Below knee Yamileth Seay n amputation, Encounters Start End Encounter Admission Attending Care Care Encounter Source Date/Time Date/Time Type Type Clinicians Facility Department ID 2022-08-16 2022-08-17 Emergency X Lesly RODRIGUEZ [facility] ERT [id number] Univers 21:31:00 00:05:00 ity of [facility] 2022-08-16 2022-08-17 Emergency NuriaLesly [facility] [id number] Univers 21:31:00 00:05:00 Precious DUARTE 350.1.13.10 i ty YEISONBANNER 4.2.7.2.686 [facility] [id number] [place] [id number] Branch 2022-04-29 2022-04-29 Ambulatory nullFlavo MNA [id number] Memoria 19:30:00 19:30:00 Pre-Reg r Neurology 11 l Mary Alice Wall 2022-04-29 2022-04-29 Ambulatory nullFlavo MNA [id number] Memoria 19:30:00 19:30:00 Pre-Reg r Neurology 12 l Mary Alice Wall 2022-04-29 2022-04-29 Ambulatory nullFlavo MNA [id number] Memoria 19:30:00 19:30:00 Pre-Reg r Neurology 11 l Mary Alice Wall 2022-04-29 2022-04-29 Ambulatory nullFlavo MNA [id number] Memoria 19:30:00 19:30:00 Pre-Reg r Neurology 12 l Mary Alice Wall 2022-04-29 2022-04-29 Ambulatory nullFlavo MNA [id number] Memoria 19:00:00 19:00:00 Pre-Reg r Neurology 10 l Mary Alice Wall 2022-04-29 2022-04-29 Ambulatory nullFlavo MNA [id number] Memoria 19:00:00 19:00:00 Pre-Reg r Neurology 10 l Mary Alice Wall 2022-04-29 2022-04-29 Outpatient MHIE MHIE [id number] Memoria 14:30:00 14:30:00 11 aline Wall 2022-04-29 2022-04-29 Outpatient MHIE MHIE [id number] Memoria 14:30:00 14:30:00 12 aline Wall 2022-04-29 2022-04-29 Outpatient Kailey, MHMISCHER MHMISCHER [id number] 14:30:00 14:30:00 Bernardo 12 Yevgeniy 2022-04-29 2022-04-29 Outpatient Kailey, MHMISCHER MHMISCHER [id number] 14:30:00 14:30:00 Bernardo 11 Yevgeniy 2022-04-29 2022-04-29 Outpatient MHIE MHIE [id number] Memoria 14:00:00 14:00:00 10 aline Wall 2022-04-29 2022-04-29 Outpatient Kailey, MHMISCHER MHMISCHER [id number] 14:00:00 14:00:00 Bernardo 10 [facility] 2021-03-11 2021-03-11 Outpatient Leo UMANA, [facility] [id number] Univers 15:30:00 15:30:00 JOSE MARTIN [facility] 2021-03-11 2021-03-11 Nurse Therapy, Adc Covid Infusion [facility] 1.2.840.114 [id number] Univers 14:19:37 15:19:37 Visit Jose Martin Umana 350.1.13.10 ity [place]2.686 [place] [id number] Med [facility] 053 Branch 2021-03-11 2021-03-11 Orders Doctor KLEBER 1.2.840.114 [id number] Univers 00:00:00 00:00:00 Only Unassigned, ANGEL 350.1.13.10 ity of [place] [facility] 4.2.7.2.686 Jarod as [id number] [place] [address] Branch 2020-05-13 2020-05-13 Emergency X [facility] ERT [id number] Univers 19:41:00 19:41:00 ity [facility] 2018-04-04 2018-04-06 Phone nullFlavo [facility] [id number] Memoria 20:45:00 04:59:59 Message r Gastroenter 06 aline Pierce 2018-04-04 2018-04-06 Phone nullFlavo MG [id number] Memoria 20:45:00 04:59:59 Message r Gastroenter 06 l precious Pierce 2018-04-04 2018-04-05 Outpatient MHMG MHMG [id number] 15:45:00 23:59:59 06 2018-04-02 2018-04-03 [place] [id number] Memoria 18:15:00 04:59:59 r Gastroenter 09 l precious Pierce 2018-04-02 2018-04-03 [place] [id number] Memoria 18:15:00 04:59:59 r Gastroenter 09 l precious Pierce 2018-04-02 2018-04-02 Outpatient Mayra [facility] [id number] 13:15:00 23:59:59 Gino Santa 2018-04-02 2018-04-02 Outpatient MHIE MHIE [id number] Memoria 13:15:00 13:15:00 09 aline Wall 2017-02-20 2017-02-20 Outpatient MHIE MHIE [id number] Memoria 13:15:00 13:15:00 08 aline Wall 2017-02-20 2017-02-20 Outpatient MHIE MHIE [id number] Memoria 13:15:00 13:15:00 08 ailne Wall 2017-02-09 2017-02-09 Outpatient MHIE MHIE [id number] Memoria 11:15:00 11:15:00 07 aline Wall 2017-02-09 2017-02-09 Outpatient MHIE MHIE [id number] Memoria 11:15:00 11:15:00 07 aline Wall 2016-11-21 2016-11-21 Outpatient MHIE MHIE [id number] Memoria 13:00:00 13:00:00 05 aline Wall 2016-11-21 2016-11-21 Outpatient MHIE MHIE [id number] Memoria 13:00:00 13:00:00 05 aline Wall 2016-10-31 2016-10-31 Outpatient MHIE MHIE [id number] Memoria 10:00:00 10:00:00 04 l [place] 2016-10-31 2016-10-31 Outpatient MHIE MHIE [id number] Memoria 10:00:00 10:00:00 04 aline [place] 2016-07-27 2016-07-27 Outpatient MHIE MHIE [id number] Memoria 15:30:00 15:30:00 03 aline [place] 2016-07-27 2016-07-27 Outpatient MHIE MHIE [id number] Memoria 15:30:00 15:30:00 03 aline [place] 2016-05-24 2016-05-25 Outpatient nullFlavo [facility] [id number] Memoria 16:03:00 05:59:00 r Memorial 02 [facility] 2016-05-24 2016-05-25 Outpatient nullFlavo [facility] [id number] Memoria 16:03:00 05:59:00 r Memorial 02 aline [facility] 2016-05-24 2016-05-24 Outpatient Magat, MHTIRR MHTIRR [id number] 10:03:00 23:59:00 Mayuri 02 Magdara[facility] 2016-05-16 2016-05-17 Outpatient nullFlavo [facility] [id number] Memoria 13:31:00 04:59:00 r Memorial 01 [facility] 2016-05-16 2016-05-17 Outpatient nullFlavo [facility] [id number] Memoria 13:31:00 04:59:00 r Memorial 01 [facility] 2016-05-16 2016-05-16 Outpatient Magat, MHTIRR MHTIRR [id number] 08:31:00 23:59:00 Mayuri 01 [place] 2016-04-11 2016-04-11 Outpatient MHIE MHIE [id number] Memoria 09:00:00 09:00:00 02 aline [place] 2016-04-11 2016-04-11 Outpatient MHIE MHIE [id number] Memoria 09:00:00 09:00:00 02 aline [facility] 2016-03-28 2016-03-28 Outpatient MHIE MHIE [id number] Memoria 14:15:00 14:15:00 01 [facility] 2016-03-28 2016-03-28 Outpatient MHIE MHIE [id number] Memoria 14:15:00 14:15:00 01 l [facility] Results Test Description Test Time Test Comments Results Result Sourc e Comments ETHANOL 2022-08-17 ALCOHOL<10mg/dL0 Universi ty of 04:47:48 08/16/2022 10:47 [place] Med ical PM [facility] LABORATORY<10 [id number] Toxic>100 Depression of SOLUTIONS DEVELOPMENT ANALYST>400 Fatalities Reported COMP. METABOLIC PANEL (65824) 2022-08-17 04:44:37 Test Item Value Reference Range Interpretation Comme nts NA (test code = 0898788235) 136 mmol/L 135-145 K (test code = 0188253826) 3.6 mmol/L 3.5-5.0 CL (test code = 7178587752) 100 mmol/L 98-108 CO2 TOTAL (test code = 0056531035) 30 mmol/L 23-31 AGAP (test code = 4683391677) 6 2-16 BUN (test code = 1178872775) 9 mg/dL 7-23 GLUCOSE (test code = 2082983835) 95 mg/dL 70-110 CREATININE (test code = 0.88 mg/dL 0.60-1.25 9121716794) TOTAL BILI (test code = 0.6 mg/dL 0.1-1.0 0238800540) CALCIUM (test code = 4289659802) 8.5 mg/dL 8.6-10.6 L T PROTEIN (test code = 2401954695) 6.9 g/dL 6.3-8.2 ALBUMIN (test code = 9715418285) 4.4 g/dL 3.5-5.0 ALK PHOS (test code = 8909661832) 58 U/L 34-122 ALTv (test code = 1742-6) 15 U/L 5-50 AST(SGOT) (test code = 5289269537) 23 U/L 13-40 eGFR (test code = 5862109091) 89.9 mL/min/1.73m2 DYLAN (test code = DYLAN) [...] tests). Lab Interpretation (test code = Abnormal 85711-4) [facility] [id number] 04:37:20 Test Item Value Reference Range Interpretation Comments WBC (test code = 9.27 See_Comment [Automated 6806-2) message] The sy stem which generated this result transmitted reference range : 4.20 - 10.70 10*3/?L. The reference range was not used to interpret this result as normal/abnormal . RBC (test code = 4.08 See_Comment L [Automated 539-8) message] The sy stem which generated this [...] RDW-SD (test code = 45.0 fL 38.5-51.6 85343-7) RDW-CV (test code = 13.0 % 12.1-15.4 788-0) PLT (test code = 205 See_Comment [Automated 777-3) message] The sy stem which generated this result transmitted reference range : 150 - 328 10*3/ ?L. The reference r anabella was not used to interpret this result as normal/abnormal . MPV (test code = 8.8 fL 9.8-13.0 L 70299-6) NRBC/100 WBC (test 0.0 See_Comment [Automat ed code = 1796721936) message] The system which generated this result transmitted reference range : 0.0 - 10.0 /100 WBCs. The refer ence range was not u sed to interpret th is result as normal/abnormal . NRBC x10^3 (test code See_Comment [Auto mated = 3333101723) message] The s ystem which generated this result transmitted reference range : 10*3/?L. The reference range was not used to interpret this result as normal/abnormal . GRAN MAT (NEUT) % 66.8 % (test code = 770-8) IMM GRAN % (test code 0.30 % = 5803374607) LYMPH % (test code = 26.6 % 736-9) MONO % (test code = 5.7 % 5905-5) EOS % (test code = 0.3 % 713-8) BASO % (test code = 0.3 % 706-2) GRAN MAT x10^3(ANC) 6.18 10*3/uL 1.99-6.95 (test code = 0563063819) IMM GRAN x10^3 (test 0.03 10*3/uL 0.00-0.06 code = 5183932612) LYMPH x10^3 (test code 2.47 10*3/uL 1.09-3.23 = 731-0) MONO x10^3 (test code 0.53 10*3/uL 0.36-1.02 = 742-7) EOS x10^3 (test code = 0.03 10*3/uL 0.06-0.53 L 711-2) BASO x10^3 (test code 0.03 10*3/uL 0.01-0.09 = 704-7) Lab Interpretation Abnormal (test code = 50330-4) [facility]"
[2022-09-27] MEDS ORDERED: LORazepam 2 MG/ML VIAL ONE (15:45)
[2022-09-27 15:54] LABS: Hematocrit 40.5 % (39.6-49.0); MCV 97.4 fL (80-100); MPV 5.7 fL (7.6-11.3); RBC Red Blood Cell Count 4.16 M/uL (4.33-5.43)
[2022-09-27 15:55] LABS: Absolute Lymphocytes (CBC) 1.4 K/uL (0.7-4.9)
[2022-09-27 16:02] LABS: Protime INR 1.02
[2022-09-27 16:15] LABS: ALT/SGPT 13 U/L (16-61); AST/SGOT 19 U/L (15-37); Albumin 3.7 g/dL (3.4-5.0); Alkaline Phosphatase 92 U/L (45-117); BUN Blood Urea Nitrogen 3 mg/dL (7-18); Bicarbonate 25 mmol/L (21-32); Bilirubin Total 0.2 mg/dL (0.2-1.0); Glomerular Filtration Rate 106 ml/min (=/>90); Glucose Level 211 mg/dL (74-106); Potassium 3.1 mmol/L (3.5-5.1); Protein, Total 7.5 g/dL (6.4-8.2); Sodium Level 139 mmol/L (136-145)
[2022-09-27 16:18] LABS: Urine Blood Negative (Negative); Urine Glucose Trace (Negative); Urine Protein Negative (Negative); Urine Specific Gravity <=1.005 (1.005-1.030)
[2022-09-27 16:20] LABS: Bilirubin Direct < 0.1 mg/dL (0-0.2)
[2022-09-27 16:41] LABS: Barbiturates NEGATIVE (NEGATIVE); Benzodiazepines POSITIVE (NEGATIVE); Cocaine NEGATIVE (NEGATIVE); METHAMPHETAM NEGATIVE (NEGATIVE); Methadone NEGATIVE (NEGATIVE); Opiates NEGATIVE (NEGATIVE); Phencyclidine NEGATIVE (NEGATIVE); THC Cannibis NEGATIVE (NEGATIVE)
[2022-09-27] MEDS ORDERED: KETOROLAC 30 MG/ML INJ ONE (20:06)
[2022-09-27] MEDS ORDERED: POTASSIUM 25 MEQ EFFERV TAB ONE (20:07)
[2022-09-28] MEDS ORDERED: FENTANYL CITR 100 MCG/2 ML ONE (00:40)
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
--- NOTE | 2022-09-28 03:06 | EDPHYS ---
Physician Documentation [facility] Name: Gregg Nair Age: 56 yrs Sex: Male : 1965 Arrival Date: 09/27/2022 Time: 15:17 Bed 17 Private MD: Sanket Monzon ED Physician Rohit Whittington HPI: 09/27 15:30 This 56 yrs old Male presents to ER via Wheelchair with complaints of Suicidal cp Ideation, Alcohol Withdrawal. 15:30 The patient presents to the emergency department with depression, a history of cp substance abuse, Type: alcohol, prescription pain medications. Onset: The symptoms/episode began/occurred gradually. Associated signs and symptoms: Pertinent positives; depression, substance abuse, suicide ideation, Pertinent negatives: abdominal pain, chest pain, delusions, hallucinations, headache, vomiting. Severity of symptoms: in the emergency department the symptoms are unchanged despite home interventions. Historical: - Allergies: 15:18 TB shots; ss - PMHx: 15:18 Chronic pain; TBI; ss - PSHx: 15:18 RIGHT BKA; right shoulder; ss - Immunization history:: Adult Immunizations up to date. - Social history:: Smoking status: Patient denies any tobacco usage or history of. ROS: 15:35 Cardiovascular: Negative for chest pain. cp 15:35 Constitutional: Negative for body aches, chills, fever, poor PO intake. cp 15:35 Respiratory: Negative for cough, shortness of breath, wheezing. 15:35 Abdomen/GI: Negative for abdominal pain, vomiting, diarrhea, constipation. 15:35 Neuro: Negative for altered mental status, dizziness, headache, syncope, weakness. 15:35 Psych: Positive for depression, alcohol use, prescription pain medication use. Exam: 15:40 Constitutional: The patient appears in no acute distress, alert, awake, cp non-diaphoretic, non-toxic, well developed, well nourished, uncomfortable. 15:40 Head/Face: Normocephalic, atraumatic. cp 15:40 Eyes: Periorbital structures: appear normal, Conjunctiva: normal, no exudate, no injection, Sclera: no appreciated abnormality, Lids and lashes: appear normal, bilaterally. 15:40 ENT: External ear(s): are unremarkable, Nose: is normal, Mouth: Lips: moist, Oral mucosa: pink and intact, moist, Posterior pharynx: is normal, airway is patent, no erythema, no exudate. 15:40 Neck: ROM/movement: limited range of motion, is not appreciated, Meningeal signs: are not present, nuchal rigidity, is not appreciated. 15:40 Chest/axilla: Inspection: normal. 15:40 Cardiovascular: Rate: tachycardic, Rhythm: regular, JVD: is not appreciated. 16:32 ECG was reviewed by the Attending Physician. cp Vital Signs: 15:21 BP 178 / 118; Pulse 108; Resp 18; Temp 97.8(TE); Pulse Ox 100% on R/A; Weight 99.79 kg; hb Height 6 ft. 3 in. ; Pain 10/10; 17:03 BP 130 / 81; Pulse 59; Resp 18; Pulse Ox 98% ; bp 09/28 00:45 BP 161 / 92; Pulse 66; Resp 20; Temp 97.6; Pulse Ox 98% ; jj7 09/27 15:21 Body Mass Index 27.50 (99.79 kg, 190.5 cm) hb 09/27 15:21 Pain Scale: Adult hb 09/27 15:21 crying hb MDM: 15:27 Patient medically screened. cp 09/27 15:30 Order name: Acetaminophen; Complete Time: 16:49 cp 09/27 16:49 Interpretation: Reviewed. cp 09/27 15:30 Order name: Basic Metabolic Panel; Complete Time: 16:49 cp 09/27 16:49 Interpretation: Normal except: K 3.1; GLUC 211; BUN 3; CA 8.1. cp 09/27 15:30 Order name: CBC with Diff; Complete Time: 16:49 cp 09/27 16:49 Interpretation: Normal except: RBC 4.16; MPV 5.7. cp 09/27 15:30 Order name: ETOH Level; Complete Time: 16:49 cp 09/27 16:49 Interpretation: Normal except: ETOH 243. cp 09/27 15:30 Order name: Hepatic Function; Complete Time: 16:49 cp 09/27 16:50 Interpretation: Normal except: ALT 13; GLOB 3.8; A/G 1.0. cp 09/27 15:30 Order name: PT-INR; Complete Time: 16:49 cp 09/27 16:58 Interpretation: Reviewed. cp 09/27 15:30 Order name: Ptt, Activated; Complete Time: 16:49 cp 09/27 15:30 Order name: Salicylate; Complete Time: 16:57 cp 09/27 16:57 Interpretation: Reviewed. cp 09/27 15:30 Order name: Urine Drug Screen; Complete Time: 16:49 cp 09/27 16:50 Interpretation: Abnormal: BZO POSITIVE. cp 09/27 15:30 Order name: EKG; Complete Time: 15:31 cp 09/27 15:30 Order name: EKG - Nurse/Tech; Complete Time: 16:33 cp 09/27 15:30 Order name: IV Saline Lock; Complete Time: 15:48 cp 09/27 15:30 Order name: Labs collected and sent; Complete Time: 15:48 cp 09/27 15:30 Order name: Suicide Precautions; Complete Time: 15:38 cp 09/27 15:30 Order name: Suicide Screening ([place]); Complete Time: 15:48 cp 09/27 15:30 Order name: Urine Dipstick-Ancillary (obtain specimen); Complete Time: 16:33 cp 09/27 16:18 Order name: Urine Dipstick-Ancillary; Complete Time: 16:49 EDMS 09/27 16:58 Interpretation: Reviewed. cp 09/27 21:06 Order name: COVID-19 SARS RT PCR; Complete Time: 01:19 bb 09/28 01:19 Interpretation: Reviewed. cp 09/27 22:46 Order name: ETOH Level; Complete Time: 01:46 cp 09/28 01:46 Interpretation: Abnormal: ETOH 25. cp 09/28 07:45 Order name: Diet Finger Food; Complete Time: 07:46 kc6 EC:32 Rate is 68 beats/min. Rhythm is regular. OR interval is normal. QRS interval is normal. cp QT interval is normal. T waves are Inverted in lead aVR. Interpreted by me. Reviewed by me. Administered Medications: 15:45 Drug: Ativan IVP 0.5 mg Route: IVP; Site: left antecubital; bp 16:33 Drug: Banana Bag - (NS 0.9% IV 1000 ml, foLIC Acid IVPB 1 mg, Thiamine IV 100 mg, bp Multivitamin IV 1 amp) Route: IV; Rate: 150 calculated rate; Site: left antecubital; 20:29 Drug: Ketorolac IVP 30 mg Route: IVP; Site: left antecubital; jj7 20:29 Drug: Potassium PO Effervescent Tablet 50 mEq Route: PO; jj7 09/28 00:50 Drug: fentaNYL (PF) IVP 50 mcg Route: IVP; Site: right antecubital; jj7 08:19 Drug: Loperamide PO 4 mg Route: PO; kc6 09:40 Follow up: Response: No adverse reaction kc6 Disposition: 10:11 Co-signature as Attending Physician, Rohit Whittington MD I agree with the assessment and kdr plan of care. Disposition Summary: 09/28/22 10:13 Discharge Ordered Location: Home kdr Problem: new(09/28/22 10:13) kdr Symptoms: have improved(09/28/22 10:13) kdr Condition: Stable(09/28/22 10:13) kdr Diagnosis - Alcohol abuse with intoxication kdr - Hypokalemia kdr - Suicidal ideations(09/28/22 10:13) kdr - Anxiety disorder, unspecified kdr - Depression kdr - Diffuse traumatic brain injury - Nonacute kdr Followup: kdr - With: Private Physician - When: 2 - 3 days - Reason: If symptoms return, Further diagnostic work-up, Recheck today's complaints, Continuance of care, Re-evaluation by your physician Forms: - Medication Reconciliation Form kdr - Thank You Letter kdr - Antibiotic Education kdr - Prescription Opioid Use kdr Signatures: Dispatcher [employer] EDMS Rohit Whittington MD MD kdr Sylvia Rico RN RN ss Page, Corey, PA PA cp Chantel Sorto RN RN hb Peltier, Brian, RN RN bp Campbell, Kaitlyn, RN RN kc6 Annel Gerardo RN RN jj7 Corrections: (The following items were deleted from the chart) 10:11 03:05 Doctor cp kdr 10:11 03:05 Psych Facility cp kdr 10:11 03:05 Higher level of care cp kdr 10:11 03:05 Stable cp kdr 10:11 03:05 new cp kdr 10:11 03:05 have improved cp kdr 10:11 03:05 Suicidal ideations cp kdr 10:11 03:05 Chronic pain, not elsewhere classified cp kdr 10:11 03:05 Alcohol use, unspecified cp kdr
[2022-09-28] MEDS ORDERED: LOPERAMIDE HCL 2 MG CAPSULE ONE (08:19)
[2022-09-28 13:04] VITALS: O2SAT 98
[2022-09-28 13:07] VITALS: BP 161/92; TEMP 97.6
--- NOTE | 2022-09-28 13:22 | EKG ---
Test Date: 2022-09-27 Test Time: 16:20:18 Wedding Makeup Artist: STEPHAN MEASUREMENT RESULTS: Intervals: Rate: 68 MN: 162 QRSD: 92 QT: 422 QTc: 448 [place]: P: 29 MN: 162 QRS: 14 T: 38 INTERPRETIVE STATEMENTS: Sinus rhythm with marked sinus arrhythmia Otherwise normal ECG Compared to ECG 09/09/2022 17:56:18 No significant changes Electronically Signed On 09-28-22 13:19:49 CDT by Olivier Dalal
== END 2022-09-28 10:56 | disposition home or self-care (01) ==
LOC: ER 15:16
DX: R45.851 Suicidal ideations (principal); F10.129 Alcohol abuse with intoxication, unspecified; E87.6 Hypokalemia; F41.9 Anxiety disorder, unspecified; F32.A Depression, unspecified; Z87.820 Personal history of traumatic brain injury; Z20.822 Contact with and (suspected) exposure to COVID-19; Z88.8 Allergy status to other drugs, medicaments and biological substances; Z89.511 Acquired absence of right leg below knee
CPT/HCPCS: 93005; 85025; 80048; 36415; 85610; 80076; 85730; 81003; 80307; U0003; J3010; G0480 ×4

== ENCOUNTER 2022-12-17 11:51 | Emergency (ER) | payer OTHER ==
--- OUTSIDE RECORDS SUMMARY | 2022-12-17 11:55 | XMS REPORT | Continuity of Care Document ---
:1965 Author Organization [facility] t Address [address] [place] [address] Care Team Providers Name Role Phone SURJIT ZARAGOZA Primary Care Physician Unavailable RADIOLOGY Attending Clinician Unavailable Doctor Unassigned, [place] Attending Clinician Unavailable Lesly RODRIGUEZ Attending Clinician Unavailable Nuria PACLesly Attending Clinician Bernardo Bonner Attending Clinician JOSE MARTIN UMANA Attending Clinician Unavailable Therapy, Adc Covid Infusion Attending Clinician Unavailable Jose Martin Umana MD Attending Clinician Gino Nunez Attending Clinician Mayuri [place] Attending Clinician Lesly RODRIGUEZ Admitting Clinician Unavailable Payers Payer Name Policy Type Policy Number Effective Date Expiration Date Clifford burnham [facility] DUAL [id number] 2022 COMP HMO D SNP 00:00:00 MED[place]ID OF [place] [id number] 2016 00:00:00 AMERIVANTAGE [id number] 2016 00:00:00 Problems Condition Condition Condition Status Onset Resolution Last Treating Co mments Source Name Details Category Date Date Treatment Clinician Date CT CT Active Diagnosis Active 2015-072016-05-24 Memoria 10:09:00 l 6 MH [facility] 00:00: [facility] 00 EVAL EVAL [...] different from the original. 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 her Neuro Obesity Obesity Problem Active 2022-05-01 Me moria (disorder) (disorder) 22:54:24 l Active [place] Problem 05/01/2022 [facility] her Neuro, [facility] Traumatic Traumatic Problem Active 2022-05-01 Memoria brain brain 22:54:24 l injury injury [facility] (disorder) (disorder) Active Problem 05/01/2022 Medical [facility] her Neuro, [facility] INTCRAN INTCRAN Diagnosis Active [...] Active Univers ALLERGIE Class ity of S [facility] No Known No Known Active Memori a Medicati Medicati l on on [place] Allergie Allergie s s Social History Social Habit Start Date Stop Date Quantity Comments Source Exposure to 2022-08-06 2022-08-16 Not sure [facility] SARS-CoV-2 00:00:00 21:34:00 [facility] (event) [place] Alcohol intake 2022-08-16 2022-08-16 University of 00:00:00 00:00:[address] [facility] Social History 2018-04-02 2018-04-02 [facility] henrique 18:19:44 18:19:44 Tobacco Comment 2013-06-27 2013-06-27 Pt thinks he Univers ity of 00:00:00 00:00:00 smoked but has no [facility] edical memory of how Branch many cigs nor how long. Tobacco use and 2013-06-27 2013-06-27 Smokeless tobacco Un iversity of exposure 00:00:00 00:00:00 non-user [facility] History of 1988-07-24 Cigarette Smoker Universi ty of tobacco use 00:00:[address] [facility] Sex Ass[birth year] At [birth year] Universit y of 00:00:00 00:00:[address] [facility] Smoking Status Start Date Stop Date Source Tobacco smoking status 2018-04-02 18:19:38 2018-04-02 18:19:38 [facility] Medications Ordered Filled Start Stop Current Ordering Indication Dosage Frequency Signature Comments Components Source Medication Medication Date Date Medication? Clinician (SIG) Name Name ketorolac 2023-0 2023- No 15mg 15 mg, Unive rs (TORADOL) 08-17 Slow IV ity of injection 06:15: 05:20 Push, [place] 15 mg 00 :00 ONCE, 1 Medical dose, On Branch 08/17/22 at 0015, MACKENZIE iopamidol 2022- No [id number] 100mL 100 mL, Univers (ISOVUE 08-17 Intravenou ity o f 370-500 mL) 05:30: 05:30 s, ONCE, 1 [place] injection 00 :00 dose, On Medica l 100 mL Tue Branch 08/16/22 at 2330, Routine ibuprofen Yes [id number] 600mg Take 1 Univers 600 mg 1-31 tablet by ity of tablet 00:00: mouth [place] 00 every 6 Medical (six) Branch hours as needed for Pain (scale 4-6). ibuprofen Yes [id number] 600mg Take 1 Univers 600 mg 1-31 tablet by ity of tablet 00:00: mouth [place] 00 every 6 Medical (six) Branch hours as needed for Pain (scale 4-6). casirivimab 2020- No [id number] 1200mg 1,200 mg, Univers -imdevimab 03-11 IV ity of 1200 mg in 23:00: 22:21 Infusion, [place] 60 mL NS 00 :00 ONCE, Medical MINI-BAG Administer Branc h over 20 Minutes, Donna 03/11/21 at 1800, For 1 dose
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 via pump or [...] pain, # 60 cap, 1 Refill(s), Pharmacy: [facility] #[id number] dicyclomine Yes 10 mg = 1 M emoria 10 mg oral 9-19 cap, PO, l capsule 20:46: QID-Before Herm shari 00 Meals, as needed for abdominal pain, # 60 cap, 1 Refill(s), [id number] dicyclomine 2018-0 Yes 10 mg = 1 M emoria 10 mg oral 9-19 cap, PO, l capsule 20:46: QID-Before Herm shari 00 Meals, as needed for abdominal pain, # 60 cap, 1 Refill(s), [id number] dicyclomine 2018-0 Yes 10 mg = 1 M emoria 10 mg oral 9-19 cap, PO, l capsule 20:46: QID-Before Herm shari 00 Meals, as needed for abdominal pain, # 60 cap, 1 Refill(s), Pharmacy: [facility] #[id number] dicyclomine 2018-0 Yes 10 mg = 1 M emoria 10 mg oral 9-19 cap, PO, l capsule 20:46: QID-Before Herm shari 00 Meals, as needed for abdominal pain, # 60 cap, 1 Refill(s), Pharmacy: [facility] #[id number] dicyclomine 2018-0 Yes 10 mg = 1 M emoria 10 mg oral 9-19 cap, PO, l capsule 20:46: QID-Before Herm shari 00 Meals, as needed for abdominal pain, # 60 cap, 1 Refill(s), Pharmacy: [facility] #[id number] dicyclomine 2018-0 Yes 10 mg = 1 M emoria 10 mg oral 9-19 cap, PO, l capsule 20:46: QID-Before Herm shari 00 Meals, as needed for abdominal pain, # 60 cap, 1 Refill(s), Pharmacy: [facility] #[id number] dicyclomine 2018-0 Yes 10 mg = 1 M emoria 10 mg oral 9-19 cap, PO, l capsule 20:46: QID-Before Herm shari 00 Meals, as needed for abdominal pain, # 60 cap, 1 Refill(s), Pharmacy: [facility] #[id number] dicyclomine 2018-0 Yes 10 mg = 1 M emoria 10 mg oral 9-19 cap, PO, l capsule 20:46: QID-Before Herm shari 00 Meals, as needed for abdominal pain, # 60 cap, 1 Refill(s), Pharmacy: [facility] #[id number] Xifaxan 550 2018-0 Yes 550 mg = 1 Memoria mg oral 9-17 tab, PO, l tablet 18:34: TID, # 42 [place] 00 tab, 0 Refill(s), Pharmacy: [facility] #[id number] rifaximin 2018-0 Yes 550 mg = 1 Me moria 550 MG Oral 9-17 tab, PO, l Tablet 18:34: TID, # 42 [place] [XIFAXAN] 00 tab, 0 Refill(s), Pharmacy: [facility] #[id number] rifaximin 2018-0 Yes 550 mg = 1 Me moria 550 MG Oral 9-17 tab, PO, l Tablet 18:34: TID, # 42 [place] [XIFAXAN] 00 tab, 0 Refill(s), Pharmacy: [facility] #[id number] Xifaxan 550 2018-0 Yes 550 mg = 1 Memoria mg oral 9-17 tab, PO, l tablet 18:34: TID, # 42 [place] 00 tab, 0 Refill(s), Pharmacy: [facility] #[id number] rifaximin 2018-0 Yes 550 mg = 1 Me moria 550 MG Oral 9-17 tab, PO, l Tablet 18:34: TID, # 42 [place] [XIFAXAN] 00 tab, 0 Refill(s), Pharmacy: [facility] #[id number] Xifaxan 550 2018-0 Yes 550 mg = 1 Memoria mg oral 9-17 tab, PO, l tablet 18:34: TID, # 42 [place] 00 tab, 0 Refill(s), Pharmacy: [facility] #[id number] rifaximin 2018-0 Yes 550 mg = 1 Me moria 550 MG Oral 9-17 tab, PO, l Tablet 18:34: TID, # 42 [place] [XIFAXAN] 00 tab, 0 Refill(s), Pharmacy: [facility] #[id number] Xifaxan 550 2018-0 Yes 550 mg = 1 Memoria mg oral 9-17 tab, PO, l tablet 18:34: TID, # 42 [place] 00 tab, 0 Refill(s), Pharmacy: [facility] #[id number] rifaximin 2018-0 Yes 550 mg = 1 Me moria 550 MG Oral 9-17 tab, PO, l Tablet 18:34: TID, # 42 [place] [XIFAXAN] 00 tab, 0 Refill(s), Pharmacy: [facility] #[id number] Xifaxan 550 2018-0 Yes 550 mg = 1 Memoria mg oral 9-17 tab, PO, l tablet 18:34: TID, # 42 [place] 00 tab, 0 Refill(s), Pharmacy: [facility] #[id number] rifaximin 2018-0 Yes 550 mg = 1 Me moria 550 MG Oral 9-17 tab, PO, l Tablet 18:34: TID, # 42 [place] [XIFAXAN] 00 tab, 0 Refill(s), Pharmacy: [facility] #[id number] Xifaxan 550 2018-0 Yes 550 mg = 1 Memoria mg oral 9-17 tab, PO, l tablet 18:34: TID, # 42 [place] 00 tab, 0 Refill(s), Pharmacy: [facility] #[id number] rifaximin 2018-0 Yes 550 mg = 1 Me moria 550 MG Oral 9-17 tab, PO, l Tablet 18:34: TID, # 42 [place] [XIFAXAN] 00 tab, 0 Refill(s), Pharmacy: [facility] #[id number] Xifaxan 550 2018-0 Yes 550 mg = 1 Memoria mg oral 9-17 tab, PO, l tablet 18:34: TID, # 42 [place] 00 tab, 0 Refill(s), Pharmacy: [facility] #[id number] rifaximin 2018-0 Yes 550 mg = 1 Me moria 550 MG Oral 9-17 tab, PO, l Tablet 18:34: TID, # 42 [place] [XIFAXAN] 00 tab, 0 Refill(s), Pharmacy: [facility] #[id number] Xifaxan 550 2018-0 Yes 550 mg = 1 Memoria mg oral 9-17 tab, PO, l tablet 18:34: TID, # 42 [place] 00 tab, 0 Refill(s), Pharmacy: [facility] #[id number] rifaximin 2018-0 Yes 550 mg = 1 Me moria 550 MG Oral 9-17 tab, PO, l Tablet 18:34: TID, # 42 [place] [XIFAXAN] 00 tab, 0 Refill(s), [id number] Xifaxan 550 Yes 550 mg = 1 Memoria mg oral 9-17 tab, PO, l tablet 18:34: TID, # 42 [place] 00 tab, 0 Refill(s), [id number] [place] Yes 1 tab, PO, Memori a 7.5/325 5-08 Q6H, 0 l oral tablet 18:06: Refill(s) H [place] Yes 1 tab, PO, Memori a 7.5/325 5-08 Q6H, 0 l oral tablet 18:06: Refill(s) H [place] Yes 1 tab, PO, Memori a 7.5/325 5-08 Q6H, 0 l oral tablet 18:06: Refill(s) H Yes 1 tab, PO, Memori a 7.5/325 5-08 Q6H, 0 l oral tablet 18:06: Refill(s) H [place] Yes 1 tab, PO, Memori a 7.5/325 5-08 Q6H, 0 l oral tablet 18:06: Refill(s) H [place] Yes 1 tab, PO, Memori a 7.5/325 5-08 Q6H, 0 l oral tablet 18:06: Refill(s) H [place] Yes 1 tab, PO, Memori a 7.5/325 5-08 Q6H, 0 l oral tablet 18:06: Refill(s) H [place] Yes 1 tab, PO, Memori a 7.5/325 5-08 Q6H, 0 l oral tablet 18:06: Refill(s) H [place] Yes 1 tab, PO, Memori a 7.5/325 [...] tablet 1 Branch Tab acetaminoph 2012-07 Yes [id number] 1{tbl} Take 1 Tab Univers en-codeine 2-02 by mouth ity o f (TYLENOL-CO 00:00: every 4 Jarod as DEINE #3) 00 (four) Medical 300-30 mg hours as Branch tablet needed for Pain. acetaminoph 2012-07 Yes [id number] 1{tbl} Take 1 Tab Univers en-codeine 2-02 by mouth ity o f (TYLENOL-CO 00:00: every 4 Jarod as DEINE #3) 00 (four) Medical 300-30 mg hours as Branch tablet needed for Pain. acetaminoph 2012-07 Yes [id number] 1{tbl} Take 1 Tab Univers en-codeine 2-02 by mouth ity o f (TYLENOL-CO 00:00: every 4 Jarod as DEINE #3) 00 (four) Medical 300-30 mg hours as Branch tablet needed for Pain. acetaminoph 2012-07 Yes [id number] 1{tbl} Take 1 Tab Univers en-codeine 2-02 [...] hours as Branch needed for Pain. triamcinolo 2012- Yes Apply to Un dashawn ma 07-24 area(s) 2 ity of acetonide 00:00: [...] adult 2016-10-31 Completed Memoria l vaccine 16:08:00 [place] hepatitis B adult 2016-10-31 Completed Memoria l vaccine 16:08:00 [facility] hepatitis B adult 2016-10-31 Completed Memoria l vaccine 16:08:00 [place] hepatitis B adult 2016-10-31 Completed Memoria l vaccine 16:08:00 [facility] hepatitis B adult 2016-10-31 Completed Memoria l vaccine 16:08:00 [place] hepatitis B adult 2016-10-31 Completed Memoria l vaccine 16:08:00 [place] hepatitis B adult 2016-10-31 Completed Memoria l vaccine 16:08:00 [place] hepatitis B adult 2016-10-31 Completed Memoria l vaccine 16:08:00 [facility] hepatitis B adult 2016-10-31 Completed Memoria l vaccine 16:08:00 [facility] hepatitis B adult 2016-04-11 Completed Memoria l vaccine 15:46:00 [facility] hepatitis B adult 2016-04-11 Completed Memoria l vaccine 15:46:00 [place] hepatitis B adult 2016-04-11 Completed Memoria l vaccine 15:46:00 [facility] hepatitis B adult 2016-04-11 Completed Memoria l vaccine 15:46:00 [facility] hepatitis B adult 2016-04-11 Completed Memoria l vaccine 15:46:00 [facility] hepatitis B adult 2016-04-11 Completed Memoria l vaccine 15:46:00 [facility] hepatitis B adult 2016-04-11 Completed Memoria l vaccine 15:46:00 [facility] hepatitis B adult 2016-04-11 Completed Memoria l vaccine 15:46:00 [place] hepatitis B adult 2016-04-11 Completed Memoria l vaccine 15:46:00 [facility] hepatitis B adult 2016-03-28 Completed Memoria l vaccine 16:37:00 [place] hepatitis B adult 2016-03-28 Completed Memoria l vaccine 16:37:00 [facility] hepatitis B adult 2016-03-28 Completed Memoria l vaccine 16:37:00 [place] hepatitis B adult 2016-03-28 Completed Memoria l vaccine 16:37:00 [facility] hepatitis B adult 2016-03-28 Completed Memoria l vaccine 16:37:00 [place] hepatitis B adult 2016-03-28 Completed Memoria l vaccine 16:37:00 [facility] hepatitis B adult 2016-03-28 Completed Memoria l vaccine 16:37:00 [place] hepatitis B adult 2016-03-28 Completed Memoria l vaccine 16:37:00 [place] hepatitis B adult 2016-03-28 Completed Memoria l vaccine 16:37:00 [place] Vital Signs Vital Name Observation Time Observation Value Comments Source Systolic blood 2022-08-17 04:30:00 144 mm[Hg] Univer sity of pressure [facility] Diastolic blood 2022-08-17 04:30:00 96 mm[Hg] Unive rsity of [facility] Heart rate 2022-08-17 04:30:00 94 /min [facility] Respiratory rate 2022-08-17 04:30:00 13 /min [facility] Oxygen saturation in 2022-08-17 04:30:00 100 /min [facility] Arterial blood by [facility] Pulse oximetry Branch Body temperature 2022-08-17 03:35:00 36.17 Pili [facility] Body height 2022-08-17 03:35:00 190.5 cm [facility] Body weight 2022-08-17 03:35:00 104.327 kg [facility] BMI 2022-08-17 03:35:00 28.75 kg/m2 [facility] Systolic blood 2021-03-11 21:58:00 145 mm[Hg] Univer sity of [facility] Diastolic blood 2021-03-11 21:58:00 86 mm[Hg] Unive rsity of pressure [facility] Heart rate 2021-03-11 21:58:00 80 /min Universi [facility] Body temperature 2021-03-11 21:58:00 37.39 Pili [facility] Respiratory rate 2021-03-11 21:58:00 20 /min [facility] [place] Body height 2021-03-11 21:58:00 190.5 cm [facility] Body weight 2021-03-11 21:58:00 104.327 [facility] BMI 2021-03-11 21:58:00 28.75 kg/m2 [facility] Oxygen saturation in 2021-03-11 21:58:00 96 /min [facility] Arterial blood by [facility] Pulse oximetry Branch Weight 2018-04-02 18:18:00 [facility] BMI Calculated 2018-04-02 18:18:00 Memori al [facility] Height 2018-04-02 18:18:00 187.96 cm [facility] Systolic (mm Hg) 2018-04-02 18:18:00 Jan rial [place] Diastolic (mm Hg) 2018-04-02 18:18:00 Mem orial [place] Heart Rate 2018-04-02 18:18:00 [facility] [place] Height 2016-05-16 14:12:00 187.96 cm [facility] Weight 2016-05-16 14:12:00 [facility] BMI Calculated 2016-05-16 14:12:00 Memori al [facility] Respitory Rate 2016-05-16 14:12:00 Memori al [facility] Heart Rate 2016-05-16 14:12:00 [facility] Systolic (mm Hg) 2016-05-16 14:12:00 Jan rial [place] Diastolic (mm Hg) 2016-05-16 14:12:00 Mem orial [facility] Procedures Procedure Date / Time Performing Clinician Source Performed AUTHORIZATION FOR 2022-10-11 05:01:00 Doctor Unassigned, No [facility] RELEASE OF PHI Name [facility] URINE DRUG (IMMUNOASSAY) 2022-08-17 04:44:00 Lesly Rodriguez [facility] SCREEN URINALYSIS 2022-08-17 04:44:00 Lesly Rodriguez [facility]ious [place] [facility] COMP. METABOLIC PANEL 2022-08-17 03:59:00 Lesly Rodriguez [facility] ([id number]) [facility] ETHANOL 2022-08-17 03:59:00 Lesly [facility] CBC WITH DIFF 2022-08-17 03:59:00 Lesly Rodriguez [facility] CONSENT/REFUSAL FOR 2021-03-11 05:01:00 Doctor Unassigned, No [facility] DIAGNOSIS AND TREATMENT Name Medical [place] Colonoscopy 2017-01-24 05:00:00 [facility] Cranioplasty [facility] BKA [facility] amputation, Encounters Start End Encounter Admission Attending Care Care Encounter Source Date/Time Date/Time Type Type Clinicians Facility Department ID 2022-11-23 Outpatient [facility] [id number] Common 14:57:04 [id number] [facility] 2022-12-20 2022-12-20 Outpatient R RADIOLOGY [facility] [id number] Univers 00:00:00 00:00:[address] [facility] 2022-10-11 2022-10-11 Orders Doctor SHAHID [id number] [id number] Univers 00:00:00 00:00:00 Only Unassigned, ANGEL [id number] ity of [place] [facility] [id number] Jarod as [id number] [facility] 009 Branch 2022-08-16 2022-08-17 Emergency X Lesly RODRIGUEZ [facility] ERT [id number] Univers 21:31:00 00:05:[address] [facility] 2022-08-16 2022-08-17 Emergency Lesly Rodriguez [facility] [id number] Univers 21:31:00 00:05:00 Precious DUARTE 350.1.13.10 i ty [facility] [id number] [facility] [facility] [id number] [facility] 084 Branch 2022-04-29 2022-04-29 Ambulatory nullFlavo MNA [id number] Memoria 19:30:00 19:30:00 Pre-Reg r Neurology 11 l Mary [place] Wall 2022-04-29 2022-04-29 Ambulatory nullFlavo MNA [id number] Memoria 19:30:00 19:30:00 Pre-Reg r Neurology 12 l [place] Wall 2022-04-29 2022-04-29 Ambulatory nullFlavo MNA [id number] Memoria 19:30:00 19:30:00 Pre-Reg r Neurology 11 l [place] 2022-04-29 2022-04-29 Ambulatory nullFlavo MNA [id number] Memoria 19:30:00 19:30:00 Pre-Reg r Neurology 12 l Mary Alice Wall 2022-04-29 2022-04-29 Ambulatory nullFlavo MNA [id number] Memoria 19:00:00 19:00:00 Pre-Reg r Neurology 10 l Mary [place] Wall 2022-04-29 2022-04-29 Ambulatory nullFlavo MNA [id number] Memoria 19:00:00 19:00:00 Pre-Reg r Neurology 10 l Mary [place] Wall 2022-04-29 2022-04-29 Outpatient MHIE MHIE [id number] Memoria 14:30:00 14:30:00 12 aline [place] 2022-04-29 2022-04-29 Outpatient MHIE MHIE [id number] Memoria 14:30:00 14:30:00 11 aline [place] 2022-04-29 2022-04-29 Outpatient LILI BonnerSCHER MHMISCHER [id number] 14:30:00 14:30:00 Bernardo 11 Yevgeniy 2022-04-29 2022-04-29 Outpatient LILI BonnerSCHER MHMISCHER [id number] 14:30:00 14:30:00 Bernardo 12 Yevgeniy 2022-04-29 2022-04-29 Outpatient MHIE MHIE [id number] Memoria 14:00:00 14:00:00 10 aline Wall 2022-04-29 2022-04-29 Outpatient LILI BonnerSCHER MHMISCHER [id number] 14:00:00 14:00:00 Bernardo 10 Yevgeniy 2021-03-11 2021-03-11 Outpatient Leo UMANA, [facility] [id number] Univers 15:30:00 15:30:00 JOSE MARTIN ity of [facility] 2021-03-11 2021-03-11 Nurse Therapy, Adc Covid Infusion [facility] [id number] [id number] Univers 14:19:37 15:19:37 Visit Jose Martin Umnaa 350.1.13.10 ity of [place] 4[place]2.7.2.686 [place] [facility] [id number] [facility] 053 Branch 2021-03-11 2021-03-11 Orders Doctor KLEBER [id number] [id number] Univers 00:00:00 00:00:00 Only Unassigned, ANGEL 350.1.13.10 ity of [place] [facility] [id number] Jarod as [phone] [place] [address] Branch 2020-05-13 2020-05-13 Emergency X [facility] ERT [id number] Univers 19:41:00 19:41:[address] [facility] 2018-04-04 2018-04-06 Phone nullFlavo [facility] [id number] Memoria 20:45:00 04:59:59 Message r Gastroenter 06 l ology [facility] [place] 2018-04-04 2018-04-06 Phone nullFlavo [facility] [id number] Memoria 20:45:00 04:59:59 Message r Gastroenter 06 l ology [facility] [place] 2018-04-04 2018-04-05 Outpatient [facility] [id number] 15:45:00 23:59:59 06 2018-04-02 2018-04-03 Outpatient nullFlavo [facility] [id number] Memoria 18:15:00 04:59:59 r Gastroenter 09 l ology [facility] [place] 2018-04-02 2018-04-03 Outpatient nullFlavo [facility] [id number] Memoria 18:15:00 04:59:59 r Gastroenter 09 l ology [facility] [place] 2018-04-02 2018-04-02 Outpatient Mayra [facility] [id number] 13:15:00 23:59:59 Gino Lezama 2018-04-02 2018-04-02 Outpatient MHIE MHIE [id number] Memoria 13:15:00 13:15:00 09 aline [facility] 2017-02-20 2017-02-20 Outpatient MHIE MHIE [id number] Memoria 13:15:00 13:15:00 08 aline [facility] 2017-02-20 2017-02-20 Outpatient MHIE MHIE [id number] Memoria 13:15:00 13:15:00 08 aline [facility] 2017-02-09 2017-02-09 Outpatient MHIE MHIE [id number] Memoria 11:15:00 11:15:00 07 aline [facility] 2017-02-09 2017-02-09 Outpatient MHIE MHIE [id number] Memoria 11:15:00 11:15:00 07 aline [place] 2016-11-21 2016-11-21 Outpatient MHIE MHIE [id number] Memoria 13:00:00 13:00:00 05 aline [place] 2016-11-21 2016-11-21 Outpatient MHIE MHIE [id number] Memoria 13:00:00 13:00:00 05 aline [facility] 2016-10-31 2016-10-31 Outpatient MHIE MHIE [id number] Memoria 10:00:00 10:00:00 04 aline [place] 2016-10-31 2016-10-31 Outpatient MHIE MHIE [id number] Memoria 10:00:00 10:00:00 04 aline [place] 2016-07-27 2016-07-27 Outpatient MHIE MHIE [id number] Memoria 15:30:00 15:30:00 03 aline [place] 2016-07-27 2016-07-27 Outpatient MHIE MHIE [id number] Memoria 15:30:00 15:30:00 03 aline [place] 2016-05-24 2016-05-25 Outpatient nullFlavo [facility] [id number] Memoria 16:03:00 05:59:00 r Memorial 02 aline [place] 2016-05-24 2016-05-25 Outpatient nullFlavo [facility] [id number] Memoria 16:03:00 05:59:00 r [facility] 02 aline [place] 2016-05-24 2016-05-24 Outpatient Magat, MHT[facility]R M[facility] [id number] 10:03:00 23:59:00 Mayuri 02 dara 2016-05-16 2016-05-17 Outpatient nullFlavo [facility] [id number] Memoria 13:31:00 04:59:00 r [facility] 01 [facility] 2016-05-16 2016-05-17 Outpatient nullFlavo [facility] [id number] Memoria 13:31:00 04:59:00 [facility] 2016-05-16 2016-05-16 Outpatient Magat, MHTIRR M[facility] [id number] 08:31:00 23:59:00 [facility] 2016-[facility] 2016-04-11 Outpatient MHIE MHIE [id number] Memoria 09:00:00 09:00:00 02 [facility] 2016-04-11 2016-04-11 Outpatient MHIE MHIE [id number] Memoria 09:00:00 09:00:00 02 [place] 2016-03-28 2016-03-28 Outpatient MHIE MHIE [id number] Memoria 14:15:00 14:15:00 01 [place]ine [place] 2016-03-28 2016-03-28 Outpatient MHIE MHIE [id number] Memoria 14:15:00 14:15:00 [place] Results Test Description Test Time Test Comments Results Result Sour e Comments ETHANOL 2022-08-17 ALCOHOL<10mg/dL0 [facility] ty of 04:47:48 08/16/2022 10:47 [place] [facility] ica PM [facility] LABORATORY<10 [id number] Toxic>100 Depression of PROSTHETIST>400 Fatalities Reported COMP. METABOLIC PANEL (28396) 2022-08-17 04:44:37 Test Item Value Reference Range Interpretation Comme nts NA (test code = 7924970797) 136 mmol/L 135-145 K (test code = 6338614513) 3.6 mmol/L 3.5-5.0 CL (test code = 8161354479) 100 mmol/L 98-108 CO2 TOTAL (test code = 4974645818) 30 mmol/L 23-31 AGAP (test code = 9191378992) 6 2-16 BUN (test code = 8659503283) 9 mg/dL 7-23 GLUCOSE (test code = 1187190191) 95 mg/dL 70-110 CREATININE (test code = 0.88 mg/dL 0.60-1.25 9970853439) TOTAL BILI (test code = 0.6 mg/dL 0.1-1.0 7654026986) CALCIUM (test code = 7316690043) 8.5 mg/dL 8.6-10.6 L T PROTEIN (test code = 0968931696) 6.9 g/dL 6.3-8.2 ALBUMIN (test code = 2706460321) 4.4 g/dL 3.5-5.0 ALK PHOS (test code = 5992000212) 58 U/L 34-122 ALTv (test code = 1742-6) 15 U/L 5-50 AST(SGOT) (test code = 2306370460) 23 U/L 13-40 eGFR (test code = 3237923842) 89.9 mL/min/1.73m2 DYLAN (test code = DYLAN) [...] tests). Lab Interpretation (test code = Abnormal 50654-8) [facility] WITH [id number] 04:37:20 Test Item Value Reference Range Interpretation [...] RDW-SD (test code = 45.0 fL 38.5-51.6 33589-3) RDW-CV (test code = 13.0 % 12.1-15.4 788-0) PLT (test code = 205 See_Comment [Automated 777-3) message] The sy stem which generated this result transmitted reference range : 150 - 328 10*3/ ?L. The reference r anabella was not used to interpret this result as normal/abnormal . MPV (test code = 8.8 fL 9.8-13.0 L 77507-4) NRBC/100 WBC (test 0.0 See_Comment [Automat ed code = 5041933230) message] The system which generated this result transmitted reference range : 0.0 - 10.0 /100 WBCs. The refer ence range was not u sed to interpret th is result as normal/abnormal . NRBC x10^3 (test code See_Comment [Auto mated = [id number]) message] The s ystem which generated this result transmitted reference range : 10*3/?L. The reference range was not used to interpret this result as normal/abnormal . GRAN MAT (NEUT) % 66.8 % (test code = 770-8) IMM GRAN % (test code 0.30 % = 0561479271) LYMPH % (test code = 26.6 % 736-9) MONO % (test code = 5.7 % 5905-5) EOS % (test code = 0.3 % 713-8) BASO % (test code = 0.3 % 706-2) GRAN MAT x10^3(ANC) 6.18 10*3/uL 1.99-6.95 (test code = 8074748395) IMM GRAN x10^3 (test 0.03 10*3/uL 0.00-0.06 code = 6968498435) LYMPH x10^3 (test code 2.47 10*3/uL 1.09-3.23 = 731-0) MONO x10^3 (test code 0.53 10*3/uL 0.36-1.02 = 742-7) EOS x10^3 (test code = 0.03 10*3/uL 0.06-0.53 L 711-2) BASO x10^3 (test code 0.03 10*3/uL 0.01-0.09 = 704-7) Lab Interpretation Abnormal (test code = 23822-6) [facility]"
[2022-12-17 12:41] LABS: Absolute Lymphocytes (CBC) 1.7 K/uL (0.7-4.9); Hematocrit 46.8 % (39.6-49.0); Lymphocytes % 30.8 % (15.3-44.8); MCV 97.5 fL (80-100); MPV 6.2 fL (7.6-11.3)
[2022-12-17 12:54] LABS: Potassium 4.2 mEq/L (3.5-5.1); Troponin High Sensitivity 4.6 pg/mL (<58.9)
--- NOTE | 2022-12-17 12:58 | RAD REPORT ---
EXAM DESCRIPTION: RAD - Chest Single View - 12/17/2022 12:45 pm CLINICAL HISTORY: MALAISE COMPARISON: Chest Single View dated 09/09/2022 FINDINGS: Lines: None. Lungs: No evidence of edema or pneumonia. Pleural: No significant pleural effusions or pneumothorax. Cardiac: The heart size is within normal limits. Mediastinum: Within normal limits. Bones: No acute fractures. Other: None IMPRESSION: No acute cardiopulmonary disease.
[2022-12-17] MEDS ORDERED: ONDANSETRON 4 MG/2 ML VIAL ONE (13:01)
[2022-12-17] MEDS ORDERED: KETOROLAC 30 MG/ML INJ ONE (13:01)
--- NOTE | 2022-12-17 13:53 | RAD REPORT ---
EXAM DESCRIPTION: CTAbdomen Pelvis W Contrast - 12/17/2022 1:38 pm CLINICAL HISTORY: ABD PAIN COMPARISON: Abdomen Pelvis W Contrast dated 05/05/2022; Abdomen Pelvis W Contrast dated 2; Abdomen Pelvis W Contrast dated 11/04/2018 TECHNIQUE: CT of the abdomen and pelvis was performed. All CT scans are performed using dose optimization technique as appropriate and may include automated exposure control or mA/KV adjustment according to patient size. FINDINGS: Lower chest: No acute abnormality. Liver: Too small to characterize liver lesions which are likely benign. Biliary: Cholelithiasis Stomach: No significant focal abnormality. Duodenum: No significant focal abnormality. Pancreas: No significant abnormality. Spleen: No significant abnormality. Adrenal: No suspicious lesions. Kidney/ureter: No hydronephrosis. No renal calculi. Retroperitoneum: No retroperitoneal adenopathy. Vascular: No aneurysm. Bowel: No significant focal abnormality. Normal appendix. Peritoneum: No ascites or free air. Bladder: Grossly unremarkable. Reproductive: No adnexal masses. Bones: No acute fracture. Other: n/a IMPRESSION: No acute intra-abdominal or pelvic finding.
[2022-12-17] MEDS ORDERED: MORPHINE 4 MG/ML SYR ONE (14:02)
[2022-12-17] MEDS ORDERED: MECLIZINE HCL 12.5 MG TAB ONE (14:10)
--- NOTE | 2022-12-17 14:26 | ER ---
Nurse's Notes [facility] Name: Gregg Nair Age: 57 yrs Sex: Male : 1965 Arrival Date: 12/17/2022 Time: 11:51 Bed 19 Private MD: Sanket Monzon Diagnosis: Dizziness and giddiness;Nausea;Abdominal pain, Generalized Presentation: 12/17 12:11 Chief complaint: Patient states: Abdominal pain, left inner thigh pain, left arm pain, jl7 and dizziness on waking at 0800. Coronavirus screen: At this time, the client does not indicate any symptoms associated with coronavirus-19. Ebola Screen: No symptoms or risks identified at this time. Initial Sepsis Screen: Does the patient meet any 2 criteria? No. Patient's initial sepsis screen is negative. Does the patient have a suspected source of infection? No. Patient's initial sepsis screen is negative. Risk Assessment: Do you want to hurt yourself or someone else? Patient reports no desire to harm self or others. Onset of symptoms is unknown. 12:11 Method Of Arrival: Ambulatory jl7 12:11 Acuity: BRIAN 3 jl7 Triage Assessment: 12:18 General: Appears in no apparent distress. uncomfortable, Behavior is cooperative, jl7 appropriate for age, anxious. Pain: Complains of pain in abdomen, left arm and left leg Pain currently is 8 out of 10 on a pain scale. Historical: - Allergies: 12:18 TB shots; jl7 - Home Meds: 12:18 [place] 7.5-325 mg Oral tab [Active]; jl7 - PMHx: 12:18 Chronic pain; TBI; jl7 - PSHx: 12:18 RIGHT BKA; right shoulder; jl7 - Immunization history:: Adult Immunizations unknown. - Social history:: Smoking status: Patient denies any tobacco usage or history of. Screenin:16 [facility] ED Fall Risk Assessment (Adult) Score/Fall Risk Level 0 - 2 = Low Risk. Abuse eh3 screen: Denies threats or abuse. Denies injuries from another. Nutritional screening: No deficits noted. Tuberculosis screening: No symptoms or risk factors identified. Assessment: 12:16 General: Appears in no apparent distress. uncomfortable, Behavior is calm, cooperative, eh3 appropriate for age. Pain: Complains of pain in left leg and left arm and abdomen. Neuro: Level of Consciousness is awake, alert, obeys commands, Oriented to person, place, time, situation. Cardiovascular: Capillary refill < 3 seconds Patient's skin is warm and dry. Respiratory: Airway is patent Respiratory effort is even, unlabored, Respiratory pattern is regular, symmetrical. GI: Abdomen is round non-distended. : No signs and/or symptoms were reported regarding the genitourinary system. EENT: No signs and/or symptoms were reported regarding the EENT system. Derm: Skin is diaphoretic. Musculoskeletal: Circulation, motion, and sensation intact. 13:00 Reassessment: Patient appears in no apparent distress at this time. Patient and/or 3 family updated on plan of care and expected duration. Pain level reassessed. Patient is alert, oriented x 3, equal unlabored respirations, skin warm/dry/pink. 14:00 Reassessment: Patient appears in no apparent distress at this time. Patient and/or eh3 family updated on plan of care and expected duration. Pain level reassessed. Patient is alert, oriented x 3, equal unlabored respirations, skin warm/dry/pink. Vital Signs: 12:11 BP 168 / 99; Pulse 93; Resp 17; Temp 98.9; Pulse Ox 98% ; Weight 98.88 kg; Height 6 ft. jl7 3 in. ; Pain 8/10; 13:00 BP 175 / 93; Pulse 67; Resp 20; Pulse Ox 96% on R/A; eh3 14:00 BP 167 / 84; Pulse 76; Resp 20; Pulse Ox 97% on R/A; eh3 12:11 Body Mass Index 27.25 (98.88 kg, 190.5 cm) jl7 12:11 Pain Scale: Adult jl7 ED Course: 11:53 Patient arrived in ED. rg4 11:53 Sanket Monzon DO is Private Physician. rg4 12:00 [facility] jh7 12:00 Toby Pace MD is Attending Physician. jh7 12:15 Missed attempt(s): 20 gauge in right antecubital area. 6 12:16 Ellie Herrera, RN is Primary Nurse. 3 12:16 Patient has correct armband on for positive identification. Placed in gown. Bed in low eh3 position. Call light in reach. Side rails up X2. Client placed on continuous cardiac and pulse oximetry monitoring. NIBP monitoring applied. Door closed. Noise minimized. Lights dimmed. Cool cloth applied. 12:17 Triage completed. jl7 12:18 Arm band placed on right wrist. jl7 12:30 Inserted saline lock: 20 gauge in left antecubital area, using aseptic technique. bc6 12:40 Basic Metabolic Panel Sent. bc6 12:40 CBC with Diff Sent. bc6 12:40 NT PRO-BNP Sent. bc6 12:40 Troponin HS Sent. bc6 12:47 XRAY Chest (1 view) In Process Unspecified. EDMS 13:41 CT Abd/Pelvis - IV Contrast Only In Process Unspecified. EDMS 14:42 No provider procedures requiring assistance completed. IV discontinued, intact, eh3 bleeding controlled, No redness/swelling at site. Pressure dressing applied. Administered Medications: 13:00 Drug: Ondansetron IVP 4 mg Route: IVP; Site: left antecubital; eh3 14:00 Follow up: Response: Nausea is decreased eh3 13:00 Drug: Ketorolac IVP 30 mg Route: IVP; Site: left antecubital; eh3 14:00 Follow up: Response: No adverse reaction eh3 13:58 Drug: morphine IVP or IV 4 mg Route: IVP; Infused Over: 4 mins; Site: left antecubital; eh3 14:35 Follow up: Response: Pain is decreased eh3 14:06 Drug: Meclizine PO 25 mg Route: PO; eh3 14:35 Follow up: Response: Marked relief of symptoms eh3 Medication: 14:43 VIS not applicable for this client. eh3 Outcome: 14:26 Discharge ordered by MD. rojas 14:43 Discharged to home ambulatory. eh3 14:43 Condition: stable 14:43 Discharge instructions given to patient, Instructed on discharge instructions, follow up and referral plans. medication usage, Demonstrated understanding of instructions, follow-up care, medications, Prescriptions given X 1. 14:43 Patient left the ED. eh3 Signatures: Dispatcher [employer] Joy Castro 4 Wilfrido Graham RN RN 7 Ellie Herrera RN RN 3 Regina Johnston FNP FNP 7 Donna Vivas bc6
--- NOTE | 2022-12-17 14:27 | EDPHYS ---
Physician Documentation [facility] Name: Gregg Nair Age: 57 yrs Sex: Male : 1965 Arrival Date: 12/17/2022 Time: 11:51 Bed 19 Private MD: Sanket Monzon ED Physician Toby Pace HPI: 12/17 12:11 This 57 yrs old Male presents to ER via Ambulatory with complaints of Pain All Over, jh7 Dizziness. 12:11 Onset: The symptoms/episode began/occurred at 08:00. Associated signs and symptoms: jh7 Pertinent positives: abdominal pain, Left thigh cramp, left arm/shoulder soreness. Patient reports that he woke up at 8 AM feeling dizzy, sharp umbilical abdominal pain, left thigh cramping, and left shoulder soreness. Denies any visual changes, syncope, weakness, or any other symptoms. Reports intermittent nausea.. Historical: - Allergies: 12:18 TB shots; jl7 - Home Meds: 12:18 [place] 7.5-325 mg Oral tab [Active]; jl7 - PMHx: 12:18 Chronic pain; TBI; jl7 - PSHx: 12:18 RIGHT BKA; right shoulder; jl7 - Immunization history:: Adult Immunizations unknown. - Social history:: Smoking status: Patient denies any tobacco usage or history of. ROS: 12:11 Constitutional: Negative for fever, chills, and weight loss, Eyes: Negative for injury, jh7 pain, redness, and discharge, ENT: Negative for injury, pain, and discharge, Cardiovascular: Negative for chest pain, palpitations, and edema, Respiratory: Negative for shortness of breath, cough, wheezing, and pleuritic chest pain, Back: Negative for injury and pain, Skin: Negative for injury, rash, and discoloration. 12:11 Abdomen/GI: Positive for abdominal pain, nausea, Negative for vomiting, diarrhea, constipation. 12:11 MS/extremity: Positive for pain, Negative for injury or acute deformity. 12:11 Neuro: Positive for dizziness, Negative for altered mental status, headache, loss of consciousness, numbness, speech changes, syncope, tingling, visual changes, weakness. 12:11 All other systems are negative. Exam: 12:11 Head/Face: Normocephalic, atraumatic. Eyes: Pupils equal round and reactive to light, [facility] extra-ocular motions intact. Lids and lashes normal. Conjunctiva and sclera are non-icteric and not injected. Cornea within normal limits. Periorbital areas with no swelling, redness, or edema. Neck: Trachea midline, no thyromegaly or masses palpated, and no cervical lymphadenopathy. Supple, full range of motion without nuchal rigidity, or vertebral point tenderness. No Meningismus. Cardiovascular: Regular rate and rhythm with a normal S1 and S2. No gallops, murmurs, or rubs. Normal PMI, no JVD. No pulse deficits. Respiratory: Lungs have equal breath sounds bilaterally, clear to auscultation and percussion. No rales, rhonchi or wheezes noted. No increased work of breathing, no retractions or nasal flaring. Skin: Warm, dry with normal turgor. Normal color with no rashes, no lesions, and no evidence of cellulitis. MS/ Extremity: Pulses equal, no cyanosis. Neurovascular intact. Full, normal range of motion. Neuro: Awake and alert, GCS 15, oriented to person, place, time, and situation. Cranial nerves II-XII grossly intact. Motor strength 5/5 in all extremities. Sensory grossly intact. Cerebellar exam normal. Pt has a RLE AKA 12:11 Constitutional: The patient appears alert, awake, uncomfortable. 12:11 Abdomen/GI: Inspection: abdomen appears normal, Bowel sounds: normal, Palpation: soft, mild abdominal tenderness, in the umbilical area. Vital Signs: 12:11 BP 168 / 99; Pulse 93; Resp 17; Temp 98.9; Pulse Ox 98% ; Weight 98.88 kg; Height 6 ft. [facility] 3 in. ; Pain 8/10; 13:00 BP 175 / 93; Pulse 67; Resp 20; Pulse Ox 96% on R/A; 3 14:00 BP 167 / 84; Pulse 76; Resp 20; Pulse Ox 97% on R/A; 3 12:11 Body Mass Index 27.25 (98.88 kg, 190.5 cm) [facility] 12:11 Pain Scale: Adult [facility] MDM: 12:00 Patient medically screened. [facility] 14:15 Differential diagnosis: viral Infection, pneumonia Acute PA, appendicitis, vertigo, [facility] dehydration. Data reviewed: vital signs, nurses notes, lab test result(s), EKG, radiologic studies, CT scan, plain films. I considered the following discharge prescriptions or medication management in the emergency department Medications were administered in the Emergency Department. See MAR. Independent interpretation of the following test(s) in the Emergency Department EKG: See my EKG interpretation above. Test considered but Not performed: CT: CT brain. No syncope, visual changes, weakness, facial asymmetry, or any other symptoms. Care significantly affected by the following chronic conditions: Chronic pain due to prior trauma. Counseling: I had a detailed discussion with the patient and/or guardian regarding: the historical points, exam findings, and any diagnostic results supporting the discharge/admit diagnosis, to return to the emergency department if symptoms worsen or persist or if there are any questions or concerns that arise at home. Response to treatment: the patient's symptoms have resolved after treatment, Dizziness and pain resolved. 12/17 12:10 Order name: Basic Metabolic Panel; Complete Time: 12:57 [facility] 12/17 12:10 Order name: CBC with Diff; Complete Time: 12:57 [facility] 12/17 12:10 Order name: NT PRO-BNP; Complete Time: 12:57 [facility] 12/17 12:10 Order name: Troponin HS; Complete Time: 12:57 [facility] 12/17 13:11 Order name: Lipase; Complete Time: 14:10 [facility] 12/17 12:10 Order name: XRAY Chest (1 view); Complete Time: 13:04 [facility] 12/17 13:11 Order name: CT Abd/Pelvis - IV Contrast Only; Complete Time: 14:10 [facility] 12/17 12:10 Order name: EKG; Complete Time: 12:10 [facility] 12/17 12:10 Order name: Cardiac monitoring; Complete Time: 12:16 [facility] 12/17 12:10 Order name: EKG - Nurse/Tech; Complete Time: 12:16 [facility] 12/17 12:10 Order name: IV Saline Lock; Complete Time: 12:40 [facility] 12/17 12:10 Order name: Labs collected and sent; Complete Time: 12:40 [facility] 12/17 12:10 Order name: O2 Per Protocol; Complete Time: 12:16 [facility] 12/17 12:10 Order name: O2 Sat Monitoring; Complete Time: 12:16 jh7 EC:13 Rate is 85 beats/min. Rhythm is regular. QRS [place] is Normal. RI interval is normal at [facility] 158 msec. QRS interval is normal at 70 msec. QT interval is normal at 352 msec. No Q waves. Clinical impression: NSR w/ Non-specific ST/T Changes. Administered Medications: 13:00 Drug: Ondansetron IVP 4 mg Route: IVP; Site: left antecubital; 3 14:00 Follow up: Response: Nausea is decreased 3 13:00 Drug: Ketorolac IVP 30 mg Route: IVP; Site: left antecubital; 3 14:00 Follow up: Response: No adverse reaction 3 13:58 Drug: morphine IVP or IV 4 mg Route: IVP; Infused Over: 4 mins; Site: left antecubital; 3 14:35 Follow up: Response: Pain is decreased 3 14:06 Drug: Meclizine PO 25 mg Route: PO; 3 14:35 Follow up: Response: Marked relief of symptoms [facility] Disposition Summary: 12/17/22 14:26 Discharge Ordered Location: Home [facility] Problem: new [facility] Symptoms: are resolved [facility] Condition: Stable [facility] Diagnosis - Dizziness and giddiness [facility] - Nausea 7 - Abdominal pain, Generalized [facility] Followup: [facility] - With: Private Physician - When: 2 - 3 days - Reason: Recheck today's complaints Discharge Instructions: - Discharge Summary Sheet [facility] - Dizziness [facility] - Nausea, Adult [facility] Forms: - Medication Reconciliation Form [facility] - Thank You Letter [facility] Prescriptions: - Meclizine 25 mg Oral Tablet - take 1 tablet by ORAL route every 8 hours As needed; 30 tablet; Refills: 0, jh7 Product Selection Permitted Signatures: Dispatcher [employer] Wilfrido Nick RN RN 7 Ellie Herrera RN RN eh3 Regina Johnston, PEDIATRIC NP PEDIATRIC NP [facility]
[2022-12-17 15:08] VITALS: TEMP 98.9
[2022-12-17 15:24] VITALS: BP 167/84; O2SAT 97
--- NOTE | 2022-12-18 14:19 | EKG ---
Test Date: 2022-12-17 Test Time: 12:13:15 Creative Assistant: LINA MEASUREMENT RESULTS: Intervals: Rate: 85 ME: 158 QRSD: 70 QT: 352 QTc: 418 [place]: P: 76 ME: 158 QRS: 9 T: 62 INTERPRETIVE STATEMENTS: Normal sinus rhythm Normal ECG Compared to ECG 09/27/2022 16:20:18 Sinus arrhythmia no longer present Electronically Signed On 12-18-22 14:17:12 CDT by Olivier Dalal
== END 2022-12-17 14:43 | disposition home or self-care (01) ==
LOC: ER 11:51
DX: R42 Dizziness and giddiness (principal); R11.0 Nausea; R10.84 Generalized abdominal pain; Z87.820 Personal history of traumatic brain injury; Z88.8 Allergy status to other drugs, medicaments and biological substances; Z89.511 Acquired absence of right leg below knee
CPT/HCPCS: 93005; 85025; 80048; 36415; 84484; 83690; 83880; 74177; 71045; 96375; 96374; 99284; Q9967; J8597; J2405

== ENCOUNTER 2023-02-18 15:14 | Emergency (ER) | payer OTHER ==
--- OUTSIDE RECORDS SUMMARY | 2023-02-18 15:19 | XMS REPORT | Continuity of Care Document ---
:1965 Author Organization [facility] t Address [address] [place] [address] Care Team Providers Name Role Phone SURJIT ZARAGOZA Primary Care Physician Unavailable RADIOLOGY Attending Clinician Unavailable Radiology Attending Clinician Unavailable Doctor Unassigned, [place] Attending Clinician Unavailable Lesly RODRIGUEZ Attending Clinician Unavailable Lesly Up Attending Clinician Bernardo Bonner Attending Clinician JOSE MARTIN UMANA Attending Clinician Unavailable Therapy, [facility] Covid Infusion Attending Clinician Unavailable Jose Martin Umana MD Attending Clinician Gino Nunez Attending Clinician Mayuri [place] Attending Clinician ANN MARIE ARAGON Admitting Clinician Unavailable Lesly RODRIGUEZ Admitting Clinician Unavailable Payers Payer Name Policy Type Policy Number Effective Date Expiration Date S te[facility] DUAL [id number] 2022 COMP HMO D SNP 00:00:00 MEDICAID [facility] [id number] 2016 00:00:00 AMERIVANTAGE [id number] 2016 00:00:00 Problems Condition Condition Condition Status Onset Resolution Last Treating Co mments Source Name Details Category Date Date Treatment Clinician Date CT CT Active Diagnosis Active 2015-072016-05-24 Memoria 05/16/201 10:09:00 l 6 MH [facility] 00:00: [facility] [...] different from the original. 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 Pain in Pain in Disease Active [...] (situation ) ) Active Problem 05/01/2022 [facility] Obesity Obesity Problem Active 2022-05-01 Me morianisa (disorder) (disorder) 22:54:24 l Active [place] Problem 05/01/2022 [facility], [facility] Traumatic Traumatic Problem Active [...] Univers ALLERGIE Class ity of S [facility] No Known No Known Active Memori a Medicati Medicati l on on [place] Allergie Allergie s s Social History Social Habit Start Date Stop Date Quantity Comments Source Exposure to 2022-08-06 2022-08-16 Not sure [facility] SARS-CoV-2 00:00:00 21:34:00 [facility] (event) Branch Alcohol intake 2022-08-16 2022-08-16 University 00:00:00 00:00:00 [facility] Social History 2018-04-02 2018-04-02 Memorial Tien henrique 18:19:44 18:19:44 Tobacco Comment 2013-06-27 2013-06-27 Pt thinks he Univers ity of 00:00:00 00:00:00 smoked but has no [facility] edical memory of how Branch many cigs nor how long. Tobacco use and 2013-06-27 2013-06-27 Smokeless tobacco Un iversity of exposure 00:00:00 00:00:00 non-user [facility] History of 1988-07-24 Cigarette Smoker Universi ty of tobacco use 00:00:00 [facility] Sex Ass[birth year] At [birth year] Universit y of 00:00:00 00:00:00 [facility] Smoking Status Start Date Stop [...] 08/17/22 at 0015, MACKENZIE iopamidol 2022- No [id number] 100mL 100 mL, Univers (ISOVUE 08-17 Intravenou ity o f 370-500 mL) 05:30: 05:30 s, ONCE, 1 [place] injection 00 :00 dose, On Medica l 100 mL Tue Branch 08/16/22 at 2330, Routine ibuprofen Yes [id number] 600mg Take 1 Univers 600 mg 1-31 tablet by ity of tablet 00:00: mouth [place] 00 every 6 Medical (six) Branch hours as needed for Pain (scale 4-6). ibuprofen Yes [id number] 600mg Take 1 Univers 600 mg 1-31 tablet by ity of tablet 00:00: mouth [place] 00 every 6 Medical (six) Branch hours as needed for Pain (scale 4-6). ibuprofen 2022-0 Yes [id number] 600mg Take 1 Univers 600 mg 1-31 tablet by ity of tablet 00:00: mouth [place] 00 every 6 Medical (six) Branch hours as needed for Pain (scale 4-6). ibuprofen 0 Yes [id number] 600mg Take 1 Univers 600 mg 1-31 tablet by ity of tablet 00:00: mouth [place] 00 every 6 Medical (six) Branch hours as needed for Pain (scale 4-6). casirivimab 2020- No [id number] 1200mg 1,200 mg, Univers -imdevimab 03-11 IV ity of 1200 mg in 23:00: 22:21 Infusion, [place] 60 mL NS 00 :00 ONCE, Medical MINI-BAG Administer Branc h over 20 Minutes, Donna 03/11/21 at 1800, For 1 dose
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 via pump or [...] pain, # 60 cap, 1 Refill(s), Pharmacy: [facility] #[id number] dicyclomine 2018-0 Yes 10 mg = 1 M emoria 10 mg oral 9-19 cap, PO, l capsule 20:46: QID-Before Herm shari 00 Meals, as needed for abdominal pain, # 60 cap, 1 Refill(s), Pharmacy: [facility] #[id number] dicyclomine 2018-0 Yes 10 mg = 1 M emoria 10 mg oral 9-19 cap, PO, l capsule 20:46: QID-Before Herm shari 00 Meals, as needed for abdominal pain, # 60 cap, 1 Refill(s), Pharmacy: [facility] #[id number] dicyclomine 2018-0 Yes 10 mg = 1 M emoria 10 mg oral 9-19 cap, PO, l capsule 20:46: QID-Before Herm shari 00 Meals, as needed for abdominal pain, # 60 cap, 1 Refill(s), Pharmacy: [facility] #[id number] dicyclomine 2018-0 Yes 10 mg = 1 M emoria 10 mg oral 9-19 cap, PO, l capsule 20:46: QID-Before Herm shari 00 Meals, as needed for abdominal pain, # 60 cap, 1 Refill(s), Pharmacy: [facility] #[id number] dicyclomine 2018-0 Yes 10 mg = 1 M emoria 10 mg oral 9-19 cap, PO, l capsule 20:46: QID-Before Herm shari 00 Meals, as needed for abdominal pain, # 60 cap, 1 Refill(s), Pharmacy: [facility] #[id number] dicyclomine 2018-0 Yes 10 mg = 1 M emoria 10 mg oral 9-19 cap, PO, l capsule 20:46: QID-Before Herm shari 00 Meals, as needed for abdominal pain, # 60 cap, 1 Refill(s), Pharmacy: [facility] #[id number] dicyclomine 2018-0 Yes 10 mg = 1 M emoria 10 mg oral 9-19 cap, PO, l capsule 20:46: QID-Before Herm shari 00 Meals, as needed for abdominal pain, # 60 cap, 1 Refill(s), Pharmacy: [facility] #[id number] dicyclomine 2018-0 Yes 10 mg = 1 M emoria 10 mg oral 9-19 cap, PO, l capsule 20:46: QID-Before Herm shari 00 Meals, as needed for abdominal pain, # 60 cap, 1 Refill(s), [id number] dicyclomine 2018-0 Yes 10 mg = 1 M emoria 10 mg oral 9-19 cap, PO, l capsule 20:46: QID-Before Herm shari 00 Meals, as needed for abdominal pain, # 60 cap, 1 Refill(s), [id number] dicyclomine 2018-0 Yes 10 mg = 1 M emoria 10 mg oral 9-19 cap, PO, l capsule 20:46: QID-Before Herm shari 00 Meals, as needed for abdominal pain, # 60 cap, 1 Refill(s), [id number] Xifaxan 550 2018-0 Yes 550 mg = 1 Memoria mg oral 9-17 tab, PO, l tablet 18:34: TID, # 42 [place] 00 tab, 0 Refill(s), [id number] Xifaxan 550 2018-0 Yes 550 mg = 1 Memoria mg oral 9-17 tab, PO, l tablet 18:34: TID, # 42 [place] 00 tab, 0 Refill(s), [id number] rifaximin 2018-0 Yes 550 mg = 1 Me moria 550 MG Oral 9-17 tab, PO, l Tablet 18:34: TID, # 42 [place] [XIFAXAN] 00 tab, 0 Refill(s), [id number] rifaximin 2018-0 Yes 550 mg = 1 Me moria 550 MG Oral 9-17 tab, PO, l Tablet 18:34: TID, # 42 [place] [XIFAXAN] 00 tab, 0 Refill(s), Pharmacy: [facility] #[id number] Xifaxan 550 2018-0 Yes 550 mg = 1 Memoria mg oral 9-17 tab, PO, l tablet 18:34: TID, # 42 [place] 00 tab, 0 Refill(s), Pharmacy: [facility] #[id number] rifaximin 2018-0 Yes 550 mg = 1 Me moria 550 MG Oral 9-17 tab, PO, l Tablet 18:34: TID, # 42 [place] [XIFAXAN] 00 tab, 0 Refill(s), Pharmacy: [facility] #[id number] rifaximin 2018-0 Yes 550 mg = 1 Me moria 550 MG Oral 9-17 tab, PO, l Tablet 18:34: TID, # 42 [place] [XIFAXAN] 00 tab, 0 Refill(s), Pharmacy: [facility] #[id number] Xifaxan 550 2018-0 Yes 550 mg = 1 Memoria mg oral 9-17 tab, PO, l tablet 18:34: TID, # 42 [place] 00 tab, 0 Refill(s), Pharmacy: [facility] #[id number] rifaximin 2018-0 Yes 550 mg = 1 Me moria 550 MG Oral 9-17 tab, PO, l Tablet 18:34: TID, # 42 [place] [XIFAXAN] 00 tab, 0 Refill(s), Pharmacy: [facility] #[id number] Xifaxan 550 2018-0 Yes 550 mg = 1 Memoria mg oral 9-17 tab, PO, l tablet 18:34: TID, # 42 [place] 00 tab, 0 Refill(s), Pharmacy: [facility] #[id number] rifaximin 2018-0 Yes 550 mg = 1 Me moria 550 MG Oral 9-17 tab, PO, l Tablet 18:34: TID, # 42 [place] [XIFAXAN] 00 tab, 0 Refill(s), Pharmacy: [facility] #[id number] Xifaxan 550 2018-0 Yes 550 mg = 1 Memoria mg oral 9-17 tab, PO, l tablet 18:34: TID, # 42 [place] 00 tab, 0 Refill(s), [id number] rifaximin 2018-0 Yes 550 mg = 1 Me moria 550 MG Oral 9-17 tab, PO, l Tablet 18:34: TID, # 42 [place] [XIFAXAN] 00 tab, 0 Refill(s), [id number] Xifaxan 550 2018-0 Yes 550 mg = 1 Memoria mg oral 9-17 tab, PO, l tablet 18:34: TID, # 42 [place] 00 tab, 0 Refill(s), Pharmacy: [facility] #[id number] rifaximin 2018-0 Yes 550 mg = 1 Me moria 550 MG Oral 9-17 tab, PO, l Tablet 18:34: TID, # 42 [place] [XIFAXAN] 00 tab, 0 Refill(s), [id number] Xifaxan 550 2018-0 Yes 550 mg = 1 Memoria mg oral 9-17 tab, PO, l tablet 18:34: TID, # 42 [place] 00 tab, 0 Refill(s), Pharmacy: [facility] #[id number] rifaximin 2018-0 Yes 550 mg = 1 Me moria 550 MG Oral 9-17 tab, PO, l Tablet 18:34: TID, # 42 [place] [XIFAXAN] 00 tab, 0 Refill(s), Pharmacy: [facility] #[id number] Xifaxan 550 2018-0 Yes 550 mg = 1 Memoria mg oral 9-17 tab, PO, l tablet 18:34: TID, # 42 [place] 00 tab, 0 Refill(s), Pharmacy: [facility] #[id number] rifaximin 2018-0 Yes 550 mg = 1 Me moria 550 MG Oral 9-17 tab, PO, l Tablet 18:34: TID, # 42 [place] [XIFAXAN] 00 tab, 0 Refill(s), Pharmacy: [facility] #[id number] Xifaxan 550 2018-0 Yes 550 mg = 1 Memoria mg oral 9-17 tab, PO, l tablet 18:34: TID, # 42 [place] 00 tab, 0 Refill(s), Pharmacy: [facility] #[id number] rifaximin 2018-0 Yes 550 mg = 1 Me moria 550 MG Oral 9-17 tab, PO, l Tablet 18:34: TID, # 42 [place] [XIFAXAN] 00 tab, 0 Refill(s), [id number] Xifaxan 550 Yes 550 mg = 1 Memoria mg oral 9-17 tab, PO, l tablet 18:34: TID, # 42 [place] 00 tab, 0 Refill(s), [id number] Caspian Yes 1 tab, PO, Memori a 7.5/325 5-08 Q6H, 0 l oral tablet 18:06: Refill(s) H Caspian Yes 1 tab, PO, Memori a 7.5/325 [...] 0 l oral tablet 18:06: Refill(s) H Caspian Yes 1 tab, PO, Memori a 7.5/325 5-08 Q6H, 0 l oral tablet 18:06: Refill(s) H Caspian Yes 1 tab, PO, Memori a 7.5/325 5-08 Q6H, 0 l oral tablet 18:06: Refill(s) H Caspian 2017-0 Yes 1 tab, PO, Memori a [...] tablet 1 Branch Tab acetaminoph 2012-07 Yes [id number] 1{tbl} Take 1 Tab Univers en-codeine 2-02 by mouth ity o f (TYLENOL-CO 00:00: every 4 Jarod as DEINE #3) 00 (four) Medical 300-30 mg hours as Branch tablet [facility]. [facility] Yes [id number] 1{tbl} Take 1 Tab Univers en-codeine 2-02 by mouth ity o f (TYLENOL-CO 00:00: every 4 Jarod as DEINE #3) 00 (four) Medical 300-30 mg hours as Branch tablet needed for Pain. acetaminoph 2012-07 Yes [id number] 1{tbl} Take 1 Tab Univers en-codeine 2-02 by mouth ity o f (TYLENOL-CO 00:00: every 4 Jarod as DEINE #3) 00 (four) Medical 300-30 mg hours as Branch tablet needed for Pain. acetaminoph 2012-07 Yes [id number] 1{tbl} Take 1 Tab Univers en-codeine 2-02 by mouth ity o f (TYLENOL-CO 00:00: every 4 Jarod as DEINE #3) 00 (four) Medical 300-30 mg hours as Branch tablet needed for Pain. acetaminoph 2012-07 Yes [id number] 1{tbl} Take 1 Tab Univers en-codeine 2-02 by mouth ity o f (TYLENOL-CO 00:00: every 4 Jarod as DEINE #3) 00 (four) Medical 300-30 mg hours as Branch tablet needed for Pain. acetaminoph 2012-07 Yes [id number] 1{tbl} Take 1 Tab Univers en-codeine 2-02 by mouth ity o f (TYLENOL-CO 00:00: every 4 Jarod as DEINE #3) 00 (four) Medical 300-30 mg hours as Branch tablet needed for Pain. traMADOL 2013-0 Yes 50mg [...] hours as Branch needed for Pain. traMADOL 2012- Yes 50mg Take 1 Tab Uni vers (ULTRAM) 50 5-21 by mouth ity of mg tablet 00:00: every 6 [place] 00 (six) Medical hours as Branch needed for Pain. triamcinolo 2012-0 Yes Apply to Un dashawn [...] adult 2016-10-31 Completed Memoria l vaccine 16:08:00 [place] hepatitis B adult 2016-10-31 Completed Memoria l vaccine 16:08:00 [place] hepatitis B adult 2016-10-31 Completed Memoria l vaccine 16:08:00 [place] hepatitis B adult 2016-10-31 Completed Memoria l vaccine 16:08:00 [facility] hepatitis B adult 2016-10-31 Completed Memoria l vaccine 16:08:00 [facility] hepatitis B adult 2016-10-31 Completed Memoria l vaccine 16:08:00 [place] hepatitis B adult 2016-10-31 Completed Memoria l vaccine 16:08:00 [place] hepatitis B adult 2016-10-31 Completed Memoria l vaccine 16:08:00 [place] hepatitis B adult 2016-10-31 Completed Memoria l vaccine 16:08:00 [place] hepatitis B adult 2016-10-31 Completed Memoria l vaccine 16:08:00 [facility] hepatitis B adult 2016-10-31 Completed Memoria l vaccine 16:08:00 [place] hepatitis B adult 2016-04-11 Completed Memoria l vaccine 15:46:00 [place] hepatitis B adult 2016-04-11 Completed Memoria l vaccine 15:46:00 [place] hepatitis B adult 2016-04-11 Completed Memoria l vaccine 15:46:00 [place] hepatitis B adult 2016-04-11 Completed Memoria l vaccine 15:46:00 [facility] hepatitis B adult 2016-04-11 Completed Memoria l vaccine 15:46:00 [place] hepatitis B adult 2016-04-11 Completed Memoria l vaccine 15:46:00 [place] hepatitis B adult 2016-04-11 Completed Memoria l vaccine 15:46:00 [facility] hepatitis B adult 2016-04-11 Completed Memoria l vaccine 15:46:00 [facility] hepatitis B adult 2016-04-11 Completed Memoria l vaccine 15:46:00 [facility] hepatitis B adult 2016-04-11 Completed Memoria l vaccine 15:46:00 [place] hepatitis B adult 2016-04-11 Completed Memoria l vaccine 15:46:00 [place] hepatitis B adult 2016-03-28 Completed Memoria l vaccine 16:37:00 [place] hepatitis B adult 2016-03-28 Completed Memoria l vaccine 16:37:00 [facility] hepatitis B adult 2016-03-28 Completed Memoria l vaccine 16:37:00 [place] hepatitis B adult 2016-03-28 Completed Memoria l vaccine 16:37:00 [facility] hepatitis B adult 2016-03-28 Completed Memoria l vaccine 16:37:00 [facility] hepatitis B adult 2016-03-28 Completed Memoria l vaccine 16:37:00 [facility] hepatitis B adult 2016-03-28 Completed Memoria l vaccine 16:37:00 [facility] hepatitis B adult 2016-03-28 Completed Memoria l vaccine 16:37:00 [place] hepatitis B adult 2016-03-28 Completed Memoria l vaccine 16:37:00 [facility] hepatitis B adult 2016-03-28 Completed Memoria l vaccine 16:37:00 [facility] hepatitis B adult 2016-03-28 Completed Memoria l vaccine 16:37:00 [facility] Vital Signs Vital Name Observation Time Observation Value Comments Source Systolic blood 2022-08-17 04:30:00 144 mm[Hg] Univer sity of pressure [place] [facility] Diastolic blood 2022-08-17 04:30:00 96 mm[Hg] Unive rsity of pressure [place] [facility] Heart rate 2022-08-17 04:30:00 94 /min Universi ty of [place] [facility] Respiratory rate 2022-08-17 04:30:00 13 /min Univ ersity of [place] [facility] Oxygen saturation in 2022-08-17 04:30:00 100 /min University of Arterial blood by [employer] Pulse oximetry Branch Body temperature 2022-08-17 03:35:00 36.17 Pili Univ ersity of [place] [facility] Body height 2022-08-17 03:35:00 190.5 cm Universi ty of [place] [facility] Body weight 2022-08-17 03:35:00 104.327 kg Universi ty [facility] [place] [facility] BMI 2022-08-17 03:35:00 28.75 kg/m2 Universi ty [facility] [place] [facility] Systolic blood 2021-03-11 21:58:00 145 mm[Hg] Univer sity of pressure [place] [facility] Diastolic blood 2021-03-11 21:58:00 86 mm[Hg] Unive rsity of pressure [place] [facility] Heart rate 2021-03-11 21:58:00 80 /min Universi ty of [place] [facility] Body temperature 2021-03-11 21:58:00 37.39 Pili Univ ersity of [place] [facility] Respiratory rate 2021-03-11 21:58:00 20 /min Univ ersity of [place] [facility] Body height 2021-03-11 21:58:00 190.5 cm Universi ty [facility] [place] [facility] Body weight 2021-03-11 21:58:00 104.327 kg Universi ty [facility] [place] [facility] BMI 2021-03-11 21:58:00 28.75 kg/m2 Universi ty of [place] [facility] Oxygen saturation in 2021-03-11 21:58:00 96 /min University of Arterial blood by [facility] Pulse oximetry Branch Weight 2018-04-02 18:18:00 [facility] BMI Calculated 2018-04-02 18:18:00 Memori al [place] Height 2018-04-02 18:18:00 187.96 cm [facility] [place] Systolic (mm Hg) 2018-04-02 18:18:00 Jan rial [place] Diastolic (mm Hg) 2018-04-02 18:18:00 Mem orial [place] Heart Rate 2018-04-02 18:18:00 [facility] Height 2016-05-16 14:12:00 187.96 cm [facility] Weight 2016-05-16 14:12:00 [facility] BMI Calculated 2016-05-16 14:12:00 Memori al [place] Respitory Rate 2016-05-16 14:12:00 Memori al [facility] Heart Rate 2016-05-16 14:12:00 [facility] [place] Systolic (mm Hg) 2016-05-16 14:12:00 Jan rial [place] Diastolic (mm Hg) 2016-05-16 14:12:00 Mem orial [facility] Procedures Procedure Date / Time Performing Clinician Source Performed ASSIGNMENT OF BENEFITS 2022-12-20 21:03:44 Doctor Unassigned, No [facility] AUTHORIZATION FOR 2022-10-11 05:01:00 Doctor Unassigned, No [facility] RELEASE OF [facility] URINE DRUG (IMMUNOASSAY) 2022-08-17 04:44:00 [facility] SCREEN URINALYSIS 2022-08-17 04:44:00 Lesly Rodriguez [facility] COMP. METABOLIC PANEL 2022-08-17 03:59:00 Lesly Rodriguez [facility] ([id number]) [facility] ETHANOL 2022-08-17 03:59:00 Lesly Rodriguez [facility] CBC WITH DIFF 2022-08-17 03:59:00 Lesly Rodriguez [facility] CONSENT/REFUSAL FOR 2021-03-11 05:01:00 Doctor Unassigned, No [facility] DIAGNOSIS AND TREATMENT [facility] Colonoscopy 2017-01-24 05:00:00 [facility] [place] n amputation, Encounters Start End Encounter Admission Attending Care Care Encounter Source Date/Time Date/Time Type Type Clinicians Facility Department ID 2022-11-23 Outpatient ST[facility] [id number] Common 14:57:04 [id number] [facility] 2022-12-20 2022-12-20 Outpatient R RADIOLOGY [facility] [id number] Univers 16:04:44 23:59:00 ity of [facility] 2022-12-20 2022-12-20 Hospital Radiology [facility] 1.2.840.114 [id number] Univers 16:04:44 23:59:00 Encounter ANGLEHUMBERTO 350.1.13.10 ity of [place] [facility]7.[id number] [facility] 804 Branch 2022-12-20 2022-12-20 Orders Doctor KLEBER 1.2.840.114 [id number] Univers 00:00:00 00:00:00 Only Unassigned, ANGEL 350.1.13.10 ity of [place] [facility] 4.2.7.2.686 Jarod as [id number] [facility] 009 Branch 2022-10-11 2022-10-11 Orders Doctor KLEBER 1.2.840.114 [id number] Univers 00:00:00 00:00:00 Only Unassigned, ANGEL 350.1.13.10 ity of [place] [facility] 4.2.7.2.686 Jarod as [id number] [facility] 009 Branch 2022-08-16 2022-08-17 Emergency X MICHAEL, K [facility] ERT [id number] Univers 21:31:00 00:05:00 ity of [facility] 2022-08-16 2022-08-17 Emergency Michael K [facility] 1.2.840.114 [id number] Univers 21:31:00 00:05:00 Precious FELICIA 350.1.13.10 i ty [facility] 4[place]2.7.2.[place] [id number] [facility] 084 Branch 2022-04-29 2022-04-29 Ambulatory nullFlavo MNA [id number] Memoria 19:30:00 19:30:00 Pre-Reg r Neurology 11 l Mary Alice Wall 2022-04-29 2022-04-29 Ambulatory nullFlavo MNA [id number] Memoria 19:30:00 19:30:00 Pre-Reg r Neurology 12 l Mary Alice Wall 2022-04-29 2022-04-29 Ambulatory nullFlavo MNA [id number] Memoria 19:30:00 19:30:00 Pre-Reg r Neurology 11 l Allamakeeernesto Wall 2022-04-29 2022-04-29 Ambulatory nullFlavo MNA [id number] Memoria 19:30:00 19:30:00 Pre-Reg r Neurology 12 l Mary Alice Wall 2022-04-29 2022-04-29 Ambulatory nullFlavo MNA [id number] Memoria 19:00:00 19:00:00 Pre-Reg r Neurology 10 l Mary Alice Wall 2022-04-29 2022-04-29 Ambulatory nullFlavo MNA [id number] Memoria 19:00:00 19:00:00 Pre-Reg r Neurology 10 l Mary Alice Wall 2022-04-29 2022-04-29 Outpatient MHIE MHIE [id number] Memoria 14:30:00 14:30:00 12 aline Wall 2022-04-29 2022-04-29 Outpatient MHIE MHIE [id number] Memoria 14:30:00 14:30:00 11 aline Wall 2022-04-29 2022-04-29 Outpatient LILI BonnerSCHER MHMISCHER [id number] 14:30:00 14:30:00 Bernardo 12 Yevgeniy 2022-04-29 2022-04-29 Outpatient LILI BonnerSCHER MHMISCHER [id number] 14:30:00 14:30:00 Bernardo 11 Yevgeniy 2022-04-29 2022-04-29 Outpatient MHIE MHIE [id number] Memoria 14:00:00 14:00:00 10 aline Wall 2022-04-29 2022-04-29 Outpatient Kailey MHMISCHER MHMISCHER [id number] 14:00:00 14:00:00 Bernardo 10 Yevgeniy 2021-03-11 2021-03-11 Outpatient R UMANA, [facility] [id number] Univers 15:30:00 15:30:00 JOSE MARTIN ity of [facility] 2021-03-11 2021-03-11 Nurse Therapy, Adc Covid Infusion [facility] 1.2.840.114 [id number] Univers 14:19:37 15:19:37 Visit Dong Jose Martinbrendan López 350.1.13.10 ity of [place]7.2.[place] [id number] [facility] 053 Branch 2021-03-11 2021-03-11 Orders Doctor KLEBER 1.2.840.114 [id number] Univers 00:00:00 00:00:00 Only Unassigned, ANGEL 350.1.13.10 ity of [place] [facility] 4.2.7.2.686 Jarod as [id number] [facility] 009 Branch 2020-05-13 2020-05-13 Emergency X [facility] ERT [id number] Univers 19:41:00 19:41:00 ity of [facility] 2018-04-04 2018-04-06 Phone nullFlavo MG [id number] Memoria 20:45:00 04:59:59 Message r Gastroenter 06 l ology [facility] 2018-04-04 2018-04-06 Phone nullFlavo MG [id number] Memoria 20:45:00 04:59:59 Message r Gastroenter 06 l ology [facility] 2018-04-04 2018-04-05 Outpatient MG MG [id number] 15:45:00 23:59:59 06 2018-04-02 2018-04-03 [place] [id number] Memoria 18:15:00 04:59:59 r Gastroenter 09 l ology [facility] 2018-04-02 2018-04-03 [place] [id number] Memoria 18:15:00 04:59:59 r Gastroenter 09 l ology [facility] 2018-04-02 2018-04-02 Outpatient Mayra [facility] [id number] 13:15:00 23:59:59 Gino Lezama 2018-04-02 2018-04-02 Outpatient MHIE MHIE [id number] Memoria 13:15:00 13:15:00 09 aline [facility] 2017-02-20 2017-02-20 Outpatient MHIE MHIE [id number] Memoria 13:15:00 13:15:00 08 aline [facility] 2017-02-20 2017-02-20 Outpatient MHIE MHIE [id number] Memoria 13:15:00 13:15:00 08 aline [facility] 2017-02-09 2017-02-09 Outpatient MHIE MHIE [id number] Memoria 11:15:00 11:15:00 07 aline [facility] 2017-02-09 2017-02-09 Outpatient MHIE MHIE [id number] Memoria 11:15:00 11:15:00 07 aline Wall 2016-11-21 2016-11-21 Outpatient MHIE MHIE [id number] Memoria 13:00:00 13:00:00 05 aline Wall 2016-11-21 2016-11-21 Outpatient MHIE MHIE [id number] Memoria 13:00:00 13:00:00 05 aline [facility] 2016-10-31 2016-10-31 Outpatient MHIE MHIE [id number] Memoria 10:00:00 10:00:00 04 aline Wall 2016-10-31 2016-10-31 Outpatient MHIE MHIE [id number] Memoria 10:00:00 10:00:00 04 aline Wall 2016-07-27 2016-07-27 Outpatient MHIE MHIE [id number] Memoria 15:30:00 15:30:00 03 aline Wall 2016-07-27 2016-07-27 Outpatient MHIE MHIE [id number] Memoria 15:30:00 15:30:00 03 aline Wall 2016-05-24 2016-05-25 Outpatient nullFlavo TIRR [id number] Memoria 16:03:00 05:59:00 r Memorial 02 aline Wall 2016-05-24 2016-05-25 Outpatient nullFlavo TIRR [id number] Memoria 16:03:00 05:59:00 r Memorial 02 aline Wall 2016-05-24 2016-05-24 Outpatient Magat, MHTIRR MHTIRR [id number] 10:03:00 23:59:00 Mayuri 02 daraog 2016-05-16 2016-05-17 Outpatient nullFlavo TIRR [id number] Memoria 13:31:00 04:59:00 r [facility] 01 [facility] 2016-05-16 2016-05-17 Outpatient nullFlavo TIRR [id number] Memoria 13:31:00 04:59:00 r [facility] 2016-05-16 2016-05-16 Outpatient Magat, MHTIRR MHTIRR [id number] 08:31:00 23:59:00 Mayuri 01 dara 2016-04-11 2016-04-11 Outpatient MHIE MHIE [id number] Memoria 09:00:00 09:00:00 02 aline [facility] 2016-04-11 2016-04-11 Outpatient MHIE MHIE [id number] Memoria 09:00:00 09:00:00 02 aline Wall 2016-03-28 2016-03-28 Outpatient MHIE MHIE [id number] Memoria 14:15:00 14:15:00 01 aline Wall 2016-03-28 2016-03-28 Outpatient MHIE MHIE [id number] Memoria 14:15:00 14:15:00 aline [facility] Results Test Description Test Time Test Comments Results Result Sour e Comments ETHANOL 2022-08-17 ALCO[facility]<10mg/dL0 [facility] 04:47:48 08/16/2022 10:47 [place] [facility] LABORATORY<10 [id number] Toxic>100 Depression of 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 METABOLIC PANEL (51519) 2022-08-17 04:44:37 Test Item Value Reference Range Interpretation Comme nts NA (test code = 9775751299) 136 mmol/L 135-145 K (test code = 4568615473) 3.6 mmol/L 3.5-5.0 CL (test code = 1424424907) 100 mmol/L 98-108 CO2 TOTAL (test code = 2385476275) 30 mmol/L 23-31 AGAP (test code = 9899908520) 6 2-16 BUN (test code = 6277090547) 9 mg/dL 7-23 GLUCOSE (test code = 1759055038) 95 mg/dL 70-110 CREATININE (test code = 0.88 mg/dL 0.60-1.25 0393328933) TOTAL BILI (test code = 0.6 mg/dL 0.1-1.0 6902956587) CALCIUM (test code = 1293398771) 8.5 mg/dL 8.6-10.6 L T PROTEIN (test code = 4973059580) 6.9 g/dL 6.3-8.2 ALBUMIN (test code = 2295929230) 4.4 g/dL 3.5-5.0 ALK PHOS (test code = 1200778241) 58 U/L 34-122 ALTv (test code = 1742-6) 15 U/L 5-50 AST(SGOT) (test code = 7421264386) 23 U/L 13-40 eGFR (test code = 5316704364) 89.9 mL/min/1.73m2 DYLAN (test code = DYLAN) [...] tests). Lab Interpretation (test code = Abnormal 57961-1) [facility] WITH [id number] 04:37:20 Test Item Value Reference Range Interpretation [...] RDW-SD (test code = 45.0 fL 38.5-51.6 28238-9) RDW-CV (test code = 13.0 % 12.1-15.4 788-0) PLT (test code = 205 See_Comment [Automated 777-3) message] The sy stem which generated this result transmitted reference range : 150 - 328 10*3/ ?L. The reference r anabella was not used to interpret this result as normal/abnormal . MPV (test code = 8.8 fL 9.8-13.0 L 05399-0) NRBC/100 WBC (test 0.0 See_Comment [Automat ed code = 3745210373) message] The system which generated this result transmitted reference range : 0.0 - 10.0 /100 WBCs. The refer ence range was not u sed to interpret th is result as normal/abnormal . NRBC x10^3 (test code See_Comment [Auto mated = 0191165292) message] The s ystem which generated this result transmitted reference range : 10*3/?L. The reference range was not used to interpret this result as normal/abnormal . GRAN MAT (NEUT) % 66.8 % (test code = 770-8) IMM GRAN % (test code 0.30 % = 7638972898) LYMPH % (test code = 26.6 % 736-9) MONO % (test code = 5.7 % 5905-5) EOS % (test code = 0.3 % 713-8) BASO % (test code = 0.3 % 706-2) GRAN MAT x10^3(ANC) 6.18 10*3/uL 1.99-6.95 (test code = 2497328966) IMM GRAN x10^3 (test 0.03 10*3/uL 0.00-0.06 code = 9558235070) LYMPH x10^3 (test code 2.47 10*3/uL 1.09-3.23 = 731-0) MONO x10^3 (test code 0.53 10*3/uL 0.36-1.02 = 742-7) EOS x10^3 (test code = 0.03 10*3/uL 0.06-0.53 L 711-2) BASO x10^3 (test code 0.03 10*3/uL 0.01-0.09 = 704-7) Lab Interpretation Abnormal (test code = 52665-5) [facility] Notes Date/Time Note Provider Source 2016-05-24 10:18:59-00:00 Addendum: KARMA Mcmahon have reviewed this exam and concur with the in itial interpretation. PROCEDURE: CT HEAD WITHOUT CONTRAST Clinical Indication: Headache with Dizziness and Giddiness. ; Comparison: January 2006 TECHNIQUE: CT images were ob tained from the foramen magnum to the vertex without the use of intravenous contrast on a multidetector CT. Coronal and sagittal reconstructions were obtained. DLP: 891.62 mGy-cm FINDINGS: BRAIN PARENCHYMA: There are normal bradford-white interfaces, sulci and gyri. No mass, mass effect, midline shift or edema. No extra-axial fluid collections, intraventricular or intraparenchymal hemorrhage. The midline structures and posterior fossa cont ents appear unremarkable. VENTRICLES: The ventricular system is no rmal. The basilar cisterns are normal. ORBITS, MASTOIDS AND PARANAS AL SINUSES: Previous surgery of left orbital roof utilizing metallic mesh. The bony orbits are otherwise intact. The visualized orbital contents are unremarkable. The paranas al sinuses are pneumatized. The mastoid air cell s are pneumatized. SKULL: No acute calvarial defects. IMPRESSION: 1. Negative noncontrast CT of the brain. 2. No hemorrhage, mass lesion or evidence of acu te infarct. SL: [id number]"
[2023-02-18 15:49] LABS: Specific Gravity >= 1.030 (1.005-1.030); Urine Bilirubin Negative (Negative); Urine Blood Trace-intact (Negative); Urine Clarity Clear (Clear); Urine Color Yellow (Yellow); Urine Glucose Negative (Negative); Urine Protein Trace (Negative); Urine Urobilinogen 0.2 mg/dL (0.2-1.0); Urine pH 5.5 (5.0-7.0)
[2023-02-18] MEDS ORDERED: ONDANSETRON 4 MG/2 ML VIAL ONE (15:52)
[2023-02-18] MEDS ORDERED: NA CHLORIDE 0.9% 1,000 ML ONE (15:52)
[2023-02-18] MEDS ORDERED: FAMOTIDINE 20 MG/2 ML VIAL IV ONE (15:53)
[2023-02-18 15:58] LABS: Urine Bacteria <20 /HPF (<20); Urine Mucus 3+ /HPF (None Seen); Urine RBC <5 /HPF (None Seen)
[2023-02-18 16:11] LABS: Absolute Lymphocytes (CBC) 1.4 K/uL (0.7-4.9); Hematocrit 42.6 % (39.6-49.0); Lymphocytes % 26.8 % (15.3-44.8); MCV 98.6 fL (80-100); MPV 6.6 fL (7.6-11.3); RBC Red Blood Cell Count 4.32 M/uL (4.33-5.43)
[2023-02-18 16:22] LABS: Albumin 3.6 g/dL (3.4-5.0); Bilirubin Total 0.2 mg/dL (0.2-1.0); Potassium 3.8 mEq/L (3.5-5.1); Protein, Total 7.1 g/dL (6.4-8.2); SARS-CoV-2 Antigen Rapid Res Negative (Negative)
--- NOTE | 2023-02-18 17:15 | RAD REPORT ---
EXAM DESCRIPTION: CTAbdomen Pelvis W Contrast - 02/18/2023 5:02 pm CLINICAL HISTORY: Abdominal pain. Abd pain;Nausea / vomiting COMPARISON: <Comparisons> TECHNIQUE: Biphasic CT imaging of the abdomen and pelvis was performed with 100 ml non-ionic IV cont rast. All CT scans are performed using dose optimization technique as appropriate and may include automated exposure control or mA/KV adjustment according to patient size. FINDINGS: The lung bases are clear. The liver, spleen, pancreas, adrenal glands and kidneys are within normal limits. Cholelithiasis. No bowel obstruction, free air, free fluid or abscess. Moderate colonic diverticulosis. The appendix is normal. No evidence of significant lymphadenopathy. No suspicious bony findings. IMPRESSION: Cholelithiasis. Moderate colonic diverticulosis coli.
--- NOTE | 2023-02-18 17:24 | EDPHYS ---
Physician Documentation [facility] Name: Gregg Nair Age: 57 yrs Sex: Male : 1965 Arrival Date: 02/18/2023 Time: 15:14 Bed 20 Private MD: ED Physician Mary Alice Neumann HPI: 02/18 15:27 This 57 yrs old Male presents to ER via Unassigned with complaints of Nausea/Vomiting. sb4 15:31 57-year-old female with past medical history of TBI and hypertension presents with sb4 complaints of nausea, vomiting, diarrhea, dizziness, and weakness. He states that the symptoms began 3 days ago and his fiance has had similar symptoms. He states he thought it was heat related at first and has been sent home from work. He denies any blood in his stool or vomit. He denies any fevers. Denies any significant abdominal pain. Reports associated dizziness and weakness. Historical: - Allergies: 15:32 TB shots; dd1 - Home Meds: 15:32 [place] 7.5-325 mg Oral tab [Active]; dd1 - PMHx: 15:32 Chronic pain; TBI; Hypertensive disorder; C7 FRACTURE; dd1 - PSHx: 15:32 RIGHT BKA; right shoulder; Cholecystectomy; CHEST RECONSTRUCTION; SKULL RECONSTRUCTION; dd1 - Immunization history:: Adult Immunizations not up to date. - Social history:: Smoking status: Patient/guardian denies using tobacco, Patient uses alcohol, only on a social basis. ROS: 15:32 Constitutional: Negative for fever, chills, and weight loss, Eyes: Negative for injury, sb4 pain, redness, and discharge, ENT: Negative for injury, pain, and discharge, Cardiovascular: Negative for chest pain, palpitations, and edema, Respiratory: Negative for shortness of breath, cough, wheezing, and pleuritic chest pain, Back: Negative for injury and pain, MS/Extremity: Negative for injury and deformity, Skin: Negative for injury, rash, and discoloration. 15:32 Abdomen/GI: Positive for nausea, vomiting, and diarrhea, Negative for abdominal pain, constipation, dysphagia, hematemesis, rectal bleeding. 15:32 Neuro: Positive for dizziness, weakness, Negative for seizure activity, syncope. 15:32 All other systems are negative. Exam: 15:32 Constitutional: This is a well developed, well nourished patient who is awake, alert, sb4 and in no acute distress. Head/Face: Normocephalic, atraumatic. Eyes: Extra-ocular motions intact. Periorbital areas with no swelling, redness, or edema. Cardiovascular: Regular rate and rhythm with a normal S1 and S2. Respiratory: Lungs have equal breath sounds bilaterally, clear to auscultation and percussion. No rales, rhonchi or wheezes noted. No increased work of breathing, no retractions or nasal flaring. Skin: Warm, dry with normal turgor. Normal color with no rashes, no lesions, and no evidence of cellulitis. MS/ Extremity: Pulses equal, no cyanosis. Neurovascular intact. Full, normal range of motion. Neuro: Awake and alert, GCS 15, oriented to person, place, time, and situation. Cranial nerves II-XII grossly intact. Motor strength 5/5 in all extremities. Sensory grossly intact. Cerebellar exam normal. Normal gait. 15:32 Abdomen/GI: Inspection: abdomen appears normal, Bowel sounds: diminished, in all quadrants, Palpation: abdomen is soft and non-tender, in all quadrants. Vital Signs: 15:29 BP 146 / 92; Pulse 87; Resp 16; Temp 98.8; Pulse Ox 98% ; Weight 97.52 kg; Height 6 ft. dd1 3 in. ; Pain 4/10; 15:46 BP 129 / 88; Pulse 74; Resp 18; Pulse Ox 98% on R/A; db 17:00 BP 131 / 91; Pulse 82; Resp 16; Pulse Ox 100% on R/A; db 15:29 Body Mass Index 26.87 (97.52 kg, 190.5 cm) dd1 15:29 Pain Scale: Adult dd1 MDM: 15:16 Patient medically screened. sb4 15:33 Differential Diagnosis Gastroenteritis, colitis, influenza, COVID, mesenteric adenitis, sb4 dehydration, nonspecific abdominal pain, pancreatitis. 17:23 Data reviewed: vital signs, nurses notes, lab test result(s), radiologic studies, and sb4 as a result, I will discharge patient. Care significantly affected by the following chronic conditions: Hypertension. Counseling: I had a detailed discussion with the patient and/or guardian regarding: the historical points, exam findings, and any diagnostic results supporting the discharge/admit diagnosis, the presence of at least one elevated blood pressure reading (>120/80) during this emergency department visit, lab results, radiology results, to return to the emergency department if symptoms worsen or persist or if there are any questions or concerns that arise at home. Special discussion: Based on the patient's Hx, exam, and Dx evaluation, there is no indication for emergent surgery or inpatient Tx. It is understood by the patient/guardian that if the Sx's persist or worsen they need to return immediately for re-evaluation. I discussed with the patient/guardian in detail that at this point there is no indication for admission to the hospital. It is understood, however, that if the symptoms persist or worsen the patient needs to return immediately for re-evaluation. 02/18 15:26 Order name: CBC with Diff; Complete Time: 16:23 sb4 02/18 15:26 Order name: CMP; Complete Time: 16:23 sb4 02/18 15:26 Order name: Lipase; Complete Time: 16:23 sb4 02/18 15:26 Order name: SARS RAPID; Complete Time: 16:23 sb4 02/18 15:26 Order name: Flu; Complete Time: 17:14 sb4 02/18 15:32 Order name: Troponin High Sensitivity; Complete Time: 16:24 sb4 02/18 15:49 Order name: Urinalysis w/ reflexes; Complete Time: 15:51 EDMS 02/18 15:53 Order name: Urine Microscopic Only; Complete Time: 16:01 EDMS 02/18 15:26 Order name: CT Abd/Pelvis - IV Contrast Only; Complete Time: 17:20 sb4 02/18 15:32 Order name: EKG; Complete Time: 15:33 sb4 02/18 15:26 Order name: IV Saline Lock; Complete Time: 15:52 sb4 02/18 15:26 Order name: Labs collected and sent; Complete Time: 15:52 sb4 Administered Medications: 15:46 Drug: NS 0.9% IV 1000 ml Route: IV; Rate: 1 bolus; Site: right antecubital; dd1 17:36 Follow up: Response: No adverse reaction; IV Status: Completed infusion; IV Intake: db 1000ml 15:46 Drug: Famotidine IVP 20 mg Route: IVP; Site: right antecubital; dd1 17:36 Follow up: Response: No adverse reaction db 15:46 Drug: Ondansetron IVP 4 mg Route: IVP; Site: right antecubital; dd1 17:36 Follow up: Response: No adverse reaction db Point of Care Testin:32 NOT APPLICABLE dd1 Ranges: Critical Glucose Levels:Adult <50 mg/dl or >400 mg/dl <40 mg/dl or >180 mg/dl Disposition: 19:18 I reviewed the patient's care provided by Advanced Practice Provider \T\ agree w/ the cp3 diagnosis \T\ care plan. I personally saw the pt \T\ performed a substantive portion of the visit, incldng all aspects of the (History/Exam/Medical Decision Making). Disposition Summary: 02/18/23 17:23 Discharge Ordered Location: Home sb4 Problem: an ongoing problem sb4 Symptoms: have improved sb4 Condition: Stable sb4 Diagnosis - Noninfective gastroenteritis and colitis, unspecified sb4 Followup: sb4 - With: Private Physician - When: As needed - Reason: Recheck today's complaints, Continuance of care, Re-evaluation by your physician Discharge Instructions: - Discharge Summary Sheet sb4 - Viral Gastroenteritis, Adult sb4 Forms: - Medication Reconciliation Form sb4 - Thank You Letter sb4 - Antibiotic Education sb4 - Prescription Opioid Use sb4 - Patient Portal Instructions sb4 Prescriptions: - loperamide 2 mg Oral capsule - take 1 capsule by ORAL route every 8 hours as needed for loose stool; 10 sb4 capsule; Refills: 0, Product Selection Permitted - Zofran 4 mg Oral Tablet - take 1 tablet by ORAL route every 12 hours As needed; 10 tablet; Refills: 0, sb4 Product Selection Permitted Signatures: Dispatcher [employer] EDMary Alice Hong MD MD cp3 Quynh Ahuja PA-C PAGiovanna sb4 Herb Cornejo RN RN dd1 Jaclyn Irizarry RN db Corrections: (The following items were deleted from the chart) 15:28 15:27 This 57 yrs old Male presents to ER via Unassigned with complaints of Weakness, sb4 Nausea/Vomiting. sb4 15:53 15:27 Urinalysis W/Microscopic+U.LAB.BRZ ordered. EDMS EDMS
--- NOTE | 2023-02-18 17:24 | ER ---
Nurse's Notes [facility] Name: Gregg Nair Age: 57 yrs Sex: Male : 1965 Arrival Date: 02/18/2023 Time: 15:14 Bed 20 Private MD: Diagnosis: Noninfective gastroenteritis and colitis, unspecified Presentation: 02/18 15:25 Chief complaint:. dd1 15:29 Chief complaint: Patient states: WEKNESS, VOMITING, DIARRHEA. Coronavirus screen: dd1 Vaccine status: Patient reports being unvaccinated. Client denies travel out of the [place] in the last 14 days. At this time, the client does not indicate any symptoms associated with coronavirus-19. Ebola Screen: No symptoms or risks identified at this time. 15:29 Method Of Arrival: Ambulatory dd1 15:29 No acute neurological deficit is noted. Pre-hospital glucose is not applicable to this dd1 patient. Initial Sepsis Screen: Does the patient meet any 2 criteria? No. Patient's initial sepsis screen is negative. Does the patient have a suspected source of infection? Yes: Acute abdominal pain. Risk Assessment: Do you want to hurt yourself or someone else? Patient reports no desire to harm self or others. Onset of symptoms was February 16, 2023. 15:29 Acuity: BRIAN 3 dd1 Triage Assessment: 15:32 The onset of the patients symptoms was at an unknown time. General: Appears in no dd1 apparent distress. comfortable, Behavior is calm, cooperative. Pain: Complains of pain in abdomen. Neuro: No deficits noted. Reports NONE. 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 Stroke Activation: Physician: Stroke Attending; Name: ; Notified At: ; Arrived At: Physician: Chief Stroke Resident; Name: ; Notified At: ; Arrived At: Physician: Stroke Resident; Name: ; Notified At: ; Arrived At: Physician: ED Attending; Name: ; Notified At: ; Arrived At: Physician: ED Resident; Name: ; Notified At: ; Arrived At: 15:29 NOT MEET CRITERIA dd1 Historical: - Allergies: 15:32 TB shots; dd1 - Home Meds: 15:32 [place] 7.5-325 mg Oral tab [Active]; dd1 - PMHx: 15:32 Chronic pain; TBI; Hypertensive disorder; C7 FRACTURE; dd1 - PSHx: 15:32 RIGHT BKA; right shoulder; Cholecystectomy; CHEST RECONSTRUCTION; SKULL RECONSTRUCTION; dd1 - Immunization history:: Adult Immunizations not up to date. - Social history:: Smoking status: Patient/guardian denies using tobacco, Patient uses alcohol, only on a social basis. Screenin:55 [facility] ED Fall Risk Assessment (Adult) History of falling in the last 3 months, db including since admission No falls in past 3 months (0 pts) Confusion or Disorientation No (0 pts) Intoxicated or Sedated No (0 pts) Impaired Gait No (0 pts) Mobility Assist Device Used Yes (1 pt) Altered Elimination No (0 pt) Score/Fall Risk Level 0 - 2 = Low Risk Oriented to surroundings, Maintained a safe environment. Abuse screen: Denies threats or abuse. Denies injuries from another. Nutritional screening: No deficits noted. Tuberculosis screening: No symptoms or risk factors identified. Assessment: 15:53 Reassessment: Patient appears in no apparent distress at this time. Patient and/or db family updated on plan of care and expected duration. Pain level reassessed. Patient is alert, oriented x 3, equal unlabored respirations, skin warm/dry/pink. weakness started today with nausea states works in heat. gf is sick as well. Vital Signs: 15:29 BP 146 / 92; Pulse 87; Resp 16; Temp 98.8; Pulse Ox 98% ; Weight 97.52 kg; Height 6 ft. dd1 3 in. ; Pain 4/10; 15:46 BP 129 / 88; Pulse 74; Resp 18; Pulse Ox 98% on R/A; db 17:00 BP 131 / 91; Pulse 82; Resp 16; Pulse Ox 100% on R/A; db 15:29 Body Mass Index 26.87 (97.52 kg, 190.5 cm) dd1 15:29 Pain Scale: Adult dd1 ED Course: 15:15 Patient arrived in ED. im 15:16 Quynh Ahuja PA-C is PHCP. sb4 15:16 Mary Alice Neumann MD is Attending Physician. sb4 15:32 Triage completed. dd1 15:32 Arm band placed on. dd1 15:38 Jaclyn Irizarry, RN is Primary Nurse. db 15:41 Urine collected: clean catch specimen, clear. mm9 15:42 Patient has correct armband on for positive identification. Placed in gown. Bed in low mm9 position. Call light in reach. Side rails up X 1. Warm blanket given. Pulse ox on. NIBP on. 15:49 Inserted saline lock: 20 gauge in right antecubital area, using aseptic technique. db Blood collected. 17:04 CT Abd/Pelvis - IV Contrast Only In Process Unspecified. EDMS 17:35 Provided Education on: DISCHARGE. db 17:35 No provider procedures requiring assistance completed. IV discontinued, intact, db bleeding controlled, No redness/swelling at site. Administered Medications: 15:46 Drug: NS 0.9% IV 1000 ml Route: IV; Rate: 1 bolus; Site: right antecubital; dd1 17:36 Follow up: Response: No adverse reaction; IV Status: Completed infusion; IV Intake: db 1000ml 15:46 Drug: Famotidine IVP 20 mg Route: IVP; Site: right antecubital; dd1 17:36 Follow up: Response: No adverse reaction db 15:46 Drug: Ondansetron IVP 4 mg Route: IVP; Site: right antecubital; dd1 17:36 Follow up: Response: No adverse reaction db Medication: 17:35 VIS not applicable for this client. db Point of Care Testin:32 NOT APPLICABLE dd1 Ranges: Intake: 17:36 IV: 1000ml; Total: 1000ml. db Outcome: 17:23 Discharge ordered by MD. [email or web address] 17:35 Discharged to home ambulatory. db 17:35 Condition: stable 17:35 Discharge instructions given to patient, Instructed on discharge instructions, follow up and referral plans. Prescriptions given X 2. 17:37 Patient left the ED. db Signatures: Dispatcher [employer] EDMS Jaclyn Irizarry, RN RN db Quynh Ahuja, PAGarfieldC PAGarfieldC manuel4 Ros Sandoval mm9 Christina Pittman Daniel, RN RN dd1 Corrections: (The following items were deleted from the chart) 15:53 15:41 Urinalysis W/Microscopic+U.LAB.BRZ drawn and sent. mm9 EDMS
[2023-02-18 18:15] VITALS: TEMP 98.8
[2023-02-18 18:26] VITALS: BP 131/91; O2SAT 100
== END 2023-02-18 17:37 | disposition home or self-care (01) ==
LOC: ER 15:14
DX: K52.9 Noninfective gastroenteritis and colitis, unspecified (principal); Z20.822 Contact with and (suspected) exposure to COVID-19; Z87.820 Personal history of traumatic brain injury; I10 Essential (primary) hypertension; Z88.7 Allergy status to serum and vaccine; Z89.511 Acquired absence of right leg below knee
CPT/HCPCS: 96361; 85025; 36415; 84484; 83690; 80053; 87804 ×2; 74177; 96375; 96374; 99284; 87811; Q9967; J2405; J7030; 81003; 81015

== ENCOUNTER 2023-04-07 14:17 | Emergency (ER) | payer OTHER ==
--- OUTSIDE RECORDS SUMMARY | 2023-04-07 14:24 | XMS REPORT | Continuity of Care Document ---
:1965 Author Organization [facility] t Address [address] [place] [address] Care Team Providers Name Role Phone Albert Denton Primary Care Physician Doctor Unassigned, [place] Attending Clinician Unavailable RADIOLOGY Attending Clinician Unavailable Radiology Attending Clinician Unavailable Lesly RODRIGUEZ Attending Clinician [...] Policy Number Effective Date Expiration Date Clifford POZO [id number] 2016 00:00:00 Problems Condition Condition Condition Status [...] different from the original. 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 [facility] (disorder) injury (disorder) Active Problem 05/01/2022 Medical Group,Misc her Neuro,[facility] INTCRAN INTCRAN Diagnosis Active 2016-05-24 Memoria INJ W/O INJ W/O 10:09:00 l LOSS OF LOSS OF Zenia CONSCIOUSN CONSCIOUSN ESS, I ESS, I Active [facility] Viral Viral Problem Resolve 2016-2018-10-23 2018-10-23 Memoria hepatitis hepatitis d 1-11 14:45:24 14:45:24 l C C 00:00: Zenia (disorder) (disorder) 00 Resolved 07/27/2016 Problem 10/23/2018 Medical Group, [facility] Allergies, Adverse Reactions, Alerts Allergy Allergy Status Severity Reaction(s) Onset Inactive Treating Comm ents Source Name Type Date Date Clinician NO KNOWN Drug Active Univers ALLERGIE Class ity of S [facility] No Known No Known Active Memori a Medicati Medicati l on on Zenia Allergie Allergie s s Social History Social Habit Start Date Stop Date Quantity Comments Source Gender identity Universit y of [facility] Sexual orientation Univer sity of [facility] Exposure to 2022-08-06 2022-08-16 Not sure [facility] SARS-CoV-2 (event) 00:00:00 21:34:00 [facility] History of Social 2022-08-16 2022-08-16 Univers ity of function 00:00:00 00:00:00 [facility] Alcohol intake 2022-08-16 2022-08-16 University of 00:00:00 00:00:00 [facility] Social History 2018-04-02 2018-04-02 [facility] henrique 18:19:44 18:19:44 Tobacco Comment 2013-06-27 2013-06-27 Pt thinks he Univers ity of 00:00:00 00:00:[address] [facility] no memory of how Branch many cigs nor how long. Tobacco use and 2013-06-27 2013-06-27 Smokeless Universit y of exposure 00:00:00 00:00:00 tobacco non-user [facility] History of tobacco 1988-07-24 Cigarette Smoker University of use 00:00:00 [facility] Sex Assigned At [birth year] Universit y of 00:00:00 00:00:00 [facility] Smoking Status Start Date Stop [...] 08/17/22 at 0015, MACKENZIE iopamidol 2022- No [id number] 100mL 100 mL, Univers (ISOVUE 08-17 Intravenou ity o f 370-500 mL) 05:30: 05:30 s, ONCE, 1 [place] injection 00 :00 dose, On Medica l 100 mL Tue Branch 08/16/22 at 2330, Routine ibuprofen 2022- Yes [id number] 600mg Take 1 Univers 600 mg 1-31 tablet by ity of tablet 00:00: mouth [place] 00 every 6 Medical (six) Branch hours as needed for Pain (scale 4-6). ibuprofen 2022-0 Yes [id number] 600mg Take 1 Univers 600 mg 1-31 tablet by ity of tablet 00:00: mouth [place] 00 every 6 Medical (six) Branch hours as needed for Pain (scale 4-6). ibuprofen 2022-0 Yes [id number] 600mg Take 1 Univers 600 mg 1-31 tablet by ity of tablet 00:00: mouth [place] 00 every 6 Medical (six) Branch hours as needed for Pain (scale 4-6). ibuprofen 2022-0 Yes [id number] 600mg Take 1 Univers 600 mg 1-31 tablet by ity of tablet 00:00: mouth [place] 00 every 6 Medical (six) Branch hours as needed for Pain (scale 4-6). ibuprofen 2022-0 Yes [id number] 600mg Take 1 Univers 600 mg 1-31 tablet by ity of tablet 00:00: mouth [place] 00 every 6 Medical (six) Branch hours as needed for Pain (scale 4-6). casirivimab 2020- No [id number] 1200mg 1,200 mg, Univers -imdevimab 03-11 IV ity of 1200 mg in 23:00: 22:21 Infusion, [place] 60 mL NS 00 :00 ONCE, Medical MINI-BAG Administer Branc h over 20 Minutes, Donna 03/11/21 at 1800, For 1 dose
Ad order packer as an IV infusion via pump or [...] pain, # 60 cap, 1 Refill(s), [id number] dicyclomine 2018-0 Yes 10 mg = 1 M emoria 10 mg oral 9-19 cap, PO, l capsule 20:46: QID-Before Herm shari Meals, as needed for abdominal pain, # 60 cap, 1 Refill(s), Pharmacy: [id number] dicyclomine 2018-0 Yes 10 mg = 1 M emoria 10 mg oral 9-19 cap, PO, l capsule 20:46: QID-Before Herm shari Meals, as needed for abdominal pain, # 60 cap, 1 Refill(s), Pharmacy: [id number] dicyclomine 2018-0 Yes 10 mg = 1 M emoria 10 mg oral 9-19 cap, PO, l capsule 20:46: QID-Before Herm shari Meals, as needed for abdominal pain, # 60 cap, 1 Refill(s), Pharmacy: [id number] dicyclomine 2018-0 Yes 10 mg = 1 M emoria 10 mg oral 9-19 cap, PO, l capsule 20:46: QID-Before Herm shari Meals, as needed for abdominal pain, # 60 cap, 1 Refill(s), Pharmacy: [id number] dicyclomine 2018-0 Yes 10 mg = 1 M emoria 10 mg oral 9-19 cap, PO, l capsule 20:46: QID-Before Herm shari Meals, as needed for abdominal pain, # 60 cap, 1 Refill(s), Pharmacy: [id number] dicyclomine 2018-0 Yes 10 mg = 1 M emoria 10 mg oral 9-19 cap, PO, l capsule 20:46: QID-Before Herm shari 00 Meals, as needed for abdominal pain, # 60 cap, 1 Refill(s), [facility]: [id number] dicyclomine 2018-0 Yes 10 mg = 1 M emoria 10 mg oral 9-19 cap, PO, l capsule 20:46: QID-Before Herm shari 00 Meals, as needed for abdominal pain, # 60 cap, 1 Refill(s), [facility]acy: [id number] dicyclomine 2018-0 Yes 10 mg = 1 M emoria 10 mg oral 9-19 cap, PO, l capsule 20:46: QID-Before Herm shari 00 Meals, as needed for abdominal pain, # 60 cap, 1 Refill(s), [facility]acy: [id number] dicyclomine 2018-0 Yes 10 mg = 1 M emoria 10 mg oral 9-19 cap, PO, l capsule 20:46: QID-Before Herm shari 00 Meals, as needed for abdominal pain, # 60 cap, 1 Refill(s), [facility]acy: [id number] dicyclomine 2018-0 Yes 10 mg = 1 M emoria 10 mg oral 9-19 cap, PO, l capsule 20:46: QID-Before Herm shari 00 Meals, as needed for abdominal pain, # 60 cap, 1 Refill(s), Pharmacy: [id number] dicyclomine 2018-0 Yes 10 mg = 1 M emoria 10 mg oral 9-19 cap, PO, l capsule 20:46: QID-Before Herm shari 00 Meals, as needed for abdominal pain, # 60 cap, 1 Refill(s), Pharmacy: [id number] Xifaxan 550 2018-0 Yes 550 mg = 1 Memoria mg oral 9-17 tab, PO, l tablet 18:34: TID, # 42 [place] 00 tab, 0 Refill(s), Pharmacy: [id number] rifaximin 2018-0 Yes 550 mg = 1 Me moria 550 MG Oral 9-17 tab, PO, l Tablet 18:34: TID, # 42 [place] [XIFAXAN] 00 tab, 0 Refill(s), Pharmacy: [facility][id number] Xifaxan 550 2018-0 Yes 550 mg = 1 Memoria mg oral 9-17 tab, PO, l tablet 18:34: TID, # 42 [place] 00 tab, 0 Refill(s), Pharmacy: [facility][id number] rifaximin 2018-0 Yes 550 mg = 1 Me moria 550 MG Oral 9-17 tab, PO, l Tablet 18:34: TID, # 42 [place] [XIFAXAN] 00 tab, 0 Refill(s), Pharmacy: [facility][id number] Xifaxan 550 2018-0 Yes 550 mg = 1 Memoria mg oral 9-17 tab, PO, l tablet 18:34: TID, # 42 [place] 00 tab, 0 Refill(s), Pharmacy: [facility][id number] rifaximin 2018-0 Yes 550 mg = 1 Me moria 550 MG Oral 9-17 tab, PO, l Tablet 18:34: TID, # 42 [place] [XIFAXAN] 00 tab, 0 Refill(s), Pharmacy: [facility][id number] Xifaxan 550 2018-0 Yes 550 mg = 1 Memoria mg oral 9-17 tab, PO, l tablet 18:34: TID, # 42 [place] 00 tab, 0 Refill(s), Pharmacy: [facility][id number] rifaximin 2018-0 Yes 550 mg = 1 Me moria 550 MG Oral 9-17 tab, PO, l Tablet 18:34: TID, # 42 [place] [XIFAXAN] 00 tab, 0 Refill(s), Pharmacy: [facility] #[id number] rifaximin 2018-0 Yes 550 mg = 1 Me moria 550 MG Oral 9-17 tab, PO, l Tablet 18:34: TID, # 42 [place] [XIFAXAN] 00 tab, 0 Refill(s), Pharmacy: [id number] Xifaxan 550 2018-0 Yes 550 mg = 1 Memoria mg oral 9-17 tab, PO, l tablet 18:34: TID, # 42 [place] 00 tab, 0 Refill(s), Pharmacy: [facility] #[id number] rifaximin 2018-0 Yes 550 mg = 1 Me moria 550 MG Oral 9-17 tab, PO, l Tablet 18:34: TID, # 42 [place] [XIFAXAN] 00 tab, 0 Refill(s), Pharmacy: [facility] #[id number] Xifaxan 550 2018-0 Yes 550 mg = 1 Memoria mg oral 9-17 tab, PO, l tablet 18:34: TID, # 42 [place] 00 tab, 0 Refill(s), Pharmacy: [facility] #[id number] rifaximin 2018-0 Yes 550 mg = 1 Me moria 550 MG Oral 9-17 tab, PO, l Tablet 18:34: TID, # 42 [place] [XIFAXAN] 00 tab, 0 Refill(s), [id number] Xifaxan 550 2018-0 Yes 550 mg = 1 Memoria mg oral 9-17 tab, PO, l tablet 18:34: TID, # 42 [place] 00 tab, 0 Refill(s), Pharmacy: [facility] #[id number] rifaximin 2018-0 Yes 550 mg = 1 Me moria 550 MG Oral 9-17 tab, PO, l Tablet 18:34: TID, # 42 [place] [XIFAXAN] 00 tab, 0 Refill(s), [id number] Xifaxan 550 2018-0 Yes 550 mg = 1 Memoria mg oral 9-17 tab, PO, l tablet 18:34: TID, # 42 [place] 00 tab, 0 Refill(s), Pharmacy: [facility] #[id number] rifaximin 2018-0 Yes 550 mg = 1 Me moria 550 MG Oral 9-17 tab, PO, l Tablet 18:34: TID, # 42 [place] [XIFAXAN] 00 tab, 0 Refill(s), Pharmacy: [facility] #[id number] Xifaxan 550 2018-0 Yes 550 mg = 1 Memoria mg oral 9-17 tab, PO, l tablet 18:34: TID, # 42 [place] 00 tab, 0 Refill(s), [id number] rifaximin 2018- Yes 550 mg = 1 Me moria 550 MG Oral 9-17 tab, PO, l Tablet 18:34: TID, # 42 [place] [XIFAXAN] 00 tab, 0 Refill(s), [id number] Xifaxan 550 2017- Yes 550 mg = 1 Memoria mg oral 9-17 tab, PO, l tablet 18:34: TID, # 42 [place] 00 tab, 0 Refill(s), [id number] rifaximin 2018-0 Yes 550 mg = 1 Me moria 550 MG Oral 9-17 tab, PO, l Tablet 18:34: TID, # 42 [place] [XIFAXAN] 00 tab, 0 Refill(s), [id number] Xifaxan 550 2017-0 Yes 550 mg = 1 Memoria mg oral 9-17 tab, PO, l tablet 18:34: TID, # 42 [place] 00 tab, 0 Refill(s), [id number] rifaximin 2018-0 Yes 550 mg = 1 Me moria 550 MG Oral 9-17 tab, PO, l Tablet 18:34: TID, # 42 [place] [XIFAXAN] 00 tab, 0 Refill(s), [id number] Xifaxan 550 2017-0 Yes 550 mg = 1 Memoria mg oral 9-17 tab, PO, l tablet 18:34: TID, # 42 [place] 00 tab, 0 Refill(s), [id number] [place] Yes 1 tab, PO, Memori a 7.5/325 5-08 Q6H, 0 l oral tablet 18:06: Refill(s) H [place] Yes 1 tab, PO, Memori a 7.5/325 5-08 Q6H, 0 l oral tablet 18:06: Refill(s) H [place] Yes 1 tab, PO, Memori a 7.5/325 [...] 75 mg 00 bedtime. Medical capsule Branch [facility] 2012-07 Yes 1{tbl} Univ ers en-codeine 2-12 ity of (TYLENOL 16:43: [place] #3) 300-30 26 Medical mg tablet 1 Branch Tab [facility] 2012-07 Yes 1{tbl} Univ ers en-codeine 2-12 ity of (TYLENOL 16:43: [place] #3) 300-30 26 Medical mg tablet 1 Branch Tab [facility] 2012-07 Yes 1{tbl} Univ ers en-codeine 2-12 ity of (TYLENOL 16:43: [place] #3) 300-30 26 Medical mg tablet 1 Branch Tab [facility] 2012-07 Yes 1{tbl} Univ ers en-codeine 2-12 ity of (TYLENOL 16:43: [place] #3) 300-30 26 Medical mg tablet 1 Branch [facility] 2012-07 Yes 1{tbl} Univ ers en-codeine 2-12 ity of (TYLENOL 16:43: [place] #3) 300-30 26 Medical mg tablet 1 Branch Tab [facility] 2012-07 Yes 1{tbl} Univ ers en-codeine 2-12 ity of (TYLENOL 16:43: [place] #3) 300-30 26 Medical mg tablet 1 Branch [facility] 2012-07 Yes 1{tbl} Univ ers en-codeine 2-12 ity of (TYLENOL 16:43: [place] #3) 300-30 26 Medical mg tablet 1 Branch [facility] 2012-07 Yes [id number] 1{tbl} Take 1 Tab Univers en-codeine 2-02 by mouth ity o f (TYLENOL-CO 00:00: every 4 Jarod as DEINE #3) 00 (four) Medical 300-30 mg hours as Branch tablet needed for Pain. [facility] 2012-07 Yes [id number] 1{tbl} Take 1 Tab Univers en-codeine 2-02 by mouth ity o f (TYLENOL-CO 00:00: every 4 Jarod as DEINE #3) 00 (four) Medical 300-30 mg hours as Branch tablet needed for Pain. [facility] 2012-07 Yes [id number] 1{tbl} Take 1 Tab Univers en-codeine 2-02 by mouth ity o f (TYLENOL-CO 00:00: every 4 Jarod as DEINE #3) 00 (four) Medical 300-30 mg hours as Branch tablet needed for Pain. acetaminoph 2012-07 Yes [id number] 1{tbl} Take 1 Tab Univers en-codeine 2-02 by mouth ity o f (TYLENOL-CO 00:00: every 4 Jarod as DEINE #3) 00 (four) Medical 300-30 mg hours as Branch tablet needed for Pain. acetaminoph 2012-07 Yes [id number] 1{tbl} Take 1 Tab Univers en-codeine 2-02 by mouth ity o f (TYLENOL-CO 00:00: every 4 Jarod as DEINE #3) 00 (four) Medical 300-30 mg hours as Branch tablet needed for Pain. acetaminoph 2012-07 Yes [id number] 1{tbl} Take 1 Tab Univers en-codeine 2-02 by mouth ity o f (TYLENOL-CO 00:00: every 4 Jarod as DEINE #3) 00 (four) Medical 300-30 mg hours as Branch tablet needed for Pain. acetaminoph 2012-07 Yes [id number] 1{tbl} Take 1 Tab Univers en-codeine 2-02 [...] triamcinolo 2012- Yes Apply to Un dashawn ne 1-08 area(s) 2 ity of acetonide 00:00: (two) [place] (TRIDERM) 00 times Medical 0.1 % cream daily. Branch triamcinolo Yes Apply to Un dashawn ne 1-08 area(s) 2 ity of acetonide 00:00: (two) [place] (TRIDERM) 00 times Medical 0.1 % cream daily. Branch triamcinolo 2012- Yes Apply to Un dash[place] ne 1-08 area(s) 2 ity of acetonide 00:00: (two) [place] (TRIDERM) 00 times Medical 0.1 % cream daily. Branch triamcinolo 2012- Yes Apply to Un dashawn ne 1-08 area(s) 2 ity of acetonide 00:00: (two) [place] (TRIDERM) 00 times Medical 0.1 % cream daily. Branch triamcinolo 2012- Yes Apply to Un dashawn ne 1-08 area(s) 2 ity of acetonide 00:00: (two) [place] (TRIDERM) 00 times Medical 0.1 % cream daily. Branch triamcinolo 2012- Yes Apply to Un [place] ne 1-08 area(s) 2 ity of acetonide 00:00: (two) [place] (TRIDERM) 00 times Medical 0.1 % cream daily. Branch triamcinolo 2012- Yes Apply to Un dash[place] ne 1-08 area(s) 2 ity of acetonide 00:00: (two) [place] (TRIDERM) 00 times Medical 0.1 % cream daily. Branch Immunizations Ordered Filled Immunization Date Status Comments [facility] e Immunization Name Name hepatitis B adult 2016-10-31 Completed Memoria l vaccine 16:08:00 Zenia hepatitis B adult 2016-10-31 Completed Memoria l vaccine 16:08:00 [facility] hepatitis B adult 2016-10-31 Completed Memoria l vaccine 16:08:00 [facility] hepatitis B adult 2016-10-31 Completed Memoria l vaccine 16:08:00 Zenia hepatitis B adult 2016-10-31 Completed Memoria l vaccine 16:08:00 [facility] hepatitis B adult 2016-10-31 Completed Memoria l vaccine 16:08:00 Zenia hepatitis B adult 2016-10-31 Completed Memoria l vaccine 16:08:00 [facility] hepatitis B adult 2016-10-31 Completed Memoria l vaccine 16:08:00 Zenia hepatitis B adult 2016-10-31 Completed Memoria l vaccine 16:08:00 [facility] hepatitis B adult 2016-10-31 Completed Memoria l vaccine 16:08:00 Zenia hepatitis B adult 2016-10-31 Completed Memoria l vaccine 16:08:00 Zenia hepatitis B adult 2016-04-11 Completed Memoria l vaccine 15:46:00 [facility] hepatitis B adult 2016-04-11 Completed Memoria l vaccine 15:46:00 Zenia hepatitis B adult 2016-04-11 Completed Memoria l vaccine 15:46:00 [facility] hepatitis B adult 2016-04-11 Completed Memoria l vaccine 15:46:00 [facility] hepatitis B adult 2016-04-11 Completed Memoria l vaccine 15:46:00 Zenia hepatitis B adult 2016-04-11 Completed Memoria l vaccine 15:46:00 [facility] hepatitis B adult 2016-04-11 Completed Memoria l vaccine 15:46:00 Zenia hepatitis B adult 2016-04-11 Completed Memoria l vaccine 15:46:00 Zenia hepatitis B adult 2016-04-11 Completed Memoria l vaccine 15:46:00 Zenia hepatitis B adult 2016-04-11 Completed Memoria l vaccine 15:46:00 [facility] hepatitis B adult 2016-04-11 Completed Memoria l vaccine 15:46:00 [facility] hepatitis B adult 2016-03-28 Completed Memoria l vaccine 16:37:00 Zenia hepatitis B adult 2016-03-28 Completed Memoria l vaccine 16:37:00 Zenia hepatitis B adult 2016-03-28 Completed Memoria l vaccine 16:37:00 Zenia hepatitis B adult 2016-03-28 Completed Memoria l vaccine 16:37:00 Zenia hepatitis B adult 2016-03-28 Completed Memoria l vaccine 16:37:00 Zenia hepatitis B adult 2016-03-28 Completed Memoria l vaccine 16:37:00 Zenia hepatitis B adult 2016-03-28 Completed Memoria l vaccine 16:37:00 Zenia hepatitis B adult 2016-03-28 Completed Memoria l vaccine 16:37:00 Zenia hepatitis B adult 2016-03-28 Completed Memoria l vaccine 16:37:00 Zenia hepatitis B adult 2016-03-28 Completed Memoria l vaccine 16:37:00 Zenia hepatitis B adult 2016-03-28 Completed Memoria l vaccine 16:37:00 [facility] hepatitis B adult Unknown Completed Memoria l vaccine Zenia hepatitis B adult Unknown Completed Memoria l vaccine Zenia hepatitis B adult Unknown Completed Memoria l vaccine Zenia Vital Signs Vital Name Observation Time Observation Value Comments Source Systolic blood 2022-08-17 04:30:00 144 mm[Hg] Univer sity of pressure [facility] Diastolic blood 2022-08-17 04:30:00 96 mm[Hg] Unive rsity of [facility] Heart rate 2022-08-17 04:30:00 94 /min [facility] Respiratory rate 2022-08-17 04:30:00 13 /min [facility] Oxygen saturation in 2022-08-17 04:30:00 100 /min [facility] Arterial blood by [facility] Pulse oximetry Branch Body temperature 2022-08-17 03:35:00 36.17 Pili [facility] Body height 2022-08-17 03:35:[address] [facility] Body weight 2022-08-17 03:35:[address] [facility] BMI 2022-08-17 03:35:00 28.75 kg/m2 [facility] Systolic blood 2021-03-11 21:58:00 145 mm[Hg] Univer sity of pressure [facility] Diastolic blood 2021-03-11 21:58:00 86 mm[Hg] Unive rsity of [facility] Heart rate 2021-03-11 21:58:00 80 /min [facility] Body temperature 2021-03-11 21:58:00 37.39 [facility] 2021-03-11 21:58:00 20 /min [facility] Body height 2021-03-11 21:58:[address] [facility] Body weight 2021-03-11 21:58:[address] [facility] BMI 2021-03-11 21:58:00 28.75 kg/m2 [facility] Oxygen saturation in 2021-03-11 21:58:00 96 /min [facility] Arterial blood by [facility] Pulse oximetry Branch Weight 2018-04-02 18:18:00 Yamileth Wall BMI Calculated 2018-04-02 18:18:00 Memvinny Menjivar Height 2018-04-02 18:18:00 187.96 cm [facility] Systolic (mm Hg) 2018-04-02 18:18:00 Jan rial Zenia Diastolic (mm Hg) 2018-04-02 18:18:00 Mem orial Zenia Heart Rate 2018-04-02 18:18:00 [facility] Height 2016-05-16 14:12:00 187.96 cm [facility] Zenia Weight 2016-05-16 14:12:00 [facility] BMI Calculated 2016-05-16 14:12:00 Memori al [facility] Respitory Rate 2016-05-16 14:12:00 Memori al Zenia Heart Rate 2016-05-16 14:12:00 [facility] Systolic (mm Hg) 2016-05-16 14:12:00 Jan rial [facility] Diastolic (mm Hg) 2016-05-16 14:12:00 Mem orial [facility] Procedures Procedure Date / Time Performing Clinician Source Performed AUTHORIZATION FOR 2023-03-23 05:01:00 Doctor Unassigned, No [facility] RELEASE OF PHI Name Medical Branch ASSIGNMENT OF BENEFITS 2022-12-20 21:03:44 Doctor Unassigned, No [facility] Name Medical Branch AUTHORIZATION FOR 2022-10-11 05:01:00 Doctor Unassigned, No [facility] RELEASE OF PHI Name [facility] Branch URINE DRUG (IMMUNOASSAY) 2022-08-17 04:44:00 [facility] 2022-08-17 04:44:00 Lesly Rodriguez [facility] COMP. METABOLIC PANEL 2022-08-17 03:59:00 Lesly Rodriguez [facility] ([id number]) Medical Branch ETHANOL 2022-08-17 03:59:00 Lesly Rodriguez [facility] CBC WITH DIFF 2022-08-17 03:59:00 Lesly Rodriguez [facility] CONSENT/REFUSAL FOR 2021-03-11 05:01:00 [facility]igned, No [facility] Name Medical Branch Colonoscopy 2017-01-24 05:00:00 [facility] Cranioplasty [facility] BKA - Below knee [facility] n amputation, Encounters Start End Encounter Admission Attending Care Care Encounter Source Date/Time Date/Time Type Type Clinicians Facility Department ID [facility]23-03-02 [facility] [id number] Common 08:07:00 [id number] [facility] 2022-11-23 [facility] [id number] Common 14:57:04 [id number] [facility] 2023-03-23 2023-03-23 Orders Doctor SHAHID [id number] Univers 00:00:00 00:00:00 Only Unassigned, ANGEL [id number] ity of [place] [facility] [id number] [facility] [id number] [facility] 009 Branch 2022-12-20 2022-12-20 Outpatient R RADIOLOGY [facility] [id number] Univers 16:04:44 23:59:00 ity of [facility] 2022-12-20 2022-12-20 Hospital Radiology [facility] [id number] Univers 16:04:44 23:59:00 Encounter [place] [id number] ity of [place] [id number] [facility] [id number] [facility] 804 Branch 2022-12-20 2022-12-20 Orders Doctor SHAHID [id number] Univers 00:00:00 00:00:00 Only Unassigned, ANGEL [id number] ity of [place] [facility] [id number] Jarod as [id number] [place] [address] Branch 2022-10-11 2022-10-11 Orders Doctor KLEBER [id number] Univers 00:00:00 00:00:00 Only Unassigned, ANGEL [id number] ity of [place] [facility] [id number] Jarod as [phone] [place] [address] Branch 2022-08-16 2022-08-17 Emergency X Lesly RODRIGUEZ [facility] ERT [id number] Univers 21:31:00 00:05:00 ity of [facility] 2022-08-16 2022-08-17 Emergency Lesly Rodriguez [facility] [id number] Univers 21:31:00 00:05:00 Precious DUARTE [id number] i ty of [place] [id number] [facility] [id number] [facility] 084 Branch 2022-04-29 2022-04-29 Ambulatory nullFlavo MNA [id number] Memoria 19:30:00 19:30:00 Pre-Reg r Neurology 11 l Mary Alice Newberryann 2022-04-29 2022-04-29 Ambulatory nullFlavo MNA [id number] Memoria 19:30:00 19:30:00 Pre-Reg r Neurology 12 l Mary Alice Zenia 2022-04-29 2022-04-29 Ambulatory nullFlavo MNA [id number] Memoria 19:30:00 19:30:00 Pre-Reg r Neurology 11 l Mary Alice Newberryann 2022-04-29 2022-04-29 Ambulatory nullFlavo MNA [id number] Memoria 19:30:00 19:30:00 Pre-Reg r Neurology 12 l Mary Alice Newberryann 2022-04-29 2022-04-29 Ambulatory nullFlavo MNA [id number] Memoria 19:00:00 19:00:00 Pre[place]Reg r Neurology [place] 2022-04-29 2022-04-29 Ambulatory nullFlavo MNA [id number] Memoria 19:00:00 19:00:00 Pre-Reg r Neurology 10 aline Wall 2022-04-29 2022-04-29 Outpatient MHIE MHIE [id number] Memoria 14:30:00 14:30:00 12 aline Wall 2022-04-29 2022-04-29 Outpatient MHIE MHIE [id number] Memoria 14:30:00 14:30:00 11 aline Wall 2022-04-29 2022-04-29 Outpatient Kailey, MHMISCHER MHMISCHER [id number] 14:30:00 14:30:00 Bernardo 12 Yevgeniy 2022-04-29 2022-04-29 Outpatient Kailey, MHMISCHER MHMISCHER [id number] 14:30:00 14:30:00 Bernardo 11 Yevgeniy 2022-04-29 2022-04-29 Outpatient MHIE MHIE [id number] Memoria 14:00:00 14:00:00 10 aline Wall 2022-04-29 2022-04-29 Outpatient Kailey, MHMISCHER MHMISCHER [id number] 14:00:00 14:00:00 Bernardo 10 [facility] 2021-03-11 2021-03-11 Outpatient Leo [facility] [id number] Univers 15:30:00 15:30:00 JOSE MARTIN [facility] of [facility] 2021-03-11 2021-03-11 Nurse Therapy, Adc Covid Infusion [facility] [id number] Univers 14:19:37 15:19:37 Visit Jose Martin Umana 350.1.13.10 ity [place] [id number] [facility] [address] Branch 2021-03-11 2021-03-11 Orders Doctor SHAHID [id number] Univers 00:00:00 00:00:00 Only Unassigned, ANGEL 350.1.13.10 ity of [place] [facility] 4.2.7.2.686 Jarod as [phone] [place] [address] Branch 2020-05-13 2020-05-13 Emergency X [facility] ERT [id number] Univers 19:41:00 19:41:00 [facility] 2018-04-04 2018-04-06 Phone nullFlavo MHMG [id number] Memoria 20:45:00 04:59:59 Message r Gastroenter 06 l precious Pierce 2018-04-04 2018-04-06 Phone nullFlavo [facility]MG [id number] Memoria 20:45:00 04:59:59 Message r Gastroenter 06 l precious Pierce 2018-04-04 2018-04-05 Outpatient MHMG MHMG [id number] 15:45:00 23:59:59 06 2018-04-02 2018-04-03 Outpatient nullFlavo [facility]MG [id number] Memoria 18:15:00 04:59:59 r Gastroenter 09 l precious Pierce 2018-04-02 2018-04-03 Outpatient nullFlavo MHMG [id number] Memoria 18:15:00 04:59:59 r Gastroenter 09 l precious [place] 2018-04-02 2018-04-02 [place] [id number] 13:15:00 23:59:59 Gino Santa 2018-04-02 2018-04-02 Outpatient MHIE MHIE [id number] Memoria 13:15:00 13:15:00 09 aline Wall 2017-02-20 2017-02-20 Outpatient MHIE MHIE [id number] Memoria 13:15:00 13:15:00 08 aline Wall 2017-02-20 2017-02-20 Outpatient MHIE MHIE [id number] Memoria 13:15:00 13:15:00 08 aline Wall 2017-02-09 2017-02-09 Outpatient MHIE MHIE [id number] Memoria 11:15:00 11:15:00 07 aline Wall 2017-02-09 2017-02-09 Outpatient MHIE MHIE [id number] Memoria 11:15:00 11:15:00 07 aline Wall 2016-11-21 2016-11-21 Outpatient MHIE MHIE [id number] Memoria 13:00:00 13:00:00 05 aline Wall 2016-11-21 2016-11-21 Outpatient MHIE MHIE [id number] Memoria 13:00:00 13:00:00 05 aline Zenia 2016-10-31 2016-10-31 Outpatient MHIE MHIE [id number] Memoria 10:00:00 10:00:00 04 aline Zenia 2016-10-31 2016-10-31 Outpatient MHIE MHIE [id number] Memoria 10:00:00 10:00:00 04 aline Zenia 2016-07-27 2016-07-27 Outpatient MHIE MHIE [id number] Memoria 15:30:00 15:30:00 03 aline Zenia 2016-07-27 2016-07-27 Outpatient MHIE MHIE [id number] Memoria 15:30:00 15:30:00 03 aline Zenia 2016-05-24 2016-05-25 Outpatient nullFlavo T[facility]R [id number] Memoria 16:03:00 05:59:00 r Memorial 02 [facility] 2016-05-24 2016-05-25 Outpatient nullFlavo [facility]R [id number] Memoria 16:03:00 05:59:00 r Memorial 02 [facility] 2016-05-24 2016-05-24 Outpatient Magat, MHTIRR MHTIRR [id number] 10:03:00 23:59:00 Mauyri 02 Magdaog 2016-05-16 2016-05-17 Outpatient nullFlavo [facility] [id number] Memoria 13:31:00 04:59:00 r Memorial 01 [facility] 2016-05-16 2016-05-17 Outpatient nullFlavo TIRR [id number] Memoria 13:31:00 04:59:00 r Memorial 01 [facility] 2016-05-16 2016-05-16 Outpatient Magat, MHTIRR MHTIRR [id number] 08:31:00 23:59:00 Mayuri 01 Magdaraog 2016-04-11 2016-04-11 Outpatient MHIE MHIE [id number] Memoria 09:00:00 09:00:00 02 aline Zenia 2016-04-11 2016-04-11 Outpatient MHIE MHIE [id number] Memoria 09:00:00 09:00:00 02 aline Zenia 2016-03-28 2016-03-28 [id number] Memoria 14:15:00 14:15:00 01 aline Wall 2016-03-28 2016-03-28 [facility] [id number] Memoria 14:15:00 14:15:00 01 aline Wall Results Test Description Test Time Test Comments Results Result Sourc e Comments ETHANOL 2022-08-17 ALCOHOL<10mg/dL0 Universi ty of 04:47:48 08/16/2022 10:47 [place] [facility] PM [facility] LABORATORY<10 [id number] Toxic>100 Depression of [employer]AD[employer]ARD>400 Fatalities Reported COMP. METABOLIC PANEL (63518) 2022-08-17 04:44:37 Test Item Value Reference Range Interpretation Comme nts NA (test code = 2303975170) 136 mmol/L 135-145 K (test code = 4166349320) 3.6 mmol/L 3.5-5.0 CL (test code = 9556718128) 100 mmol/L 98-108 CO2 TOTAL (test code = 9975455168) 30 mmol/L 23-31 AGAP (test code = 1194607896) 6 2-16 BUN (test code = 9647774839) 9 mg/dL 7-23 GLUCOSE (test code = 4287523743) 95 mg/dL 70-110 CREATININE (test code = 0.88 mg/dL 0.60-1.25 0663577250) TOTAL BILI (test code = 0.6 mg/dL 0.1-1.6 4956547888) CALCIUM (test code = 5592494502) 8.5 mg/dL 8.6-10.6 L T PROTEIN (test code = 4764468167) 6.9 g/dL 6.3-8.2 ALBUMIN (test code = 1158922027) 4.4 g/dL 3.5-5.0 ALK PHOS (test code = 1786905039) 58 U/L 34-122 ALTv (test code = 1742-6) 15 U/L 5-50 AST(SGOT) (test code = 1462513219) 23 U/L 13-40 eGFR (test code = 9821424017) 89.9 mL/min/1.73m2 DYLAN (test code = DYLAN) [...] tests). Lab Interpretation (test code = Abnormal 25461-5) [facility] WITH [id number] 04:37:20 Test Item Value Reference Range Interpretation Comments WBC (test code = 9.27 See_Comment [Automated 9844-2) message] The sy stem which generated this result transmitted reference range : 4.20 - 10.70 10*3/?L. The reference range was not used to interpret this result as normal/abnormal . RBC (test code = 4.08 See_Comment L [Automated 916-8) message] The sy stem which generated this [...] RDW-SD (test code = 45.0 fL 38.5-51.6 35426-4) RDW-CV (test code = 13.0 % 12.1-15.4 788-0) PLT (test code = 205 See_Comment [Automated 777-3) message] The sy stem which generated this result transmitted reference range : 150 - 328 10*3/ ?L. The reference r anabella was not used to interpret this result as normal/abnormal . MPV (test code = 8.8 fL 9.8-13.0 L 74195-2) NRBC/100 WBC (test 0.0 See_Comment [Automat ed code = 2261237670) message] The system which generated this result transmitted reference range : 0.0 - 10.0 /100 WBCs. The refer ence range was not u sed to interpret th is result as normal/abnormal . NRBC x10^3 (test code See_Comment [Auto mated = 6565289003) message] The s ystem which generated this result transmitted reference range : 10*3/?L. The reference range was not used to interpret this result as normal/abnormal . GRAN MAT (NEUT) % 66.8 % (test code = 770-8) IMM GRAN % (test code 0.30 % = 5885249371) LYMPH % (test code = 26.6 % 736-9) MONO % (test code = 5.7 % 5905-5) EOS % (test code = 0.3 % 713-8) BASO % (test code = 0.3 % 706-2) GRAN MAT x10^3(ANC) 6.18 10*3/uL 1.99-6.95 (test code = 4890307048) IMM GRAN x10^3 (test 0.03 10*3/uL 0.00-0.06 code = 9395836296) LYMPH x10^3 (test code 2.47 10*3/uL 1.09-3.23 = 731-0) MONO x10^3 (test code 0.53 10*3/uL 0.36-1.02 = 742-7) EOS x10^3 (test code = 0.03 10*3/uL 0.06-0.53 L 711-2) BASO x10^3 (test code 0.03 10*3/uL 0.01-0.09 = 704-7) Lab Interpretation Abnormal (test code = 60594-8) [facility]"
--- NOTE | 2023-04-07 15:42 | EDPHYS ---
Physician Documentation [facility] Name: Gregg Nair Age: 57 yrs Sex: Male : 1965 Arrival Date: 04/07/2023 Time: 14:17 Bed IW1 Private MD: Sanket Monzon ED Physician Mayo Diallo HPI: 04/07 14:42 This 57 yrs old Male presents to ER via Unassigned with complaints of Flu Symptoms. snw 14:42 Onset: The symptoms/episode began/occurred suddenly, yesterday. Associated signs and snw symptoms: Pertinent positives: congestion, cough, "feels like I have CoVid again". The patient has experienced similar episodes in the past. The patient has not recently seen a physician. "my Fiance and I came down with something yesterday". Historical: - Allergies: 14:43 TB shots; hb - Home Meds: 14:43 Sycamore 7.5-325 mg Oral tab [Active]; hb - PMHx: 14:43 C7 FRACTURE; Chronic pain; Hypertensive disorder; TBI; hb - PSHx: 14:43 CHEST RECONSTRUCTION; Cholecystectomy; RIGHT BKA; right shoulder; SKULL RECONSTRUCTION; hb - Immunization history:: Adult Immunizations up to date. - Social history:: Smoking status: Patient denies any tobacco usage or history of. ROS: 14:42 Eyes: Negative for injury, pain, redness, and discharge, snw 14:42 Neck: Negative for injury, pain, and swelling, Cardiovascular: Negative for chest pain, palpitations, and edema, 14:42 Abdomen/GI: Negative for abdominal pain, nausea, vomiting, diarrhea, and constipation, Back: Negative for injury and pain, : Negative for injury, bleeding, discharge, and swelling, MS/Extremity: Negative for injury and deformity, Skin: Negative for injury, rash, and discoloration, Neuro: Negative for headache, weakness, numbness, tingling, and seizure, Psych: Negative for depression, anxiety, suicide ideation, homicidal ideation, and hallucinations, 14:42 Constitutional: Positive for body aches, fatigue, malaise, 14:42 ENT: Positive for nasal discharge, sinus congestion, sore throat, 14:42 Respiratory: Positive for cough, Exam: 14:44 Head/Face: Normocephalic, atraumatic. Eyes: Pupils equal round and reactive to light, snw extra-ocular motions intact. Lids and lashes normal. Conjunctiva and sclera are non-icteric and not injected. Cornea within normal limits. Periorbital areas with no swelling, redness, or edema. 14:44 Neck: Trachea midline, no thyromegaly or masses palpated, and no cervical lymphadenopathy. Supple, full range of motion without nuchal rigidity, or vertebral point tenderness. No Meningismus. Chest/axilla: Normal chest wall appearance and motion. Nontender with no deformity. No lesions are appreciated. Cardiovascular: Regular rate and rhythm with a normal S1 and S2. No gallops, murmurs, or rubs. Normal PMI, no JVD. No pulse deficits. Respiratory: Lungs have equal breath sounds bilaterally, clear to auscultation and percussion. No rales, rhonchi or wheezes noted. No increased work of breathing, no retractions or nasal flaring. Abdomen/GI: Soft, non-tender, with normal bowel sounds. No distension or tympany. No guarding or rebound. No evidence of tenderness throughout. Back: No spinal tenderness. No costovertebral tenderness. Full range of motion. Skin: Warm, dry with normal turgor. Normal color with no rashes, no lesions, and no evidence of cellulitis. Neuro: Awake and alert, GCS 15, oriented to person, place, time, and situation. Cranial nerves II-XII grossly intact. Motor strength 5/5 in all extremities. Sensory grossly intact. Cerebellar exam normal. Normal gait. Psych: Awake, alert, with orientation to person, place and time. Behavior, mood, and affect are within normal limits. 14:44 Constitutional: The patient appears alert, awake, 14:44 ENT: TM's: are normal, Nose: Nasal mucosa: edematous, Mouth: is normal, Posterior pharynx: erythema, that is moderate, Voice: is normal, 14:44 Musculoskeletal/extremity: Exam is negative for acute changes, Right BKA. Vital Signs: 14:42 BP 137 / 84; Pulse 88; Resp 16; Temp 98.9(O); Pulse Ox 100% on R/A; Weight 104.33 kg; hb Height 6 ft. 3 in. ; Pain 7/10; 14:42 Body Mass Index 28.75 (104.33 kg, 190.5 cm) hb 14:42 Pain Scale: Adult hb MDM: 14:34 Patient medically screened. snw 14:44 Differential diagnosis: viral Infection, bacterial infection. Data reviewed: vital snw signs, nurses notes, lab test result(s). 04/07 14:41 Order name: SARS-COV-2 RT PCR snw 04/07 14:57 Order name: SARS-COV-2 RT PCR; Complete Time: 15:41 EDMS 04/07 14:57 Order name: Influenza Screen (A ; Complete Time: 15:33 EDMS 04/07 14:57 Order name: Group A Streptococcus Rapid Sc EDMS 04/07 15:23 Order name: Throat Culture EDMS Administered Medications: No medications were administered Disposition: 16:33 Co-signature as Attending Physician, Mayo Diallo MD I reviewed the patient's care rn provided by the Advanced Practice Provider and agree with the diagnosis and treatment plan. Disposition Summary: 04/07/23 15:42 Discharge Ordered Notes: Location: Home snw Condition: Stable snw Diagnosis - Acute upper respiratory infection, unspecified snw - Other malaise and fatigue snw Followup: snw - With: Emergency Department - When: As needed - Reason: Worsening of condition Followup: snw - With: Private Physician - When: 2 - 3 days - Reason: Recheck today's complaints, Continuance of care, Re-evaluation by your physician Discharge Instructions: - Discharge Summary Sheet snw - Upper Respiratory Infection, Adult snw - Viral Respiratory Infection snw - Fatigue snw - Rehydration, Adult snw Forms: - Work release form snw - Medication Reconciliation Form snw - Thank You Letter snw - Antibiotic Education snw - Prescription Opioid Use snw - Patient Portal Instructions snw - Leadership Thank You Letter snw Prescriptions: - Zyrtec 10 mg Oral Tablet - take 1 tablet ORAL route once daily As needed; 20 tablet; Refills: 0, Product snw Selection Permitted - Tessalon Perles 100 mg Oral Capsule - take 1 capsule ORAL route every 8 hours As needed; 15 capsule; Refills: 0, snw Product Selection Permitted - Pepcid 20 mg Oral Tablet - take 1 tablet ORAL route once daily; 20 tablet; Refills: 0, Product Selection snw Permitted Signatures: Dispatcher [employer] EDNE Ashlee Horton FNP-C ELECTRIC POWER MACHINE OPERATOR-Csnw Mayo Diallo MD MD rn Chantel Sorto, THEA RN hb
--- NOTE | 2023-04-07 15:42 | ER ---
Nurse's Notes [facility] Name: Gregg Nair Age: 57 yrs Sex: Male : 1965 Arrival Date: 04/07/2023 Time: 14:17 Bed IW1 Private MD: Sanket Monzon Diagnosis: Acute upper respiratory infection, unspecified;Other malaise and fatigue Presentation: 04/07 14:42 Chief complaint: Malaise, headache, body aches, sore throat, cough, and nausea x 2 hb days. Coronavirus screen: Client presents with at least one sign or symptom that may indicate coronavirus-19. Standard/surgical mask placed on the client. Provider contacted for isolation considerations. Ebola Screen: No symptoms or risks identified at this time. Initial Sepsis Screen: Does the patient meet any 2 criteria? No. Patient's initial sepsis screen is negative. Does the patient have a suspected source of infection? No. Patient's initial sepsis screen is negative. Risk Assessment: Do you want to hurt yourself or someone else? Patient reports no desire to harm self or others. Onset of symptoms was April 06, 2023. 14:42 Method Of Arrival: Ambulatory hb 14:42 Acuity: BRIAN 4 hb Historical: - Allergies: 14:43 TB shots; hb - Home Meds: 14:43 Garden 7.5-325 mg Oral tab [Active]; hb - PMHx: 14:43 C7 FRACTURE; Chronic pain; Hypertensive disorder; TBI; hb - PSHx: 14:43 CHEST RECONSTRUCTION; Cholecystectomy; RIGHT BKA; right shoulder; SKULL RECONSTRUCTION; hb - Immunization history:: Adult Immunizations up to date. - Social history:: Smoking status: Patient denies any tobacco usage or history of. Screenin:30 [facility] ED Fall Risk Assessment (Adult) Score/Fall Risk Level 0 - 2 = Low Risk hb Oriented to surroundings, Maintained a safe environment. Abuse screen: Denies threats or abuse. Denies injuries from another. Nutritional screening: No deficits noted. Tuberculosis screening: No symptoms or risk factors identified. Assessment: 15:00 General: Appears in no apparent distress. Behavior is calm, cooperative. Pain: Pain hb currently is 7 out of 10 on a pain scale. Neuro: Level of Consciousness is awake, alert, obeys commands, Oriented to person, place, time, situation, Reports headache. Cardiovascular: Patient's skin is warm and dry. Respiratory: Respiratory effort is even, unlabored, Respiratory pattern is regular, symmetrical. GI: Reports nausea. : No signs and/or symptoms were reported regarding the genitourinary system. EENT: Reports sore throat. Derm: Skin is pink, warm \T\ dry. Musculoskeletal: No signs and/or symptoms reported regarding the musculoskeletal system. 16:00 Reassessment: Patient appears in no apparent distress at this time. Patient and/or hb family updated on plan of care and expected duration. Pain level reassessed. Patient is alert, oriented x 3, equal unlabored respirations, skin warm/dry/pink. Vital Signs: 14:42 BP 137 / 84; Pulse 88; Resp 16; Temp 98.9(O); Pulse Ox 100% on R/A; Weight 104.33 kg; hb Height 6 ft. 3 in. ; Pain 7/10; 14:42 Body Mass Index 28.75 (104.33 kg, 190.5 cm) hb 14:42 Pain Scale: Adult hb ED Course: 14:19 Patient arrived in ED. mr 14:19 Sanket Monzon DO is Private Physician. mr 14:23 Ashlee Horton FNP-C is [facility]. snw 14:23 Mayo Diallo MD is Attending Physician. snw 14:43 Triage completed. hb 14:44 Arm band placed on. hb 15:30 Patient has correct armband on for positive identification. Provided Education on: . hb 15:30 No provider procedures requiring assistance completed. Patient did not have IV access hb during this emergency room visit. 16:04 Chantel Sorto, RN is Primary Nurse. hb Administered Medications: No medications were administered Medication: 16:00 VIS not applicable for this client. hb Outcome: 15:42 Discharge ordered by . snw 16:00 Discharged to home ambulatory, hb 16:00 Condition: stable 16:00 Discharge instructions given to patient, Instructed on discharge instructions, follow up and referral plans. medication usage, Demonstrated understanding of instructions, follow-up care, medications, Prescriptions given X 3, 16:04 Patient left the ED. hb Signatures: Ashlee Horton FNP-C FNP-Halle Quezada, Loki Reg mr Chantel Sorto, RN RN hb Corrections: (The following items were deleted from the chart) 17:45 16:00 Discharge instructions given to patient, Instructed on discharge instructions, hb follow up and referral plans. medication usage, Demonstrated understanding of instructions, follow-up care, medications, hb
[2023-04-07 16:08] VITALS: BP 137/84; TEMP 98.9; O2SAT 100
== END 2023-04-07 16:04 | disposition home or self-care (01) ==
LOC: ER 14:17
DX: J06.9 Acute upper respiratory infection, unspecified (principal); R53.81 Other malaise; R53.83 Other fatigue; I10 Essential (primary) hypertension; Z20.822 Contact with and (suspected) exposure to COVID-19; Z88.8 Allergy status to other drugs, medicaments and biological substances; Z89.511 Acquired absence of right leg below knee
CPT/HCPCS: 87070; 87081; 87635; 87804; 99283

== ENCOUNTER 2023-04-19 08:08 | Emergency (ER) | payer OTHER ==
--- OUTSIDE RECORDS SUMMARY | 2023-04-19 08:13 | XMS REPORT | Continuity of Care Document ---
:1965 Author Organization [facility] t Address [address] [place] [address] Care Team Providers Name Role Phone Albert Denton Primary Care Physician Doctor Unassigned, [place] Attending Clinician Unavailable RADIOLOGY Attending Clinician Unavailable [...] Number Effective Date Expiration Date Clifford POZO [id number] 2016 00:00:00 Problems Condition Condition Condition Status [...] different from the original. 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 Pain in Pain in Disease Active [...] 05/27/2016 [facility] Chronic Chronic Problem Active 2016-05-27 Co ryan hepatitis hepatitis 02:02:31 l C C [...] (situation ) ) Active Problem 05/01/2022 [facility] her Neuro Obesity Obesity Problem Active 2022-05-01 morianisa (disorder) (disorder) 22:54:24 l Active [facility] Problem 05/01/2022 [facility] her Neuro, [facility] Traumatic Problem Active 2022-05-01 [...] Active Univers ALLERGIE Class ity of [facility] No Known No Known Active Memori a Medicati Medicati l on on [place] Allergie Allergie s s Social History Social Habit Start Date Stop Date Quantity Comments Source Gender identity [facility] Sexual orientation Univer sity [facility] Exposure to 2022-08-06 2022-08-16 Not sure [facility] SARS-CoV-2 (event) 00:00:00 21:34:00 [facility] History of Social 2022-08-16 2022-08-16 Univers ity of function 00:00:00 00:00:00 [facility] Alcohol intake 2022-08-16 2022-08-16 University of 00:00:00 00:00:00 [facility] Social History 2018-04-02 2018-04-02 [facility] henrique 18:19:44 18:19:44 Tobacco Comment 2013-06-27 2013-06-27 Pt thinks he Univers ity of 00:00:00 00:00:00 smoked but has [facility] no memory of how Branch many cigs nor how long. Tobacco use and 2013-06-27 2013-06-27 Smokeless Universit y of exposure 00:00:00 00:00:00 tobacco non-user [facility] History of tobacco 1988-07-24 Cigarette Smoker University of use 00:00:00 [facility] Sex Assigned At [birth year] Universit y of 00:00:00 00:00:00 [facility] Smoking Status Start Date Stop [...] 08/17/22 at 0015, MACKENZIE iopamidol 2022- No [id number] 100mL 100 mL, Univers (ISOVUE 08-17 Intravenou ity o f 370-500 mL) 05:30: 05:30 s, ONCE, 1 [place] injection 00 :00 dose, On Medica l 100 mL Tue Branch 08/16/22 at 2330, Routine ibuprofen 2022- Yes [id number] 600mg Take 1 Univers 600 mg 1-31 tablet by ity of tablet 00:00: mouth [place] 00 every 6 Medical (six) Branch hours as needed for Pain (scale 4-6). ibuprofen 2022-0 Yes [id number] 600mg Take 1 Univers 600 mg 1-31 tablet by ity of tablet 00:00: mouth [place] 00 every 6 Medical (six) Branch hours as needed for Pain (scale 4-6). ibuprofen 2022-0 Yes [id number] 600mg Take 1 Univers 600 mg 1-31 tablet by ity of tablet 00:00: mouth [place] 00 every 6 Medical (six) Branch hours as needed for Pain (scale 4-6). ibuprofen 2022-0 Yes [id number] 600mg Take 1 Univers 600 mg 1-31 tablet by ity of tablet 00:00: mouth [place] 00 every 6 Medical (six) Branch hours as needed for Pain (scale 4-6). ibuprofen 2022-0 Yes [id number] 600mg Take 1 Univers 600 mg 1-31 tablet by ity of tablet 00:00: mouth [place] 00 every 6 Medical (six) Branch hours as needed for Pain (scale 4-6). casirivimab 2020- No [id number] 1200mg 1,200 mg, Univers -imdevimab 03-11 IV ity of 1200 mg in 23:00: 22:21 Infusion, [place] 60 mL NS 00 :00 ONCE, Medical MINI-BAG Administer Branc h over 20 Minutes, Donna 03/11/21 at 1800, For 1 dose
Ad business objects as an IV infusion via pump or [...] pain, # 60 cap, 1 Refill(s), Pharmacy: [facility] #[id number] dicyclomine 2018-0 Yes 10 mg = 1 M emoria 10 mg oral 9-19 cap, PO, l capsule 20:46: QID-Before Herm shari Meals, as needed for abdominal pain, # 60 cap, 1 Refill(s), Pharmacy: [facility] #[id number] dicyclomine 2018-0 Yes 10 mg = 1 M emoria 10 mg oral 9-19 cap, PO, l capsule 20:46: QID-Before Herm shari Meals, as needed for abdominal pain, # 60 cap, 1 Refill(s), Pharmacy: [facility] #[id number] dicyclomine 2018-0 Yes 10 mg = 1 M emoria 10 mg oral 9-19 cap, PO, l capsule 20:46: QID-Before Herm shari Meals, as needed for abdominal pain, # 60 cap, 1 Refill(s), Pharmacy: [facility] #[id number] dicyclomine 2018-0 Yes 10 mg = 1 M emoria 10 mg oral 9-19 cap, PO, l capsule 20:46: QID-Before Herm shari Meals, as needed for abdominal pain, # 60 cap, 1 Refill(s), Pharmacy: [facility] #[id number] dicyclomine 2018-0 Yes 10 mg = 1 M emoria 10 mg oral 9-19 cap, PO, l capsule 20:46: QID-Before Herm shari Meals, as needed for abdominal pain, # 60 cap, 1 Refill(s), Pharmacy: [facility] #[id number] dicyclomine 2018-0 Yes 10 mg = 1 M emoria 10 mg oral 9-19 cap, PO, l capsule 20:46: QID-Before Herm shari 00 Meals, as needed for abdominal pain, # 60 cap, 1 Refill(s), Pharmacy: [facility] #[id number] dicyclomine 2018-0 Yes 10 mg = 1 M emoria 10 mg oral 9-19 cap, PO, l capsule 20:46: QID-Before Herm shari 00 Meals, as needed for abdominal pain, # 60 cap, 1 Refill(s), Pharmacy: [facility] #[id number] dicyclomine 2018-0 Yes 10 mg = 1 M emoria 10 mg oral 9-19 cap, PO, l capsule 20:46: QID-Before Herm shari 00 Meals, as needed for abdominal pain, # 60 cap, 1 Refill(s), Pharmacy: [facility] #[id number] dicyclomine 2018-0 Yes 10 mg = 1 M emoria 10 mg oral 9-19 cap, PO, l capsule 20:46: QID-Before Herm shari 00 Meals, as needed for abdominal pain, # 60 cap, 1 Refill(s), Pharmacy: [facility] #[id number] dicyclomine 2018-0 Yes 10 mg = 1 M emoria 10 mg oral 9-19 cap, PO, l capsule 20:46: QID-Before Herm sahri 00 Meals, as needed for abdominal pain, # 60 cap, 1 Refill(s), Pharmacy: [facility] #[id number] dicyclomine 2018-0 Yes 10 mg = 1 M emoria 10 mg oral 9-19 cap, PO, l capsule 20:46: QID-Before Herm shari 00 Meals, as needed for abdominal pain, # 60 cap, 1 Refill(s), Pharmacy: [facility] #[id number] dicyclomine 2018-0 Yes 10 mg = 1 M emoria 10 mg oral 9-19 cap, PO, l capsule 20:46: QID-Before Herm shari 00 Meals, as needed for abdominal pain, # 60 cap, 1 Refill(s), Pharmacy: [facility] #[id number] Xifaxan 550 2018-0 Yes 550 mg = 1 Memoria mg oral 9-17 tab, PO, l tablet 18:34: TID, # 42 [place] n 00 tab, 0 Refill(s), [id number] rifaximin 2018-0 Yes 550 mg = 1 Me moria 550 MG Oral 9-17 tab, PO, l Tablet 18:34: TID, # 42 [place] [XIFAXAN] 00 tab, 0 Refill(s), Pharmacy: [facility] #[id number] Xifaxan 550 2018-0 Yes 550 mg = 1 Memoria mg oral 9-17 tab, PO, l tablet 18:34: TID, # 42 [place] 00 tab, 0 Refill(s), Pharmacy: [facility] #[id number] rifaximin 2018-0 Yes 550 mg = 1 Me moria 550 MG Oral 9-17 tab, PO, l Tablet 18:34: TID, # 42 [place] [XIFAXAN] 00 tab, 0 Refill(s), Pharmacy: [facility] #[id number] Xifaxan 550 2018-0 Yes 550 mg = 1 Memoria mg oral 9-17 tab, PO, l tablet 18:34: TID, # 42 [place] 00 tab, 0 Refill(s), Pharmacy: [facility] #[id number] rifaximin 2018-0 Yes 550 mg = 1 Me moria 550 MG Oral 9-17 tab, PO, l Tablet 18:34: TID, # 42 [place] [XIFAXAN] 00 tab, 0 Refill(s), Pharmacy: [facility] #[id number] Xifaxan 550 2018-0 Yes 550 mg = 1 Memoria mg oral 9-17 tab, PO, l tablet 18:34: TID, # 42 [place] 00 tab, 0 Refill(s), Pharmacy: [facility] #[id number] rifaximin 2018-0 Yes 550 mg = 1 Me moria 550 MG Oral 9-17 tab, PO, l Tablet 18:34: TID, # 42 [place] [XIFAXAN] 00 tab, 0 Refill(s), Pharmacy: [facility] #[id number] Xifaxan 550 2018-0 Yes 550 mg = 1 Memoria mg oral 9-17 tab, PO, l tablet 18:34: TID, # 42 [place] 00 tab, 0 Refill(s), Pharmacy: [facility] #[id number] rifaximin 2018-0 Yes 550 mg = 1 Me moria 550 MG Oral 9-17 tab, PO, l Tablet 18:34: TID, # 42 [place] [XIFAXAN] 00 tab, 0 Refill(s), Pharmacy: [facility] #[id number] rifaximin 2018-0 Yes 550 mg = 1 Me moria 550 MG Oral 9-17 tab, PO, l Tablet 18:34: TID, # 42 [place] [XIFAXAN] 00 tab, 0 Refill(s), Pharmacy: [facility] #[id number] Xifaxan 550 2018-0 Yes 550 mg = 1 Memoria mg oral 9-17 tab, PO, l tablet 18:34: TID, # 42 [place] 00 tab, 0 Refill(s), Pharmacy: [facility] #[id number] rifaximin 2018-0 Yes 550 mg = 1 Me moria 550 MG Oral 9-17 tab, PO, l Tablet 18:34: TID, # 42 [place] [XIFAXAN] 00 tab, 0 Refill(s), Pharmacy: [facility] #[id number] Xifaxan 550 2018-0 Yes 550 mg = 1 Memoria mg oral 9-17 tab, PO, l tablet 18:34: TID, # 42 [place] 00 tab, 0 Refill(s), Pharmacy: [facility] #[id number] rifaximin 2018-0 Yes 550 mg = 1 Me moria 550 MG Oral 9-17 tab, PO, l Tablet 18:34: TID, # 42 [place] [XIFAXAN] 00 tab, 0 Refill(s), Pharmacy: [facility] #[id number] Xifaxan 550 2018-0 Yes 550 mg = 1 Memoria mg oral 9-17 tab, PO, l tablet 18:34: TID, # 42 [place] 00 tab, 0 Refill(s), Pharmacy: [facility] #[id number] rifaximin 2018-0 Yes 550 mg = 1 Me moria 550 MG Oral 9-17 tab, PO, l Tablet 18:34: TID, # 42 [place] [XIFAXAN] 00 tab, 0 Refill(s), [facility]: [id number] Xifaxan 550 2018-0 Yes 550 mg = 1 Memoria mg oral 9-17 tab, PO, l tablet 18:34: TID, # 42 [place] 00 tab, 0 Refill(s), Pharmacy: [facility] #[id number] rifaximin 2018-0 Yes 550 mg = 1 Me moria 550 MG Oral 9-17 tab, PO, l Tablet 18:34: TID, # 42 [place] [XIFAXAN] 00 tab, 0 Refill(s), Pharmacy: [facility] #[id number] Xifaxan 550 2018-0 Yes 550 mg = 1 Memoria mg oral 9-17 tab, PO, l tablet 18:34: TID, # 42 [place] 00 tab, 0 Refill(s), Pharmacy: [facility] #[id number] rifaximin 2018-0 Yes 550 mg = 1 Me moria 550 MG Oral 9-17 tab, PO, l Tablet 18:34: TID, # 42 [place] [XIFAXAN] 00 tab, 0 Refill(s), Pharmacy: [facility] #[id number] Xifaxan 550 2018-0 Yes 550 mg = 1 Memoria mg oral 9-17 tab, PO, l tablet 18:34: TID, # 42 [place] 00 tab, 0 Refill(s), Pharmacy: [facility] #[id number] rifaximin 2018-0 Yes 550 mg = 1 Me moria 550 MG Oral 9-17 tab, PO, l Tablet 18:34: TID, # 42 [place] [XIFAXAN] 00 tab, 0 Refill(s), Pharmacy: [facility] #[id number] Xifaxan 550 2018-0 Yes 550 mg = 1 Memoria mg oral 9-17 tab, PO, l tablet 18:34: TID, # 42 [place] 00 tab, 0 Refill(s), Pharmacy: [facility] #[id number] rifaximin 2018-0 Yes 550 mg = 1 Me moria 550 MG Oral 9-17 tab, PO, l Tablet 18:34: TID, # 42 [place] [XIFAXAN] 00 tab, 0 Refill(s), Pharmacy: [facility] #[id number] Xifaxan 550 Yes 550 mg = 1 Memoria mg oral 9-17 tab, PO, l tablet 18:34: TID, # 42 [place] 00 tab, 0 Refill(s), Pharmacy: [facility][id number] Tyner Yes 1 tab, PO, Memori a 7.5/325 [...] 0 l oral tablet 18:06: Refill(s) H Tyner Yes 1 tab, PO, Memori a 7.5/325 5-08 Q6H, 0 l oral tablet 18:06: Refill(s) H [place] 2017-0 Yes 1 tab, PO, Memori a 7.5/325 5-08 Q6H, 0 l oral tablet 18:06: Refill(s) H [place] 2017-0 Yes 1 tab, PO, Memori a 7.5/325 5-08 Q6H, 0 l oral tablet 18:06: Refill(s) H [place] 2017-0 Yes 1 tab, PO, Memori a [...] 75 mg 00 bedtime. Medical capsule Branch [facility] 2012-07 Yes 1{tbl} Univ ers en-codeine 2-12 ity of (TYLENOL 16:43: [place] #3) 300-30 26 Medical mg tablet 1 Branch [facility] 2012-07 Yes 1{tbl} Univ ers en-codeine 2-12 ity of (TYLENOL 16:43: [place] #3) 300-30 26 Medical mg tablet 1 Branch [facility] 2012-07 Yes 1{tbl} Univ ers en-codeine 2-12 ity of (TYLENOL 16:43: [place] #3) 300-30 26 Medical mg tablet 1 Branch [facility] 2012-07 Yes 1{tbl} Univ ers en-codeine 2-12 ity of (TYLENOL 16:43: [place] #3) 300-30 26 Medical mg tablet 1 Branch [facility] 2012-07 Yes 1{tbl} Univ ers en-codeine 2-12 ity of (TYLENOL 16:43: [place] #3) 300-30 26 Medical mg tablet 1 Branch [facility] 2012-07 Yes 1{tbl} Univ ers en-codeine 2-12 ity of (TYLENOL 16:43: [place] #3) 300-30 26 Medical mg tablet 1 Branch Tab acetaminoph 2012-07 Yes 1{tbl} Univ ers en-codeine 2-12 ity of (TYLENOL 16:43: [place] #3) 300-30 26 Medical mg tablet 1 Branch Tab acetaminoph 2012-07 Yes [id number] 1{tbl} Take 1 Tab Univers en-codeine 2-02 by mouth ity o f (TYLENOL-CO 00:00: every 4 Jarod as [place] #3) 00 (four) Medical 300-30 mg hours as Branch tablet needed for Pain. acetaminoph 2012-07 Yes [id number] 1{tbl} Take 1 Tab Univers en-codeine 2-02 by mouth ity o f (TYLENOL-CO 00:00: every 4 Jarod as [place] #3) 00 (four) Medical 300-30 mg hours as Branch tablet needed for Pain. acetaminoph 2012-07 Yes [id number] 1{tbl} Take 1 Tab Univers en-codeine 2-02 by mouth ity o f (TYLENOL-CO 00:00: every 4 [place] as [place] #3) 00 (four) Medical 300-30 mg hours as Branch tablet needed for Pain. acetaminoph 2012-07 Yes [id number] 1{tbl} Take 1 Tab Univers en-codeine 2-02 by mouth ity o f (TYLENOL-CO 00:00: every 4 Jar[place] as [place] #3) 00 (four) Medical 300-30 mg hours as Branch tablet needed for Pain. acetaminoph 2012-07 Yes [id number] 1{tbl} Take 1 Tab Univers en-codeine 2-02 by mouth ity o f (TYLENOL-CO 00:00: every 4 Jar[place] as [place] #3) 00 (four) Medical 300-30 mg hours as Branch tablet needed for Pain. acetaminoph 2012-07 Yes [id number] 1{tbl} Take 1 Tab Univers en-codeine 2-02 by mouth ity o f (TYLENOL-CO 00:00: every 4 Jar[place] as DEINE #3) 00 (four) Medical 300-30 mg hours as Branch tablet needed for Pain. acetaminoph 2012-07 Yes [id number] 1{tbl} Take 1 Tab Univers en-codeine 2-02 [...] ity of mg tablet 00:00: every 6 [place] 00 (six) Medical hours as Branch needed for Pain. traMADOL 2013-0 Yes 50mg Take 1 Tab Uni vers (ULTRAM) 50 5-21 by mouth ity of mg tablet 00:00: every 6 [place] 00 (six) Medical hours as Branch needed for Pain. traMADOL 2013-0 Yes 50mg Take 1 Tab Uni vers (ULTRAM) 50 5-21 by mouth ity of mg tablet 00:00: every 6 [place] 00 (six) Medical hours as Branch needed for Pain. traMADOL 2013-0 Yes 50mg Take 1 Tab Uni vers (ULTRAM) 50 5-21 by mouth ity of mg tablet 00:00: every 6 [place] 00 (six) Medical hours as Branch needed for Pain. traMADOL 2013-0 Yes 50mg Take 1 Tab Uni vers (ULTRAM) 50 5-21 by mouth ity of mg tablet 00:00: every 6 [place] 00 (six) Medical hours as Branch needed for Pain. traMADOL 2013-0 Yes 50mg Take 1 Tab Uni vers (ULTRAM) 50 5-21 by mouth ity of mg tablet 00:00: every 6 [place] 00 (six) Medical hours as Branch needed [...] Immunizations Ordered Filled Immunization Date Status Comments [facility] Immunization Name Name hepatitis B adult 2016-10-31 Completed Memoria l vaccine 16:08:00 [facility] hepatitis B adult 2016-10-31 Completed Memoria l vaccine 16:08:00 [place] hepatitis B adult 2016-10-31 Completed Memoria l vaccine 16:08:00 [place] hepatitis B adult 2016-10-31 Completed Memoria l vaccine 16:08:00 [facility] hepatitis B adult 2016-10-31 Completed Memoria l vaccine 16:08:00 [place] hepatitis B adult 2016-10-31 Completed Memoria l vaccine 16:08:00 [facility] hepatitis B adult 2016-10-31 Completed Memoria l vaccine 16:08:00 [place] hepatitis B adult 2016-10-31 Completed Memoria l vaccine 16:08:00 [facility] hepatitis B adult 2016-10-31 Completed Memoria l vaccine 16:08:00 [place] hepatitis B adult 2016-10-31 Completed Memoria l vaccine 16:08:00 [place] hepatitis B adult 2016-10-31 Completed Memoria l vaccine 16:08:00 [facility] hepatitis B adult 2016-04-11 Completed Memoria l vaccine 15:46:00 [place] hepatitis B adult 2016-04-11 Completed Memoria l vaccine 15:46:00 [place] hepatitis B adult 2016-04-11 Completed Memoria l vaccine 15:46:00 [facility] hepatitis B adult 2016-04-11 Completed Memoria l vaccine 15:46:00 [facility] hepatitis B adult 2016-04-11 Completed Memoria l vaccine 15:46:00 [place] hepatitis B adult 2016-04-11 Completed Memoria l vaccine 15:46:00 [place] hepatitis B adult 2016-04-11 Completed Memoria l vaccine 15:46:00 [facility] hepatitis B adult 2016-04-11 Completed Memoria l vaccine 15:46:00 [place] hepatitis B adult 2016-04-11 Completed Memoria l vaccine 15:46:00 [facility] hepatitis B adult 2016-04-11 Completed Memoria l vaccine 15:46:00 [place] hepatitis B adult 2016-04-11 Completed Memoria l vaccine 15:46:00 [facility] hepatitis B adult 2016-03-28 Completed Memoria l vaccine 16:37:00 [place] hepatitis B adult 2016-03-28 Completed Memoria l vaccine 16:37:00 [place] hepatitis B adult 2016-03-28 Completed Memoria l vaccine 16:37:00 [place] hepatitis B adult 2016-03-28 Completed Memoria l vaccine 16:37:00 [place] hepatitis B adult 2016-03-28 Completed Memoria l vaccine 16:37:00 [facility] hepatitis B adult 2016-03-28 Completed Memoria l vaccine 16:37:00 [place] hepatitis B adult 2016-03-28 Completed Memoria l vaccine 16:37:00 [place] hepatitis B adult 2016-03-28 Completed Memoria l vaccine 16:37:00 [place] hepatitis B adult 2016-03-28 Completed Memoria l vaccine 16:37:00 [place] hepatitis B adult 2016-03-28 Completed Memoria l vaccine 16:37:00 [place] hepatitis B adult 2016-03-28 Completed Memoria l vaccine 16:37:00 [facility] hepatitis B adult Unknown Completed Memoria l vaccine [place] hepatitis B adult Unknown Completed Memoria l vaccine [facility] hepatitis B adult Unknown Completed Memoria l vaccine [facility] hepatitis B adult Unknown Completed Memoria l vaccine [facility] hepatitis B adult Unknown Completed Memoria l vaccine [facility] hepatitis B adult Unknown Completed Memoria l vaccine [facility] Vital Signs Vital Name Observation Time Observation Value Comments Source Systolic blood 2022-08-17 04:30:00 144 [facility] Diastolic blood 2022-08-17 04:30:00 96 mm[Hg] Unive rsity of pressure [place] [facility] Heart rate 2022-08-17 04:30:00 94 /min Universi ty of [place] [facility] Respiratory rate 2022-08-17 04:30:00 13 /min Univ ersity of [place] [facility] Oxygen saturation in 2022-08-17 04:30:00 100 /min University of Arterial blood by [place] [employer] sydney Pulse oximetry Branch Body temperature 2022-08-17 03:35:00 36.17 Pili Univ ersity of [place] [facility] Body height 2022-08-17 03:35:00 190.5 cm Universi ty of [place] [facility] Body weight 2022-08-17 03:35:00 104.327 kg [facility]i ty [facility] [place] [facility] BMI 2022-08-17 03:35:00 28.75 kg/m2 Universi ty [facility] [place] [facility] Systolic blood 2021-03-11 21:58:00 145 mm[Hg] Univer sity of pressure [place] [facility] Diastolic blood 2021-03-11 21:58:00 86 mm[Hg] Unive rsity of pressure [place] [facility] Heart rate 2021-03-11 21:58:00 80 /min Universi ty of [place] [facility] Body temperature 2021-03-11 21:58:00 37.39 Pili Univ ersity of [place] [facility] Respiratory rate 2021-03-11 21:58:00 20 /min Univ ersity of [place] [facility] Body height 2021-03-11 21:58:00 190.5 cm [facility]i [facility] [place] [facility] Body weight 2021-03-11 21:58:00 104.327 kg [facility] [place] [facility] BMI 2021-03-11 21:58:00 28.75 kg/m2 [facility]i ty [facility] [place] [facility] Oxygen saturation in 2021-03-11 21:58:00 96 /min University of Arterial blood by [place] [employer] sydney Pulse oximetry Branch Weight 2018-04-02 18:18:00 Yamileth Wall BMI Calculated 2018-04-02 18:18:00 Chichi Menjivar Height 2018-04-02 18:18:00 187.96 cm Yamileth Wall Systolic (mm Hg) 2018-04-02 18:18:00 Jan Wall Diastolic (mm Hg) 2018-04-02 18:18:00 Mem orial [place] Heart Rate 2018-04-02 18:18:00 Yamileth Wall Height 2016-05-16 14:12:00 187.96 cm Yamileth Wall Weight 2016-05-16 14:12:00 Yamileth Wall BMI Calculated 2016-05-16 14:12:00 Chichi Finleyann Respitory Rate 2016-05-16 14:12:[address] [facility] Heart Rate 2016-05-16 14:12:00 Yamileth Newberryann Systolic (mm Hg) 2016-05-16 14:12:00 Jan Newberryann Diastolic (mm Hg) 2016-05-16 14:12:[address] [facility] orial [place] Procedures Procedure Date / Time Performing Clinician Source Performed AUTHORIZATION FOR 2023-03-23 05:01:00 Doctor Unassigned, No [facility] RELEASE OF [facility] ASSIGNMENT OF BENEFITS 2022-12-20 21:03:44 Doctor Unassigned, No [facility] AUTHORIZATION FOR 2022-10-11 05:01:00 Doctor Unassigned, No [facility] RELEASE OF [facility] URINE DRUG (IMMUNOASSAY) 2022-08-17 04:44:00 Lesly Rodriguez [facility] DRUG [facility] SCREEN URINALYSIS 2022-08-17 04:44:00 Lesly Rodriguez Precious [facility] COMP. METABOLIC PANEL 2022-08-17 03:59:00 Lesly Rodriguez [facility] ([id number]) [facility] ETHANOL 2022-08-17 03:59:00 Lesly Rodriguez Precious [facility] CBC WITH DIFF 2022-08-17 03:59:00 Lesly Rodriguez [facility] CONSENT/REFUSAL FOR 2021-03-11 05:01:00 [facility]igned[facility] Colonoscopy 2017-01-24 05:00:00 Yamileth coats Cranioplasty [facility] BKA - Below knee Yamileth Newberryan n amputation, Encounters Start End Encounter Admission Attending Care Care Encounter Source Date/Time Date/Time Type Type Clinicians Facility Department ID 2023-03-02 [facility] [id number] Common 08:07:00 [id number] [facility] 2022-11-23 Outpatient [facility] [id number] Common 14:57:04 [id number] [facility] 2023-03-23 2023-03-23 Orders Doctor KLEBER [id number] Univers 00:00:00 00:00:00 Only Unassigned, ANGEL [id number] ity of [facility] [id number] Jarod as [phone] [address] 2022-12-20 2022-12-20 Outpatient R RADIOLOGY [facility] [id number] Univers 16:04:44 23:59:00 ity of [facility] 2022-12-20 2022-12-20 Hospital Radiology [facility] [id number] Univers 16:04:44 23:59:00 Encounter FELICIA [id number] ity [facility] [place] [id number] [id number] [facility] 804 Branch 2022-12-20 2022-12-20 Orders Doctor KLEBER [id number] Univers 00:00:00 00:00:00 Only Unassigned, ANGEL [id number] ity of [facility] [id number] Jarod as [id number] [facility] [address] [place] 2022-10-11 2022-10-11 Orders Doctor KLEBER [id number] Univers 00:00:00 00:00:00 Only Unassigned, ANGEL [id number] ity of [facility] [id number] Jarod as [id number] [facility] [address] 2022-08-16 2022-08-17 Emergency X Lesly RODRIGUEZ [facility] ERT [id number] Univers 21:31:00 00:05:00 ity of [facility] 2022-08-16 2022-08-17 Emergency Lesly Rodriguez [facility] [id number] Univers 21:31:00 00:05:00 Precious FELICIA [id number] i [facility] [id number] [facility] [id number] [facility] [address] 2022-04-29 2022-04-29 Ambulatory nullFlavo MNA [id number] Memoria 19:30:00 19:30:00 Pre-Reg r Neurology 11 l [place] 2022-04-29 2022-04-29 Ambulatory nullFlavo MNA [id number] Memoria 19:30:00 19:30:00 Pre-Reg r Neurology 12 l [place] 2022-04-29 2022-04-29 Ambulatory nullFlavo MNA [id number] Memoria 19:30:00 19:30:00 Pre-Reg r Neurology 11 l [place] Wall 2022-04-29 2022-04-29 Ambulatory nullFlavo MNA [id number] Memoria 19:30:00 19:30:00 Pre-Reg r Neurology 12 l [place] Wall 2022-04-29 2022-04-29 Ambulatory nullFlavo MNA [id number] Memoria 19:00:00 19:00:00 Pre-Reg r Neurology 10 l [place] Wall 2022-04-29 2022-04-29 Ambulatory nullFlavo MNA [id number] Memoria 19:00:00 19:00:00 Pre-Reg r Neurology 10 l Mary Alice Wall 2022-04-29 2022-04-29 Outpatient MHIE MHIE [id number] Memoria 14:30:00 14:30:00 12 aline Wall 2022-04-29 2022-04-29 Outpatient MHIE MHIE [id number] Memoria 14:30:00 14:30:00 11 aline Wall 2022-04-29 2022-04-29 Outpatient LILI BonnerSCHER MHMISCHER [id number] 14:30:00 14:30:00 Bernardo 12 Yevgeniy 2022-04-29 2022-04-29 Outpatient KARMA BonnerMISCHER MHMISCHER [id number] 14:30:00 14:30:00 Bernardo 11 Yevgeniy 2022-04-29 2022-04-29 Outpatient MHIE MHIE [id number] Memoria 14:00:00 14:00:00 10 aline Wall 2022-04-29 2022-04-[address] [facility] [id number] 14:00:00 14:00:00 Bernardo Vuong 2021-03-11 2021-03-11 Outpatient Leo UMANA, [facility] [id number] Univers 15:30:00 15:30:00 JOSE MARTIN ity of [facility] 2021-03-11 2021-03-11 Nurse Therapy, Adc Covid Infusion [facility] [id number] Univers 14:19:37 15:19:37 Visit Jose Martin Umana 350.1.13.10 ity of [place] [facility] [id number] [place] [id number] [place] 2021-03-11 2021-03-11 Orders Doctor KLEBER [id number] Univers 00:00:00 00:00:00 Only Unassigned, ANGEL 350.1.13.10 ity of [facility] 4.2.7.2.686 Jarod as [id number] [place] [id number] Branch 2020-05-13 2020-05-13 Emergency X [facility] ERT [id number] Univers 19:41:00 19:41:00 ity of [facility] 2018-04-04 2018-04-06 Phone nullFlavo [facility] [id number] Memoria 20:45:00 04:59:59 Message r Gastroenter 06 l ology [facility] 2018-04-04 2018-04-06 Phone nullFlavo [facility] [id number] Memoria 20:45:00 04:59:59 Message r Gastroenter 06 l ology [facility] 2018-04-04 2018-04-05 Outpatient MG [facility] [id number] 15:45:00 23:59:59 06 2018-04-02 2018-04-03 [place] [id number] Memoria 18:15:00 04:59:59 r Gastroenter 09 l ology [facility] [place] 2018-04-02 2018-04-03 Outpatient nullFlavo [facility] [id number] Memoria 18:15:00 04:59:59 r Gastroenter 09 l ology [place] 2018-04-02 2018-04-02 [id number] 13:15:00 23:59:59 Gino Lezama 09 2018-04-02 2018-04-02 Outpatient MHIE MHIE [id number] Memoria 13:15:00 13:15:00 09 aline Wall 2017-02-20 2017-02-20 Outpatient MHIE MHIE [id number] Memoria 13:15:00 13:15:00 08 aline Wall 2017-02-20 2017-02-20 Outpatient MHIE MHIE [id number] Memoria 13:15:00 13:15:00 08 aline Wall 2017-02-09 2017-02-09 Outpatient MHIE MHIE [id number] Memoria 11:15:00 11:15:00 07 aline Wall 2017-02-09 2017-02-09 Outpatient MHIE MHIE [id number] Memoria 11:15:00 11:15:00 07 aline Wall 2016-11-21 2016-11-21 Outpatient MHIE MHIE [id number] Memoria 13:00:00 13:00:00 05 aline Wall 2016-11-21 2016-11-21 Outpatient MHIE MHIE [id number] Memoria 13:00:00 13:00:00 05 aline Wall 2016-10-31 2016-10-31 Outpatient MHIE MHIE [id number] Memoria 10:00:00 10:00:00 04 aline Wall 2016-10-31 2016-10-31 Outpatient MHIE MHIE [id number] Memoria 10:00:00 10:00:00 04 aline Wall 2016-07-27 2016-07-27 Outpatient MHIE MHIE [id number] Memoria 15:30:00 15:30:00 03 aline Wall 2016-07-27 2016-07-27 Outpatient MHIE MHIE [id number] Memoria 15:30:00 15:30:00 03 aline Wall 2016-05-24 2016-05-25 Outpatient nullFlavo [facility] [id number] Memoria 16:03:00 05:59:00 r [facility] 02 aline Wall 2016-05-24 2016-05-25 Outpatient nullFlavo [facility] [id number] Memoria 16:03:00 05:59:00 r [facility] 02 [facility] 2016-05-24 2016-05-24 Outpatient GEN [place] [facility] [id number] 10:03:00 23:59:00 May[facility] 02 [facility] 2016-05-16 2016-05-17 Outpatient nullFlavo [facility] [id number] Memoria 13:31:00 04:59:00 r [facility] 01 [facility] 2016-05-16 2016-05-17 Outpatient nullFlavo [facility] [id number] Memoria 13:31:00 04:59:00 r [facility] 01 [facility] 2016-05-16 2016-05-16 Outpatient GEN [place] [facility] [id number] 08:31:00 23:59:[address] [facility] 2016-04-11 2016-04-11 Outpatient MHIE MHIE [id number] Memoria 09:00:00 09:00:00 02 [facility] 2016-04-11 2016-04-11 Outpatient MHIE MHIE [id number] Memoria 09:00:00 09:00:00 02 aline Wall 2016-03-28 2016-03-28 Outpatient MHIE MHIE [id number] Memoria 14:15:00 14:15:00 01 aline Wall 2016-03-28 2016-03-28 Outpatient MHIE MHIE [id number] Memoria 14:15:00 14:15:00 01 aline Wall Results Test Description Test Time Test Comments Results Result Sour e Comments ETHANOL 2022-08-17 ALCOHOL<10mg/dL0 [facility] ty of 04:47:48 08/16/2022 10:47 [facility] PM [facility] LABORATORY<10 [id number] Toxic>100 Depression of [employer]>400 Fatalities Reported COMP. METABOLIC PANEL (21095) 2022-08-17 04:44:37 Test Item Value Reference Range Interpretation Comme nts NA (test code = 8608114402) 136 mmol/L 135-145 K (test code = 5114346783) 3.6 mmol/L 3.5-5.0 CL (test code = 1946471402) 100 mmol/L 98-108 CO2 TOTAL (test code = 2520086422) 30 mmol/L 23-31 AGAP (test code = 5422044401) 6 2-16 BUN (test code = 2227638775) 9 mg/dL 7-23 GLUCOSE (test code = 3887177136) 95 mg/dL 70-110 CREATININE (test code = 0.88 mg/dL 0.60-1.25 6557067132) TOTAL BILI (test code = 0.6 mg/dL 0.1-1.0 9874230228) CALCIUM (test code = 9535808089) 8.5 mg/dL 8.6-10.6 L T PROTEIN (test code = 6876414301) 6.9 g/dL 6.3-8.2 ALBUMIN (test code = 5331523715) 4.4 g/dL 3.5-5.0 ALK PHOS (test code = 6028798227) 58 U/L 34-122 ALTv (test code = 1742-6) 15 U/L 5-50 AST(SGOT) (test code = 8860094943) 23 U/L 13-40 eGFR (test code = 9216611754) 89.9 mL/min/1.73m2 DYLAN (test code = DYLAN) [...] tests). Lab Interpretation (test code = Abnormal 41932-6) [facility] WITH [id number] 04:37:20 Test Item Value Reference Range Interpretation [...] RDW-SD (test code = 45.0 fL 38.5-51.6 69614-8) RDW-CV (test code = 13.0 % 12.1-15.4 788-0) PLT (test code = 205 See_Comment [Automated 777-3) message] The sy stem which generated this result transmitted reference range : 150 - 328 10*3/ ?L. The reference r anabella was not used to interpret this result as normal/abnormal . MPV (test code = 8.8 fL 9.8-13.0 L 23553-0) NRBC/100 WBC (test 0.0 See_Comment [Automat ed code = 4653665614) message] The system which generated this result transmitted reference range : 0.0 - 10.0 /100 WBCs. The refer ence range was not u sed to interpret th is result as normal/abnormal . NRBC x10^3 (test code See_Comment [Auto mated = 5339819737) message] The s ystem which generated this result transmitted reference range : 10*3/?L. The reference range was not used to interpret this result as normal/abnormal . GRAN MAT (NEUT) % 66.8 % (test code = 770-8) IMM GRAN % (test code 0.30 % = 1583102904) LYMPH % (test code = 26.6 % 736-9) MONO % (test code = 5.7 % 5905-5) EOS % (test code = 0.3 % 713-8) BASO % (test code = 0.3 % 706-2) GRAN MAT x10^3(ANC) 6.18 10*3/uL 1.99-6.95 (test code = 4741417483) IMM GRAN x10^3 (test 0.03 10*3/uL 0.00-0.06 code = 3766009932) LYMPH x10^3 (test code 2.47 10*3/uL 1.09-3.23 = 731-0) MONO x10^3 (test code 0.53 10*3/uL 0.36-1.02 = 742-7) EOS x10^3 (test code = 0.03 10*3/uL 0.06-0.53 L 711-2) BASO x10^3 (test code 0.03 10*3/uL 0.01-0.09 = 704-7) Lab Interpretation Abnormal (test code = 69076-5) [facility]"
[2023-04-19 09:15] LABS: Absolute Lymphocytes (CBC) 1.2 K/uL (0.7-4.9); Hematocrit 43.1 % (39.6-49.0); Lymphocytes % 25.2 % (15.3-44.8); MCV 97.2 fL (80-100); MPV 6.1 fL (7.6-11.3); Platelets 251 thou/uL (152-406); RBC Red Blood Cell Count 4.43 M/uL (4.33-5.43)
[2023-04-19] MEDS ORDERED: NA CHLORIDE 0.9% 500 ML ONE (09:24)
[2023-04-19] MEDS ORDERED: ONDANSETRON 4 MG/2 ML VIAL ONE (09:24)
[2023-04-19] MEDS ORDERED: KETOROLAC 30 MG/ML INJ ONE (09:24)
--- NOTE | 2023-04-19 09:27 | RAD REPORT ---
EXAM DESCRIPTION: RAD - Chest Pa And Lat (2 Views) - 04/19/2023 9:16 am CLINICAL HISTORY: Chest pain;Congestion;Cough Chest pain. COMPARISON: Chest Single View dated 12/17/2022; Chest Single View dated 09/09/2022 TECHNIQUE: PA and lateral views of the chest were obtained. FINDINGS: The lungs are hyperexpanded compatible with COPD. The heart is upper limit of normal in si ze. No fracture or aggressive bony process. IMPRESSION: COPD without acute process identified. The USPSTF recommends annual screening for lung cancer with low-dose CT (LDCT) in adults aged 50 to 80 years who have a 20 pack-year smoking history and currently smoke or have quit within the past 15 years.
[2023-04-19 09:32] LABS: Potassium 3.8 mEq/L (3.5-5.1); Troponin High Sensitivity 4.7 pg/mL (<58.9)
--- NOTE | 2023-04-19 09:50 | ER ---
Nurse's Notes [facility] Name: Gregg Nair Age: 57 yrs Sex: Male : 1965 Arrival Date: 04/19/2023 Time: 08:08 Bed 19 Private MD: Diagnosis: Acute upper respiratory infection, unspecified;Nausea;Cough Presentation: 04/19 08:27 Chief complaint: Patient states: was diagnosed with URI last week, still feels bad, iw cough, chill, feels terrible. Coronavirus screen: Client presents with at least one sign or symptom that may indicate coronavirus-19. Ebola Screen: Patient negative for fever greater than or equal to 101.5 degrees Fahrenheit, and additional compatible Ebola Virus Disease symptoms Patient denies exposure to infectious person. Patient denies travel to an Ebola-affected area in the 21 days before illness onset. No symptoms or risks identified at this time. 08:27 Method Of Arrival: Ambulatory iw 08:28 Risk Assessment: Do you want to hurt yourself or someone else? Patient reports no iw desire to harm self or others. Onset of symptoms was April 11, 2023. 08:28 Acuity: BRIAN 3 iw 08:35 Initial Sepsis Screen: Does the patient meet any 2 criteria? No. Patient's initial aa5 sepsis screen is negative. Does the patient have a suspected source of infection? Yes:. Historical: - Allergies: 08:28 TB shots; iw 08:35 TB skin test; aa5 - Home Meds: 08:28 Irmo 7.5-325 mg Oral tab [Active]; iw - PMHx: 08:28 C7 FRACTURE; Chronic pain; Hypertensive disorder; TBI; iw - PSHx: 08:28 CHEST RECONSTRUCTION; Cholecystectomy; RIGHT BKA; right shoulder; SKULL RECONSTRUCTION; iw - Immunization history:: Adult Immunizations unknown. - Social history:: Smoking status: Patient reports the use of cigarette tobacco products. Screenin:35 [facility] ED Fall Risk Assessment (Adult) History of falling in the last 3 months, aa5 including since admission No falls in past 3 months (0 pts) Confusion or Disorientation No (0 pts) Intoxicated or Sedated No (0 pts) Impaired Gait No (0 pts) Mobility Assist Device Used No (0 pt) Altered Elimination No (0 pt) Score/Fall Risk Level 0 - 2 = Low Risk Oriented to surroundings, Maintained a safe environment, Educated pt \T\ family on fall prevention, incl call for assistance when getting out of bed. Abuse screen: Denies threats or abuse. Nutritional screening: No deficits noted. Tuberculosis screening: No symptoms or risk factors identified. Assessment: 08:35 General: Appears uncomfortable, Behavior is calm, cooperative, Reports feeling ill for aa5 > 3 days, fatigue for >3 days. Pain: Complains of pain in right lower quadrant and left lower quadrant Pain currently is 7 out of 10 on a pain scale. Quality of pain is described as aching, Pain began 2-3 days ago. Is intermittent. Neuro: Level of Consciousness is awake, alert, obeys commands, Oriented to person, place, time, situation. Cardiovascular: Heart tones S1 S2 present Rhythm is regular. Respiratory: Reports cough that is productive, Airway is patent Respiratory effort is even, unlabored, Respiratory pattern is regular, symmetrical, Breath sounds are clear bilaterally. GI: Abdomen is round non-distended, Bowel sounds present X 4 quads. Abd is soft and non tender X 4 quads. Reports diarrhea, nausea, vomiting. : Denies burning with urination, inability to void. EENT: No signs and/or symptoms were reported regarding the EENT system. Derm: Skin is pink, warm \T\ dry. Musculoskeletal: Range of motion: intact in all extremities. 10:15 Reassessment: Patient appears in no apparent distress at this time. Patient and/or hb family updated on plan of care and expected duration. Pain level reassessed. Patient is alert, oriented x 3, equal unlabored respirations, skin warm/dry/pink. Vital Signs: 08:27 BP 169 / 90; Pulse 60; Resp 18; Temp 97.9; Pulse Ox 98% on R/A; Weight 99.79 kg; Height iw 6 ft. 3 in. ; Pain 7/10; 09:30 BP 159 / 72; Pulse 53; Resp 17 S; Pulse Ox 96% on R/A; aa5 08:27 Body Mass Index 27.50 (99.79 kg, 190.5 cm) iw 08:27 Pain Scale: Adult iw ED Course: 08:17 Patient arrived in ED. mg5 08:18 Kishore De Leon DO is Attending Physician. ms3 08:28 Triage completed. iw 08:35 Patient has correct armband on for positive identification. Bed in low position. Call aa5 light in reach. Side rails up X 1. playground monitor on. Pulse ox on. NIBP on. 09:03 EKG done, by ED staff, reviewed by Kishore De Leon DO. em1 09:08 Initial lab(s) drawn, by me, sent to lab. Inserted saline lock: 20 gauge in right aa5 antecubital area, using aseptic technique. Blood collected. 09:18 Chest Pa And Lat (2 Views) XRAY In Process Unspecified. EDMS 09:26 Alondra Mae, RN is Primary Nurse. aa5 09:49 Sanket Monzon DO is Referral Physician. ms3 10:15 Arm band placed on. hb 10:33 No provider procedures requiring assistance completed. IV discontinued, intact, hb bleeding controlled, No redness/swelling at site. 10:33 Provided Education on: meds, follow up. hb Administered Medications: 09:23 Drug: Ketorolac IVP 10 mg 10 mg IVP once Route: IVP; Site: right antecubital; aa5 09:23 Drug: Ondansetron IVP 4 mg IVP once; over 2 minutes Route: IVP; Site: right antecubital;aa5 09:23 Drug: NS 0.9% IV 500 ml IV at bolus once Route: IV; Rate: bolus; Site: right aa5 antecubital; Medication: 09:38 VIS not applicable for this client. aa5 Outcome: 09:49 Discharge ordered by MD. ms3 10:33 Discharged to home ambulatory, hb 10:33 Condition: stable 10:33 Discharge instructions given to patient, Instructed on discharge instructions, follow up and referral plans. medication usage, Demonstrated understanding of instructions, follow-up care, medications, Prescriptions given X 1, 10:34 Patient left the ED. hb Signatures: Dispatcher [employer] EDMS Christine Crum RN RN iw Rojelio Sandoval em1 Alondra Mae, THEA SIDHU aa5 Chantel Sorto RN RN hb Kishore De Leon DO DO ms3 Raine Herrera mg5 Corrections: (The following items were deleted from the chart) 09:37 08:25 Pain: Complains of pain in right lower quadrant and left lower quadrant Pain aa5 currently is 7 out of 10 on a pain scale. Quality of pain is described as aching, Pain began 2-3 days ago. Is intermittent, 08:25 Neuro: Level of Consciousness is awake, alert, obeys commands, Oriented to aa5 person, place, time, situation, 08:25 Cardiovascular: Heart tones S1 S2 present Rhythm is regular aa 08:25 Respiratory: Reports cough that is productive, Airway is patent Respiratory aa5 effort is even, unlabored, Respiratory pattern is regular, symmetrical, Breath sounds are clear bilaterally. 08:25 GI: Abdomen is round non-distended, Bowel sounds present X 4 quads. Abd is soft aa5 and non tender X 4 quads. Reports diarrhea, nausea, vomiting, : : Denies burning with urination, inability to void, aa 08:25 EENT: No signs and/or symptoms were reported regarding the EENT system. :25 Derm: Skin is pink, warm \T\ dry. 08:25 Musculoskeletal: Range of motion: intact in all extremities, 08:25 General: Appears uncomfortable, Behavior is calm, cooperative, Reports feeling aa5 ill for > 3 days, fatigue for >3 days, aa5
--- NOTE | 2023-04-19 09:50 | EDPHYS ---
Physician Documentation [facility] Name: Gregg Nair Age: 57 yrs Sex: Male : 1965 Arrival Date: 04/19/2023 Time: 08:08 Bed 19 Private MD: ED Physician Kishore De Leon HPI: 04/19 09:02 This 57 yrs old Male presents to ER via Ambulatory with complaints of Doesn't Feel ms3 Right. 09:02 57-year-old male with past medical history of C7 fracture, chronic pain, hypertension, ms3 TBI presents for worsening URI symptoms. Patient endorses nausea, vomiting, diarrhea, fevers, chills, sweats, cough. Patient states his symptoms have been ongoing for 2 weeks. Patient states his discomfort is a 7/10. Patient denies any alleviating or inciting factors.. Historical: - Allergies: 08:28 TB shots; iw 08:35 TB skin test; aa5 - Home Meds: 08:28 [place] 7.5-325 mg Oral tab [Active]; iw - PMHx: 08:28 C7 FRACTURE; Chronic pain; Hypertensive disorder; TBI; iw - PSHx: 08:28 CHEST RECONSTRUCTION; Cholecystectomy; RIGHT BKA; right shoulder; SKULL RECONSTRUCTION; iw - Immunization history:: Adult Immunizations unknown. - Social history:: Smoking status: Patient reports the use of cigarette tobacco products. ROS: 09:02 Neck: Negative for injury, pain, and swelling, Abdomen/GI: Negative for abdominal pain, ms3 nausea, vomiting, diarrhea, and constipation, MS/Extremity: Negative for injury and deformity, Skin: Negative for injury, rash, and discoloration, 09:02 Constitutional: Positive for body aches, chills, Negative for fever, 09:02 Cardiovascular: Positive for chest pain, 09:02 Respiratory: Positive for cough, shortness of breath, 09:02 All other systems are negative, Exam: 09:02 Constitutional: This is a well developed, well nourished patient who is awake, alert, ms3 and in no acute distress. Head/Face: Normocephalic, atraumatic. Neck: Trachea midline, no cervical lymphadenopathy. Supple, full range of motion without nuchal rigidity, or vertebral point tenderness. No Meningismus. Chest/axilla: Normal chest wall appearance and motion. Nontender with no deformity. Cardiovascular: Regular rate and rhythm with a normal S1 and S2. No gallops, murmurs, or rubs. Normal PMI, no JVD. No pulse deficits. Respiratory: Lungs have equal breath sounds bilaterally, clear to auscultation and percussion. No rales, rhonchi or wheezes noted. No increased work of breathing, no retractions or nasal flaring. Abdomen/GI: Soft, non-tender, with normal bowel sounds. No distension or tympany. No guarding or rebound. No evidence of tenderness throughout. Skin: Warm, dry with normal turgor. Normal color with no rashes, no lesions, and no evidence of cellulitis. MS/ Extremity: Pulses equal, no cyanosis. Neurovascular intact. Full, normal range of motion. 09:02 ECG was reviewed by the Attending Physician. Vital Signs: 08:27 BP 169 / 90; Pulse 60; Resp 18; Temp 97.9; Pulse Ox 98% on R/A; Weight 99.79 kg; Height iw 6 ft. 3 in. ; Pain 7/10; 09:30 BP 159 / 72; Pulse 53; Resp 17 S; Pulse Ox 96% on R/A; aa5 08:27 Body Mass Index 27.50 (99.79 kg, 190.5 cm) iw 08:27 Pain Scale: Adult iw MDM: 08:49 Patient medically screened. ms3 09:02 Differential Diagnosis: Bronchitis Upper Respiratory Infection Viral Syndrome Pneumonia ms3 Other [place]. 09:17 Independent interpretation of the following test(s) in the Emergency Department X-Ray: ms3 My interpretation is Chest x-ray images reviewed by me do not reveal PNA. 09:54 Data reviewed: vital signs, nurses notes, lab test result(s), EKG, radiologic studies, ms3 plain films, and as a result, I will discharge patient. Consideration of Admission/Observation Escalation of care including admission/observation considered. CXR negative; O2 Saturations remained greater than 92%; Troponin negative. I considered the following discharge prescriptions or medication management in the emergency department Medications were administered in the Emergency Department. See MAR. Counseling: I had a detailed discussion with the patient and/or guardian regarding the historical points, exam findings, and any diagnostic results supporting the discharge/admit diagnosis, lab results, radiology results, the need for outpatient follow up, to return to the emergency department if symptoms worsen or persist or if there are any questions or concerns that arise at home. Special discussion: I discussed with the patient/guardian in detail that at this point there is no indication for admission to the hospital. It is understood, however, that if the symptoms persist or worsen the patient needs to return immediately for re-evaluation. ED course: Patient symptoms improved while in the emergency department. Patient given prescription for Zofran. Patient to follow-up with Dr. Monzon in 2 to 3 days for reevaluation. Patient understands and agrees with plan. All questions were answered. Return precautions discussed include worsening symptoms, or any other concerns.. 04/19 08:48 Order name: Basic Metabolic Panel; Complete Time: 09:32 ms3 04/19 08:48 Order name: CBC with Diff; Complete Time: 09:28 ms3 04/19 08:48 Order name: Troponin HS; Complete Time: 09:32 ms3 04/19 08:48 Order name: Chest Pa And Lat (2 Views) XRAY; Complete Time: 09:28 ms3 04/19 08:48 Order name: EKG; Complete Time: 08:49 ms3 04/19 08:48 Order name: Cardiac monitoring; Complete Time: 09:03 ms3 04/19 08:48 Order name: EKG - Nurse/Tech; Complete Time: 09:03 ms3 04/19 08:48 Order name: IV Saline Lock; Complete Time: 09:09 ms3 04/19 08:48 Order name: Labs collected and sent; Complete Time: 09:09 ms3 04/19 08:48 Order name: O2 Per Protocol; Complete Time: 09:09 ms3 04/19 08:48 Order name: O2 Sat Monitoring; Complete Time: 09:09 ms3 EC:02 Rate is 60 beats/min. Rhythm is regular. QRS [place] is Normal. NH interval is normal. QRS ms3 interval is normal. Clinical impression: Normal ECG. Interpreted by me. Reviewed by me. Administered Medications: 09:23 Drug: Ketorolac IVP 10 mg 10 mg IVP once Route: IVP; Site: right antecubital; aa5 09:23 Drug: Ondansetron IVP 4 mg IVP once; over 2 minutes Route: IVP; Site: right antecubital;aa5 09:23 Drug: NS 0.9% IV 500 ml IV at bolus once Route: IV; Rate: bolus; Site: right aa5 antecubital; Disposition Summary: 04/19/23 09:49 Discharge Ordered Notes: Location: Home ms3 Condition: Stable ms3 Diagnosis - Acute upper respiratory infection, unspecified ms3 - Nausea ms3 - Cough ms3 Followup: ms3 - With: Sanket Monzon DO - When: 2 - 3 days - Reason: Recheck today's complaints Discharge Instructions: - Discharge Summary Sheet ms3 - Nausea, Adult ms3 - Upper Respiratory Infection, Adult ms3 - Cough, Adult ms3 Forms: - Work release form iw - Medication Reconciliation Form ms3 - Thank You Letter ms3 - Antibiotic Education ms3 - Prescription Opioid Use ms3 - Patient Portal Instructions ms3 - Leadership Thank You Letter ms3 Prescriptions: - ondansetron 4 mg Oral Tablet,disintegrating - take 1 tablet ORAL route every 8 hours; 15 tablet; Refills: 0, Product ms3 Selection Permitted Signatures: Dispatcher [employer] Christine Segundo RN RN iw Alondra Mae RN RN aa5 Kishore De Leon DO DO ms3
[2023-04-19 10:45] VITALS: TEMP 97.9
[2023-04-19 11:03] VITALS: BP 159/72; O2SAT 96
--- NOTE | 2023-04-20 17:01 | EKG ---
Test Date: 2023-04-19 Test Time: 08:59:34 [employer] Director: FRANCA MEASUREMENT RESULTS: Intervals: Rate: 60 SD: 154 QRSD: 74 QT: 410 QTc: 410 [place]: P: 54 SD: 154 QRS: 18 T: 29 INTERPRETIVE STATEMENTS: Normal sinus rhythm Normal ECG Compared to ECG 12/17/2022 12:13:15 No significant changes Electronically Signed On 04-20-23 16:56:58 CDT by Olivier Dalal
== END 2023-04-19 10:34 | disposition home or self-care (01) ==
LOC: ER 08:08
DX: J06.9 Acute upper respiratory infection, unspecified (principal); R11.0 Nausea; I10 Essential (primary) hypertension; Z87.820 Personal history of traumatic brain injury; Z89.511 Acquired absence of right leg below knee; Z88.8 Allergy status to other drugs, medicaments and biological substances; Z72.0 Tobacco use
CPT/HCPCS: 85025; 80048; 36415; 84484; 71046; J2405; J7040; 93005; 96374; 96375; 99285

== ENCOUNTER 2023-05-12 10:44 | Emergency (ER) | payer OTHER ==
--- OUTSIDE RECORDS SUMMARY | 2023-05-12 10:49 | XMS REPORT | Continuity of Care Document ---
:1965 Author Organization [facility] t Address [address] [place] [address] Care Team Providers Name Role Phone Albert Denton Primary Care Physician Doctor Unassigned, [place] Attending Clinician Unavailable RADIOLOGY Attending Clinician Unavailable [...] Number Effective Date Expiration Date Clifford POZO [id number] 2016 00:00:00 Problems Condition Condition Condition Status [...] different from the original. 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 Active [...] 05/27/2016 [facility] Chronic Chronic Problem Active 2016-05-27 Md ryan hepatitis hepatitis 02:02:31 l C C [...] (situation ) ) Active Problem 05/01/2022 [facility] Obesity Obesity Problem Active 2022-05-01 morianisa (disorder) (disorder) 22:54:24 l Active [facility] Problem 05/01/2022 [facility], [facility] Traumatic Problem Active 2022-05-01 [...] 1-11 14:45:24 14:45:24 l C C 00:00: [place] (disorder) (disorder) 00 Resolved 07/27/2016 Problem 10/23/2018 Medical Group, [facility] Allergies, Adverse Reactions, Alerts Allergy Allergy Status Severity Reaction(s) Onset Inactive Treating Comm ents Source Name Type Date Date Clinician NO KNOWN Drug Active Univers ALLERGIE Class ity of S [facility] No Known No Known Active Memori a Medicati Medicati l on on [facility] Allergie Allergie s s Social History Social Habit Start Date Stop Date Quantity Comments Source Gender identity Universit y of [facility] Sexual orientation Univer sity of [facility] Exposure to 2022-08-06 2022-08-16 Not sure [facility] SARS-CoV-2 (event) 00:00:00 21:34:00 [facility] History of Social 2022-08-16 2022-08-16 Univers ity of function 00:00:00 00:00:00 [facility] Alcohol intake 2022-08-16 2022-08-16 University of 00:00:00 00:00:00 [facility] Social History 2018-04-02 2018-04-02 [facility] henrique 18:19:44 18:19:44 Tobacco Comment 2013-06-27 2013-06-27 Pt thinks he Univers ity of 00:00:00 00:00:00 [facility] no memory of how Branch many cigs nor how long. Tobacco use and 2013-06-27 2013-06-27 Smokeless Universit y of exposure 00:00:00 00:00:00 tobacco non-user [facility] History of tobacco 1988-07-24 Cigarette Smoker University of use 00:00:00 [facility] Sex Assigned At [birth year] Universit y of 00:00:00 00:00:00 [facility] Smoking Status Start Date Stop [...] 08/17/22 at 0015, MACKENZIE iopamidol 2022- No [id number] 100mL 100 mL, Univers (ISOVUE 08-17 Intravenou ity o f 370-500 mL) 05:30: 05:30 s, ONCE, 1 [place] injection 00 :00 dose, On Medica l 100 mL Tue Branch 08/16/22 at 2330, Routine ibuprofen 2022- Yes [id number] 600mg Take 1 Univers 600 mg 1-31 tablet by ity of tablet 00:00: mouth [place] 00 every 6 Medical (six) Branch hours as needed for Pain (scale 4-6). ibuprofen 2022-0 Yes [id number] 600mg Take 1 Univers 600 mg 1-31 tablet by ity of tablet 00:00: mouth [place] 00 every 6 Medical (six) Branch hours as needed for Pain (scale 4-6). ibuprofen 2022-0 Yes [id number] 600mg Take 1 Univers 600 mg 1-31 tablet by ity of tablet 00:00: mouth [place] 00 every 6 Medical (six) Branch hours as needed for Pain (scale 4-6). ibuprofen 2022-0 Yes [id number] 600mg Take 1 Univers 600 mg 1-31 tablet by ity of tablet 00:00: mouth [place] 00 every 6 Medical (six) Branch hours as needed for Pain (scale 4-6). ibuprofen 2022-0 Yes [id number] 600mg Take 1 Univers 600 mg 1-31 tablet by ity of tablet 00:00: mouth [place] 00 every 6 Medical (six) Branch hours as needed for Pain (scale 4-6). casirivimab 2020- No [id number] 1200mg 1,200 mg, Univers -imdevimab 03-11 IV ity of 1200 mg in 23:00: 22:21 Infusion, [place] 60 mL NS 00 :00 ONCE, Medical MINI-BAG Administer Branc h over 20 Minutes, Donna 03/11/21 at 1800, For 1 dose
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 sample as an IV infusion via pump or [...] pain, # 60 cap, 1 Refill(s), Pharmacy: [facility] #[id number] dicyclomine 2018-0 Yes 10 mg = 1 M emoria 10 mg oral 9-19 cap, PO, l capsule 20:46: QID-Before Herm shari Meals, as needed for abdominal pain, # 60 cap, 1 Refill(s), Pharmacy: [facility] #[id number] dicyclomine 2018-0 Yes 10 mg = 1 M emoria 10 mg oral 9-19 cap, PO, l capsule 20:46: QID-Before Herm shari Meals, as needed for abdominal pain, # 60 cap, 1 Refill(s), Pharmacy: [facility] #[id number] dicyclomine 2018-0 Yes 10 mg = 1 M emoria 10 mg oral 9-19 cap, PO, l capsule 20:46: QID-Before Herm shari Meals, as needed for abdominal pain, # 60 cap, 1 Refill(s), Pharmacy: [facility] #[id number] dicyclomine 2018-0 Yes 10 mg = 1 M emoria 10 mg oral 9-19 cap, PO, l capsule 20:46: QID-Before Herm shari Meals, as needed for abdominal pain, # 60 cap, 1 Refill(s), Pharmacy: [facility] #[id number] dicyclomine 2018-0 Yes 10 mg = 1 M emoria 10 mg oral 9-19 cap, PO, l capsule 20:46: QID-Before Herm shari Meals, as needed for abdominal pain, # 60 cap, 1 Refill(s), Pharmacy: [facility] #[id number] dicyclomine 2018-0 Yes 10 mg = 1 M emoria 10 mg oral 9-19 cap, PO, l capsule 20:46: QID-Before Herm shari 00 Meals, as needed for abdominal pain, # 60 cap, 1 Refill(s), Pharmacy: [facility] #[id number] dicyclomine 2018-0 Yes 10 mg = 1 M emoria 10 mg oral 9-19 cap, PO, l capsule 20:46: QID-Before Herm shari 00 Meals, as needed for abdominal pain, # 60 cap, 1 Refill(s), Pharmacy: [facility] #[id number] dicyclomine 2018-0 Yes 10 mg = 1 M emoria 10 mg oral 9-19 cap, PO, l capsule 20:46: QID-Before Herm shari 00 Meals, as needed for abdominal pain, # 60 cap, 1 Refill(s), Pharmacy: [facility] #[id number] dicyclomine 2018-0 Yes 10 mg = 1 M emoria 10 mg oral 9-19 cap, PO, l capsule 20:46: QID-Before Herm shari 00 Meals, as needed for abdominal pain, # 60 cap, 1 Refill(s), Pharmacy: [facility] #[id number] dicyclomine 2018-0 Yes 10 mg = 1 M emoria 10 mg oral 9-19 cap, PO, l capsule 20:46: QID-Before Herm shari 00 Meals, as needed for abdominal pain, # 60 cap, 1 Refill(s), Pharmacy: [facility] #[id number] dicyclomine 2018-0 Yes 10 mg = 1 M emoria 10 mg oral 9-19 cap, PO, l capsule 20:46: QID-Before Herm shari 00 Meals, as needed for abdominal pain, # 60 cap, 1 Refill(s), Pharmacy: [facility] #[id number] dicyclomine 2018-0 Yes 10 mg = 1 M emoria 10 mg oral 9-19 cap, PO, l capsule 20:46: QID-Before Herm shari 00 Meals, as needed for abdominal pain, # 60 cap, 1 Refill(s), Pharmacy: [facility] #[id number] dicyclomine 2018-0 Yes 10 mg = 1 M emoria 10 mg oral 9-19 cap, PO, l capsule 20:46: QID-Before Herm shari 00 Meals, as needed for abdominal pain, # 60 cap, 1 Refill(s), [id number] dicyclomine 2018-0 Yes 10 mg = 1 M emoria 10 mg oral 9-19 cap, PO, l capsule 20:46: QID-Before Herm shari 00 Meals, as needed for abdominal pain, # 60 cap, 1 Refill(s), [id number] Xifaxan 550 2018-0 Yes 550 mg = 1 Memoria mg oral 9-17 tab, PO, l tablet 18:34: TID, # 42 [place] 00 tab, 0 Refill(s), [id number] rifaximin 2018-0 Yes 550 mg = 1 Me moria 550 MG Oral 9-17 tab, PO, l Tablet 18:34: TID, # 42 [place] [XIFAXAN] 00 tab, 0 Refill(s), [id number] Xifaxan 550 2018-0 Yes 550 mg = 1 Memoria mg oral 9-17 tab, PO, l tablet 18:34: TID, # 42 [place] 00 tab, 0 Refill(s), [id number] rifaximin 2018-0 Yes 550 mg = 1 Me moria 550 MG Oral 9-17 tab, PO, l Tablet 18:34: TID, # 42 [place] [XIFAXAN] 00 tab, 0 Refill(s), [id number] Xifaxan 550 2018-0 Yes 550 mg = 1 Memoria mg oral 9-17 tab, PO, l tablet 18:34: TID, # 42 [place] 00 tab, 0 Refill(s), [id number] rifaximin 2018-0 Yes 550 mg = 1 Me moria 550 MG Oral 9-17 tab, PO, l Tablet 18:34: TID, # 42 [place] [XIFAXAN] 00 tab, 0 Refill(s), [id number] Xifaxan 550 2018-0 Yes 550 mg = 1 Memoria mg oral 9-17 tab, PO, l tablet 18:34: TID, # 42 [place] 00 tab, 0 Refill(s), Pharm[facility]: [id number] rifaximin 2018-0 Yes 550 mg = 1 Me moria 550 MG Oral 9-17 tab, PO, l Tablet 18:34: TID, # 42 [place] [XIFAXAN] 00 tab, 0 Refill(s), Pharmacy: [id number] Xifaxan 550 2018-0 Yes 550 mg = 1 Memoria mg oral 9-17 tab, PO, l tablet 18:34: TID, # 42 [place] 00 tab, 0 Refill(s), Pharmacy: [id number] rifaximin 2018-0 Yes 550 mg = 1 Me moria 550 MG Oral 9-17 tab, PO, l Tablet 18:34: TID, # 42 [place] [XIFAXAN] 00 tab, 0 Refill(s), Pharmacy: [id number] Xifaxan 550 2018-0 Yes 550 [...] Pharmacy: [facility] #[id number] Xifaxan 550 2018-0 Yes 550 mg = 1 Memoria mg oral 9-17 tab, PO, l tablet 18:34: TID, # 42 [place] 00 tab, 0 Refill(s), Pharmacy: [facility] #[id number] rifaximin 2018-0 Yes 550 mg = 1 Me moria 550 MG Oral 9-17 tab, PO, l Tablet 18:34: TID, # 42 [place] [XIFAXAN] 00 tab, 0 Refill(s), Pharmacy: [facility] #[id number] rifaximin 2018-0 Yes 550 [...] [facility] #[id number] rifaximin 2018-0 Yes 550 [...] [facility] #[id number] rifaximin 2018-0 Yes 550 [...] [facility] #[id number] rifaximin 2018-0 Yes 550 mg = 1 Me moria 550 MG Oral 9-17 tab, PO, l Tablet 18:34: TID, # 42 [place] [XIFAXAN] 00 tab, 0 Refill(s), Pharmacy: [facility][id number] Xifaxan 550 2018-0 Yes 550 mg = 1 Memoria mg oral 9-17 tab, PO, l tablet 18:34: TID, # 42 [place] 00 tab, 0 Refill(s), [id number] rifaximin 2018-0 Yes 550 mg = 1 Me moria 550 MG Oral 9-17 tab, PO, l Tablet 18:34: TID, # 42 [place] [XIFAXAN] 00 tab, 0 Refill(s), [id number] Xifaxan 550 2018-0 Yes 550 mg = 1 Memoria mg oral 9-17 tab, PO, l tablet 18:34: TID, # 42 [place] 00 tab, 0 Refill(s), [id number] rifaximin 2018-0 Yes 550 mg = 1 Me moria 550 MG Oral 9-17 tab, PO, l Tablet 18:34: TID, # 42 [place] [XIFAXAN] 00 tab, 0 Refill(s), Pharmacy: [id number] Xifaxan 550 2018-0 Yes 550 [...] n [XIFAXAN] 00 tab, 0 Refill(s), [id number] Xifaxan 550 2018-0 Yes 550 mg = 1 Memoria mg oral 9-17 tab, PO, l tablet 18:34: TID, # 42 [place] 00 tab, 0 Refill(s), Pharmacy: [facility][id number] Whitman 2017-0 Yes 1 tab, PO, Memori a 7.5/325 5-08 Q6H, 0 l oral tablet 18:06: Refill(s) H ermann 00 [place] 2017-0 Yes 1 tab, PO, Memori a 7.5/325 5-08 Q6H, 0 l oral tablet 18:06: Refill(s) H Whitman Yes 1 tab, PO, Memori a 7.5/325 5-08 Q6H, 0 l oral tablet 18:06: Refill(s) H Whitman Yes 1 tab, PO, Memori a 7.5/325 5-08 Q6H, 0 l oral tablet 18:06: Refill(s) H [place] Yes 1 tab, PO, Memori a 7.5/325 5-08 Q6H, 0 l oral tablet 18:06: Refill(s) H Whit[place] Yes 1 tab, PO, Memori a 7.5/325 5-08 Q6H, 0 l oral tablet 18:06: Refill(s) H [place] Yes 1 tab, PO, Memori a 7.5/325 5-08 Q6H, 0 l oral tablet 18:06: Refill(s) H [place] Yes 1 tab, PO, Memori a 7.5/325 5-08 Q6H, 0 l oral tablet 18:06: Refill(s) H [place] Yes 1 tab, PO, Memori a 7.5/325 5-08 Q6H, 0 l oral tablet 18:06: Refill(s) H [place] Yes 1 tab, PO, Memori a 7.5/325 5-08 Q6H, 0 l oral tablet 18:06: Refill(s) H [place] Yes 1 tab, PO, Memori a 7.5/325 5-08 Q6H, 0 l oral tablet 18:06: Refill(s) H [place] Yes 1 tab, PO, Memori a 7.5/325 5-08 Q6H, 0 l oral tablet 18:06: Refill(s) H [place] Yes 1 tab, PO, Memori a 7.5/325 5-08 Q6H, 0 l oral tablet 18:06: Refill(s) H [place] 2017-0 Yes 1 tab, PO, Memori a 7.5/325 5-08 Q6H, 0 l oral tablet 18:06: Refill(s) H [place] 2017-0 Yes 1 tab, PO, Memori a [...] 75 mg 00 bedtime. Medical capsule Branch [facility] 2012-07 Yes 1{tbl} Univ ers en-codeine 2-12 ity of (TYLENOL 16:43: [place] #3) 300-30 26 Medical mg tablet 1 Branch [facility] 2012-07 Yes 1{tbl} Univ ers en-codeine 2-12 ity of (TYLENOL 16:43: [place] #3) 300-30 26 Medical mg tablet 1 Branch [facility] 2012-07 Yes 1{tbl} Univ ers en-codeine 2-12 ity of (TYLENOL 16:43: [place] #3) 300-30 26 Medical mg tablet 1 Branch [facility] 2012-07 Yes 1{tbl} Univ ers en-codeine 2-12 ity of (TYLENOL 16:43: [place] #3) 300-30 26 Medical mg tablet 1 Branch [facility] 2012-07 Yes 1{tbl} Univ ers en-codeine 2-12 ity of (TYLENOL 16:43: [place] #3) 300-30 26 Medical mg tablet 1 Branch [facility] 2012-07 Yes 1{tbl} Univ ers en-codeine 2-12 ity of (TYLENOL 16:43: [place] #3) 300-30 26 Medical mg tablet 1 Branch [facility] 2012-07 Yes 1{tbl} Univ ers en-codeine 2-12 ity of (TYLENOL 16:43: [place] #3) 300-30 26 Medical mg tablet 1 Branch Tab acetaminoph 2012-07 Yes [id number] 1{tbl} Take 1 Tab Univers en-codeine 2-02 by mouth ity o f (TYLENOL-CO 00:00: every 4 Jarod as [place] #3) 00 (four) Medical 300-30 mg hours as Branch tablet needed for Pain. acetaminoph 2012-07 Yes [id number] 1{tbl} Take 1 Tab Univers en-codeine 2-02 by mouth ity o f (TYLENOL-CO 00:00: every 4 Jarod as [place] #3) 00 (four) Medical 300-30 mg hours as Branch tablet needed for Pain. acetaminoph 2012-07 Yes [id number] 1{tbl} Take 1 Tab Univers en-codeine 2-02 by mouth ity o f (TYLENOL-CO 00:00: every 4 Jarod as DEINE #3) 00 (four) Medical 300-30 mg hours as Branch tablet needed for Pain. acetaminoph 2012-07 Yes [id number] 1{tbl} Take 1 Tab Univers en-codeine 2-02 by mouth ity o f (TYLENOL-CO 00:00: every 4 Jarod as [place] #3) 00 (four) Medical 300-30 mg hours as Branch tablet needed for Pain. acetaminoph 2012-07 Yes [id number] 1{tbl} Take 1 Tab Univers en-codeine 2-02 by mouth ity o f (TYLENOL-CO 00:00: every 4 Jarod as DEINE #3) 00 (four) Medical 300-30 mg hours as Branch tablet needed for Pain. acetaminoph 2012-07 Yes [id number] 1{tbl} Take 1 Tab Univers en-codeine 2-02 by mouth ity o f (TYLENOL-CO 00:00: every 4 Jarod as DEINE #3) 00 (four) Medical 300-30 mg hours as Branch tablet needed for Pain. acetaminoph 2012-07 Yes [id number] 1{tbl} Take 1 Tab Univers en-codeine 2-02 [...] area(s) 2 ity of acetonide 00:00: (two) [place] (TRIDERM) 00 times Medical 0.1 % cream [...] Immunizations Ordered Filled Immunization Date Status Comments [facility] e Immunization Name Name hepatitis B adult 2016-10-31 Completed Memoria l vaccine 16:08:00 [facility] hepatitis B adult 2016-10-31 Completed Memoria l vaccine 16:08:00 [place] hepatitis B adult 2016-10-31 Completed Memoria l vaccine 16:08:00 [place] hepatitis B adult 2016-10-31 Completed Memoria l vaccine 16:08:00 [place] hepatitis B adult 2016-10-31 Completed Memoria l vaccine 16:08:00 [place] hepatitis B adult 2016-10-31 Completed Memoria l vaccine 16:08:00 [facility] hepatitis B adult 2016-10-31 Completed Memoria l vaccine 16:08:00 [place] hepatitis B adult 2016-10-31 Completed Memoria l [...] adult 2016-04-11 Completed Memoria l vaccine 15:46:00 [place] hepatitis B adult 2016-04-11 Completed Memoria l vaccine 15:46:00 [facility] hepatitis B adult 2016-04-11 Completed Memoria l vaccine 15:46:00 [facility] hepatitis B adult 2016-04-11 Completed Memoria l vaccine 15:46:00 [place] hepatitis B adult 2016-04-11 Completed Memoria l vaccine 15:46:00 [place] hepatitis B adult 2016-04-11 Completed Memoria l vaccine 15:46:00 [facility] hepatitis B adult 2016-04-11 Completed Memoria l vaccine 15:46:00 [place] hepatitis B adult 2016-04-11 Completed Memoria l vaccine 15:46:00 [place] hepatitis B adult 2016-03-28 Completed Memoria l vaccine 16:37:00 [facility] hepatitis B adult 2016-03-28 Completed Memoria l vaccine 16:37:00 [place] hepatitis B adult 2016-03-28 Completed Memoria l vaccine 16:37:00 [place] hepatitis B adult 2016-03-28 Completed Memoria l vaccine 16:37:00 [facility] hepatitis B adult 2016-03-28 Completed Memoria l vaccine 16:37:00 [place] hepatitis B adult 2016-03-28 Completed Memoria l vaccine 16:37:00 [facility] hepatitis B adult 2016-03-28 Completed Memoria l vaccine 16:37:00 [place] hepatitis B adult 2016-03-28 Completed Memoria l vaccine 16:37:00 [facility] hepatitis B adult 2016-03-28 Completed Memoria l vaccine 16:37:00 [place] hepatitis B adult 2016-03-28 Completed Memoria l vaccine 16:37:00 [facility] hepatitis B adult 2016-03-28 Completed Memoria l vaccine 16:37:00 [place] hepatitis B adult Unknown Completed Memoria l vaccine [facility] hepatitis B adult Unknown Completed Memoria l vaccine [facility] hepatitis B adult Unknown Completed Memoria l vaccine [facility] hepatitis B adult Unknown Completed Memoria l vaccine [place] hepatitis B adult Unknown Completed Memoria l vaccine [place] hepatitis B adult Unknown Completed Memoria l vaccine [place] hepatitis B adult Unknown Completed Memoria l vaccine [place] hepatitis B adult Unknown Completed Memoria l vaccine [place] hepatitis B adult Unknown Completed Memoria l vaccine [facility] hepatitis B adult Unknown Completed Memoria l vaccine [place] hepatitis B adult Unknown Completed Memoria l vaccine [facility] hepatitis B adult Unknown Completed Memoria l vaccine [place] Vital Signs Vital Name Observation Time Observation Value Comments Source Systolic blood 2022-08-17 04:30:00 144 mm[Hg] Univer sity of pressure [place] [facility] Diastolic blood 2022-08-17 04:30:00 96 mm[Hg] Unive rsity of pressure [place] [facility] Heart rate 2022-08-17 04:30:00 94 /min Universi ty of [place] [facility] Respiratory rate 2022-08-17 04:30:00 13 /min Univ ersity of [place] [facility] Oxygen saturation in 2022-08-17 04:30:00 100 /min University of Arterial blood by [facility] Pulse oximetry Branch Body temperature 2022-08-17 [...] 2021-03-11 21:58:00 80 /min Universi ty of [place] [facility] Body temperature 2021-03-11 21:58:00 37.39 [...] 96 /min University of Arterial blood by [facility] Pulse oximetry Branch Weight 2018-04-02 18:18:00 Yamileth Wall BMI Calculated 2018-04-02 18:18:00 Chichi Menjivar Height 2018-04-02 18:18:00 187.96 cm Yamileth Wall Systolic (mm Hg) 2018-04-02 18:18:00 Jan rial [facility] Diastolic (mm Hg) 2018-04-02 18:18:00 Mem orial [facility] Heart Rate 2018-04-02 18:18:00 Yamileth Wall Height 2016-05-16 14:12:00 187.96 cm Yamileth Wall Weight 2016-05-16 14:12:00 Yamileth Wall BMI Calculated 2016-05-16 [facility] Resp[facility] Rate 2016-05-16 14:12:[facility] [place] Heart Rate 2016-05-16 14:12:00 [facility] [place] Systolic (mm Hg) 2016-05-16 14:12:00 Jan rial [facility] Diastolic (mm Hg) 2016-05-16 14:12:00 Mem orial [facility] Procedures Procedure Date / Time Performing Clinician Source Performed AUTHORIZATION FOR 2023-03-23 05:01:00 Doctor Unassigned, No [facility] RELEASE OF [facility] [place] ASSIGNMENT OF BENEFITS 2022-12-20 21:03:44 Doctor Unassigned, No [facility] Medical Branch AUTHORIZATION FOR 2022-10-11 05:01:00 Doctor Unassigned, No [facility] RELEASE OF [facility] URINE DRUG (IMMUNOASSAY) 2022-08-17 04:44:00 Lesly Rodriguez [facility] DRUG Medical [facility] SCREEN URINALYSIS 2022-08-17 04:44:00 Lesly Rodriguez [facility] COMP. METABOLIC PANEL 2022-08-17 03:59:00 Lesly Rodriguez [facility] ([id number]) Medical Branch ETHANOL 2022-08-17 03:59:00 Lesly Rodriguez [facility] CBC WITH DIFF 2022-08-17 03:59:00 Lesly Rodriguez [facility] CONSENT/REFUSAL FOR 2021-03-11 05:01:00 Doctor Unassigned, No [facility]AT[facility] Medical [place] Colonoscopy 2017-01-24 05:00:00 [facility] coats [facility] Below knee [facility] [place] n amputation, Encounters Start End Encounter Admission Attending Care Care Encounter Source Date/Time Date/Time Type Type Clinicians Facility Department ID 2023-03-02 Outpatient [facility] [id number] Common 08:07:00 [id number] [facility] 2022-11-23 Outpatient [facility] [id number] Common 14:57:04 [id number] [facility] 2023-03-23 2023-03-23 Orders Doctor KLEBER Palomares.[id number] Univers 00:00:00 00:00:00 Only Unassigned, ANGEL [id number] ity of [facility] [id number] Jarod as [id number] [address] 2022-12-20 2022-12-20 Outpatient R RADIOLOGY [facility] [id number] Univers 16:04:44 23:59:00 ity of [facility] 2022-12-20 2022-12-20 Hospital Radiology [facility] [id number] Univers 16:04:44 23:59:00 Encounter [place] 350.1.13.10 ity [facility] 4.2.7.2.686 [facility] [id number] [facility] 804 Branch 2022-12-20 2022-12-20 Orders Doctor KLEBER [id number] Univers 00:00:00 00:00:00 Only Unassigned, ANGEL [id number] ity of [place] [facility] 4.2.7.2.686 Jarod as [id number] [facility] 009 Branch 2022-10-11 2022-10-11 Orders Doctor KLEBER [id number] Univers 00:00:00 00:00:00 Only Unassigned, ANGEL [id number] [facility]y of [place] [facility] 4.2.7.2.686 Jarod as [phone] [place] [address] Branch 2022-08-16 2022-08-17 Emergency X Lesly RODRIGUEZ [facility] ERT [id number] Univers 21:31:00 00:05:00 ity of [facility] 2022-08-16 2022-08-17 Emergency Lesly Rodriguez [facility] [id number] Univers 21:31:00 00:05:00 Precious DUARTE 350.1.13.10 i [facility] YEISONBANNER 4.2.7.2.686 [facility] [id number] [facility] 084 [place] 2022-04-29 2022-04-29 Ambulatory nullFlavo MNA [id number] Memoria 19:30:00 19:30:00 Pre-Reg r Neurology 11 l Jasperernesto Wall 2022-04-29 2022-04-29 Ambulatory nullFlavo MNA [id number] Memoria 19:30:00 19:30:00 Pre-Reg r Neurology 12 l Jasperernesto Wall 2022-04-29 2022-04-29 Ambulatory nullFlavo MNA [id number] Memoria 19:30:00 19:30:00 Pre-Reg r Neurology 11 l Jasperernesto Wall 2022-04-29 2022-04-29 Ambulatory nullFlavo MNA [id number] Memoria 19:30:00 19:30:00 Pre-Reg r Neurology 12 l Jasperernesto Wall 2022-04-29 2022-04-29 Ambulatory nullFlavo MNA [id number] Memoria 19:00:00 19:00:00 Pre-Reg r Neurology 10 l Jasperernesto Wall 2022-04-29 2022-04-29 Ambulatory nullFlavo MNA [id number] Memoria 19:00:00 19:00:00 Pre-Reg r Neurology 10 l Mary Alice Wall 2022-04-29 2022-04-29 Outpatient MHIE MHIE [id number] Memoria 14:30:00 14:30:00 12 l [facility] 2022-04-29 2022-04-29 Outpatient MHIE MHIE [id number] Memoria 14:30:00 14:30:00 11 [place] 2022-04-29 2022-04-29 Outpatient LILI BonnerSCHER MHMISCHER [id number] 14:30:00 14:30:00 Bernardo 12 Yevgeniy 2022-04-29 2022-04-29 Outpatient LILI BonnerSCHER MHMISCHER [id number] 14:30:00 14:30:00 Bernardo 11 Yevgeniy 2022-04-29 2022-04-29 Outpatient MHIE IE [id number] Memoria 14:00:00 14:00:00 10 aline [facility] 2022-04-29 2022-04-29 Outpatient KEON BonnerSCHGARRET [id number] 14:00:00 14:00:00 Bernardo Vuong 2021-03-11 2021-03-11 Outpatient Leo UMANA, [facility] [id number] Univers 15:30:00 15:30:00 JOSE MARTIN itwilly of [facility] 2021-03-11 2021-03-11 Nurse Therapy, Adc Covid Infusion [facility] [id number] Univers 14:19:37 15:19:37 Visit Jose Martin Uman[place] 350.1.13.10 ity of [place] 4[place]2.7.2.686 [place] [facility] [phone] [place] [id number] Branch 2021-03-11 2021-03-11 Orders Doctor KLEBER 1.2.840.114 [id number] Univers 00:00:00 00:00:00 Only Unassigned, ANGEL [id number] ity of [facility] [id number] Jarod as [phone] [place] [id number] [place] 2020-05-13 2020-05-13 Emergency X [facility] ERT [id number] Univers 19:41:00 19:41:00 ity of [facility] 2018-04-04 2018-04-06 Phone nullFlavo [facility] [id number] Memoria 20:45:00 04:59:59 Message r Gastroenter 06 l ology [facility] 2018-04-04 2018-04-06 Phone nullFlavo [facility] [id number] Memoria 20:45:00 04:59:59 Message r Gastroenter 06 l o[facility]y [facility] 2018-04-04 2018-04-05 Outpatient [facility] MG [id number] 15:45:00 23:59:59 06 2018-04-02 2018-04-03 [place] [id number] Memoria 18:15:00 04:59:59 r Gastroenter 09 l o[facility]y [facility] 2018-04-02 2018-04-03 Outpatient nullFlavo [facility] [id number] Memoria 18:15:00 04:59:59 r Gastroenter 09 aline [place] 2018-04-02 2018-04-02 [facility] [id number] 13:15:00 23:59:59 Gino Santa 2018-04-02 2018-04-02 Outpatient MHIE MHIE [id number] Memoria 13:15:00 13:15:00 09 aline [place] 2017-02-20 2017-02-20 Outpatient MHIE MHIE [id number] Memoria 13:15:00 13:15:00 08 aline Wall 2017-02-20 2017-02-20 Outpatient MHIE MHIE [id number] Memoria 13:15:00 13:15:00 08 aline Wall 2017-02-09 2017-02-09 Outpatient MHIE MHIE [id number] Memoria 11:15:00 11:15:00 07 aline Wall 2017-02-09 2017-02-09 Outpatient MHIE MHIE [id number] Memoria 11:15:00 11:15:00 07 aline Wall 2016-11-21 2016-11-21 Outpatient MHIE MHIE [id number] Memoria 13:00:00 13:00:00 05 aline Wall 2016-11-21 2016-11-21 Outpatient MHIE MHIE [id number] Memoria 13:00:00 13:00:00 05 aline Wall 2016-10-31 2016-10-31 Outpatient MHIE MHIE [id number] Memoria 10:00:00 10:00:00 04 aline Wall 2016-10-31 2016-10-31 Outpatient MHIE MHIE [id number] Memoria 10:00:00 10:00:00 04 aline Wall 2016-07-27 2016-07-27 Outpatient MHIE MHIE [id number] Memoria 15:30:00 15:30:00 03 aline Wall 2016-07-27 2016-07-27 Outpatient MHIE MHIE [id number] Memoria 15:30:00 15:30:00 03 aline Wall 2016-05-24 2016-05-25 Outpatient nullFlavo [facility] [id number] Memoria 16:03:00 05:59:00 r [facility] 02 aline [place] 2016-05-24 2016-05-25 Outpatient nullFlavo [facility] [id number] Memoria 16:03:00 05:59:00 r [facility] 02 aline [place] 2016-05-24 2016-05-24 Outpatient Magat, MHTIRR M[facility] [id number] 10:03:00 23:59:00 Mayuri 02 [facility] 2016-05-16 2016-05-17 Outpatient nullFlavo [facility] [id number] Memoria 13:31:00 04:59:00 r [facility] 01 [facility] 2016-05-16 2016-05-17 Outpatient nullFlavo [facility] [id number] Memoria 13:31:00 04:59:00 r [facility] 01 [facility] 2016-05-16 2016-05-16 Outpatient Magat, MHTIRR M[facility] [id number] 08:31:00 23:59:00 Mayuri 01 [facility] 2016-04-11 2016-04-11 Outpatient MHIE MHIE [id number] Memoria 09:00:00 09:00:00 02 aline [place] 2016-04-11 2016-04-11 Outpatient MHIE MHIE [id number] Memoria 09:00:00 09:00:00 02 aline [place] 2016-03-28 2016-03-28 Outpatient MHIE MHIE [id number] Memoria 14:15:00 14:15:00 01 [place] 2016-03-28 2016-03-28 Outpatient MHIE MHIE [id number] Memoria 14:15:00 14:15:00 01 aline Wall Results Test Description Test Time Test Comments Results Result Sour e Comments ETHANOL 2022-08-17 ALCOHOL<10mg/dL0 Universi ty of 04:47:48 08/16/2022 10:47 [place] [facility] LABORATORY<10 [id number] Toxic>100 Depression of MATERIAL CONTROL MANAGER>400 Fatalities Reported COMP. METABOLIC PANEL (75491) 2022-08-17 04:44:37 Test Item Value Reference Range Interpretation Comme nts NA (test code = 2162235059) 136 mmol/L 135-145 K (test code = 7903721369) 3.6 mmol/L 3.5-5.0 CL (test code = 3080960413) 100 mmol/L 98-108 CO2 TOTAL (test code = 8656881427) 30 mmol/L 23-31 AGAP (test code = 4915046735) 6 2-16 BUN (test code = 8759142889) 9 mg/dL 7-23 GLUCOSE (test code = 9651824773) 95 mg/dL 70-110 CREATININE (test code = 0.88 mg/dL 0.60-1.25 7252066832) TOTAL BILI (test code = 0.6 mg/dL 0.1-1.9 4587965630) CALCIUM (test code = 1580652949) 8.5 mg/dL 8.6-10.6 L T PROTEIN (test code = 5637167362) 6.9 g/dL 6.3-8.2 ALBUMIN (test code = 3106418342) 4.4 g/dL 3.5-5.0 ALK PHOS (test code = 7795201380) 58 U/L 34-122 ALTv (test code = 1742-6) 15 U/L 5-50 AST(SGOT) (test code = 2585699218) 23 U/L 13-40 eGFR (test code = 8760717252) 89.9 mL/min/1.73m2 DYLAN (test code = DYLAN) [...] tests). Lab Interpretation (test code = Abnormal 62904-6) [facility] [id number] 04:37:20 Test Item Value Reference Range Interpretation Comments WBC (test code = 9.27 See_Comment [Automated 4090-2) message] The sy stem which generated this result transmitted reference range : 4.20 - 10.70 10*3/?L. The reference range was not used to interpret this result as normal/abnormal . RBC (test code = 4.08 See_Comment L [Automated 899-8) message] The sy stem which generated this [...] RDW-SD (test code = 45.0 fL 38.5-51.6 42424-7) RDW-CV (test code = 13.0 % 12.1-15.4 788-0) PLT (test code = 205 See_Comment [Automated 777-3) message] The sy stem which generated this result transmitted reference range : 150 - 328 10*3/ ?L. The reference r anabella was not used to interpret this result as normal/abnormal . MPV (test code = 8.8 fL 9.8-13.0 L 84966-9) NRBC/100 WBC (test 0.0 See_Comment [Automat ed code = 6104747748) message] The system which generated this result transmitted reference range : 0.0 - 10.0 /100 WBCs. The refer ence range was not u sed to interpret th is result as normal/abnormal . NRBC x10^3 (test code See_Comment [Auto mated = 2478142122) message] The s ystem which generated this result transmitted reference range : 10*3/?L. The reference range was not used to interpret this result as normal/abnormal . GRAN MAT (NEUT) % 66.8 % (test code = 770-8) IMM GRAN % (test code 0.30 % = 8079089191) LYMPH % (test code = 26.6 % 736-9) MONO % (test code = 5.7 % 5905-5) EOS % (test code = 0.3 % 713-8) BASO % (test code = 0.3 % 706-2) GRAN MAT x10^3(ANC) 6.18 10*3/uL 1.99-6.95 (test code = 2188597680) IMM GRAN x10^3 (test 0.03 10*3/uL 0.00-0.06 code = 8685707720) LYMPH x10^3 (test code 2.47 10*3/uL 1.09-3.23 = 731-0) MONO x10^3 (test code 0.53 10*3/uL 0.36-1.02 = 742-7) EOS x10^3 (test code = 0.03 10*3/uL 0.06-0.53 L 711-2) BASO x10^3 (test code 0.03 10*3/uL 0.01-0.09 = 704-7) Lab Interpretation Abnormal (test code = 28932-0) [facility]"
--- NOTE | 2023-05-12 12:18 | ER ---
Nurse's Notes [facility] Name: Gregg Nair Age: 57 yrs Sex: Male : 1965 Arrival Date: 05/12/2023 Time: 10:44 Bed IW3 Private MD: Diagnosis: Presentation: 05/12 11:13 Chief complaint: Patient states: Vomiting and diarrhea today, had same issue 2 weeks hb ago, seen then, felt better but now having same symptoms. Coronavirus screen: Vaccine status: Patient reports being unvaccinated. Ebola Screen: Patient denies travel to an Ebola-affected area in the 21 days before illness onset. Initial Sepsis Screen: Does the patient meet any 2 criteria? No. Patient's initial sepsis screen is negative. Does the patient have a suspected source of infection? No. Patient's initial sepsis screen is negative. Risk Assessment: Do you want to hurt yourself or someone else? Patient reports no desire to harm self or others. Onset of symptoms was May 12, 2023. 11:13 Method Of Arrival: Ambulatory hb 11:13 Acuity: BRIAN 3 hb Historical: - Allergies: 11:15 TB shots; hb 11:15 TB skin test; hb - PMHx: 11:15 C7 FRACTURE; Chronic pain; Hypertensive disorder; TBI; hb - PSHx: 11:15 CHEST RECONSTRUCTION; RIGHT BKA; right shoulder; SKULL RECONSTRUCTION; hb - Immunization history:: Client reports having NOT received the Covid vaccine. - Social history:: Smoking status: Patient/guardian denies using tobacco, the patient reports quitting approximately 29 years ago. Assessment: 12:16 Reassessment: Pt took blood pressure cuff off and stated "I am not waiting any longer." ld1 Pt left at this moment from lobby. Vital Signs: 11:13 BP 160 / 104; Pulse 67; Resp 18; Temp 98.3; Pulse Ox 98% ; Weight 99.79 kg; Height 6 hb ft. 2 in. ; 11:13 Body Mass Index 28.25 (99.79 kg, 187.96 cm) hb ED Course: 10:47 Patient arrived in ED. ts1 10:55 Conner Michel MD is Attending Physician. yanira 11:15 Triage completed. hb 11:16 Arm band placed on right wrist. hb Administered Medications: No medications were administered Outcome: 12:18 Patient left the ED. ld1 Signatures: Conner Michel MD MD cha Baxter, Heather, RN RN hb Lynette De Leon RN RN ld1 Estrella Rosales PAS PAS ts1 Corrections: (The following items were deleted from the chart) 11:16 11:15 PSHx: Cholecystectomy; hb hb
[2023-05-12 12:33] VITALS: BP 160/104; TEMP 98.3; O2SAT 98
== END 2023-05-12 12:18 | disposition left against medical advice (07) ==
LOC: ER 10:44
DX: R11.10 Vomiting, unspecified (principal); R19.7 Diarrhea, unspecified; Z53.21 Procedure and treatment not carried out due to patient leaving prior to being seen by health care provider
CPT/HCPCS: 99281

== ENCOUNTER → 2023-08-23 | Emergency (ER) | payer OTHER ==
[~2023-08-23] MED LIST: FAMOTIDINE 20 MG/2 ML VIAL IV ONE; NA CHLORIDE 0.9% 1,000 ML ONE; ONDANSETRON 4 MG/2 ML VIAL ONE
[2023-08-23 08:06] LABS: Absolute Lymphocytes (CBC) 1.5 K/uL (0.7-4.9); Hematocrit 40.8 % (39.6-49.0); Lymphocytes % 35.3 % (15.3-44.8); MCV 97.2 fL (80-100); MPV 6.7 fL (7.6-11.3); Platelets 259 thou/uL (152-406); RBC Red Blood Cell Count 4.19 M/uL (4.33-5.43)
[2023-08-23 08:18] LABS: Albumin 3.6 g/dL (3.4-5.0); Bilirubin Total 0.4 mg/dL (0.2-1.0); Potassium 4.7 mEq/L (3.5-5.1); Protein, Total 6.9 g/dL (6.4-8.2)
--- NOTE | 2023-08-23 09:49 | ER ---
Nurse's Notes [facility] Name: Gregg Nair Age: 57 yrs Sex: Male : 1965 Arrival Date: 08/23/2023 Time: 07:08 Bed 8 Private MD: Diagnosis: Nausea with vomiting, unspecified;Upper abdominal pain, unspecified;Diarrhea, unspecified Presentation: 08/23 07:20 Chief complaint: Patient states: N/V/D for 24 hours. No known fever. Coronavirus ll1 screen: Client denies travel out of the [place] in the last 14 days. diarrhea, fatigue, nausea, vomiting. Client presents with at least one sign or symptom that may indicate coronavirus-19. Standard/surgical mask placed on the client. Ebola Screen: Patient denies travel to an Ebola-affected area in the 21 days before illness onset. Initial Sepsis Screen: Does the patient meet any 2 criteria? No. Patient's initial sepsis screen is negative. Does the patient have a suspected source of infection? Yes: Acute abdominal pain. Risk Assessment: Do you want to hurt yourself or someone else? Patient reports no desire to harm self or others. Onset of symptoms was August 22, 2023. 07:20 Method Of Arrival: Ambulatory ll1 07:20 Acuity: BRIAN 3 ll1 Historical: - Allergies: 07:20 TB shots; ll1 07:20 TB skin test; ll1 - PMHx: 07:20 C7 FRACTURE; Chronic pain; Hypertensive disorder; TBI; ll1 - PSHx: 07:20 CHEST RECONSTRUCTION; RIGHT BKA; right shoulder; SKULL RECONSTRUCTION; ll1 - Immunization history:: Adult Immunizations up to date. - Social history:: Smoking status: Patient denies any tobacco usage or history of. Screenin:08 [facility] ED Fall Risk Assessment (Adult) History of falling in the last 3 months, jj7 including since admission No falls in past 3 months (0 pts) Confusion or Disorientation No (0 pts) Intoxicated or Sedated No (0 pts) Impaired Gait No (0 pts) Mobility Assist Device Used No (0 pt) Altered Elimination No (0 pt) Score/Fall Risk Level 0 - 2 = Low Risk Oriented to surroundings, Maintained a safe environment, Educated pt \T\ family on fall prevention, incl call for assistance when getting out of bed, Assessed \T\ reinforced patient's understanding of fall precautions, Provided non-skid footwear, Hourly rounding (assess needs \T\ fall precautionary measures) done, Used ambulatory aids as needed (educated on \T\ assisted with), Used gait belt as appropriate. Abuse screen: Denies threats or abuse. Denies injuries from another. Nutritional screening: No deficits noted. Tuberculosis screening: No symptoms or risk factors identified. Assessment: 08:08 General: Appears in no apparent distress. ill, Behavior is calm, cooperative, jj7 appropriate for age. Pain: Complains of pain in abdomen. GI: Reports diarrhea, nausea, vomiting. Vital Signs: 07:20 BP 142 / 95; Pulse 60; Resp 16; Temp 97.9; Pulse Ox 100% ; Weight 99.79 kg; Height 6 ll1 ft. 3 in. ; Pain 7/10; 08:13 BP 135 / 95; Pulse 71; Resp 16; Pulse Ox 98% ; jj7 09:22 BP 136 / 92; Pulse 55; Resp 16; Pulse Ox 100% ; ko1 09:54 BP 136 / 92; Pulse 55; Resp 15; Pulse Ox 100% ; ko1 07:20 Body Mass Index 27.50 (99.79 kg, 190.5 cm) ll1 07:20 Pain Scale: Adult ll1 ED Course: 07:11 Patient arrived in ED. mg5 07:18 Kishore De Leon DO is Attending Physician. ms3 07:20 Arm band placed on Patient placed in an exam room, on a stretcher. ll1 07:22 Triage completed. ll1 07:23 Annel Gerardo RN is Primary Nurse. jj7 07:50 Inserted saline lock: 20 gauge in right antecubital area, using aseptic technique. jj7 Blood collected. 07:54 CBC with Diff Sent. jj7 07:54 CMP Sent. jj7 07:54 Lipase Sent. jj7 08:08 Patient has correct armband on for positive identification. Bed in low position. Call jj7 light in reach. Side rails up X 1. Pulse ox on. NIBP on. Door closed. Noise minimized. Lights dimmed. Warm blanket given. 08:26 Flu Sent. jj7 09:21 Christine Freed, THEA is Primary Nurse. ko1 09:49 Kevin Umana DO is Referral Physician. ms3 10:07 Provided Education on: na. ko1 10:07 No provider procedures requiring assistance completed. IV discontinued, intact, ko1 bleeding controlled, No redness/swelling at site. Pressure dressing applied. Administered Medications: 07:54 Drug: Ondansetron IVP 4 mg IVP once; over 2 minutes Route: IVP; Site: right antecubital;jj7 10:10 Follow up: Response: No adverse reaction; Nausea is decreased ko1 07:55 Drug: NS 0.9% IV 1000 ml IV at 1 bolus Per protocol; 1000 mL bolus Route: IV; Rate: 1 jj7 bolus; Site: right antecubital; 10:09 Follow up: Response: No adverse reaction; IV Status: Completed infusion; IV Intake: ko1 1000ml 07:55 Drug: Famotidine IVP 20 mg IVP once; dilute with 10 mL 0.9% NaCl; give over 2 minutes jj7 Route: IVP; Site: right antecubital; 10:09 Follow up: Response: No adverse reaction ko1 Medication: 09:54 VIS not applicable for this client. ko1 Intake: 10:09 IV: 1000ml; Total: 1000ml. ko1 Outcome: 09:49 Discharge ordered by MD. ms3 10:07 Discharged to home ambulatory, ko1 10:07 Condition: improved 10:07 Discharge instructions given to patient, Instructed on discharge instructions, follow up and referral plans. Demonstrated understanding of instructions, follow-up care, 10:10 Patient left the ED. ko1 Signatures: Daniel Villela RN RN ll1 Kishore De Leon DO DO ms3 Christine Freed RN RN ko1 Annel Gerardo RN RN jj7 Raine Herrera mg5
--- NOTE | 2023-08-23 09:50 | EDPHYS ---
Physician Documentation [facility] Name: Gregg Nair Age: 57 yrs Sex: Male : 1965 Arrival Date: 08/23/2023 Time: 07:08 Bed 8 Private MD: ED Physician Kishore De Leon HPI: 08/23 07:24 This 57 yrs old Male presents to ER via Ambulatory with complaints of nausea, vomiting, ms3 diarrhea. 07:24 57-year-old male with past medical history of chronic pain, hypertension, TBI, C7 ms3 fracture presents to the emergency department for nausea, vomiting, diarrhea that has been ongoing for 24 hours. Patient states he has discomfort in the left upper quadrant that is sharp and rated a 6/10. Patient denies any inciting factors. Patient states the discomfort is better when laying down. Patient denies fevers, chills, black or bloody stools. Historical: - Allergies: 07:20 TB shots; ll1 07:20 TB skin test; ll1 - PMHx: 07:20 C7 FRACTURE; Chronic pain; Hypertensive disorder; TBI; ll1 - PSHx: 07:20 CHEST RECONSTRUCTION; RIGHT BKA; right shoulder; SKULL RECONSTRUCTION; ll1 - Immunization history:: Adult Immunizations up to date. - Social history:: Smoking status: Patient denies any tobacco usage or history of. ROS: 07:24 Constitutional: Negative for fever, and chills. Neck: Negative for injury, pain, and ms3 swelling, Cardiovascular: Negative for chest pain, and palpitations. Respiratory: Negative for shortness of breath, cough, wheezing, and pleuritic chest pain, 07:24 MS/Extremity: Negative for injury and deformity, Skin: Negative for injury, rash, and discoloration, 07:24 Abdomen/GI: Positive for abdominal pain, nausea, vomiting, and diarrhea, 07:24 All other systems are negative, Exam: 07:24 Constitutional: This is a well developed, well nourished patient who is awake, alert, ms3 and in no acute distress. Head/Face: Normocephalic, atraumatic. Chest/axilla: Normal chest wall appearance and motion. Nontender with no deformity. Cardiovascular: Regular rate and rhythm with a normal S1 and S2. No gallops, murmurs, or rubs. Normal PMI, no JVD. No pulse deficits. Respiratory: Lungs have equal breath sounds bilaterally, clear to auscultation and percussion. No rales, rhonchi or wheezes noted. No increased work of breathing, no retractions or nasal flaring. Abdomen/GI: Soft, non-tender, with normal bowel sounds. No distension or tympany. No guarding or rebound. No evidence of tenderness throughout. Skin: Warm, dry with normal turgor. Normal color with no rashes, no lesions, and no evidence of cellulitis. MS/ Extremity: Pulses equal, no cyanosis. Neurovascular intact. Full, normal range of motion. Vital Signs: 07:20 BP 142 / 95; Pulse 60; Resp 16; Temp 97.9; Pulse Ox 100% ; Weight 99.79 kg; Height 6 ll1 ft. 3 in. ; Pain 7/10; 08:13 BP 135 / 95; Pulse 71; Resp 16; Pulse Ox 98% ; jj7 09:22 BP 136 / 92; Pulse 55; Resp 16; Pulse Ox 100% ; ko1 09:54 BP 136 / 92; Pulse 55; Resp 15; Pulse Ox 100% ; ko1 07:20 Body Mass Index 27.50 (99.79 kg, 190.5 cm) ll1 07:20 Pain Scale: Adult ll1 MDM: 07:24 Patient medically screened. ms3 07:24 Differential diagnosis: Nonspecific abd pain, viral gastroenteritis, gastroenteritis. ms3 09:50 Data reviewed: vital signs, nurses notes, and as a result, I will discharge patient. I ms3 considered the following discharge prescriptions or medication management in the emergency department Medications were administered in the Emergency Department. See MAR. Test considered but Not performed: CT: Patient without abdominal tenderness, labs unremarkable.. Care significantly affected by the following chronic conditions: Hypertension. Counseling: I had a detailed discussion with the patient and/or guardian regarding the historical points, exam findings, and any diagnostic results supporting the discharge/admit diagnosis, lab results, the need for outpatient follow up, to return to the emergency department if symptoms worsen or persist or if there are any questions or concerns that arise at home. Response to treatment: the patient's symptoms have markedly improved after treatment, and as a result, I will discharge patient. Special discussion: Based on the patient's Hx, exam, and Dx evaluation, there is no indication for emergent surgery or inpatient Tx. It is understood by the patient/guardian that if the Sx's persist or worsen they need to return immediately for re-evaluation. ED course: Discussed labs with patient. Patient to follow-up with primary care physician in 2 to 3 days. Patient understands agrees with plan. All questions were answered. Return precautions discussed include worsening symptoms, or any other concerns. On reevaluation patient improved, alert and orient x 4, no apparent distress, nontoxic-appearing, ambulatory in emergency department. 08/23 07:26 Order name: CBC with Diff; Complete Time: 08:22 ms3 08/23 07:26 Order name: CMP; Complete Time: 08:22 ms3 08/23 07:26 Order name: Lipase; Complete Time: 08:22 ms3 08/23 08:22 Order name: Flu; Complete Time: 09:30 ms3 08/23 07:26 Order name: IV Saline Lock; Complete Time: 07:54 ms3 08/23 07:26 Order name: Labs collected and sent; Complete Time: 07:54 ms3 Administered Medications: 07:54 Drug: Ondansetron IVP 4 mg IVP once; over 2 minutes Route: IVP; Site: right antecubital;jj7 10:10 Follow up: Response: No adverse reaction; Nausea is decreased ko1 07:55 Drug: NS 0.9% IV 1000 ml IV at 1 bolus Per protocol; 1000 mL bolus Route: IV; Rate: 1 jj7 bolus; Site: right antecubital; 10:09 Follow up: Response: No adverse reaction; IV Status: Completed infusion; IV Intake: ko1 1000ml 07:55 Drug: Famotidine IVP 20 mg IVP once; dilute with 10 mL 0.9% NaCl; give over 2 minutes jj7 Route: IVP; Site: right antecubital; 10:09 Follow up: Response: No adverse reaction ko1 Disposition Summary: 08/23/23 09:49 Discharge Ordered Notes: Location: Home ms3 Condition: Stable ms3 Diagnosis - Nausea with vomiting, unspecified ms3 - Upper abdominal pain, unspecified ms3 - Diarrhea, unspecified ms3 Followup: ms3 - With: Kevin Umana, DO - When: 2 - 3 days - Reason: Recheck today's complaints Discharge Instructions: - Abdominal Pain, Adult ms3 - Diarrhea, Adult ms3 - Nausea and Vomiting, Adult ms3 - Discharge Summary Sheet ko1 Forms: - Medication Reconciliation Form ms3 - Thank You Letter ms3 - Antibiotic Education ms3 - Prescription Opioid Use ms3 - Patient Portal Instructions ms3 - Leadership Thank You Letter ms3 - Work release form ko1 Signatures: Dispatcher [employer] EDDaniel Menchaca RN RN ll1 Kishore De Leon DO DO ms3 Annel Gerardo RN RN jj7 Christine Freed RN ko1
[2023-08-24 20:14] VITALS: BP 107/69; TEMP 97.9; O2SAT 100
== END ==
LOC: ER 07:08
DX: R11.2 Nausea with vomiting, unspecified (principal); R10.12 Left upper quadrant pain; R19.7 Diarrhea, unspecified; Z88.8 Allergy status to other drugs, medicaments and biological substances
CPT/HCPCS: 36415; 80053; 83690; 85025; 87804; J2405; J7030

== ENCOUNTER 2023-11-01 10:19 | Observation (INO) | payer OTHER ==
[2023-11-01] MEDS ORDERED: ONDANSETRON 4 MG/2 ML VIAL ONE (10:54)
[2023-11-01] MEDS ORDERED: NA CHLORIDE 0.9% 1,000 ML ONE (10:54)
[2023-11-01] MEDS ORDERED: MORPHINE 4 MG/ML SYR ONE (10:54)
[2023-11-01] MEDS ORDERED: PANTOPRAZOLE 40 MG INJ ONE (10:54)
[2023-11-01 11:00] LABS: Absolute Eosinophils 0.1 K/uL (0-0.5); Absolute Lymphocytes (CBC) 1.6 K/uL (0.7-4.9); Absolute Monocytes 0.5 K/uL (0.1-1.3); Absolute Neutrophil 5.1 K/uL (1.8-8.0); Basophils % 0.5 % (0-1.3); Hematocrit 43.6 % (39.6-49.0); Hemoglobin 15.2 g/dL (13.6-17.9); Lymphocytes % 22.1 % (15.3-44.8); MCHC 34.8 g/dL (32.0-36.0); MCV 94.9 fL (80-100); MPV 6.7 fL (7.6-11.3); Monocytes % 6.7 % (3.3-12.3); Neutrophils % 69.7 % (41.7-73.7); Nucleated Red Blood Cells % 0.1 % (0-0); Platelets 284 thou/uL (152-406); Red Cell Distribution Width 13.6 % (12.1-15.2)
[2023-11-01 11:16] LABS: Albumin 4.5 g/dL (3.4-5.0); Albumin/Globulin Ratio 1.3 (1.1-1.8); Anion Gap 11.1 mEq/L (5.0-15.0); Bilirubin Total 0.7 mg/dL (0.2-1.0); Globulin 3.4 g/dL (2.3-3.5); Potassium 4.1 mEq/L (3.5-5.1); Protein, Total 7.9 g/dL (6.4-8.2)
[2023-11-01 11:42] LABS: Specific Gravity 1.027 (1.005-1.030); Sqamous Epithelial None Seen /HPF (None Seen); Urine Bacteria None Seen /HPF (<20); Urine Bilirubin NEGATIVE (Negative); Urine Blood Negative (Negative); Urine Clarity Clear (Clear); Urine Color Yellow (Yellow); Urine Culture Reflex Order NOT NEEDED; Urine Glucose NEGATIVE (Negative); Urine Ketones 2+ (Negative); Urine Microscopic Reflex YN ORDER UMIC; Urine Mucus 1+ /HPF (None Seen); Urine Nitrite NEGATIVE (Negative); Urine Protein TRACE (Negative); Urine RBC <5 /HPF (None Seen); Urine Urobilinogen Normal (Normal); Urine WBC <5 /HPF (<5)
--- NOTE | 2023-11-01 12:00 | RAD REPORT ---
EXAM DESCRIPTION: CT - Abdomen Pelvis W Contrast - 11/01/2023 11:37 am CLINICAL HISTORY: ABD PAIN COMPARISON: Abdomen Pelvis W Contrast dated 02/18/2023; Abdomen Pelvis W Contrast dated 12/17/2022; Abdomen Pelvis W Contrast dated 05/05/2022; Abdomen Pelvis W Contrast dated 10/25/2021 TECHNIQUE: Thin cut axial CT imaging of the abdomen and pelvis was performed following intravenous a dministration of 100 mL Isovue 300. Multiplanar reformats were generated and reviewed. All CT scans are performed using dose optimization technique as appropriate and may include automated exposure control or mA/KV adjustment according to patient size. FINDINGS: No suspicious findings in the lung bases. The liver, spleen, adrenal glands, and pancreas show no suspicious findings. Peripheral right liver l obe 9 mm rounded lesion is stable suggestive of a small cyst Gallbladder shows numerous cluster conta ining stones. Symmetric renal function is seen with no hydronephrosis or suspicious renal mass. No dilated bowel loops or bowel wall thickening. Mild colonic diverticulosis. No free air, free fluid or inflammatory stranding. No hernia, mass or bulky lymphadenopathy. The urinary bladder is without significant finding. No suspicious bony findings. IMPRESSION: No acute intra-abdominal process. Cholelithiasis. Mild colonic diverticulosis.
--- NOTE | 2023-11-01 12:18 | EDPHYS ---
Physician Documentation [facility] Name: Gregg Nair Age: 57 yrs Sex: Male : 1965 Arrival Date: 11/01/2023 Time: 10:19 Bed 20 Private MD: ED Physician Ricardo Del Rio HPI: 10/31 11:51 This 57 yrs old Male presents to ER via Wheelchair with complaints of ec2 Abdominal Pain, Rectal Bleeding. 11:51 Patient arrives today for evaluation of right lower quadrant abdominal pain along with ec2 rectal bleeding. Symptoms started just prior to arrival. Patient reports no history of GI bleeding, does report a history of precancerous polyps. States he undergoes colonoscopy every 2 years. Patient reports some associated nausea, no vomiting, complain of significant pain.. Historical: - Allergies: 10:39 TB shots; ap3 10:39 TB skin test; ap3 - PMHx: 10:39 C7 FRACTURE; Chronic pain; Hypertensive disorder; TBI; ap3 - PSHx: 10:39 CHEST RECONSTRUCTION; RIGHT BKA; right shoulder; SKULL RECONSTRUCTION; ap3 - Immunization history:: Client reports having NOT received the Covid vaccine. - Infectious Disease History:: Denies. - Social history:: Smoking status: Patient denies any tobacco usage or history of. ROS: 11:51 Constitutional: as per hpi ec2 Exam: 11:51 Constitutional: GEN: NAD Head: atraumatic Eyes: EOMI Ears: External ears are ec2 normal. CV: regular rate LUNGS: no respiratory distress ABD: non-distended, soft, tender in the right lower quadrant, no guarding, not rigid. examination: Under tech supervision, Rojelio, obvious blood present around the rectum, no obvious hemorrhoids appreciated. SKIN: no evidence of rashes MSK: no evidence of trauma NEURO: moves all extremities equally Vital Signs: 10:35 BP 148 / 94; Resp 19; Temp 97.8; Pulse Ox 99% ; Weight 104.33 kg; Height 6 ft. 3 in. ; ap3 Pain 10/10; 11:06 BP 158 / 94; Pulse 90; Resp 16 S; Pulse Ox 95% on R/A; Pain 10/10; kc6 12:13 BP 153 / 87; Pulse 89; Resp 18 S; Pulse Ox 99% on R/A; kc6 10:35 Body Mass Index 28.75 (104.33 kg, 190.5 cm) ap3 10:35 Pain Scale: Adult ap3 11:06 Pain Scale: Adult kc6 MDM: 10:34 Patient medically screened. ec2 11:51 ED course: CBC reassuring without anemia. Urine is noninfectious appearing. Metabolic ec2 profile reassuring with appropriate liver numbers. Appropriate electrolytes and renal function. Lipase within normal ranges. Pending CT imaging. . 11:51 Data reviewed: vital signs, nurses notes. ED course: Patient arrives today for ec2 evaluation of abdominal pain and rectal bleeding. Examination remarkable for well-appearing nontoxic dividual is otherwise in no acute distress with reassuring vital signs with right lower quadrant TTP as well as rectal bleeding present on examination. Will obtain lab work, CT imaging. Evaluate for appendicitis, diverticulitis, diverticulosis. Also investigating for anemia as well.. 12:08 ED course: JudgmentCT imaging shows diverticulosis. Patient is hemodynamically stable ec2 with appropriate vital signs and reassuring blood counts. Patient reports that he still feels lightheaded, unable to qualify the level of bleeding, will admit for. Discussed case with hospitalist, pending admission. 10/31 10:35 Order name: CBC with Diff; Complete Time: 11:50 ec2 10/31 10:35 Order name: CMP; Complete Time: 11:50 ec2 10/31 10:35 Order name: Lipase; Complete Time: 11:50 ec2 10/31 10:35 Order name: Urinalysis w/ reflexes; Complete Time: 11:50 ec2 10/31 10:35 Order name: Type And Screen; Complete Time: 11:50 ec2 10/31 13:21 Order name: Urinalysis w/ reflexes EDMS 10/31 10:35 Order name: CT Abd/Pelvis - IV Contrast Only; Complete Time: 12:07 ec2 10/31 10:35 Order name: IV Saline Lock; Complete Time: 10:41 ec2 10/31 10:35 Order name: Labs collected and sent; Complete Time: 10:41 ec2 Administered Medications: 11:04 Drug: NS 0.9% IV 1000 ml IV at 1 bolus Per protocol; 1000 mL bolus Route: IV; Rate: 1 kc6 bolus; Site: right antecubital; 12:13 Follow up: Response: No adverse reaction; IV Status: Completed infusion; IV Intake: kc6 1000ml 11:04 Drug: Ondansetron IVP 4 mg IVP once; over 2 minutes Route: IVP; Site: right antecubital;kc6 12:12 Follow up: Response: No adverse reaction; Nausea is decreased kc6 11:04 Drug: Pantoprazole IVP 80 mg IVP once Route: IVP; Site: right antecubital; kc6 12:12 Follow up: Response: No adverse reaction kc6 11:04 Drug: morphine IVP or IV 4 mg IVP once over 4 mins Route: IVP; Infused Over: 4 mins; kc6 Site: right antecubital; 12:12 Follow up: Response: No adverse reaction; Pain is unchanged, physician notified; RASS: kc6 Alert and Calm (0) Disposition Summary: 11/01/23 12:17 Hospitalization Ordered Notes: Hospitalization Status: Inpatient Admission ec2 Provider: Fred Rousseau ec2 Location: Telemetry/MedSurg (observation) ec2 Condition: Stable ec2 Problem: new ec2 Symptoms: have improved ec2 Bed/Room Type: Standard ec2 Room Assignment: 211(11/01/23 13:52) bd Diagnosis - Diverticulosis of intestine, part unspecified, without perforation or abscess ec2 without bleeding Discharge Instructions: - Discharge Summary Sheet ec2 - Diverticulosis ec2 Forms: - Medication Reconciliation Form ec2 - SBAR form ec2 - Leadership Thank You Letter ec2 Signatures: Dispatcher [employer] EDMS Barb Mccain Amanda, RN RN ap3 Haley Delcid RN RN kc6 Ricardo Del Rio MD MD ec2 Corrections: (The following items were deleted from the chart) 10:36 10:36 CBC+H.LAB.BRZ ordered. EDMS EDMS 10:36 10:36 COMPREHENSIVE METABOLIC PANEL+C.LAB.BRZ ordered. EDMS EDMS 10:36 10:36 LIPASE+C.LAB.BRZ ordered. EDMS EDMS 10:36 10:36 Urinalysis+U.LAB.BRZ ordered. EDMS EDMS 10:36 10:36 Abdomen Pelvis W Con+CT.RAD.BRZ ordered. EDMS EDMS 10:36 10:36 TYPE AND SCREEN+BB.LAB.BRZ ordered. EDMS EDMS 11:52 11:51 ED course: Patient arrives today for evaluation of abdominal pain and rectal ec2 bleeding. Examination remarkable for well-appearing nontoxic dividual is otherwise in no acute distress with reassuring vital signs with right lower quadrant TTP as well as rectal bleeding present on examination. Will obtain lab work, CT imaging. Evaluate for appendicitis, diverticulitis, diverticulosis. Also investigating for anemia as well.. ec2 11:53 11:51 ED course: Patient arrives today for evaluation of abdominal pain and rectal ec2 bleeding. Examination remarkable for well-appearing nontoxic dividual is otherwise in no acute distress with reassuring vital signs with right lower quadrant TTP as well as rectal bleeding present on examination. Will obtain lab work, CT imaging. Evaluate for appendicitis, diverticulitis, diverticulosis. Also investigating for anemia as well.. ec2 12:15 12:08 ED course: CT imaging shows diverticulosis. Patient is hemodynamically stable ec2 with appropriate vital signs and reassuring blood counts. Patient to follow-up outpatient with GI.. ec2 12:17 12:08 ED course: JudgmentCT imaging shows diverticulosis. Patient is hemodynamically ec2 stable with appropriate vital signs and reassuring blood counts. Patient reports that he still feels lightheaded, unable to qualify the level of bleeding, will admit for. Discussed case with hospice, pending admission. ec2 13:52 12:17 ec2 bd
--- NOTE | 2023-11-01 12:18 | ER ---
Nurse's Notes [facility] Name: Gregg Nair Age: 57 yrs Sex: Male : 1965 Arrival Date: 11/01/2023 Time: 10:19 Bed 20 Private MD: Diagnosis: Diverticulosis of intestine, part unspecified, without perforation or abscess without bleeding Presentation: 10/31 10:35 Chief complaint: Patient states: he started having sudden onset of right lower quadrant ap3 pain with vomiting X's 2. patient also reports that he had sudden onset of rectal bleeding at the same time. patient reports pain to be a 10/10 at this time. Coronavirus screen: At this time, the client does not indicate any symptoms associated with coronavirus-19. Ebola Screen: No symptoms or risks identified at this time. Initial Sepsis Screen: Does the patient meet any 2 criteria? No. Patient's initial sepsis screen is negative. Does the patient have a suspected source of infection? No. Patient's initial sepsis screen is negative. Risk Assessment: Do you want to hurt yourself or someone else? Patient reports no desire to harm self or others. Onset of symptoms was November 01, 2023. 10:35 Method Of Arrival: Wheelchair ap3 10:35 Acuity: BRIAN 3 ap3 Triage Assessment: 10:40 General: Appears uncomfortable, Behavior is cooperative, restless. Pain: Complains of ap3 pain in right lower quadrant Pain currently is 10 out of 10 on a pain scale. Pain began suddenly. Neuro: Level of Consciousness is awake, alert, obeys commands, Oriented to person, place, time, situation. Cardiovascular: Patient's skin is warm and dry. Respiratory: Airway is patent Respiratory effort is even, unlabored, Respiratory pattern is regular, symmetrical. GI: Reports lower abdominal pain, rectal bleeding, bloody stool, nausea, vomiting. Historical: - Allergies: 10:39 TB shots; ap3 10:39 TB skin test; ap3 - PMHx: 10:39 C7 FRACTURE; Chronic pain; Hypertensive disorder; TBI; ap3 - PSHx: 10:39 CHEST RECONSTRUCTION; RIGHT BKA; right shoulder; SKULL RECONSTRUCTION; ap3 - Immunization history:: Client reports having NOT received the Covid vaccine. - Infectious Disease History:: Denies. - Social history:: Smoking status: Patient denies any tobacco usage or history of. Screenin:41 Abuse screen: Denies threats or abuse. Nutritional screening: No deficits noted. ap3 Tuberculosis screening: No symptoms or risk factors identified. 11:04 [facility] ED Fall Risk Assessment (Adult) History of falling in the last 3 months, kc6 including since admission No falls in past 3 months (0 pts) Confusion or Disorientation No (0 pts) Intoxicated or Sedated No (0 pts) Impaired Gait No (0 pts) Mobility Assist Device Used No (0 pt) Altered Elimination No (0 pt) Score/Fall Risk Level 0 - 2 = Low Risk. Assessment: 11:05 General: Appears in no apparent distress. uncomfortable, well groomed, well developed, kc6 Behavior is calm, cooperative, appropriate for age. Pain: Complains of pain in abdomen and right lower quadrant. Neuro: Level of Consciousness is awake, alert, obeys commands, Oriented to person, place, time, situation, Appropriate for age. Cardiovascular: Capillary refill < 3 seconds. Respiratory: Airway is patent Trachea midline Respiratory effort is even, unlabored, Respiratory pattern is regular, symmetrical. GI: Abdomen is round non-distended, Bowel sounds present X 4 quads. Abd is soft X 4 quads Abdomen is tender to palpation in right upper quadrant Reports lower abdominal pain, rectal bleeding, bloody stool, nausea, vomiting. : No signs and/or symptoms were reported regarding the genitourinary system. EENT: No signs and/or symptoms were reported regarding the EENT system. Derm: No signs and/or symptoms reported regarding the dermatologic system. Skin is intact, is healthy with good turgor, Skin is pink, warm \T\ dry. Musculoskeletal: No signs and/or symptoms reported regarding the musculoskeletal system. Circulation, motion, and sensation intact. Capillary refill < 3 seconds, Range of motion: intact in all extremities. 12:05 Reassessment: Patient appears in no apparent distress at this time. No changes from kc6 previously documented assessment. Patient and/or family updated on plan of care and expected duration. Pain level reassessed. Patient is alert, oriented x 3, equal unlabored respirations, skin warm/dry/pink. Patient states symptoms have not improved. 13:20 Reassessment: Patient appears in no apparent distress at this time. No changes from kc6 previously documented assessment. Patient and/or family updated on plan of care and expected duration. Pain level reassessed. Patient is alert, oriented x 3, equal unlabored respirations, skin warm/dry/pink. Vital Signs: 10:35 BP 148 / 94; Resp 19; Temp 97.8; Pulse Ox 99% ; Weight 104.33 kg; Height 6 ft. 3 in. ; ap3 Pain 10/10; 11:06 BP 158 / 94; Pulse 90; Resp 16 S; Pulse Ox 95% on R/A; Pain 10/10; kc6 12:13 BP 153 / 87; Pulse 89; Resp 18 S; Pulse Ox 99% on R/A; kc6 10:35 Body Mass Index 28.75 (104.33 kg, 190.5 cm) ap3 10:35 Pain Scale: Adult ap3 11:06 Pain Scale: Adult kc6 ED Course: 10:21 Patient arrived in ED. im 10:21 Ricardo Del Rio MD is Attending Physician. ec2 10:28 Haley Delcid RN is Primary Nurse. kc6 10:39 Triage completed. ap3 10:41 Arm band placed on right wrist. ap3 10:45 T\T\S collected, blood band applied to patient. em1 11:04 Inserted saline lock: 20 gauge in right antecubital area, using aseptic technique. kc6 Blood collected. 11:05 Patient has correct armband on for positive identification. Bed in low position. Call kc6 light in reach. Side rails up X2. Client placed on continuous cardiac and pulse oximetry monitoring. NIBP monitoring applied. Warm blanket given. 11:30 Urinalysis w/ reflexes Sent. kc6 11:38 CT Abd/Pelvis - IV Contrast Only In Process Unspecified. EDMS 12:17 Fred Rousseau is Hospitalizing Provider. ec2 Administered Medications: 11:04 Drug: NS 0.9% IV 1000 ml IV at 1 bolus Per protocol; 1000 mL bolus Route: IV; Rate: 1 kc6 bolus; Site: right antecubital; 12:13 Follow up: Response: No adverse reaction; IV Status: Completed infusion; IV Intake: kc6 1000ml 11:04 Drug: Ondansetron IVP 4 mg IVP once; over 2 minutes Route: IVP; Site: right antecubital;kc6 12:12 Follow up: Response: No adverse reaction; Nausea is decreased kc6 11:04 Drug: Pantoprazole IVP 80 mg IVP once Route: IVP; Site: right antecubital; kc6 12:12 Follow up: Response: No adverse reaction kc6 11:04 Drug: morphine IVP or IV 4 mg IVP once over 4 mins Route: IVP; Infused Over: 4 mins; kc6 Site: right antecubital; 12:12 Follow up: Response: No adverse reaction; Pain is unchanged, physician notified; RASS: kc6 Alert and Calm (0) Intake: 12:13 IV: 1000ml; Total: 1000ml. kc6 Outcome: 12:17 Decision to Hospitalize by Provider. ec2 15:00 Patient left the ED. kc6 Signatures: Dispatcher [employer] Rojelio Black em1 Elisabeth Torres RN RN [id number] Haley Delcid RN RN kc6 Christina Pittman Edwin, MD MD ec2
[2023-11-01] MEDS ORDERED: ACETAMINOPHEN 500 MG TAB PO PRN (14:11)
[2023-11-01] MEDS ORDERED: HYDRALAZINE HCL 20 MG/ML VIAL IV PRN (14:11)
--- NOTE | 2023-11-01 14:45 | P.HP ---
Certification for Inpatient Patient admitted to: Observation With expected LOS: >2 Midnights Patient will require the following post-hospital care: None Practitioner: I am a practitioner with admitting privileges, knowledge of patient current condition, hospital course, and medical plan of care. Services: Services provided to patient in accordance with Admission requirements found in Title 42 Section 412.3 of the Code of Federal Regulations Patient History Date of Service: 11/01/23 Reason for admission: GI bleed History of Present Illness: Gregg Nair is a 57 year old male with Pmhx of HTN, TBI, chronic pain, and C7 fracture who presents to the ED with chief complaint of abdominal pain with rectal bleeding. Family is at the bedside and reports he had a GI bleed in the past and it was determined he had diverticulitis. He reports the pain is on his RLQ with little relief. He reports dizziness occurring after he bled into the toilet. While in the ED he was given zofran, protonix, morphine, and 1 liter of NS which he tolerated well. On examination, his abdomen is mildly distended with tenderness across his abdomen, he is uncomfortable, and hemodynamically stable. Initial vitals BP 148 / 94; Resp 19; Temp 97.8; Pulse Ox 99% Laboratory evaluation unremarkable, UA unremarkable. CT abdomen pelvis with contrast reports "No acute intra-abdominal process. Cholelithiasis. Mild colonic diverticulosis" Gregg will be admitted to hospitalist service for further evaluation and treatment, Dr. Dewey consulted. Allergies No Known Allergies Allergy (Unverified 07/24/17 13:42) Home Medications: Hydrocodone Bit/Acetaminophen [[place] 7.5-325 Tablet] 1 each PO TID PRN 11/01/23 Valsartan 40 mg PO DAILY 11/01/23 - Past Medical/Surgical History -: HTN -: C7 fracture -: TBI -: Chronic pain -: Chest reconstruction -: Right BKA -: Skull reconstruction - Social History Smoking Status: Never smoker Alcohol use: No CD- Drugs: No Caffeine use: No Review of Systems General: Weakness Gastrointestinal: Nausea, Vomiting, Abdominal Pain, Diarrhea Neurological: Other (dizziness) Physical Examination - Physical Exam General: Alert, Oriented x3, Mild distress HEENT: Atraumatic, Normocephalic, PERRLA Neck: Supple, 2+ carotid pulse no bruit, JVD not distended Respiratory: Clear to auscultation bilaterally, Normal air movement Cardiovascular: Normal pulses, Regular rate/rhythm, Normal S1 S2 Capillary refill: <2 Seconds Gastrointestinal: Hypoactive, Soft and benign, Non-distended, Tenderness Musculoskeletal: No clubbing, No swelling, Other (R BKA) Integumentary: No breakdown Neurological: Normal speech, Normal tone - Studies Laboratory Data (last 24 hrs) 11/01/23 11/01/23 10:39 10:39 WBC 7.30 Hgb 15.2 Hct 43.6 Plt Count 284 Sodium 137 Potassium 4.1 BUN 13 Creatinine 0.91 Glucose 87 Total Bilirubin 0.7 AST 18 ALT 22 Alkaline Phosphatase 69 Lipase 23 Assessment and Plan - Plan Assessment and plan GI bleed in a patient with a History of diverticulosis Cholelithiasis Right lower quadrant pain CT abdomen pelvis reports cholelithiasis, mild colonic diverticulosis, peripheral right liver lobe 9 mm rounded lesion is stable suggestive of a small cyst. Consult Dr. Dewey Repeat H&H at 4 PM, trend Gentle IV fluid pain control zosyn CLD Chronic Pain Morphine PRN History of hypertension Continue home medication DVT PPx SCDs Full code 24 hours Discharge Plan: Home Plan to discharge in: 24 Hours - Advance Directives Does patient have a Living Will: No Does patient have a Durable POA for Healthcare: No
[2023-11-01] MEDS: CIPROFLOXACIN 400mg IV 400 MG/200 ML BAG IV SCH (15:44)
[2023-11-01] MEDS: NA CHLORIDE 0.9% 1,000 ML IV SCH (15:44)
[2023-11-01 16:05] VITALS: BMI 28.1
[2023-11-01] MEDS: MORPHINE 2 MG/ML SYR IV PRN (16:11)
[2023-11-01 16:32] LABS: Hematocrit 41.7 % (39.6-49.0); Hemoglobin 14.1 g/dL (13.6-17.9)
[2023-11-01] MEDS ORDERED: METRONIDAZOLE 500mg IVPB 500 MG/100 ML BAG IV SCH (17:00)
[2023-11-01] MEDS: PIPER TAZO 3.375 GM in NA CHLORIDE 0.9% 100 ML IV SCH (17:13)
[2023-11-01 21:46] VITALS: O2SAT 99
[2023-11-02 03:55] LABS: Absolute Eosinophils 0.2 K/uL (0-0.5); Absolute Lymphocytes (CBC) 2.3 K/uL (0.7-4.9); Absolute Monocytes 0.6 K/uL (0.1-1.3); Basophils % 0.4 % (0-1.3); Eosinophils % 3.6 % (0-4.4); Hematocrit 42.9 % (39.6-49.0); Hemoglobin 14.4 g/dL (13.6-17.9); Lymphocytes % 37.7 % (15.3-44.8); MCH 32.4 pg (27.0-35.0); MCHC 33.5 g/dL (32.0-36.0); MCV 96.6 fL (80-100); MPV 7.2 fL (7.6-11.3); Monocytes % 9.3 % (3.3-12.3); Nucleated Red Blood Cells % 0.1 % (0-0); Platelets 244 thou/uL (152-406); RBC Red Blood Cell Count 4.44 M/uL (4.33-5.43); Red Cell Distribution Width 13.7 % (12.1-15.2)
[2023-11-02 04:03] LABS: Anion Gap 7.1 mEq/L (5.0-15.0); Magnesium 2.2 mg/dL (1.6-2.4); Phosphorus 2.7 mg/dL (2.5-4.9); Potassium 4.1 mEq/L (3.5-5.1)
[2023-11-02 08:31] VITALS: BP 149/85; TEMP 99.3
== END 2023-11-02 10:29 | disposition home or self-care (01) ==
LOC: ER 10:19 → ERHOLD 13:29 → 2ND 13:55
PROVIDERS: ADMIT Internal Medicine; ATTEND Internal Medicine
DX: K92.2 Gastrointestinal hemorrhage, unspecified (principal); K57.90 Diverticulosis of intestine, part unspecified, without perforation or abscess without bleeding; K80.20 Calculus of gallbladder without cholecystitis without obstruction; R10.31 Right lower quadrant pain; G89.29 Other chronic pain; I10 Essential (primary) hypertension; S12.600D Unspecified displaced fracture of seventh cervical vertebra, subsequent encounter for fracture with routine healing
CPT/HCPCS: 36415; 74177; 80048; 80053; 81001; 83690; 83735; 84100; 85014; 85018; 85025; 86850; 86900; 86901; 96361; 96374; 96375; 99284; C9113; G0378; J0744; J2270; J2405; J2543; J7030; Q9967

== ENCOUNTER 2023-12-11 09:59 | Emergency (ER) | payer OTHER ==
--- NOTE | 2023-12-11 10:46 | RAD REPORT ---
EXAM DESCRIPTION: RAD - Chest Single View - 12/11/2023 10:38 am CLINICAL HISTORY: ABDOMINAL DISTENTION COMPARISON: Chest Pa And Lat (2 Views) dated 04/19/2023; Chest Single View dated 12/17/2022; Chest Sing le View dated 09/09/2022 FINDINGS: Lines: None. Lungs: No evidence of edema or pneumonia. Pleural: No significant pleural effusions or pneumothorax. Cardiac: The heart size is within normal limits. Mediastinum: Within normal limits. Bones: No acute fractures. Other: None IMPRESSION: No acute cardiopulmonary disease.
[2023-12-11] MEDS ORDERED: FAMOTIDINE 20 MG/2 ML VIAL IV ONE (10:49)
[2023-12-11] MEDS ORDERED: ONDANSETRON 4 MG/2 ML VIAL ONE (10:49)
[2023-12-11] MEDS ORDERED: MORPHINE 4 MG/ML SYR ONE (10:49)
[2023-12-11] MEDS ORDERED: NA CHLORIDE 0.9% 1,000 ML ONE (10:50)
[2023-12-11 11:32] LABS: Absolute Eosinophils 0.1 K/uL (0-0.5); Absolute Lymphocytes (CBC) 0.6 K/uL (0.7-4.9); Absolute Monocytes 0.6 K/uL (0.1-1.3); Absolute Neutrophil 3.9 K/uL (1.8-8.0); Basophils % 0.4 % (0-1.3); Eosinophils % 1.7 % (0-4.4); Hematocrit 42.3 % (39.6-49.0); Hemoglobin 14.3 g/dL (13.6-17.9); Lymphocytes % 11.2 % (15.3-44.8); MCH 32.3 pg (27.0-35.0); MCHC 33.8 g/dL (32.0-36.0); MCV 95.5 fL (80-100); MPV 6.7 fL (7.6-11.3); Monocytes % 11.7 % (3.3-12.3); Platelets 198 thou/uL (152-406); RBC Red Blood Cell Count 4.43 M/uL (4.33-5.43); Red Cell Distribution Width 13.4 % (12.1-15.2)
[2023-12-11 11:44] LABS: PT Prothrombin Time 11.3 SECONDS (9.5-12.5); Protime INR 1.03
[2023-12-11 11:56] LABS: Specific Gravity > 1.030 (1.005-1.030); Sqamous Epithelial None Seen /HPF (None Seen); Urine Bacteria None Seen /HPF (<20); Urine Bilirubin NEGATIVE (Negative); Urine Blood Negative (Negative); Urine Clarity Clear (Clear); Urine Color Yellow (Yellow); Urine Culture Reflex Order NOT NEEDED; Urine Glucose NEGATIVE (Negative); Urine Ketones NEGATIVE (Negative); Urine Microscopic Reflex YN ORDER UMIC; Urine Mucus 1+ /HPF (None Seen); Urine Nitrite NEGATIVE (Negative); Urine Protein TRACE (Negative); Urine RBC <5 /HPF (None Seen); Urine Urobilinogen Normal (Normal); Urine WBC <5 /HPF (<5)
[2023-12-11 12:00] LABS: ALT/SGPT 18 U/L (16-61); AST/SGOT 16 U/L (15-37); Albumin 3.6 g/dL (3.4-5.0); Alkaline Phosphatase 62 U/L (45-117); Anion Gap 9.3 mEq/L (5.0-15.0); BUN Blood Urea Nitrogen 8 mg/dL (7-18); Bicarbonate 27 mEq/L (21-32); Bilirubin Direct < 0.2 mg/dL (0-0.2); Bilirubin Indirect, Calculated 0.2 mg/dL (0.2-0.8); Bilirubin Total 0.4 mg/dL (0.2-1.0); Globulin 3.6 g/dL (2.3-3.5); Glomerular Filtration Rate 100 ml/min (=/>90); Glucose Level 102 mg/dL (74-106); Lipase 20 U/L (13-75); Magnesium 2.1 mg/dL (1.6-2.4); NT PRO-BNP 242 pg/mL (<125); Potassium 4.3 mEq/L (3.5-5.1); Protein, Total 7.2 g/dL (6.4-8.2); Sodium Level 136 mEq/L (136-145); Troponin High Sensitivity 3.1 pg/mL (<58.9)
--- NOTE | 2023-12-11 12:33 | RAD REPORT ---
EXAM DESCRIPTION: CTAbdomen Pelvis W Contrast - 12/11/2023 12:19 pm CLINICAL HISTORY: ABD PAIN COMPARISON: Abdomen Pelvis W Contrast dated 11/01/2023; Abdomen Pelvis W Contrast dated 02/18/2023; Abdomen Pelvis W Contrast dated 12/17/2022; Abdomen Pelvis W Contrast dated 05/05/2022 TECHNIQUE: CT of the abdomen and pelvis was performed with IV contrast. All CT scans are performed using dose optimization technique as appropriate and may include automated exposure control or mA/KV adjustment according to patient size. FINDINGS: Lower chest: Mild circumferential thickened distal esophagus which could reflect esophagit is. Liver: Low-density lesion in the hepatic dome is unchanged, likely benign. Biliary: Cholelithiasis. No CT evidence of acute cholecystitis. Stomach: No significant focal abnormality. Duodenum: No significant focal abnormality. Pancreas: No significant abnormality. Spleen: No significant abnormality. Adrenal: No suspicious lesions. Kidney/ureter: No hydronephrosis. No renal calculi. Retroperitoneum: No retroperitoneal adenopathy. Vascular: No aneurysm. Bowel: Normal appendix. Moderate colonic stool.. Peritoneum: No ascites or free air. Bladder: Grossly unremarkable. Reproductive: No adnexal masses. Bones: No acute fracture. Other: n/a IMPRESSION: No acute intra-abdominal or pelvic finding. Normal appendix. Cholelithiasis without CT e vidence of acute cholecystitis.
--- NOTE | 2023-12-11 12:38 | ER ---
Nurse's Notes [facility] Name: Gregg Nair Age: 58 yrs Sex: Male : 1965 Arrival Date: 12/11/2023 Time: 09:59 Bed IW10 Private MD: Diagnosis: Abdominal pain, unspecified;Headache Presentation: 12/10 10:12 Chief complaint: Patient states: Lower abdominal pain since Monday. + dizziness. ll1 Coronavirus screen: Client denies travel out of the [place] in the last 14 days. At this time, the client does not indicate any symptoms associated with coronavirus-19. Ebola Screen: Patient denies travel to an Ebola-affected area in the 21 days before illness onset. Initial Sepsis Screen: Does the patient meet any 2 criteria? No. Patient's initial sepsis screen is negative. Does the patient have a suspected source of infection? No. Patient's initial sepsis screen is negative. Risk Assessment: Do you want to hurt yourself or someone else? Patient reports no desire to harm self or others. Onset of symptoms was December 09, 2023. 10:12 Method Of Arrival: Ambulatory ll1 10:12 Acuity: BRIAN 3 ll1 Triage Assessment: 10:15 General: Appears in no apparent distress. Behavior is calm, cooperative, appropriate ll1 for age. Pain: Complains of pain in abdomen Pain currently is 8 out of 10 on a pain scale. Quality of pain is described as aching. Neuro: Reports dizziness. GI: Reports lower abdominal pain. Historical: - Allergies: 10:11 TB shots; ll1 10:11 TB skin test; ll1 - PMHx: 10:11 C7 FRACTURE; Chronic pain; Hypertensive disorder; TBI; ll1 - PSHx: 10:11 CHEST RECONSTRUCTION; RIGHT BKA; right shoulder; SKULL RECONSTRUCTION; ll1 - Immunization history:: Adult Immunizations up to date. - Infectious Disease History:: Denies. - Social history:: Smoking status: Patient denies any tobacco usage or history of. Screenin:08 [facility] ED Fall Risk Assessment (Adult) History of falling in the last 3 months, rs5 including since admission No falls in past 3 months (0 pts) Confusion or Disorientation No (0 pts) Intoxicated or Sedated No (0 pts) Impaired Gait No (0 pts) Mobility Assist Device Used No (0 pt) Altered Elimination No (0 pt) Score/Fall Risk Level 0 - 2 = Low Risk Oriented to surroundings, Maintained a safe environment. Abuse screen: Denies threats or abuse. Nutritional screening: No deficits noted. Tuberculosis screening: No symptoms or risk factors identified. Assessment: 10:08 General: Appears in no apparent distress. uncomfortable, Behavior is calm, cooperative. rs5 Pain: Complains of pain in abdomen Pain currently is 7 out of 10 on a pain scale. Quality of pain is described as aching, Is continuous. Neuro: Level of Consciousness is awake, alert, obeys commands, Oriented to person, place, time, situation. Cardiovascular: Patient's skin is warm and dry. Rhythm is regular. Respiratory: Airway is patent Respiratory effort is even, unlabored, Respiratory pattern is regular, symmetrical. GI: Abdomen is round non-distended, Abd is soft and non tender X 4 quads. Reports nausea. : No signs and/or symptoms were reported regarding the genitourinary system. EENT: No signs and/or symptoms were reported regarding the EENT system. Derm: Skin is intact, Skin is pink, warm \T\ dry. Musculoskeletal: Range of motion: intact in all extremities. 11:15 Reassessment: Patient and/or family updated on plan of care and expected duration. Pain rs5 level reassessed. Patient is alert, oriented x 3, equal unlabored respirations, skin warm/dry/pink. Patient states feeling better. 11:51 Reassessment: No changes from previously documented assessment. rs5 12:25 Reassessment: No changes from previously documented assessment. rs5 Vital Signs: 10:12 BP 156 / 85; Pulse 88; Resp 17; Temp 98.5; Pulse Ox 96% on R/A; Weight 104.33 kg; ll1 Height 6 ft. 3 in. ; Pain 8/10; 12:25 BP 151 / 81; Pulse 81; Resp 18; Pulse Ox 99% on R/A; rs5 10:12 Body Mass Index 28.75 (104.33 kg, 190.5 cm) ll1 10:12 Pain Scale: Adult ll1 [place]enc[place] Coma Score: 11:30 Eye Response: spontaneous(4). Motor Response: obeys commands(6). Verbal Response: yanira oriented(5). Total: 15. ED Course: 10:05 Patient arrived in ED. ra3 10:07 Conner Michel MD is Attending Physician. yanira 10:12 Triage completed. ll1 10:13 Arm band placed on Patient placed in an exam room, on a stretcher. ll1 10:15 Patient has correct armband on for positive identification. Bed in low position. Call rs5 light in reach. Side rails up X2. 10:15 No provider procedures requiring assistance completed. rs5 10:25 EKG done, by ED staff, reviewed by Conner Michel MD. em1 10:31 Dominick Mcgee, RN is Primary Nurse. rs5 10:40 XRAY Chest (1 view) In Process Unspecified. EDMS 11:01 Inserted saline lock: 20 gauge in right antecubital area, using aseptic technique. rs5 Blood collected. 11:19 Basic Metabolic Panel Sent. cp4 11:19 CBC with Diff Sent. cp4 11:19 LFT's Sent. cp4 11:19 Magnesium Sent. cp4 11:19 NT PRO-BNP Sent. cp4 11:19 PT-INR Sent. cp4 11:19 Troponin HS Sent. cp4 11:19 Initial lab(s) drawn, by me, sent to lab. cp4 12:19 CT Abd/Pelvis - IV Contrast Only In Process Unspecified. EDMS 12:47 IV discontinued, intact, bleeding controlled, No redness/swelling at site. Pressure tl4 dressing applied. 14:58 Primary Nurse role handed off by Dominick Mcgee, RN ll1 Administered Medications: 10:45 Drug: NS 0.9% IV 1000 ml IV at 1 bolus Per protocol; 1000 mL bolus Route: IV; Rate: 1 rs5 bolus; Site: right antecubital; 11:20 Follow up: Response: No adverse reaction rs5 10:45 Drug: Famotidine IVP 20 mg IVP once; dilute with 10 mL 0.9% NaCl; give over 2 minutes rs5 Route: IVP; Site: right antecubital; 11:10 Follow up: Response: No adverse reaction rs5 10:45 Drug: morphine IVP or IV 4 mg IVP once over 4 mins Route: IVP; Infused Over: 4 mins; rs5 Site: right antecubital; 11:05 Follow up: Response: No adverse reaction rs5 10:45 Drug: Ondansetron IVP 4 mg IVP once; over 2 minutes Route: IVP; Site: right antecubital;rs5 11:07 Follow up: Response: No adverse reaction rs5 Medication: 11:50 VIS not applicable for this client. rs5 Outcome: 12:38 Discharge ordered by . yanira 12:47 Discharged to home ambulatory, tl4 12:47 Condition: stable 12:47 Discharge instructions given to patient, Instructed on discharge instructions, follow up and referral plans. medication usage, Demonstrated understanding of instructions, follow-up care, medications, Prescriptions given X 3, 12:52 Patient left the ED. tl4 15:02 Patient left the ED. ll1 Signatures: Dispatcher [employer] EDMS Conner Michel MD MD cha Martinez, Eric em1 Daniel Villela, RN RN ll1 Dominick Mcgee RN RN rs5 Rashida Baez cp4 Chandler Higginbotham RN RN tl4 Seema Gardner 3 Corrections: (The following items were deleted from the chart) 10:15 10:12 Chief complaint: Patient states: Lower abdominal pain since Monday. ll1 ll1 11:51 11:19 Inserted saline lock: 20 gauge in right antecubital area, using aseptic rs5 technique. Blood collected. cp4
--- NOTE | 2023-12-11 12:39 | EDPHYS ---
Physician Documentation [facility] Name: Gregg Nair Age: 58 yrs Sex: Male : 1965 Arrival Date: 12/11/2023 Time: 09:59 Bed IW10 Private MD: ED Physician Conner Michel HPI: 12/10 11:24 This 58 yrs old Male presents to ER via Ambulatory with complaints of stomach yanira pain. 11:24 The patient presents with abdominal pain in the lower abdomen. Onset: The yanira symptoms/episode began/occurred 2 day(s) ago. The symptoms do not radiate. Associated signs and symptoms: Pertinent positives: pain lower abd , likew a month ago when i had diverticulitis. Historical: - Allergies: 10:11 TB shots; ll1 10:11 TB skin test; ll1 - PMHx: 10:11 C7 FRACTURE; Chronic pain; Hypertensive disorder; TBI; ll1 - PSHx: 10:11 CHEST RECONSTRUCTION; RIGHT BKA; right shoulder; SKULL RECONSTRUCTION; ll1 - Immunization history:: Adult Immunizations up to date. - Infectious Disease History:: Denies. - Social history:: Smoking status: Patient denies any tobacco usage or history of. ROS: 11:30 Constitutional: Negative for fever, chills, and weight loss, Eyes: Negative for injury, yanira pain, redness, and discharge, ENT: Negative for injury, pain, and discharge, Neck: Negative for injury, pain, and swelling, Cardiovascular: Negative for chest pain, palpitations, and edema, Respiratory: Negative for shortness of breath, cough, wheezing, and pleuritic chest pain, Back: Negative for injury and pain, : Negative for injury, bleeding, discharge, and swelling, MS/Extremity: Negative for injury and deformity, Skin: Negative for injury, rash, and discoloration, Psych: Negative for depression, anxiety, suicide ideation, homicidal ideation, and hallucinations, Allergy/Immunology: Negative for hives, rash, and allergies, Endocrine: Negative for neck swelling, polydipsia, polyuria, polyphagia, and marked weight changes, Hematologic/Lymphatic: Negative for swollen nodes, abnormal bleeding, and unusual bruising, 11:30 Abdomen/GI: Positive for abdominal pain, of the right lower quadrant and left lower quadrant, 11:30 Neuro: Positive for headache, Exam: 11:30 Constitutional: This is a well developed, well nourished patient who is awake, alert, yanira and in no acute distress. Head/Face: Normocephalic, atraumatic. Eyes: Pupils equal round and reactive to light, extra-ocular motions intact. Lids and lashes normal. Conjunctiva and sclera are non-icteric and not injected. Cornea within normal limits. Periorbital areas with no swelling, redness, or edema. ENT: Nares patent. No nasal discharge, no septal abnormalities noted. Tympanic membranes are normal and external auditory canals are clear. Oropharynx with no redness, swelling, or masses, exudates, or evidence of obstruction, uvula midline. Mucous membranes moist. Neck: Trachea midline, no thyromegaly or masses palpated, and no cervical lymphadenopathy. Supple, full range of motion without nuchal rigidity, or vertebral point tenderness. No Meningismus. Chest/axilla: Normal chest wall appearance and motion. Nontender with no deformity. No lesions are appreciated. Cardiovascular: Regular rate and rhythm with a normal S1 and S2. No gallops, murmurs, or rubs. Normal PMI, no JVD. No pulse deficits. Respiratory: Lungs have equal breath sounds bilaterally, clear to auscultation and percussion. No rales, rhonchi or wheezes noted. No increased work of breathing, no retractions or nasal flaring. Back: No spinal tenderness. No costovertebral tenderness. Full range of motion. Male : Normal genitalia with no discharge or lesions. Skin: Warm, dry with normal turgor. Normal color with no rashes, no lesions, and no evidence of cellulitis. MS/ Extremity: Pulses equal, no cyanosis. Neurovascular intact. Full, normal range of motion. Neuro: Awake and alert, GCS 15, oriented to person, place, time, and situation. Cranial nerves II-XII grossly intact. Motor strength 5/5 in all extremities. Sensory grossly intact. Cerebellar exam normal. Normal gait. Psych: Awake, alert, with orientation to person, place and time. Behavior, mood, and affect are within normal limits. 11:30 Abdomen/GI: Inspection: abdomen appears normal, Bowel sounds: normal, Palpation: mild abdominal tenderness, in the suprapubic area, right lower quadrant and left lower quadrant, Liver: no appreciated palpable abnormalities, Hernia: not appreciated, 14:59 ECG was reviewed by the Attending Physician. [facility] Vital Signs: 10:12 BP 156 / 85; Pulse 88; Resp 17; Temp 98.5; Pulse Ox 96% on R/A; Weight 104.33 kg; ll1 Height 6 ft. 3 in. ; Pain 8/10; 12:25 BP 151 / 81; Pulse 81; Resp 18; Pulse Ox 99% on R/A; rs5 10:12 Body Mass Index 28.75 (104.33 kg, 190.5 cm) ll1 10:12 Pain Scale: Adult ll1 [place] Coma Score: 11:30 Eye Response: spontaneous(4). Motor Response: obeys commands(6). Verbal Response: yanira oriented(5). Total: 15. MDM: 10:07 Patient medically screened. [facility] 11:31 Data reviewed: vital signs, nurses notes, lab test result(s), EKG, radiologic studies, [facility] CT scan. Consideration of Admission/Observation Escalation of care including admission/observation considered. I considered the following discharge prescriptions or medication management in the emergency department Medications were administered in the Emergency Department. See MAR. Test considered but Not performed: Ultrasound no abd usg. Care significantly affected by the following chronic conditions: Hypertension, Obesity, tbi, c 7 fx. 12/10 10:09 Order name: Basic Metabolic Panel; Complete Time: 12:10 [facility] 12/10 10:09 Order name: CBC with Diff; Complete Time: 12:10 [facility] 12/10 10:09 Order name: LFT's; Complete Time: 12:10 [facility] 12/10 10:09 Order name: Magnesium; Complete Time: 12:10 [facility] 12/10 10:09 Order name: NT PRO-BNP; Complete Time: 12:10 [facility] 12/10 10:09 Order name: PT-INR; Complete Time: 12:10 [facility] 12/10 10:09 Order name: Troponin HS; Complete Time: 12:10 [facility] 12/10 10:09 Order name: Lipase; Complete Time: 12:10 [facility] 12/10 10:09 Order name: Urinalysis w/ reflexes; Complete Time: 12:10 [facility] 12/10 10:09 Order name: XRAY Chest (1 view); Complete Time: 11:18 [facility] 12/10 10:52 Order name: CT Abd/Pelvis - IV Contrast Only; Complete Time: 12:37 [facility] 12/10 10:09 Order name: EKG; Complete Time: 10:10 [facility] 12/10 10:09 Order name: Cardiac monitoring; Complete Time: 11:38 [facility] 12/10 10:09 Order name: EKG - Nurse/Tech; Complete Time: 10:25 [facility] 12/10 10:09 Order name: IV Saline Lock; Complete Time: 11: [facility] 12/10 10:09 Order name: Labs collected and sent; Complete Time: 11: [facility] 12/10 10:09 Order name: O2 Per Protocol; Complete Time: 11:38 [facility] 12/10 10:09 Order name: O2 Sat Monitoring; Complete Time: 11:38 [facility] EC:59 Rate is 81 beats/min. Rhythm is regular. QRS [place] is Normal. [place] interval is normal. QRS yanira interval is normal. QT interval is normal. No Q waves. T waves are Normal. No ST changes noted. Clinical impression: Normal ECG and No evidence of ischemia. Interpreted by me. Reviewed by me. Administered Medications: 10:45 Drug: NS 0.9% IV 1000 ml IV at 1 bolus Per protocol; 1000 mL bolus Route: IV; Rate: 1 rs5 bolus; Site: right antecubital; 11:20 Follow up: Response: No adverse reaction rs5 10:45 Drug: Famotidine IVP 20 mg IVP once; dilute with 10 mL 0.9% NaCl; give over 2 minutes rs5 Route: IVP; Site: right antecubital; 11:10 Follow up: Response: No adverse reaction rs5 10:45 Drug: morphine IVP or IV 4 mg IVP once over 4 mins Route: IVP; Infused Over: 4 mins; rs5 Site: right antecubital; 11:05 Follow up: Response: No adverse reaction rs5 10:45 Drug: Ondansetron IVP 4 mg IVP once; over 2 minutes Route: IVP; Site: right antecubital;rs5 11:07 Follow up: Response: No adverse reaction rs5 Disposition Summary: 12/11/23 12:38 Discharge Ordered Notes: Location: Home yanira Problem: new yanira Symptoms: have improved yanira Condition: Stable yanira Diagnosis - Abdominal pain, unspecified yanira - Headache yanira Followup: yanira - With: Private Physician - When: 2 - 3 days - Reason: Recheck today's complaints, Continuance of care, Re-evaluation by your physician Discharge Instructions: - Discharge Summary Sheet yanira - Abdominal Pain, Adult yanira - General Headache Without Cause yanira - General Headache Without Cause, Cper-to-Wdex [facility] Forms: - Medication Reconciliation Form yanira - Antibiotic Education yanira - Prescription Opioid Use yanira - Patient Portal Instructions yanira - Leadership Thank You Letter yanira Prescriptions: - Pepcid 20 mg Oral tablet - take 1 tablet ORAL route every 12 hours for 21 days; 42 tablet; Refills: 0, [facility] Product Selection Permitted - Zofran 4 mg Oral Tablet - take 1 tablet ORAL route every 12 hours As needed; 20 tablet; Refills: 0, ynaira Product Selection Permitted - dicyclomine 20 mg Oral tablet - take 1 tablet ORAL route 4 times per day; 28 tablet; Refills: 0, Product [facility] Selection Permitted Signatures: Dispatcher [employer] EDConner Verde MD MD cha Lewis, Lynsay, RN RN ll1 Dominick Mcgee RN RN rs5 Corrections: (The following items were deleted from the chart) 10:10 10:09 BASIC METABOLIC PANEL+C.LAB.BRZ ordered. EDMS EDMS 10:10 10:09 CBC+H.LAB.BRZ ordered. EDMS EDMS 10:10 10:09 HEPATIC FUNCTION+C.LAB.BRZ ordered. EDMS EDMS 10:10 10:09 MAGNESIUM+C.LAB.BRZ ordered. EDMS EDMS 10:10 10:09 PROBNP+C.LAB.BRZ ordered. EDMS EDMS 10:10 10:09 PROTIME (+INR)+COAG.LAB.BRZ ordered. EDMS EDMS 10:10 10:09 Troponin High Sensitivity+C.LAB.BRZ ordered. EDMS EDMS 10:10 10:09 LIPASE+C.LAB.BRZ ordered. EDMS EDMS 10:10 10:09 Urinalysis+U.LAB.BRZ ordered. EDMS EDMS
[2023-12-11 13:08] VITALS: TEMP 98.5
[2023-12-11 15:24] VITALS: BP 151/81; O2SAT 99
--- NOTE | 2023-12-12 14:15 | EKG ---
Test Date: 2023-12-11 Test Time: 10:23:28 [employer] Promoter: FRANCA MEASUREMENT RESULTS: Intervals: Rate: 81 UT: 180 QRSD: 78 QT: 358 QTc: 415 Christopher: P: 30 UT: 180 QRS: 3 T: 44 INTERPRETIVE STATEMENTS: Normal sinus rhythm Normal ECG Compared to ECG 04/19/2023 08:59:34 No significant changes Electronically Signed On 12-12-23 14:12:09 CDT by Olivier Dalal
== END 2023-12-11 15:02 | disposition home or self-care (01) ==
LOC: ER 09:59
DX: R10.32 Left lower quadrant pain (principal); R10.31 Right lower quadrant pain; R51.9 Headache, unspecified; Z87.820 Personal history of traumatic brain injury; Z91.048 Other nonmedicinal substance allergy status
CPT/HCPCS: 93005; 85025; 81001; 80048; 36415; 83735; 85610; 80076; 84484; 83690; 83880; 74177; 71045; 96375; 96374; 99284; Q9967; J2405; J7030

== ENCOUNTER 2023-12-20 10:22 | Day surgery (SDC) | payer OTHER ==
[2023-12-20] MEDS: Ringers Lactate 1,000 ML IV ONE ×2 (10:47→14:27)
[2023-12-20] MEDS ORDERED: ONDANSETRON 4 MG/2 ML VIAL ONE (11:24)
[2023-12-20] MEDS ORDERED: KETOROLAC 30 MG/ML INJ ONE (11:24)
[2023-12-20] MEDS ORDERED: propofoL 200 MG/20 ML VIAL IV ONE ×2 (11:24→12:00)
[2023-12-20] MEDS ORDERED: dexAMETHasone 10 MG/ML VIAL ONE (11:24)
[2023-12-20] MEDS ORDERED: ROCURONIUM 50 MG/5 ML VIAL IV ONE (11:24)
[2023-12-20] MEDS ORDERED: LIDOCAINE 2% MPF 5 ML VIAL ONE (11:24)
[2023-12-20] MEDS ORDERED: MIDAZOLAM HCL 2 MG/2 ML INJ ONE (11:24)
[2023-12-20] MEDS ORDERED: FENTANYL CITR 100 MCG/2 ML ONE (11:25)
[2023-12-20] MEDS: CEFAZOLIN SODIUM 2 GM/VIAL ONE (11:53)
[2023-12-20] MEDS: LIDOCAINE HCL/EPINEPHRINE 20 ML MDV ONE (12:33)
--- NOTE | 2023-12-20 13:29 | P.OP ---
Preoperative diagnosis: Chronic Cholecystitis with Cholelithiasis Postoperative diagnosis: Chronic Cholecystitis with Cholelithiasis Primary procedure: Laparoscopic Cholecystectomy with ICG Anesthesia: GETA + Local Estimated blood loss: <5cc Specimen: Gallbladder Findings: Dilated GB Complications: None Transferred to: Recovery Room Condition: Good
[2023-12-20] MEDS: HYDROMORPHONE HCL 1 MG/ML INJ ONE ×2 (13:53→14:33)
[2023-12-20] MEDS: FENTANYL CITR 100 MCG/2 ML ONE (14:04)
[2023-12-20] MEDS: HYDROCODONE/APAP 10/325 TAB ONE (15:00)
[2023-12-20 15:33] VITALS: BP 107/58; TEMP 97; O2SAT 97
--- NOTE | 2023-12-21 00:41 | OP ---
Date of Procedure: 12/20/2023 Surgeon: Álvaro Sequeira MD, Preoperative Diagnosis: Chronic cholecystitis with cholelithiasis. Postoperative Diagnosis: Chronic cholecystitis with cholelithiasis. Procedure Performed: Laparoscopic cholecystectomy with indocyanine green cholangiography. Anesthesia: General endotracheal plus local with 0.25% Marcaine. Estimated Blood Loss: Less than 5 cc. Specimen: Gallbladder. Findings: 1.Dilated gallbladder. 2.Partially intrahepatic gallbladder. Complications: None. Disposition: The patient was transferred to recovery room in good condition. Procedure In Detail: After informed consent was obtained, the patient was brought to the operating r oom, prepped and draped in usual sterile fashion. After adequate anesthesia achieved, I anesthetized the area of the supraumbilical skin down to subcutaneous tissues, 5 mm 0-degree optical trocar was i ntroduced in the abdomen without incident or complication. Insufflation obtained to 15 mmHg. At thi s time, there was no injury to vital structures upon entry into the abdomen. Two additional trocars were placed, one in the epigastric and one in the right upper quadrant. Both of these were similarly anesthetized, sharply incised, and 5 mm trocars were placed under direct visualization without incid ent or complication. The patient was positioned head up, right-side up position. I then upsized the umbilical trocar to 12 mm under direct visualization. Ratcheted grasper was used to grasp the patie nt's gallbladder and place it towards the patient's right shoulder, found to be partially intrahepati c gallbladder. At this point, dissection continued down to remove omental attachments off the anteri or surface of the gallbladder, which were quite thick and fibrous at this point consistent with signi ficant inflammatory changes before in this region. After this was taken down using a combination of sharp dissection, blunt dissection, electrocautery, I dissected down circumferentially to the Dobbins n pouch of the gallbladder, dissecting out 2 structures, identified both cystic duct and cystic arter y. These structures were skeletonized and a critical view of safety was obtained at this point, iden tifying only 2 structures entering the gallbladder. Indocyanine green cholangiography was performed at this point showing the confluence of cystic duct/common duct junction. At this point, I placed do uble titanium clips, doubly on the proximal side and singly on the distal side of both the cystic millie t and cystic artery. These structures were then ligated using Endo Ocnnie. The gallbladder was then removed from the hepatic fossa without incident or complication, placed in Endo Catch bag and remove d through the umbilical trocar site and sent off for pathologic examination. The abdomen was re-insu fflated at this point. The area was inspected. There was no bleeding or leakage of bile from the cl ip position. I then did perform indocyanine green cholangiography and saw no bile leakage from the h epatic bed as well. At this point, I irrigated the area, suctioned out completely dry. I placed the patient back in neutral position. Remaining effluent was suctioned out. I then closed the 12 mm tr ocar site under direct visualization without incident or complication. Remaining trocars were remove d. All skin incisions were then copiously irrigated and closed with a 4-0 Monocryl in a running fash ion. Dermabond was placed over top. The patient tolerated procedure well without incident or compli cation, transferred to PACU in good condition. All counts were correct at the end of the case. GINI/REID Voice ID: [id number] Report ID: [id number]
== END 2023-12-20 14:35 | disposition home or self-care (01) ==
LOC: OR 10:22
PROVIDERS: ATTEND Surgery
PROC: BF50200 Other Imaging of Bile Ducts using Fluorescing Agent, Indocyanine Green Dye, Intraoperative (ICD-10-PCS; 2023-12-20)
PROC: 0FT44ZZ Resection of Gallbladder, Percutaneous Endoscopic Approach (ICD-10-PCS; principal; 2023-12-20 12:00)
DX: K80.10 Calculus of gallbladder with chronic cholecystitis without obstruction (principal)
CPT/HCPCS: 88304; 47563; J2704; J2001; J2250; J3010 ×2; J1100; J1170 ×2; J2405; J7120 ×2